=== PATIENT | male | born 1940 | race Caucasian/White ===

== ENCOUNTER → 2020-07-26 12:46 | Outpatient (CLI) | payer MEDICARE, SELFPAY ==
--- NOTE | 2020-07-26 12:51 | RAD_ITS ---
STUDY: X-RAY - ABDOMEN/PELVIS REASON FOR EXAM: Male, 80 years old. CALCULUS OF URETER TECHNIQUE: Single AP view of the abdomen / pelvis. COMPARISON: None. FINDINGS: Normal visualized lung bases. There is a moderate amount of colonic fecal material. A left-sided double-J stent catheter is seen with the proximal tip in the upper pole calyx of the left kidney and distal tip in the left side of the bladder. Multiple small calculi are seen within the left kidney. A tiny calculus is also seen in the upper pole of the right kidney. Normal soft tissue structures. There are diffuse degenerative changes of the visualized lumbar spine. RAD/Abdomen Single View IMPRESSION: Left-sided double-J stent catheter. Bilateral intrarenal calculi, prominent on the left side. Electronically Signed: Seth Horne MD at 14:38 EDT , Service support ,
== END ==
PROVIDERS: Referring Provider Urology; Visit Provider Urology
DX: N20.1 Calculus of ureter (principal)
CPT/HCPCS: 74018

== ENCOUNTER 2024-09-17 08:22 | Observation (INO) | payer MEDICARE, SELFPAY ==
[2024-09-17] VITALS (12 sets, daily range): BP systolic 125–156; BP diastolic 61–75; PULSE 62–85; RESP 16–20; TEMP 36.2–36.9; O2SAT 96–100; BMI 26.2
--- NOTE | 2024-09-17 10:25 | PCM.HP.STD ---
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 Patient is agreeable with the plan because of the ongoing bleeding which then not been able to stop with the catheter. He is n.p.o. and plan for surgery today [facility] Medical History Blood disorder Renal disease Hiatal hernia History of stress test HTN (hypertension) Heart attack Home Medications ?Medication ?Instructions ?Recorded ?Last Taken ?Type amlodipine 2.5 mg tablet 2.5 mg PO DAILY 09/17/24 09/15/24 18:00 History aspirin 81 mg capsule 81 mg PO DAILY 09/17/24 09/15/24 08:00 History carvedilol 6.25 mg tablet 6.25 mg PO BID 09/17/24 09/16/24 08:00 History coQ10 (ubiquinol) 200 mg capsule 200 mg PO QHS prostate 09/17/24 09/15/24 22:00 History (Active Q) cyanocobalamin (vitamin B-12) 500 500 mcg PO DAILY 09/17/24 09/16/24 History mcg tablet (Vitamin B-12) finasteride 5 mg tablet 5 mg PO DAILY 09/17/24 09/15/24 18:00 History folic acid 1 mg tablet 1 mg PO DAILY 09/17/24 09/16/24 12:00 History hydrochlorothiazide 12.5 mg tablet 12.5 mg PO DAILY 09/17/24 09/16/24 12:00 History loratadine 10 mg tablet 10 mg PO PRN Allergis 09/17/24 Unknown History losartan 100 mg tablet 100 mg PO DAILY 09/17/24 09/16/24 08:00 History magnesium oxide 400 mg (241.3 mg 400 mg PO DAILY 09/17/24 09/16/24 12:00 History magnesium) tablet pravastatin 40 mg tablet 40 mg PO DAILY 09/17/24 09/15/24 22:00 History tamsulosin 0.4 mg capsule 0.4 mg PO DAILY 09/17/24 09/15/24 22:00 History terazosin 5 mg capsule 5 mg PO QHS 09/17/24 09/15/24 History turmeric 400 mg capsule mg PO DAILY Prostrate 09/17/24 09/15/24 18:00 History Surgical History H/O cardiac catheterization Social History Smoking Status: Never smoker ROS Constitutional Constitutional: Denies chills, fever(s) or malaise Eyes Eyes: Denies blurry vision or change in vision ENT HEENT: Reports none Cardiovascular Cardiovascular: Denies chest pain or palpitations Respiratory/Chest Respiratory/Chest: Denies cough or shortness of breath with exertion Gastrointestinal Gastrointestinal: Denies abdominal pain, constipation or diarrhea Musculoskeletal Musculoskeletal: Denies back pain, joint stiffness or joint swelling Integumentary Integumentary: Denies dry skin, jaundice, lesions or rash Neurologic Neurologic: Denies confusion, syncope or weakness Psychiatric Psychiatric: Reports none; Denies anxiety or depression Endocrine Endocrinology: Denies excessive sweating, fatigue or flushing Hematologic/Lymphatic Hematologic/Lymphatic: Denies anemia, easy bleeding or easy bruising Vital Signs Vital Signs Vital Signs: 09/17/24 08:47 Temperature 97.7 F L Temperature Source Oral Pulse Rate 78 Respiratory Rate 18 Blood Pressure 137/69 H Blood Pressure Mean 91 Blood Pressure Source Monitor Blood Pressure Position Supine Blood Pressure Location Right Arm Pulse Ox 97 Oxygen Delivery Method Room Air Weight Weight: 78.4 kg Body Mass Index (BMI) 26.2 Assessment & Plan Assessment/Plan (1) Gross hematuria: (2) Bladder mass: PLAN: Plan to proceed to surgery today for evacuation of blood clots and resection of what probably is a bladder tumor or bladder mass bladder cancer.
--- NOTE | 2024-09-17 10:30 | BLA_PTH ---
PATIENT: FREDDIE MONREAL Jr. LOC: MS3 U#:[id number] AGE/SX: 84/M ROOM: [facility] RE09/17/[address]: Dr. Chandrakant Velez MD : 1940 BED: 1 DIS: 09/18/2024 SPEC #: [id number] RECD: 09/17/24 13:44 STATUS: RONNELL LOZANOAlena #: [id number] PAYTON: 09/17/24 10:[address]: Chandrakant Velez DEPT: SURGICAL PATHOLOGY RECD BY: Maury Fitch ENTERED: 09/17/24 14:32 SP TYPE: BLADDER BX OTHR DR: No Primary Care Phys Tissues: A - Urinary bladder, NOS Procedures: Surgery Specimen Level IV HEADER OPERATION: Cystoscopy, evacuation clots PRE-OP DIAGNOSIS: Gross hematuria, bladder mass TISSUE SUBMITTED: A- Bladder stones MICROSCOPIC DIAGNOSIS A. Urinary bladder, cystoscopy and evacuation: * Clotted blood and urinary calculi remnants; no tissue is identified MICROSCOPIC DESCRIPTION Slides are reviewed. GROSS DESCRIPTION A. Received in formalin labeled with the patient's name and date of . Designated as bladder stones is a 6.0 x 4.7 x 1.1 cm aggregate of dark red clotted blood and numerous, smooth, yellow calculi, 0.1 cm to 0.2 cm. No definitive tissue fragments are identified. Director Outcomes sections of the clotted blood are submitted in 2 cassettes. [place] 09/17/2024 CPT:75271
[2024-09-17 10:59] LABS: Hematocrit 37.7 % (40-54); Hemoglobin 12.6 g/dL (13.0-16.5); Mean Corp Hgb Conc 33.4 g/dL (32-36); Mean Corpuscular Volume 93.5 fL (80-94); Mean Platelet Vol. 11.3 fl (6.2-12.0); Platelet Count 112 K/mm3 (150-450); RBC Distribution Width CV 14.6 % (11.6-14.6); RBC Distribution Width SD 50.1 fl (35.1-43.9); Red Blood Count 4.03 M/mm3 (4.6-6.2); White Blood Count 14.0 K/mm3 (4.4-11.0)
[2024-09-17] MEDS: Lactated Ringers 1,000 ML 15 ML IV (11:06)
--- NOTE | 2024-09-17 11:09 | PCM.PRE.AN2 ---
ASA Classification* ASA Classification ASA Classification: 3 and E Assessment & Plan Anesthesia* Anesthesia Assessment Anesthesia Assessment: Discussed sedation and/or anesthesia options, risks, benefits, and alternatives with patient/parents/legal guardian/POA. Questions invited. The patient/parents/legal guardian/POA seems to understand and agrees to proceed with anesthesia plan. Reviewed the physical assessment, medical history, allergy history and patient home medications list prior to surgery/procedure/anesthetic and documented any changes. Performed airway and anesthesia risk assessments. Procedural Plan Add'l anesthesia plan details: I reviewed the patients paper chart from [facility]. Hbg >11 today, will obtain repeat CBC and T&S now. 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 Anesthesia Type Anesthesia Type: General (discussed GA with ETT. Patient consents to blood products. Discussed risks of NE, CVA, seizure, post-op ventilation, sore throat.) History Source History Obtained from:: Patient and Chart Anesthesia Focused Assessment* Temperature: 97.7 F Pulse Rate: 78 Blood Pressure: 137/69 Respiratory Rate: 18 Pulse Ox: 97 Oxygen Delivery Method: Room Air Airway Assessment Mouth opens: >3 cm Mallampati Score: I Teeth Condition: Intact Labs Anesthesia Preop lab: CBC WBC 14.0 K/mm3 (4.4-11.0) H 09/17/24 10:47 09/17/24 RBC 4.03 M/mm3 (4.6-6.2) L 09/17/24 10:47 09/17/24 Hgb 12.6 g/dL (13.0-16.5) L 09/17/24 10:47 09/17/24 Hct 37.7 % (40-54) L 09/17/24 10:47 09/17/24 Plt Count 112 K/mm3 (150-450) L 09/17/24 10:47 09/17/24 CHEMISTRY COAG Pre-Assessment Diagnosis/Proposed Procedure Planned Operative Procedure(s): cystoscopy, clot evacuation Anesthesia History 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 When Was Last Pacemaker Check QUESTION #4 FULL TEXT: You/Your Family Experience fever (hyperthermia) with Anesthesia Last Oral Intake Last Oral intake: Last Oral Intake NPO since 17:00 09/17/24 11:00 Meds taken in AM with sips of No 09/17/24 11:00 water? Meds patient instructed to take am of surgery PONV PONV - coyote hunter: PONV - coyote hunter Female HX of Motion Sickness HX of N/V After Surgery Non-Smoker Duration of Surgery greater than 60 minutes Number of Risk Factors PONV Score Any additional information?: Yes Female: No HX of Motion Sickness: No HX of N/V After Surgery: No Non-Smoker: Yes Duration of Surgery greater than 60 minutes: Yes Number of Risk Factors: 2 PONV Score: Moderate Risk Height & Weight Height & Weight: Anesthesia: Height & Weight Height 5 ft 8 in 09/17/24 11:00 Weight: 78.4 kg 09/17/24 11:00 Body Mass Index (BMI) 26.2 09/17/24 11:00 Respiratory Assessment Respiratory Assessment - coyote hunter: Respiratory Tract Infection Hx - coyote hunter Hx Respiratory Tract Infection No 09/17/24 09:53 STOP Sleep Apnea STOP Sleep Apnea - coyote hunter: STOP Sleep Apnea - coyote hunter Hx Hypertension Yes 09/17/24 08:29 Hx Sleep Apnea No 09/17/24 08:29 CPAP BIPAP Do you snore loudly (louder No 09/17/24 08:29 than talking or can be heard Do you often feel tired/ No 09/17/24 08:29 fatigued/ sleepy during daytime? Has anyone observed you stop No 09/17/24 08:29 breathing during sleep? STOP Results Negative 09/17/24 08:29 QUESTION #5 FULL TEXT : Do you snore loudly (louder than talking or can be heard through closed doors)? 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 Specify any problems Hx of Preganancy in last 3 N/A 09/17/24 08:29 Months Nurse Filling Out Transfusion PAOLA 09/17/24 08:29 & Questions: Date: 09/17/24 09/17/24 08:29 Time: 09:40 09/17/24 08:29 Patient unable to answer at this time (ie. confused, unrespo /Reproduction History /Reproductive History - coyote hunter: /Reproductive Hx- coyote hunter Hx Now No 09/17/24 09:53 Gestational Age (in weeks): EDC: Hx Hx Para Hx Section SAB No 09/17/24 09:53 Active Medications Active Medications: Current Medications Generic Name Dose Route Start Last Admin Trade Name Freq PRN Reason Stop Dose Admin Sodium Chloride 250 mls @ 15 mls/hr 09/17/24 08:31 IV .[id number] PRN Saline Flush Cefazolin Sodium 2 gm/ Sodium 110 mls @ 200 mls/hr 09/17/24 10:19 Chloride IV 09/17/24 10:51 X1 ONE Lactated Ringer's 1,000 mls @ 15 mls/hr 09/17/24 11:15 09/17/24 11:06 IV 15 mls/hr .Q48H RENU Administration Sodium Chloride 10 - 40 ml 09/17/24 08:31 0.9% Saline Lock 10 Ml Syringe IV UD PRN SALINE FLUSH PFSH Medical History Blood disorder Renal disease Hiatal hernia History of stress test HTN (hypertension) Heart attack Home Medications ?Medication ?Instructions ?Recorded ?Last Taken ?Type amlodipine 2.5 mg tablet 2.5 mg PO DAILY 09/17/24 09/15/24 18:00 History aspirin 81 mg capsule 81 mg PO DAILY 09/17/24 09/15/24 08:00 History carvedilol 6.25 mg tablet 6.25 mg PO BID 09/17/24 09/16/24 08:00 History coQ10 (ubiquinol) 200 mg capsule 200 mg PO QHS prostate 09/17/24 09/15/24 22:00 History (Active Q) cyanocobalamin (vitamin B-12) 500 500 mcg PO DAILY 09/17/24 09/16/24 History mcg tablet (Vitamin B-12) finasteride 5 mg tablet 5 mg PO DAILY 09/17/24 09/15/24 18:00 History folic acid 1 mg tablet 1 mg PO DAILY 09/17/24 09/16/24 12:00 History hydrochlorothiazide 12.5 mg tablet 12.5 mg PO DAILY 09/17/24 09/16/24 12:00 History loratadine 10 mg tablet 10 mg PO PRN Allergis 09/17/24 Unknown History losartan 100 mg tablet 100 mg PO DAILY 09/17/24 09/16/24 08:00 History magnesium oxide 400 mg (241.3 mg 400 mg PO DAILY 09/17/24 09/16/24 12:00 History magnesium) tablet pravastatin 40 mg tablet 40 mg PO DAILY 09/17/24 09/15/24 22:00 History tamsulosin 0.4 mg capsule 0.4 mg PO DAILY 09/17/24 09/15/24 22:00 History terazosin 5 mg capsule 5 mg PO QHS 09/17/24 09/15/24 History turmeric 400 mg capsule mg PO DAILY Prostrate 09/17/24 09/15/24 18:00 History Allergy/AdvReac Type Severity Reaction Status Date / Time Iodinated Contrast Media Allergy Severe swelling Verified 09/17/24 10:53 (IVP dye) lips simvastatin Allergy Mild muscle Verified 09/17/24 10:53 aches Surgical History H/O cardiac catheterization Social History Smoking Status: Never smoker Review of Systems (Anesthesia) ROS Narrative System reviewed and no additional complaints, except as documented. Physical Exam Const alert and oriented x3 HEENT dentition normal Resp normal respiratory effort Cardio regular rate Neuro oriented x3 and moves all extremities
--- NOTE | 2024-09-17 12:53 | OP.PCM_ITS ---
Operative Report (Standard) Operative Information Date of Procedure: 09/17/24 Pre-Operative Diagnosis: Gross hematuria bleeding from the bladder Post-Operative Diagnosis: The same, bleeding from large prostate and large bladder stones Surgery/Procedure Performed: Cystoscopy evacuation of blood clots and cauterization of prostatic bleeding and cystolitholapaxy and laser and removal of large bladder stones greater than 3 cm residential child care counselor: No Type of Anesthesia: General RN Documented Start/Stop Times: Operation Date: 09/17/24 10:30 Case Time Into Pre-Op 09/17/24 10:31 Procedure Start Time: 12:29 Procedure Stop Time: 12:54 Select all DRAINS/GRAFTS/IMPLANTS that apply: Drains Drain details: 22 Japanese three-way catheter Estimated Blood Loss: Large Specimen collected: Yes Description of specimen(s) removed: Blood clots and bladder stones Description of surgery: This is a 84-year-old gentleman presented to the outside hospital with bleeding had a CAT scan done that reported a possible mass in the bladder and bleeding and hemorrhage he was transferred over for further care taken back down to the operating room he underwent general anesthesia. He was placed in dorsal lithotomy position. Billy catheter was removed was very bloody I then prepped and draped the patient usual sterile fashion placed in dorsolithotomy position went in the bladder with a 26 Japanese continuous-flow resectoscope once inside the bladder then I evacuated out all these clots from the bladder and then once again all the clots evaluated then I saw several large bladder stones and a whole bunch of small bladder stones in the base of the bladder evacuated all the little tiny stones but then used a 960 ?m laser fiber the laser of the large bladder stone and the stone was lasered completely into little pieces and evacuated out completely after successfully removing out the bladder stone that I noticed that he had extremely large prostate with extremely hypertrophy bilateral hypertrophy and obstruction and there was bleeding active bleeding coming from the prostate bladder neck area so this was cauterized until the bleeding stopped once I get the bleeding under control all the stones were then removed out to another he had extremely large prostate that appeared to be a bladder mass on CAT scan but just a large prostate so this was cauterized to stop the bleeding I did not do a resection of the prostate. Plan to be do medical therapy we will keep the catheter in for irrigation and take the catheter out for voiding trial tomorrow. Surgical Findings: Significantly enlarged very large prostate with bleeding from the bladder neck all the clot blood clots removed and cauterized large bladder stones lasered and removed Complications Complications: No Admit VTE Documentation VTE Present on Admission: No VTE Mechan Device Prophylaxis: SCD's VTE Pharm Prophylaxis ordered?: No
--- NOTE | 2024-09-17 12:53 | DCINST_ITS ---
Discharge Instructions DC O2, CPAP, BIPAP needs Home O2 Discharge instructions: No Dressing / Incision Discharge Activity: Return to Normal Activity Dressing / Incision Call your doctor if your incision/area has: Sudden Increased Bleeding Call your doctor if you observe: Fever of 101 or Higher Follow Up Care Please Follow Up With: Chandrakant Velez MD When: 2 weeks. Test Results: Test results from this visit will be discussed in further detail at your follow- up appointment, if applicable. Discharge Plan Admission Admit Date/Time: 09/17/24 08:22 Attending Provider: Chandrakant Velez Primary Care Provider: Care Physician,Jessy Primary Discharge Orders/Prescriptions Prescriptions: No Action terazosin 5 mg capsule 5 mg PO QHS carvedilol 6.25 mg tablet 6.25 mg PO BID pravastatin 40 mg tablet 40 mg PO DAILY amlodipine 2.5 mg tablet 2.5 mg PO DAILY tamsulosin 0.4 mg capsule 0.4 mg PO DAILY folic acid 1 mg tablet 1 mg PO DAILY losartan 100 mg tablet 100 mg PO DAILY finasteride 5 mg tablet 5 mg PO DAILY hydrochlorothiazide 12.5 mg tablet 12.5 mg PO DAILY aspirin 81 mg capsule 81 mg PO DAILY loratadine 10 mg tablet 10 mg PO PRN magnesium oxide 400 mg (241.3 mg magnesium) tablet 400 mg PO DAILY turmeric 400 mg capsule 400 mg PO DAILY cyanocobalamin (vitamin B-12) [Vitamin B-12] 500 mcg tablet 500 mcg PO DAILY Active Q 200 mg capsule 200 mg PO QHS Referrals / Follow Up: Care Physician,No Primary [Primary Care Provider] -
--- NOTE | 2024-09-17 13:02 | PCM.POST.ANE ---
Anesthesia: Postop Eval I Current Vital Signs Temperature: 97.1 F Pulse Rate: 76 Blood Pressure: 154/70 Respiratory Rate: 20 Pulse Ox: 100 Oxygen Delivery Method: Room Air Assessment Airway patent: Yes Spontaneous unlabored respirations: Yes Mental status: Awake and Calm nausea: No Vomiting: No Anesthesia Complication: No Fluid Hydration Crystalloid volume administer (ml): 800 Total IV fluid infused: 800 Progress Note Anesthesia document: Postop Eval 1 completed: Yes
[2024-09-17] MEDS: 0.9% Normal Saline (1000mL) 1,000 ML 125 ML IV ×2 (14:18→21:35)
--- NOTE | 2024-09-17 16:03 | POSTOPAN2_ITS ---
Anesthesia Postop Eval I Sum Postop Eval Completion status Anesthesia document: Postop Eval 1 completed: Yes Anesthesia Postop Eval I Summary Anesthesia Postop Eval I Summary: Anesthesia Postop Eval I: Assessment Summary Airway patent Yes 09/17/24 13:03 [email or web address] Spontaneous unlabored Yes 09/17/24 13:03 [email or web address] respirations Mental status Awake,Calm 09/17/24 13:03 [email or web address] nausea No 09/17/24 13:03 [email or web address] Vomiting No 09/17/24 13:03 [email or web address] Anesthesia Postop Eval I: Fluid Summary Crystalloid volume administer 800 09/17/24 13:03 [email or web address] (ml) Colloids volume administered ( ml) Blood Product volume administered (ml) Total IV fluid infused 800 09/17/24 13:03 [email or web address] Anesthesia Postop Eval I: Summary Notes Anesthesia Complication No 09/17/24 13:03 [email or web address] Anesthesia Complication Comment: Post-operative progress note Anesthesia: Postop Eval II Evaluation Mental status: Awake and Calm Pain Level: 1 nausea: No Vomiting: No Complications Anesthesia Complication: No
--- NOTE | 2024-09-17 16:03 | PCM.POSTANE2 ---
Anesthesia Postop Eval I Sum Postop Eval Completion status Anesthesia document: Postop Eval 1 completed: Yes Anesthesia Postop Eval I Summary Anesthesia Postop Eval I Summary: Anesthesia Postop Eval I: Assessment Summary Airway patent Yes 09/17/24 13:03 [email or web address] Spontaneous unlabored Yes 09/17/24 13:03 [email or web address] respirations Mental status Awake,Calm 09/17/24 13:03 [email or web address] nausea No 09/17/24 13:03 [email or web address] Vomiting No 09/17/24 13:03 [email or web address] Anesthesia Postop Eval I: Fluid Summary Crystalloid volume administer 800 09/17/24 13:03 [email or web address] (ml) Colloids volume administered ( ml) Blood Product volume administered (ml) Total IV fluid infused 800 09/17/24 13:03 [email or web address] Anesthesia Postop Eval I: Summary Notes Anesthesia Complication No 09/17/24 13:03 [email or web address] Anesthesia Complication Comment: Post-operative progress note Anesthesia: Postop Eval II Evaluation Mental status: Awake and Calm Pain Level: 1 nausea: No Vomiting: No Complications Anesthesia Complication: No
[2024-09-18 01:54] VITALS: BP 147/69; PULSE 75; RESP 16; TEMP 36.6; O2SAT 98
[2024-09-18 05:54] VITALS: BP 118/78; PULSE 70; RESP 16; TEMP 36.6; O2SAT 96
[2024-09-18 06:02] LABS: Hematocrit 31.1 % (40-54); Hemoglobin 10.5 g/dL (13.0-16.5); Immature Granulocytes Count 0.170 X10^3/uL (0.0-0.0); Mean Corp Hgb Conc 33.8 g/dL (32-36); Mean Corpuscular Volume 93.4 fL (80-94); Mean Platelet Vol. 11.9 fl (6.2-12.0); NRBC Flagged by Analyzer 0 % (0-5); Platelet Count 114 K/mm3 (150-450); RBC Distribution Width CV 14.7 % (11.6-14.6); RBC Distribution Width SD 50.4 fl (35.1-43.9); Red Blood Count 3.33 M/mm3 (4.6-6.2); White Blood Count 18.4 K/mm3 (4.4-11.0)
[2024-09-18] MEDS: 0.9% Normal Saline (1000mL) 1,000 ML 125 ML IV (06:19)
[2024-09-18 06:31] LABS: Anion Gap 9 (5-15); BUN 32 mg/dL (4-19); BUN/Creat Ratio 26.6 RATIO (10-20); Calcium,Total 8.0 mg/dL (7.6-11.0); Carbon Dioxide 23.3 mmol/L (21.0-32.0); Chloride 108 mmol/L (98-108); Estimated Creatinine Clearance 45.50 ml/min (50-250); Glucose 130 mg/dL (70-99); Potassium 4.5 mmol/L (3.3-5.1)
--- NOTE | 2024-09-18 07:29 | DS.PCM_ITS ---
Providers Date of Admission: 09/17/24 Date of Discharge: 09/18/24 Primary Care Physician: Jesys Primary Care Phys Reason For Visit: HEMORRHAGING BLADDER MASS Diagnosis Discharge Diagnosis (1) Gross hematuria: Status: Acute Code(s): R31.0 - Gross hematuria (2) Bladder mass: Status: Acute Code(s): N32.89 - Other specified disorders of bladder Plan: Plan to proceed to surgery today for evacuation of blood clots and resection of what probably is a bladder tumor or bladder mass bladder cancer. Medications at Discharge Home Medications amlodipine 2.5 mg tablet 2.5 mg PO DAILY 09/17/24 aspirin 81 mg capsule 81 mg PO DAILY 09/17/24 carvedilol 6.25 mg tablet 6.25 mg PO BID 09/17/24 coQ10 (ubiquinol) 200 mg capsule (Active Q) 200 mg PO QHS prostate 09/17/24 cyanocobalamin (vitamin B-12) 500 mcg tablet (Vitamin B-12) 500 mcg PO DAILY 09/17/24 finasteride 5 mg tablet 5 mg PO DAILY 09/17/24 folic acid 1 mg tablet 1 mg PO DAILY 09/17/24 hydrochlorothiazide 12.5 mg tablet 12.5 mg PO DAILY 09/17/24 loratadine 10 mg tablet 10 mg PO PRN Allergis 09/17/24 losartan 100 mg tablet 100 mg PO DAILY 09/17/24 magnesium oxide 400 mg (241.3 mg magnesium) tablet 400 mg PO DAILY 09/17/24 pravastatin 40 mg tablet 40 mg PO DAILY 09/17/24 tamsulosin 0.4 mg capsule 0.4 mg PO DAILY 09/17/24 terazosin 5 mg capsule 5 mg PO QHS 09/17/24 turmeric 400 mg capsule 400 mg PO DAILY Prostrate 09/17/24 Hospital Course Operations - (Taken to surgery for evacuation of blood clots and removal of bladder stones) Summary of Care Provided Minutes Spent on Discharge: 20 Hospital Course: Patient went to surgery to evacuate blood clots and remove bladder stones will DC Billy today and home after he urinates he would probably benefit from having a simple robotic prostatectomy for a very large prostate Physical Exam Const alert and oriented x3 General Appearance: cooperative HEENT normocephalic and head/scalp atraumatic Eyes PERRL and EOMs intact bilaterally Neck supple, no JVD and no carotid bruits Resp normal respiratory effort, normal air movement and clear to auscultation bilaterally Cardio regular rate and no murmurs GI normal to inspection, nondistended, normoactive bowel sounds and soft to palpation Extremity normal capillary refill General Extremity: no tenderness to palpation of joints or extremities; Negative for edema Skin no rashes or lesions noted and no wounds General Skin Exam: no breakdown Neuro CN's II-XII intact bilaterally Psych affect normal Appearance: appropriate Weight / BMI Weight Weight: 78.4 kg Body Mass Index (BMI) 26.2 ABG / Lab / Microbiology Data 09/18/24 04:50 09/18/24 04:50 Laboratory: Laboratory Results - last 24 hr 09/17/24 10:47: WBC 14.0 H, RBC 4.03 L, Hgb 12.6 L, Hct 37.7 L, MCV 93.5, MCH 31.3, MCHC 33.4, RDW Std Deviation 50.1 H, RDW Coeff of Og 14.6, Plt Count 112 L, MPV 11.3, Blood Type B POSITIVE, Antibody Screen NEGATIVE 09/18/24 04:50: WBC 18.4 H, RBC 3.33 L, Hgb 10.5 L, Hct 31.1 L, MCV 93.4, MCH 31.5, MCHC 33.8, RDW Std Deviation 50.4 H, RDW Coeff of Og 14.7 H, Plt Count 114 L, MPV 11.9, Immature Gran % (Auto) 0.900, Neut % (Auto) 87.8 H, Lymph % (Auto) 5.1 L, [place] % (Auto) 6.0, Eos % (Auto) 0.0, Baso % (Auto) 0.2, Absolute Neuts (auto) 16.2 H, Absolute Lymphs (auto) 0.94, Nucleated RBC % 0, Sodium 141, Potassium 4.5, Chloride 108, Carbon Dioxide 23.3, Anion Gap 9, BUN 32 H, Creatinine 1.19, Estim Creat Clear Calc 45.50 L, Est GFR (MDRD) Non-Af 61, B UN/Creatinine Ratio 26.6 H, Glucose 130 H, Calcium 8.0 D/C Instructions Call your doctor if your incision/area has: Sudden Increased Bleeding Call your doctor if you observe: Fever of 101 or Higher DC O2, CPAP, BIPAP Needs Home O2 Discharge instructions: No Please Follow Up With: Chandrakant Velez MD When: 2 weeks. Meaningful Use Info Meaningful Use Meaningful Use Diagnoses (Choose all that apply): None applicable Discharge Plan Admission Admit Date/Time: 09/17/24 12:58 Attending Provider: Chandrakant Velez Primary Care Provider: Care Physician,No Primary Discharge Orders/Prescriptions Prescriptions: No Action terazosin 5 mg capsule 5 mg PO QHS carvedilol 6.25 mg tablet 6.25 mg PO BID pravastatin 40 mg tablet 40 mg PO DAILY amlodipine 2.5 mg tablet 2.5 mg PO DAILY tamsulosin 0.4 mg capsule 0.4 mg PO DAILY folic acid 1 mg tablet 1 mg PO DAILY losartan 100 mg tablet 100 mg PO DAILY finasteride 5 mg tablet 5 mg PO DAILY hydrochlorothiazide 12.5 mg tablet 12.5 mg PO DAILY aspirin 81 mg capsule 81 mg PO DAILY loratadine 10 mg tablet 10 mg PO PRN magnesium oxide 400 mg (241.3 mg magnesium) tablet 400 mg PO DAILY turmeric 400 mg capsule 400 mg PO DAILY cyanocobalamin (vitamin B-12) [Vitamin B-12] 500 mcg tablet 500 mcg PO DAILY Active Q 200 mg capsule 200 mg PO QHS Referrals / Follow Up: Care Physician,No Primary [Primary Care Provider] -
[2024-09-18 07:55] VITALS: BP 152/82; PULSE 71; RESP 16; TEMP 36.6; O2SAT 96
--- NOTE | 2024-09-18 09:20 | CASEMGMT ---
EROS PASTRANA NOTE:? Strata:?1 6 click:?24 No therapy ordered.? No CM consult ordered.? Medical record reviewed and patient evaluated for identification of discharge planning needs. Patient does not currently demonstrate a need for discharge planning by EROS PASTRANA. Pt did not have PCP listed in [facility]. EROS CM to room. Pt states he sees DIANE Croft @[facility] in [place]. Call placed to registration to have PA entered. Pt states he is very independent and denies having any discharge needs or concerns. Luis LAWSON RN CM
[2024-09-18 11:21] VITALS: BP 145/92; PULSE 70; RESP 18; TEMP 36.9; O2SAT 96
--- NOTE | 2024-09-18 11:51 | CHAPLAIN ---
Type of Pastoral Visit _x__ Initial Visit ___ Follow-up Visit ___ On-call Visit ___ General Patient Visit ___ Spiritual Assessment ___ Family Conference ___ Bereavement ___ Rapid Response ___ Code Blue ___ Other (describe below) Pastoral Care Referral From _x__ Patient ___ Family ___ Nurse ___ Physician ___ Obstetrics Nurse Practitioner ___ Security System Technician ___ Other (describe below) Sacrament/Intervention _x__ Active listening ___ Anointing ___ Islam ___ Bereavement ___ Communion _x__ [place] exploration ___ _x__ Life review _x__ Prayer ___ Reconciliation ___ Sacrament of Sick ___ Supportive presence ___ Wedding ___ Other (describe below) Pastoral Comments patient and spouse give details on how health issue was resolved and their experience with ED and surgery; pt is man of [place] and explains his background with spiritual encounters and how this gets him through life; pt has had communion and anointing by the Anabaptist Roman [employer]; pt expresses thanks for spiritual care and presence; prayer given
[2024-09-18 13:44] VITALS: BP 150/80; PULSE 72; RESP 16; TEMP 37.1; O2SAT 98
== END 2024-09-18 14:28 | disposition home or self-care (01) ==
PROVIDERS: Anesthesiology; Admitting Provider Urology; Referring Provider Urology; Visit Provider Urology
PROC: (CPT 52214; principal; 2024-09-17 11:50)
DX: N40.1 Benign prostatic hyperplasia with lower urinary tract symptoms (principal); N13.8 Other obstructive and reflux uropathy; I10 Essential (primary) hypertension; I25.2 Old myocardial infarction; R31.0 Gross hematuria; N21.0 Calculus in bladder; Z79.82 Long term (current) use of aspirin; Z79.899 Other long term (current) drug therapy
CPT/HCPCS: 52318; 00910; 36415; 80048; 85025; 85027; 86850; 86900; 86901; 88305; 96361; 96365; 96376; 99221; G0378; J0744; J2405

== ENCOUNTER 2024-09-18 20:01 | Observation (INO) | payer MEDICARE, SELFPAY ==
[2024-09-18 20:04] VITALS: BP 188/92; PULSE 73; RESP 16; TEMP 37; O2SAT 99; BMI 28.7
--- OUTSIDE RECORDS SUMMARY | 2024-09-18 21:00 | XMS RPT_ITS | CCD ---
Author Organization [facility] Care Team Providers Care 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 Name Role Phone ENRIQUE GIVENS Primary Care Physician Ruiz Miller MD Primary Care Provider ENRIQUE GIVENS Primary Care Physician Ruiz Miller MD Primary Care Provider Ruiz Miller MD Primary Care Provider Martha Martell MD Unavailable [phone] ENRIQUE GIVENS Primary Care Physician [phone] UNKNOWN, PCP Primary Care Unavailable Alexsander Wooten Attending Unavailable Alexsander Wooten Admitting Unavailable UNKNOWN, PCP Primary Care Unavailable Alexsander Wooten Attending Unavailable Trevor Wootensan Admitting Unavailable UNKNOWN, PCP Primary Care Unavailable Dr. Alexsander Wooten Attending Unavailable ENRIQUE GIVENS Attending Unavailable ENRIQUE GIVENS Primary Care Unavailable ENRIQUE GIVENS Attending Unavailable ENRIQUE GIVENS Primary Care Unavailable ENRIQUE GIVENS Attending Unavailable ENRIQUE GIVENS Primary Care Unavailable ENRIQUE GIVENS Attending Unavailable ENRIQUE GIVENS Primary Care Unavailable ENRIQUE GIVENS Attending Unavailable ENRIQUE GIVENS Primary Care Unavailable Martha Martell MD Unavailable [phone] Enrique Croft PA-C Primary Care Provider [phone] Unavailable Primary Care Provider UnavailENRIQUE Andrade Attending Unavailable ENRIQUE GIVENS Primary Care Unavailable MARTHA MARTELL Referring UnavailENRIQUE Pan Primary Care Unavailable Agustin HURTADO, Dr. Chandrakant Nichole Admit Provider [phone] Agustin HURTADO, Dr. Chandrakant Nichole Attending Provider Agustin HRUTADO, Dr. Chandrakant Nichole Referring Provider ENRIQUE CROFT Primary Care Provider Allergies Allergy Classification Reported Allergen(s) Allergy Type Date of Onset Reaction(s) Facility (20 sources) Contrast media; Translations: [iodinated radiocontrast agents] Drug allergy lips swelling [facility] Work Phone: (20 sources) Simvastatin; Translations: [simvastatin] Drug Allergy 1 Unknown, Other: See Comments [facility] Work Phone: (5 sources) Iodine; Translations: [IODINE] Drug Allergy 1 Unknown [facility] (5 sources) Gadolinium-Contain ing Contrast Media; Translations: [GADOLINIUM-CONTAI NICOLE CONTRAST MEDIA] Drug Allergy 1 Swelling [facility] (1 source) Triiodobenzoic Acids Allergy to substance 5 swelling [facility] Medications Current Medications Medication Drug Class(es) Dates Sig (Normalized) Sig (Original) acyclovir 400 mg oral tablet (3 sources) Herpesvirus Nucleoside Analog DNA Polymerase Inhibitor, Herpes Simplex Virus Nucleoside Analog DNA Polymerase Inhibitor, Herpes Zoster Virus Nucleoside Analog DNA Polymerase Inhibitor Start: 10-06-2022 acyclovir 400 mg oral tablet Dose : 400 mg = 1 tab(s), Oral, BID, 0 Refill(s) Start Date: 10/06/22 Status: Ordered Repeat number: 1 albuterol MDI (90 mcg/inh) CFC free inhalation aerosol (20 sources) Start: 02-05-2021 albuterol MDI (90 mcg/inh) CFC free inhalation aerosol 0 Refill(s) Start Date: 02/05/21 Status: Ordered Repeat number: 1 Start: 02-05-2021 albuterol MDI (90 mcg/inh) CFC free inhalation aerosol 0 Refill(s) Start Date: 02/05/21 Status: Ordered amiodarone hydrochloride 200 mg oral tablet (1 source) Antiarrhythmic Start: 02-23-2021 amiodarone 200 mg oral tablet Dose : 200 mg = 1 tab(s), Oral, qDayM, # 30 tab(s), 0 Refill(s), other reason (Rx) Start Date: 02/23/21 Status: Ordered amLODIPine 2.5 mg oral tablet (20 sources) Dihydropyridine Calcium Channel Emily Start: 08-14-2024 take 1 tablet by mouth once daily Amlodipine 2.5 mg tablet Active 2.5 mg PO DAILY September 17, 2024 12:00am Start: 05-07-2020 take 1 tablet by raheem th once daily amLODIPine (NORVASC) 2.5 mg tablet Take 2.5 mg by mouth once daily. 0 05/07/2020 Active Comment on above: Take 2.5 mg by mouth once daily. aspirin 81 mg oral tablet (20 sources) Platelet Aggregation Inhibitor, Nonsteroidal Anti-inflammatory Drug Start: 09-17-2024 take 1 capsule by mouth once daily Aspirin 81 mg capsule Active 81 mg PO DAILY September 17, 2024 12:00am Start: 06-13-2020 aspirin 81 mg oral delayed release tablet Dose : 81 mg = 1 tab(s), Oral, qHS, 0 Refill(s) Start Date: 06/13/20 Status: Ordered Repeat number: 1 Start: 06-13-2020 aspirin 81 mg oral delayed release tablet Dose : 81 mg = 1 tab(s), Oral, qHS, 0 Refill(s) Start Date: 06/13/20 Status: Ordered Start: 06-13-2020 aspirin 81 mg oral delayed release tablet Dose : 81 mg = 1 tab(s), Oral, Daily, 0 Refill(s) Start Date: 06/13/20 Status: Ordered Comment on above: Take 81 mg by mouth once daily. Take 81 mg by mouth once daily. Last dose per patient will be day before OR 10/18/21 carvedilol 6.25 mg oral tablet (19 sources) alpha-Adrenergic Emily, beta-Adrenergic Emily Start: 09-17-2024 take 1 tablet by mouth twice daily Carvedilol 6.25 mg tablet Active 6.25 mg PO TWICE A DAY September 17, 2024 12:00am Start: 08-14-2024 take 1 tablet by raheem th once daily in the evening carvedilol 6.25 mg oral tablet 1 tab(s), Oral, qPM, # 180 tab(s), 3 Refill(s), Pharmacy: [facility], 172.7, cm, 08/14/24 9:43:00 EDT, Height, kg, 08/14/24 9:43:00 EDT, Dosing Weight Start Date: 08/14/24 Status: Ordered Quantity: 180.0 Unit: tab(s) Repeat number: 4 Start: 04-03-2022 take 1 tablet by raheem th once daily in the evening carvedilol 6.25 mg oral tablet 1 tab(s), Oral, qPM, # 180 tab(s), 0 Refill(s), Pharmacy: [facility], 175.3, cm, 09/21/21 10:24:00 EDT, Height, kg, 09/21/21 10:24:00 EDT, Dosing Weight Start Date: 04/03/22 Status: Ordered Quantity: 180.0 Unit: tab(s) Repeat number: 1 Start: 06-14-2021 carvedilol 6.2 5 mg oral tablet Dose : 6.25 mg = 1 tab(s), Oral, BID, # 180 tab(s), 3 Refill(s), Pharmacy: [facility], 175.3, cm, 04/25/21 14:20:00 EST, Height, kg, 04/25/21 14:20:00 EST, Dosing Weight Start Date: 06/14/21 Status: Ordered Comment on above: Take 6.25 mg by mout h twice daily with meals. Co Q-10 100 mg oral capsule (15 sources) Start: 03-30-2021 Co Q-10 100 mg oral capsule Dose : 200 mg = 2 cap(s), Oral, Daily, 0 Refill(s) Start Date: 03/30/21 Status: Ordered Repeat number: 1 Start: 03-30-2021 Co Q-10 100 mg oral capsule Dose : 200 mg = 2 cap(s), Oral, Daily, 0 Refill(s) Start Date: 03/30/21 Status: Ordered Start: 03-30-2021 Co Q-10 100 mg oral capsule Dose : 100 mg = 1 cap(s), Oral, Daily, 0 Refill(s) Start Date: 03/30/21 Status: Ordered Elderberry preparation (1 source) Start: 02-06-2021 elderberry Ora l, Daily, 0 Refill(s) Start Date: 02/06/21 Status: Ordered ferrous sulfate 325 mg oral tablet (8 sources) Start: 04-25-2021 IRON (ferrous sulfate 325 mg) 65 mg oral tablet Dose : 325 mg = 1 tab(s), Oral, Every other day, Take with food., # 60 tab(s), 3 Refill(s) Start Date: 04/25/21 Status: Ordered finasteride 5 mg oral tablet (20 sources) 5-alpha Reductase Inhibitor Start: 05-07-2020 take 1 tablet by mouth once daily Finasteride 5 mg tablet Active 5 mg PO DAILY September 17, 2024 12:00am Comment on above: Take 5 mg by mouth o nce daily. Take 5 mg by mouth e very afternoon. folic acid 1 mg oral tablet (20 sources) Start: 06-13-2020 take 1 tablet by mouth once daily Folic Acid 1 mg tablet Active 1 mg PO DAILY September 17, 2024 12:00am Comment on above: Take 1 mg by mouth o nce daily. Take 1 mg by mouth e very afternoon. furosemide 20 mg oral tablet (7 sources) Loop Diuretic Start: 03-30-2021 Lasix 20 mg or al tablet Dose : 20 mg = 1 tab(s), Oral, qDay, # 30 tab(s), 1 Refill(s), Pharmacy: [id number], 175.3, cm, 03/30/21 9:05:00 EST, Height, kg, 03/30/21 9:05:00 EST, Dosing Weight Start Date: 03/30/21 Status: Ordered Start: 03-16-2021 Lasix 40 mg or al tablet Dose : 40 mg = 1 tab(s), Oral, qDay, # 30 tab(s), 0 Refill(s), Pharmacy: [id number], 175.3, cm, 03/16/21 8:38:00 EST, Height, kg, 03/16/21 8:38:00 EST, Dosing Weight Start Date: 03/16/21 Status: Ordered Start: 02-23-2021 End: 03-25-2021 Lasix 20 mg oral tablet Dose : 20 mg = 1 tab(s), Oral, Daily, # 30 tab(s), 0 Refill(s), Pharmacy: [id number], 175.3, cm, 02/10/21 18:38:00 EST, Height, kg, 02/23/21 10:21:00 EST, Dosing Weight Start Date: 02/23/21 Stop Date: 03/25/21 Status: Ordered hydroCHLOROthiazide 12.5 mg oral tablet (2 sources) Thiazide Diuretic Start: 08-14-2024 take 1 tablet by mouth once daily Hydrochlorothiazide 12.5 mg tablet Active 12.5 mg PO DAILY September 17, 2024 12:00am loratadine 10 mg oral tablet (5 sources) Start: 09-17-2024 Loratadine 10 mg tablet Active 10 mg PO NEEDED September 17, 2024 12:00am Allergis Start: 08-10-2020 take 1 tablet by raheem th once daily in the morning loratadine (CLARITIN) 10 mg tablet Take 10 mg by mouth every morning. 08/10/2020 Active Comment on above: Take 10 mg by mouth once daily. Take 10 mg by mouth every morning. losartan potassium 100 mg oral tablet (20 sources) Angiotensin 2 Receptor Emily Start: 08-14-2024 take 1 tablet by mouth once daily Losartan 100 mg tablet Active 100 mg PO DAILY September 17, 2024 12:00am Start: 06-07-2021 take 1 tablet by raheem th once daily losartan 50 mg oral tablet 1 tab(s), Oral, qDay, # 90 tab(s), 3 Refill(s), Pharmacy: [facility], 175.3, cm, 10/06/22 11:21:00 EDT, Height, kg, 10/06/22 11:21:00 EDT, Dosing Weight Start Date: 10/16/22 Status: Ordered Quantity: 90.0 Unit: tab(s) Repeat number: 4 Start: 03-09-2021 losartan 50 mg oral tablet Dose : 50 mg = 1 tab(s), Oral, qDay, # 30 tab(s), 11 Refill(s), Pharmacy: [id number], 175.3, cm, 03/09/21 14:49:00 EST, Height, kg, 03/09/21 14:49:00 EST, Dosing Weight Start Date: 03/09/21 Status: Ordered Magnesium (4 sources) Magnesium 250 mg tab Take 400 mg by mouth every afternoon. Active Magnesium 250 mg tab Take 400 mg by mouth every afternoon. 0 Active Magnesium 250 mg tab Take 250 mg by mouth. 0 Active Comment on above: Take 250 mg by mouth . Take 400 mg by mouth every afternoon. magnesium oxide 400 mg oral tablet (20 sources) Start: 09-17-2024 take 1 tablet by mouth once daily Magnesium Oxide 400 mg (241.3 mg magnesium) tablet Active 400 mg PO DAILY September 17, 2024 12:00am Start: 10-06-2022 magnesium oxid e 400 mg oral capsule Dose : 400 mg = 1 cap(s), Oral, qDay, # 75 cap(s), 0 Refill(s) Start Date: 10/06/22 Status: Ordered Quantity: 75.0 Unit: cap(s) Repeat number: 1 Start: 09-13-2020 magnesium oxid e 250 mg oral tablet Dose : 250 mg = 1 tab(s), Oral, qDay, 0 Refill(s) Start Date: 09/13/20 Status: Ordered metoprolol tartrate 25 mg oral tablet (11 sources) beta-Adrenergic Eimly Start: 03-16-2021 metopr olol tartrate 25 mg oral tablet Dose : 25 mg = 1 tab(s), Oral, BID, # 60 tab(s), 1 Refill(s), Pharmacy: [id number], 175.3, cm, 03/16/21 8:38:00 EST, Height, kg, 03/16/21 8:38:00 EST, Dosing Weight Start Date: 03/16/21 Status: Ordered Start: 02-16-2021 metoprolol tar trate 50 mg oral tablet Dose : 50 mg = 1 tab(s), Oral, BIDM, # 60 tab(s), 2 Refill(s), Pharmacy: [id number], 175.3, cm, 02/10/21 18:38:00 EST, Height, kg, 02/10/21 18:38:00 EST, Dosing Weight Start Date: 02/16/21 Status: Ordered Start: 06-13-2020 metoprolol suc cinate 25 mg oral TABLET extended release Dose : 25 mg = 1 tab(s), Oral, qDay, Do not crush or chew (controlled release), # 30 tab(s), 0 Refill(s) Start Date: 06/13/20 Status: Ordered Start: 05-07-2020 take 1 tablet by raheem once daily metoprolol succinate ER (TOPROL XL) 25 mg 24 hr tablet Take 25 mg by mouth once daily. 0 05/07/2020 Active Comment on above: Take 25 mg by mouth once daily. potassium chloride 20 meq oral tablet (7 sources) Start: 03-30-2021 Potassium Chloride (Eqv-K-Tab) 20 mEq oral tablet, extended release Dose : 20 mEq = 1 tab(s), Oral, qDay, # 30 tab(s), 1 Refill(s), Pharmacy: [id number], 175.3, cm, 03/30/21 9:05:00 EST, Height, kg, 03/30/21 9:05:00 EST, Dosing Weight Start Date: 03/30/21 Status: Ordered Start: 03-16-2021 Potassium Chlo ride (Eqv-K-Tab) 20 mEq oral tablet, extended release Dose : 20 mEq = 1 tab(s), Oral, BID, # 60 tab(s), 0 Refill(s), Pharmacy: [id number], 175.3, cm, 03/16/21 8:38:00 EST, Height, kg, 03/16/21 8:38:00 EST, Dosing Weight Start Date: 03/16/21 Status: Ordered Start: 02-23-2021 End: 02-23-2021 K-Tab 20 mEq oral tablet, ex tended release Dose : 20 mEq = 1 tab(s), Oral, qDay, Take with food, # 1 tab(s), 0 Refill(s), Pharmacy: [id number], 175.3, cm, 02/10/21 18:38:00 EST, Height, kg, 02/23/21 10:21:00 EST, Dosing Weight Start Date: 02/23/21 Stop Date: 02/23/21 Status: Ordered pravastatin sodium 40 mg oral tablet (20 sources) HMG-CoA Reductase Inhibitor Start: 08-14-2024 take 1 tablet by mouth once daily Pravastatin 40 mg tablet Active 40 mg PO DAILY September 17, 2024 12:00am Start: 06-13-2020 pravastatin 40 mg oral tablet Dose : 40 mg = 1 tab(s), Oral, Daily, # 90 tab(s), 3 Refill(s), Pharmacy: [facility], 175.3, cm, 10/06/22 11:21:00 EDT, Height, kg, 10/06/22 11:21:00 EDT, Dosing Weight Start Date: 10/16/22 Status: Ordered Quantity: 90.0 Unit: tab(s) Repeat number: 4 Comment on above: Take 40 mg by mouth once daily. Take 40 mg by mouth daily at bedtime. tamsulosin hydrochloride 0.4 mg oral capsule (20 sources) alpha-Adrenergic Emily Start: 07-27-2020 take 1 capsule by mouth once daily Tamsulosin 0.4 mg capsule Active 0.4 mg PO DAILY September 17, 2024 12:00am Comment on above: Take 0.4 mg by mouth once daily. Take 0.4 mg by mouth every afternoon. terazosin 5 mg oral capsule (20 sources) alpha-Adrenergic Emily Start: 09-17-2024 take 1 capsule by mouth at bedtime Terazosin 5 mg capsule Active 5 mg PO AT BEDTIME September 17, 2024 12:00am Start: 05-07-2020 terazosin 5 mg oral capsule Dose : 5 mg = 1 cap(s), Oral, qHS, 0 Refill(s) Start Date: 03/09/21 Status: Ordered Repeat number: 1 Comment on above: Take 5 mg by mouth o nce daily. Take 5 mg by mouth d aily at bedtime. Turmeric extract (1 source) Start: 09-17-2024 take 1 capsule by mouth once daily Turmeric 400 mg capsule Active 400 mg PO DAILY September 17, 2024 12:00am Prostrate ubidecarenone 100 mg oral capsule (10 sources) Start: 03-30-2021 Co Q-10 100 mg oral capsule Dose : 100 mg = 1 cap(s), Oral, Daily, 0 Refill(s) Start Date: 03/30/21 Status: Ordered Start: 06-13-2020 Co Q-10 100 mg oral capsule Dose : 100 mg = 1 cap(s), Oral, Daily, 0 Refill(s) Start Date: 06/13/20 Status: Ordered ubidecarenone Q- 10 (COENZYME Q-10) 10 mg cap Take by mouth twice daily. Active Comment on above: Take by mouth twice daily. ubiquinol 200 mg oral capsule (1 source) Start: 09-17-2024 take 1 capsule by mouth once at bedtime Coq10 (Ubiquinol) (Active Q) 200 mg capsule Active 200 mg PO AT BEDTIME September 17, 2024 12:00am prostate vitamin B12 (12 sources) Vitamin B12 Start: 09-17-2024 take 1 tablet by mouth once daily Cyanocobalamin (Vitamin B-12) (Vitamin B-12) 500 mcg tablet Active 500 ug PO DAILY September 17, 2024 12:00am Start: 06-13-2020 Vitamin B12 10 00 mcg oral tablet Dose : 1,000 mcg = 1 tab(s), Oral, qDay, # 30 tab(s), 0 Refill(s) Start Date: 06/13/20 Status: Ordered Comment on above: Take 1,000 mcg by mo uth once daily. Vitamin B12 1000 mcg oral tablet (15 sources) Start: 06-13-2020 take 0.5 tablet by mouth once daily Vitamin B12 1000 mcg oral tablet 0.5, Oral, qDay, # 30 tab(s), 0 Refill(s) Start Date: 06/13/20 Status: Ordered Quantity: 30.0 Unit: tab(s) Repeat number: 1 Start: 06-13-2020 take 0.5 tablet by m outh every other day Vitamin B12 1000 mcg oral tablet 0.5, Oral, Every other day, # 30 tab(s), 0 Refill(s) Start Date: 06/13/20 Status: Ordered Quantity: 30.0 Unit: tab(s) Repeat number: 1 Start: 06-13-2020 take 0.5 tablet by m outh every other day Vitamin B12 1000 mcg oral tablet 0.5, Oral, Every other day, # 30 tab(s), 0 Refill(s) Start Date: 06/13/20 Status: Ordered Start: 06-13-2020 Vitamin B12 10 00 mcg oral tablet Dose : 1,000 mcg = 1 tab(s), Oral, qDay, # 30 tab(s), 0 Refill(s) Start Date: 06/13/20 Status: Ordered Completed/Discontinued Medications Medication Drug Class(es) Dates Sig (Normalized) Sig (Original) acetaminophen 650 mg oral tablet (20 sources) Start: 02-16-2021 End: 02-23-2021 acetaminophen Dose : 650 mg =, Oral, q4h, PRN Pain, scale 1-6, 0 Refill(s) Start Date: 02/16/21 Stop Date: 02/23/21 Status: Ordered Repeat number: 1 apixaban 2.5 mg oral tablet (9 sources) Factor Xa Inhibitor Start: 04-06-2021 Eliquis 2.5 mg oral tablet Dose : 2.5 mg = 1 tab(s), Oral, BID, 0 Refill(s), 79.9 Start Date: 04/06/21 Status: Ordered ascorbic acid 250 mg oral tablet (2 sources) Vitamin C take 1 tablet by mouth once daily in the morning ascorbic acid, vitamin C, (VITAMIN C) 250 mg tablet Take 250 mg by mouth every morning. 0 Active Comment on above: Take 250 mg by mouth every morning. ELDERBERRY FRUIT (1 source) elderberry fruit (ELDERBERRY ORAL) Take by mouth. 0 Active Comment on above: Take by mouth. fish oil/borage/flax/om3, 6,9 1 (OMEGA 3-6-9 COMPLEX ORAL) (3 sources) take 1 tablet by mouth once, then take 5 tablets by mouth once fish oil/borage/flax/om3 ,6,9 1 (OMEGA 3-6-9 COMPLEX ORAL) Take 1 tablet by mouth every afternoon. Stopped on 12/[address] shannon Active fish oil/borage/ flax/om3,6,9 1 (OMEGA 3-6-9 COMPLEX ORAL) Take 1 tablet by mouth every afternoon. 0 Active Comment on above: Take 1 tablet by raheem th every afternoon. mecobalamin (2 sources) take 1 tablet by mouth once daily in the morning mecobalamin (B12 ACTIVE ORAL) Take 1 tablet by mouth every morning. 0 Active Comment on above: Take 1 tablet by raheem th every morning. mometasone furoate 1 mg/ml topical cream (3 sources) Corticosteroid Start: 10-01-19 mometasone (ELOCON) 0.1 % cream Apply 1 application to affected area as needed. 0 09/30/2020 Active Comment on above: Apply 1 application to affected area as needed. 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] Onset: 12-08-2021 09-13-2020 Chronic Diabetes mellitus without complication (20 sources) Prediabetes 02-14-2021 Episodic Essential hypertension (20 sources) Hypertensive disorder; Translations: [Essential (primary) hypertension] Onset: 12-08-2021 02-23-2021 Chronic Fluid and electrolyte disorders (20 sources) Hyperkalemia 02-14-2021 Episodic Genitourinary symptoms and ill-defined conditions (2 sources) Brianna hematuria; Translations: [Gross hematuria] 09-17-2024 Episodic Heart valve disorders (1 source) Rheumatic disorders of both mitral and tricuspid valves; Translations: [Rheumatic disorders of both mitral and tricuspid valves] Onset: 12-20-2021 Chronic Hyperplasia of prostate (20 sources) Benign prostatic hyperplasia; Translations: [Benign prostatic hyperplasia without lower urinary tract symptoms] Onset: 12-08-2021 02-14-2021 Chronic Hypertension with complications and secondary hypertension (1 source) Hypertensive emergency; Translations: [Hypertensive emergency] Onset: 02-06-2021 Chronic Multiple myeloma (5 sources) Multiple myeloma not having achieved remission; Translations: [Multiple myeloma] Onset: 12-20-2021 10-06-2022 Chronic Nonspecific chest pain (2 sources) Chest pain; Translations: [Chest pain, unspecified] Onset: 02-06-2021 Episodic Nutritional deficiencies (2 sources) Iron deficiency; Translations: [Iron deficiency] Onset: 07-16-2023 Episodic Osteoarthritis (1 source) Unilateral primary osteoarthritis, right hip; Translations: [Unilateral primary osteoarthritis, right hip] Onset: 07-09-2024 Chronic Osteoporosis (1 source) Age-related osteoporosis without current pathological fracture; Translations: [Age-related osteoporosis without current pathological fracture] Onset: 11-29-2023 Chronic Other and ill-defined heart disease (2 sources) Coronary artery dissection; Translations: [Coronary artery dissection] Onset: 07-16-2023 Chronic Other diseases of bladder and urethra (2 sources) Mass of urinary bladder; Translations: [Other specified disorders of bladder] 09-17-2024 Chronic Other non-traumatic joint disorders (1 source) Pain in right hip; Translations: [Pain in right hip] Onset: 07-09-2024 Episodic Other non-traumatic joint disorders (1 source) Pain in unspecified hip; Translations: [Pain in unspecified hip] Onset: 07-09-2024 Episodic Other non-traumatic joint disorders (1 source) Other specified joint disorders, right hip; Translations: [Other specified joint disorders, right hip] Onset: 07-09-2024 Episodic Other nutritional; endocrine; and metabolic disorders (3 sources) Light chain (AL) amyloidosis; 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] Onset: 12-20-2021 Chronic Other screening for suspected conditions (not mental disorders or infectious disease) (20 sources) Platelet count below reference range 09-13-2020 Episodic Phlebitis; thrombophlebitis and thromboembolism (20 sources) H/O: Deep vein thrombosis; Translations: [Deep venous thrombosis] Onset: 12-08-2021 02-14-2021 Episodic Unclassified (20 sources) History of SARS-CoV-2 02-14-2021 Results Test Name Value Interpretation Reference Range Facility Absolute lymphocyte countOrd ered By: Chandrakant Velez on 09-18-2024 Lymphocytes Auto (Unsp spec) [#/Vol] 0.94 10*3/uL 0.83-4.51 [facility] Absolute neutrophil countOrd ered By: Chandrakant Velez on 09-18-2024 Neutrophils (Bld) [#/Vol] 16.2 10*3/uL High 2.0-7.7 [facility] Anion gap in Serum or Plasma Ordered By: Chandrakant Velez on 09-18-2024 Anion gap [Moles/Vol] 9 mmol/L 5-15 [facility] Automated lymphocyte count a s percentage of total leukocytesOrdered By: Chandrakant Velez on 09-18-2024 Lymphocytes/100 WBC Auto (Unsp spec) 5.1 % Low 19-41 [facility] BUN/creatinine ratioOrdered By: Chandrakant Velez on 09-18-2024 Urea nitrogen/Creatinine [Mass ratio] 26.6 mg/mg High 10-20 [facility] Basophil percentageOrdered B y: Chandrakant Velez on 09-18-2024 Basophils/100 WBC (Bld) 0.2 % 0-1 [facility] Carbon dioxide, total [Moles /volume] in Central venous bloodOrdered By: Chandrakant Velez on 09-18-2024 CO2 [Moles/Vol] 23.3 mmol/L 21.0-32.0 [facility] Chloride assayOrdered By: Aleksandra Velez on 09-18-2024 Chloride [Moles/Vol] 108 mmol/L 98-108 [facility] Eosinophil percentageOrdered By: Chandrakant Velez on 09-18-2024 Eosinophils/100 WBC (Bld) 0.0 % 0-5 [facility] Erythrocyte distribution wid th ratioOrdered By: Chandrakant Velez on 09-18-2024 Erythrocyte distribution width (RBC) [Ratio] 14.7 % High 11.6-14.6 [facility] Erythrocyte distribution wid th standard deviationOrdered By: Chandrakant Velez on 09-18-2024 Erythrocyte distribution width (RBC) [Ratio] 50.4 fl High 35.1-43.9 [facility] Glomerular filtration rate ( GFR) estimation/1.73 sq m using serum, plasma, or whole bOrdered By: Chandrakant Velez on 09-18-2024 GFR/1.73 sq M.predicted among non-blacks MDRD (S/P/Bld) [Vol rate/Area] 61 mL/min/{1.73_m2} >60 [facility] Comment on above: mL/min/1.73m2 CKD-EP I Creatinine Equation (2020) Hematocrit Auto (Bld) [Volum e fraction]Ordered By: Chandraknat Velez on 09-18-2024 Hematocrit (Bld) [Volume fraction] 31.1 % Low 40-54 [facility] Hemoglobin measurementOrdere d By: Chandrakant Velez on 09-18-2024 Hemoglobin (Bld) [Mass/Vol] 10.5 g/dL Low 13.0-16.5 [facility] Immature granulocytes/100 WB C Auto (Bld)Ordered By: Chandrakant Velez on 09-18-2024 Immature granulocytes/100 WBC (Bld) 0.900 % 0.0-0.9 [facility] Comment on above: IG% - Immature Granu locytes (promyelocytes, myelocytes and metamyelocytes) > 1% indicates that a LEFT SHIFT is Present. MCV (mean corpuscular volume ) determinationOrdered By: Chandrakant Velez on 09-18-2024 MCV (RBC) [Entitic vol] 93.4 fL 80-94 [facility] Mean corpuscular hemoglobin (MCH) determinationOrdered By: Chandrakant Velez on 09-18-2024 MCH (RBC) [Entitic mass] 31.5 pg 27.0-32.0 [facility] Mean corpuscular hemoglobin concentration (MCHC) determinationOrdered By: Chandrakant Velez on 09-18-2024 MCHC (RBC) [Mass/Vol] 33.8 g/dL 32-36 [facility] Mean platelet volume determi nationOrdered By: Chandrakant Velez on 09-18-2024 Platelet mean volume (Bld) [Entitic vol] 11.9 fL 6.2-12.0 [facility] Monocyte percentageOrdered B y: Chandrakant Velez on 09-18-2024 Monocytes/100 WBC (Bld) 6.0 % 0-10 [facility] Neutrophil percentageOrdered By: Chandrakant Velez on 09-18-2024 Neutrophils/100 WBC (Bld) 87.8 % High 47-70 [facility] Nucleated red blood cell per centageOrdered By: Chandrakant Velez on 09-18-2024 Nucleated RBC/100 WBC (Bld) [Ratio] 0 % 0-5 [facility] Platelet countOrdered By: Aleksandra Velez on 09-18-2024 Platelets (Bld) [#/Vol] 114 10*3/uL Low 150-450 [facility] Potassium measurement (mass/ volume)Ordered By: Chandrakant Velez on 09-18-2024 Potassium (Unsp spec) [Mass/Vol] 4.5 mmol/L 3.3-5.1 [facility] Comment on above: Hemolysis present, R esults could be affected. RBC Auto (Bld) [#/Vol]Ordere d By: Chandrakant Velez on 09-18-2024 RBC (Bld) [#/Vol] 3.33 10*6/uL Low 4.6-6.2 [facility] Serum creatinine measurement (mass/volume)Ordered By: Chandrakant Velez on 09-18-2024 Creatinine [Mass/Vol] 1.19 mg/dL 0.70-1.20 [facility] Serum glucose measurement (m ass/volume)Ordered By: Chandrakant Velez on 09-18-2024 Glucose [Mass/Vol] 130 mg/dL High 70-99 [facility] Serum or plasma calcium roque urement (mass/volume)Ordered By: Chandrakant Velez on 09-18-2024 Calcium [Mass/Vol] 8.0 mg/dL 7.6-11.0 [facility] Serum or plasma urea nitroge n measurement (mass/volume)Ordered By: Chandrakant Velez on 09-18-2024 Urea nitrogen [Mass/Vol] 32 mg/dL High 4-19 [facility] Sodium levelOrdered By: Chandrakant Velez on 09-18-2024 Sodium [Moles/Vol] 141 mmol/L 133-145 [facility] White blood cell (WBC) count Ordered By: Chandrakant Velez on 09-18-2024 WBC (Bld) [#/Vol] 18.4 10*3/uL High 4.4-11.0 [facility] LABORATORYOrdered By: Malou Castaneda on 09-17-2024 ABO and Rh group Nom (Bld) Blood group B Rh(D) positive Invalid Interpretation Code AO BB Auto SS Blood group antibody screen Ql Negative ABSC (09/17/24 4:55 AM) Normal AO BB Auto SS LABORATORYOrdered By: SYSTEM SYSTEM on 09-17-2024 Basophils (Bld) [#/Vol] 0.0 103/mcL Normal 0.0 - 0.3 10^3/mcL AO Workflow SS Basophils/100 WBC (Bld) 0.1 % Normal 0.0 - 2.5 % AO Workflow SS Eosinophil, Absolute 0.0 103/mcL Normal 0.0 - 0 .7 10^3/mcL AO Workflow SS Eosinophils/100 WBC (Bld) 0.1 % Normal 0.0 - 6.0 % AO Workflow SS Erythrocyte distribution width (RBC) [Ratio] 14.9 % Normal 11.5 - 15.5 % AO Workflow SS Hematocrit (Bld) [Volume fraction] 41.4 % Normal 40.0 - 52.0 % AO Workflow SS Hemoglobin (Bld) [Mass/Vol] 13.8 G/dL Normal 13.0 - 17.5 G/dL AO Workflow SS Lymphocytes (Bld) [#/Vol] 0.4 103/mcL Low 0.9 - 4.3 10^3/mcL AO Workflow SS Lymphocytes/100 WBC (Bld) 5.8 % Low 20.0 - 40.0 % AO Workflow SS MCH (RBC) [Entitic mass] 31.2 pg Normal 27.0 - 33.0 pg AO Workflow SS MCHC 33.4 G/dL Normal 32.0 - 36.0 G/dL AO Workflow SS MCV (RBC) [Entitic vol] 93.3 fL Normal 81.0 - 100.0 fL AO Workflow SS Monocyte distribution width Auto (Bld) [Entitic vol] See Comment Invalid Interpretation Code 0.00 - 20.00 AO Hematology S Comment on above: Result Comment: The MDW result could not be reported due to a sample abnormality that prevents the MDW from being calculated. Monocytes (Bld) [#/Vol] 0.1 103/mcL Normal 0.1 - 1.4 10^3/mcL AO Workflow SS Monocytes/100 WBC (Bld) 0.7 % Low 2.0 - 13.0 % AO Workflow SS Neutrophils (Bld) [#/Vol] 6.7 103/mcL Normal 2.3 - 8.1 10^3/mcL AO Workflow SS Neutrophils/100 WBC (Bld) 93.3 % High 50.0 - 75.0 % AO Workflow SS Platelet mean volume (Bld) [Entitic vol] 8.8 fL Normal 6.4 - 10.5 fL AO Workflow SS Platelets (Bld) [#/Vol] 107 103/mcL Low 150 - 450 10^3/mcL AO Workflow SS RBC (Bld) [#/Vol] 4.44 106/mcL Low 4.50 - 6.0 0 10^6/mcL AO Workflow SS WBC (Bld) [#/Vol] 7.2 103/mcL Normal 4.5 - 10.8 10^3/mcL AO Workflow SS LABORATORYOrdered By: SYSTEM SYSTEM on 09-16-2024 Basophils (Bld) [#/Vol] 0.1 103/mcL Normal 0.0 - 0.3 10^3/mcL AO Workflow SS Basophils/100 WBC (Bld) 0.9 % Normal 0.0 - 2.5 % AO Workflow SS Calcium [Mass/Vol] 9.0 mg/dL Normal 8.4 - 10. 2 mg/dL AO ADM SS Chloride [Moles/Vol] 104 mmol/L Normal 98 - 10 7 mmol/L AO ADM SS CO2 [Moles/Vol] 31 mmol/L Normal 23 - 31 mmol/L AO ADM SS Creatinine [Mass/Vol] 1.44 mg/dL High 0.67 - 1.17 mg/dL AO ADM SS Electrolyte Balance 5.0 mEq/L Normal 4.0 - 15 .0 mEq/L AO ADM SS Eosinophil, Absolute 0.1 103/mcL Normal 0.0 - 0 .7 10^3/mcL AO Workflow SS Eosinophils/100 WBC (Bld) 2.1 % Normal 0.0 - 6.0 % AO Workflow SS Erythrocyte distribution width (RBC) [Ratio] 15.1 % Normal 11.5 - 15.5 % AO Workflow SS Estimated Glomerular Filtration Rate 48 ml/min/1.73sqm Invalid Interpretation Code AO Chemistry S Comment on above: Interpretive Data: Stages of Chronic Kidney Disease (CKD) Stage Description eGFR(ml/min/1.73 sq.m.) CKD 1 Normal kidney function or >=90 normal kindney function with possible kidney damage (ex. Proteinuria) CKD 2 Kidney damage with mild loss 60-89 of kidney function CKD 3a Mild to moderate loss of kidney 45-59 function CKD 3b Moderate to severe loss of 30-44 of kindey function CKD 4 Severe loss of kidney function 15-29 CKD 5 Kidney failure <15 Note: (go live 2024) the eGFR calculation was updated to the 2020 CKD-EPI creatinine equation without a race factor to calculate the eGFR results. Glucose [Mass/Vol] 104 mg/dL Normal 83 - 110 mg/dL AO ADM SS Hematocrit (Bld) [Volume fraction] 42.3 % Normal 40.0 - 52.0 % AO Workflow SS Hemoglobin (Bld) [Mass/Vol] 14.2 G/dL Normal 13.0 - 17.5 G/dL AO Workflow SS Lymphocytes (Bld) [#/Vol] 1.3 103/mcL Normal 0.9 - 4.3 10^3/mcL AO Workflow SS Lymphocytes/100 WBC (Bld) 19.2 % Low 20.0 - 40.0 % AO Workflow SS MCH (RBC) [Entitic mass] 31.4 pg Normal 27.0 - 33.0 pg AO Workflow SS MCHC 33.5 G/dL Normal 32.0 - 36.0 G/dL AO Workflow SS MCV (RBC) [Entitic vol] 93.6 fL Normal 81.0 - 100.0 fL AO Workflow SS Monocyte distribution width Auto (Bld) [Entitic vol] 18.54 1 Normal 0.00 - 20.00 AO Workflow SS Comment on above: Result Comment: For ED adult patients suspected of sepsis, MDW<=20.0 does not rule out sepsis or risk of sepsis Monocytes (Bld) [#/Vol] 0.7 103/mcL Normal 0.1 - 1.4 10^3/mcL AO Workflow SS Monocytes/100 WBC (Bld) 10.0 % Normal 2.0 - 13.0 % AO Workflow SS Neutrophils (Bld) [#/Vol] 4.4 103/mcL Normal 2.3 - 8.1 10^3/mcL AO Workflow SS Neutrophils/100 WBC (Bld) 67.8 % Normal 50.0 - 75.0 % AO Workflow SS Platelet mean volume (Bld) [Entitic vol] 8.9 fL Normal 6.4 - 10.5 fL AO Workflow SS Platelets (Bld) [#/Vol] 114 103/mcL Low 150 - 450 10^3/mcL AO Workflow SS Potassium [Moles/Vol] 3.8 mmol/L Normal 3.5 - 5.1 mmol/L AO ADM SS RBC (Bld) [#/Vol] 4.52 106/mcL Normal 4.50 - 6.0 0 10^6/mcL AO Workflow SS Sodium [Moles/Vol] 140 mmol/L Normal 136 - 145 mmol/L AO ADM SS Urea nitrogen [Mass/Vol] 33 mg/dL High 7 - 18 mg/dL AO ADM SS Urea nitrogen/Creatinine [Mass ratio] 23 ratio Normal 7 - 27 ratio AO ADM SS WBC (Bld) [#/Vol] 6.5 103/mcL Normal 4.5 - 10.8 10^3/mcL AO Workflow SS LABORATORYOrdered By: Malou Castaneda on 09-16-2024 Appearance (U) Cloudy *ABN* (09/16/24 9:49 PM) Invalid Interpretation Code Clear AO Auto Urine SS Bilirubin Ql (U) Negative (09/16/24 9:49 PM) Normal Negative AO Auto Urine SS Color (U) Red 3 *ABN* (09/16/24 9:49 PM) Invalid Interpretation Code AO Auto Urine SS Comment on above: Result Comment: The specimen was grossly bloody. The chemical analysis was performed on a centrifuged specimen containing little or no grossly identifiable blood. Glucose Test strip (U) [Mass/Vol] Negative Normal Negative AO Auto Urine SS Hemoglobin Auto test strip (U) [Mass/Vol] Large *ABN* (09/16/24 9:49 PM) Invalid Interpretation Code Negative AO Auto Urine SS Ketones Ql (U) 15 mg/dL Invalid Interpretation Code Negative AO Auto Urine SS UA Leuk Est Moderate *ABN* (09/16/24 9:49 PM) Invalid Interpretation Code Negative AO Auto Urine SS UA Nitrite Positive *ABN* (09/16/24 9:49 PM) Invalid Interpretation Code Negative AO Auto Urine SS UA pH 6.5 (09/16/24 9:49 PM) Normal 5.0 - 8.0 AO Auto Urine SS UA Protein >=300 mg/dL Invalid Interpretation Code Negative AO Auto Urine SS UA RBC LOADED /HPF Invalid Interpretation Code 0-2 AO Auto Urine SS UA Spec Grav 1.020 (09/16/24 9:49 PM) Normal 1.015-1.025 AO Auto Urine SS UA Specimen Type Clean Catch (09/16/24 9:49 PM) Normal AO Auto Urine SS UA Squam Epithelial Negative Normal 0-20 AO Au to Urine SS UA Urobilinogen 4.0 E.U./dL Invalid Interpretation Code 0.2-1.0 AO Auto Urine SS WBC LM.HPF (Urine sed) [#/Area] 5-10 /HPF Invalid Interpretation Code 0-5 AO Auto Urine SS 25(OH)D3 [facility] 2024 25-hydroxyvitamin D3 [Mass/Vol] 56.0 ng/mL Normal 30.0-100.0 [facility] Comment on above: Order Comment: Speci men Type: BLOOD SPECIMEN Ordering Facility: [facility]) Address: [address] [place], [place] [id number] Result Comment: Defi ciency\X09\Less than 20 ng/mL Insufficiency\X09\20 - Less than 30 ng/mL Sufficiency\X09\30 - 100 ng/mL Performed By: #### K LFRS #### [facility] CLIA [id number] [address] [id number] [place] Comprehensive metabolic 2000 panelon 09-02-2024 Albumin [Mass/Vol] 3.4 g/dL Normal 3.2-5.0 [facility] Comment on above: Order Comment: Speci men Type: BLOOD SPECIMEN Ordering Facility: [facility]) Address: [address] [place] [address] Performed By: #### K LFRS #### [facility] CLIA [id number] [address] [place] [address] [place] ALP [Catalytic activity/Vol] 77 U/L Normal 45-117 [facility] Comment on above: Order Comment: Speci men Type: BLOOD SPECIMEN Ordering Facility: [facility] Address: [address] [place] [address] Performed By: #### K LFRS #### [facility] CLIA [id number] [address] [place] [address] [place] ALT [Catalytic activity/Vol] 18 U/L Normal 13-61 [facility] Comment on above: Order Comment: Speci men Type: BLOOD SPECIMEN Ordering Facility: [facility]) Address: [address] [place], [place] [id number] Result Comment: Resu lts may be falsely depressed after the administration of Sulfasalazine and/or Sulfapyridine. Performed By: #### K LFRS #### [facility] CLIA [id number] [address] [place], [place] [id number] [place] Anion gap [Moles/Vol] 6 mmol/L Normal 5-[address] [facility] Comment on above: Order Comment: Speci men Type: BLOOD SPECIMEN Ordering Facility: [facility] Address: [address] [place] [address] Performed By: #### K LFRS #### [facility] CLIA [id number] [address] [place] [address] [place] AST [Catalytic activity/Vol] 21 U/L Normal 8-34 [facility] Comment on above: Order Comment: Speci men Type: BLOOD SPECIMEN Ordering Facility: [facility] Address: [address] [place] [address] Result Comment: Resu lts may be falsely depressed after the administration of Sulfasalazine and/or Sulfapyridine. Performed By: #### K LFRS #### [facility] CLIA [id number] [address] [place] [address] [place] Bilirubin [Mass/Vol] 0.7 mg/dL Normal 0.2-1.0 [facility] Comment on above: Order Comment: Speci men Type: BLOOD SPECIMEN Ordering Facility: [facility] Address: [address] [place] [address] Performed By: #### K LFRS #### [facility] CLIA [id number] [address] [place] [address] [place] Calcium [Mass/Vol] 9.1 mg/dL Normal 8.5-10.5 [facility] Comment on above: Order Comment: Speci men Type: BLOOD SPECIMEN Ordering Facility: [facility] Address: [address] [place] [address] Performed By: #### K LFRS #### [facility] CLIA [id number] [address] [id number] [place] Chloride [Moles/Vol] 105 mmol/L Normal 98-107 [facility] Comment on above: Order Comment: Speci men Type: BLOOD SPECIMEN Ordering Facility: [facility]) Address: [address] [place] [address] Performed By: #### K LFRS #### [facility] CLIA [id number] [address] [place], [place] [id number] [place] CO2 [Moles/Vol] 33 mmol/L High 21-32 [facility] Comment on above: Order Comment: Speci men Type: BLOOD SPECIMEN Ordering Facility: [facility]) Address: [address] [place] [address] Performed By: #### K LFRS #### [facility] CLIA [id number] [address] [place] [address] [place] Creatinine [Mass/Vol] 1.23 mg/dL Normal 0.50-1.[address] [facility] Comment on above: Order Comment: Speci men Type: BLOOD SPECIMEN Ordering Facility: [facility]) Address: [address] [place] [address] Result Comment: Darlene ents receiving either N-Acetylcysteine (NAC) or Metamizole prior to venipuncture, may have falsely depressed results. Performed By: #### K LFRS #### [facility] CLIA [id number] [address] [place] [address] [place] Creatinine and Glomerular filtration rate.predicted panel (S/P/Bld) 58 mL/min/1.73m??? Low >=60 [facility] Comment on above: Order Comment: Speci dimitris Type: BLOOD SPECIMEN Ordering Facility: [facility]) Address: [address] [place] [address] Result Comment: Azeb mated Glomerular Filtration Rate (eGFR) is calculated using the 2020 CKD-EPI creatinine equation. This equation utilizes serum creatinine, sex, and age as parameters. The creatinine assay has traceable calibration to isotope dilution-mass spectrometry. Refer to KDIGO guidelines for clinical interpretation. In patients with unstable renal function, e.g. those with acute kidney injury, the eGFR may not accurately reflect actual GFR. Performed By: #### K LFRS #### [facility] CLIA [id number] [address] [id number] [place] Glucose [Mass/Vol] 90 mg/dL Normal 70-100 [facility] Comment on above: Order Comment: Elma shanks Type: BLOOD SPECIMEN Ordering Facility: [facility]) Address: [address] [place] [address] Result Comment: The [place] Diabetes Association (ADA) provides guidance for cutoff values for fasting glucose and random glucose. The ADA defines fasting as no caloric intake for at least 8 hours. Fasting plasma glucose results between 100 to 125 mg/dL indicate increased risk for diabetes (prediabetes). Fasting plasma glucose results greater than or equal to 126 mg/dL meet the criteria for diagnosis of diabetes. In the absence of unequivocal hyperglycemia, results should be confirmed by repeat testing. In a patient with classic symptoms of hyperglycemia or hyperglycemic crisis, random plasma glucose results greater than or equal to 200 mg/dL meet the criteria for diagnosis of diabetes. Reference: Standards of Medical Care in Diabetes 2016, [place] Diabetes Association. Diabetes Care. 2016.39(Suppl 1). Results may be falsely elevated after the administration of Sulfapyridine. Results may be falsely depressed after the administration of Sulfasalazine. Performed By: #### K LFRS #### [facility] CLIA [id number] [facility] [address] [address] [place] Potassium [Moles/Vol] 3.6 mmol/L Normal 3.5-5.[address] [facility] Comment on above: Order Comment: Elma shanks Type: BLOOD SPECIMEN Ordering Facility: [facility]) Address: [address] [place] [address] Performed By: #### K LFRS #### [facility] CLIA [id number] [facility] [address] [address] [place] Protein [Mass/Vol] 5.8 g/dL Low 6.0-8.5 [facility] Comment on above: Order Comment: Speci men Type: BLOOD SPECIMEN Ordering Facility: [facility] Address: [address] [place] [address] Performed By: #### K LFRS #### [facility] CLIA [id number] [address] [place] [address] [place] Sodium [Moles/Vol] 144 mmol/L Normal 136-145 [facility] Comment on above: Order Comment: Speci men Type: BLOOD SPECIMEN Ordering Facility: [facility] Address: [address] [place] [address] Performed By: #### K LFRS #### [facility] CLIA [id number] [address] [place] [address] [place] Urea nitrogen [Mass/Vol] 17 mg/dL Normal 7-26 [facility] Comment on above: Order Comment: Speci men Type: BLOOD SPECIMEN Ordering Facility: [facility] Address: [address] [place] [address] Performed By: #### K LFRS #### [facility] CLIA [id number] [address] [place] [address] [place] Ferritin SerPl-mCncon 2024 Ferritin [Mass/Vol] 142.0 ng/mL Normal 24.0-388.0 [facility] Comment on above: Order Comment: Speci men Type: BLOOD SPECIMEN Ordering Facility: [facility] Address: [address] [place] [address] Performed By: #### K LFRS #### [facility] CLIA [id number] [address] [place] [address] [place] IMMUNOGLOBULINS,IGG,IGA,IGMo n 09-02-2024 IgA [Mass/Vol] 60 mg/dL Low 70-400 [facility] Comment on above: Order Comment: Speci men Type: BLOOD SPECIMEN [facility]ing Facility: [facility] Address: [address] [place], [place] [phone] Performed By: #### K LFRS #### [facility] CLIA [id number] [address] [place] [address] [place] IgG [Mass/Vol] 646 mg/dL Low 700-1600 [facility] Comment on above: Order Comment: Speci men Type: BLOOD SPECIMEN Ordering Facility: [facility] Address: [address] [place] [address] Performed By: #### K LFRS #### [facility] CLIA [id number] [address] [place] [address] [place] IgM [Mass/Vol] 94 mg/dL Normal 40-230 [facility] Comment on above: Order Comment: Speci men Type: BLOOD SPECIMEN Ordering Facility: [facility] Address: [address] [place] [address] Performed By: #### K LFRS #### [facility] CLIA [id number] [address] [place] [address] [place] Iron and Iron binding capaci ty panelon 09-02-2024 Iron [Mass/Vol] 62 ug/dL Low 65-175 [facility] Comment on above: Order Comment: Speci men Type: BLOOD SPECIMEN Ordering Facility: [facility] Address: [address] [place] [address] Result Comment: Darlene ents treated with metal-binding drugs (e.g.deferoxamine) may have depressed iron values, as chelated iron may not properly react in the Siemens iron assay. Performed By: #### K LFRS #### [facility] CLIA [id number] [address] [place] [address] [place] Iron binding capacity [Mass/Vol] 262 ug/dL Normal 221-481 [facility] Comment on above: Order Comment: Speci men Type: BLOOD SPECIMEN Ordering Facility: [facility] Address: [address] [place] [address] Performed By: #### K LFRS #### [facility] CLIA [id number] [address] [place] [address] [place] Iron/TIBC [Molar ratio] 23.7 % Normal 22.0-44.0 [facility] Comment on above: Order Comment: Speci men Type: BLOOD SPECIMEN Ordering Facility: [facility]) Address: [address] [place], [place] [phone] Performed By: #### K LFRS #### [facility] CLIA [id number] [address] [place] [address] [place] KAPPA/BARAJAS,FREE,SERon 2024 Immunoglobulin light chains.kappa.free (S) [Mass/Vol] 10.4 mg/L Normal 3.3-19.4 [facility] Comment on above: Order Comment: Speci [facility] Type: BLOOD SPECIMEN Ordering Facility: [facility] Address: [address] [place], [place] [id number] Result Comment: Rare ly, increased serum free light chains levels may not be detected or accurately quantified due to prozone phenomenon or in high viscosity samples using this immunoturbidimetric assay. Correlation with other laboratory results and clinical findings is recommended. The [place] Free Light Chain was performed using the Binding Site Optilite immunoturbidimetric method. Result obtained with different assay methods or kits cannot be used interchangeably. Performed By: #### K LFRS #### [facility] CLIA [id number] [address] [place] [address] [place] Immunoglobulin light chains.kappa/Immunoglo bulin light chains.lambda (S) [Mass ratio] 1.27 Normal 0.26-1.65 [facility] Comment on above: Order Comment: [facility]: BLOOD SPECIMEN Ordering Facility: [facility]) Address: [address] [place] [address] Performed By: #### K LFRS #### [facility] CLIA [id number] [address] [place] [address] [place] Immunoglobulin light chains.lambda.free [Mass/Vol] 8.2 mg/L Normal 5.7-26.3 [facility] Comment on above: Order Comment: Speci men Type: BLOOD SPECIMEN Ordering Facility: [facility] Address: [address] [place] [address] Result Comment: Rare ly, increased serum free light chains levels may not be detected or accurately quantified due to prozone phenomenon or in high viscosity samples using this immunoturbidimetric assay. Correlation with other laboratory results and clinical findings is recommended. The [place] Free Light Chain was performed using the Binding Site Optilite immunoturbidimetric method. Result obtained with different assay methods or kits cannot be used interchangeably. Performed By: #### K LFRS #### [facility] CLIA [id number] [address] [place] [address] [place] PROTEIN ELECTROPHORESIS SERU M WITH HUNTER (P)on 09-02-2024 Albumin [Mass/Vol] 3.75 g/dL Normal 3.43-5.41 [facility] Comment on above: Order Comment: Speci men Type: BLOOD SPECIMEN Ordering Facility: [facility] Address: [address] [place] [address] Performed By: #### K LFRS #### [facility] CLIA [id number] [address] [place] [address] [place] Alpha 1 globulin Elph [Mass/Vol] 0.24 g/dL Normal 0.18-0.43 [facility] Comment on above: Order Comment: Speci men Type: BLOOD SPECIMEN Ordering Facility: [facility] Address: [address] [place] [address] Performed By: #### K LFRS #### [facility] CLIA [id number] [address] [place], [place] [address] [place] Alpha 2 globulin Elph [Mass/Vol] 0.64 g/dL Normal 0.42-0.98 [facility] Comment on above: Order Comment: Speci men Type: BLOOD SPECIMEN Ordering Facility: [facility] Address: [address] [place] [address] Performed By: #### K LFRS #### [facility] CLIA [id number] [address] [place] [address] [place] Beta globulin Elph [Mass/Vol] 0.52 g/dL Low 0.61-1.17 [facility] Comment on above: Order Comment: Speci men Type: BLOOD SPECIMEN Ordering Facility: [facility] Address: [address] [place], [place] [address] Performed By: #### K LFRS #### [facility] CLIA [id number] [address] [place] [address] [place] COMMENT (SERUM PROT ELECTRO) Monoclonal Protein analysis (immunofixation) is not indicated. Normal [facility] Comment on above: Order Comment: Speci men Type: BLOOD SPECIMEN Ordering Facility: [facility] Address: [address] [place] [address] Performed By: #### K LFRS #### [facility] CLIA [id number] [address] [place], [place] [address] [place] Gamma globulin Elph [Mass/Vol] 0.55 g/dL Normal 0.53-1.51 [facility] Comment on above: Order Comment: Speci men Type: BLOOD SPECIMEN Ordering Facility: [facility] Address: [address] [place] [address] Performed By: #### K LFRS #### [facility] CLIA [id number] [address] [place] M-PROTEIN LOCATION Normal [facility] Comment on above: Order Comment: Speci men Type: BLOOD SPECIMEN Ordering Facility: [facility] Address: [address] [place] [address] Result Comment: Not Applicable. Performed By: #### K LFRS #### [facility] CLIA [id number] [address] [place] [address] OF [facility] Protein Fractions [Interp] No definitive M protein is identified on protein electrophoresis. Normal No definitive M protein is identified on protein electrophor esis. [facility] Comment on above: Order Comment: Speci men Type: BLOOD SPECIMEN Ordering Facility: [facility] Address: [address] [place] [address] Performed By: #### K LFRS #### [facility] CLIA [id number] [address] [place] [address] [place] Protein.monoclonal Elph [Mass/Vol] 0.00 g/dL Normal <=0.00 [facility] Comment on above: Order Comment: Speci men Type: BLOOD SPECIMEN Ordering Facility: [facility] Address: [address] [place] [address] Performed By: #### K LFRS #### [facility] CLIA [id number] [address] [place] [address] [place] SPE STAFF REVIEW Reviewed by Steff Avila MD [facility] Comment on above: Order Comment: Speci men Type: BLOOD SPECIMEN Ordering Facility: [facility] Address: [address] [place] [address] Performed By: #### K LFRS #### [facility] CLIA [id number] [address] [place], [place] [address] [place] Prot SerPl-mCncon 09-02-2024 Protein [Mass/Vol] 5.7 g/dL Low 6.3-8.0 [facility] Comment on above: Order Comment: Speci men Type: BLOOD SPECIMEN Ordering Facility: [facility] Address: [address] [place] [address] Performed By: #### K LFRS #### [facility] CLIA [id number] [facility] [place] [address] [place] Prot Ur-mCncon 09-02-2024 Protein (U) [Mass/Vol] 8 mg/dL Normal 0-20 [facility] Comment on above: Order Comment: Speci men Type: BLOOD SPECIMEN Ordering Facility: [facility] Address: [address] [place] [address] Performed By: #### K LFRS #### [facility] CLIA [id number] [address] [place] [address] [place] URINE PROTEIN ELECTROPHORESI S WITH HUNTER (P)on 09-02-2024 Albumin Elph (U) [Mass fraction] 36.70 % Normal [facility] Comment on above: Order Comment: Speci men Type: BLOOD SPECIMEN Ordering Facility: [facility] Address: [address] [place] [address] Performed By: #### K LFRS #### [facility] CLIA [id number] [address] [place] [address] [place] Alpha 1 globulin Elph (U) [Mass fraction] 3.57 % Normal [facility] Comment on above: Order Comment: Speci men Type: BLOOD SPECIMEN Ordering Facility: [facility] Address: [address] [place] [address] Performed By: #### K LFRS #### [facility] CLIA [id number] [facility] [place] [address] [place] Alpha 2 globulin Elph (U) [Mass fraction] 15.39 % Normal [facility] Comment on above: Order Comment: Speci men Type: BLOOD SPECIMEN Ordering Facility: [facility] Address: [address] [place] [address] Performed By: #### K LFRS #### [facility] CLIA [id number] [address] [place] [address] [place] Beta globulin Elph (U) [Mass fraction] 29.61 % Normal [facility] Comment on above: Order Comment: Speci men Type: BLOOD SPECIMEN Ordering Facility: [facility]) Address: [address] [place] [address] Performed By: #### K LFRS #### [facility] CLIA [id number] [address] [place] [address] [place] COMMENT (URINE PROT ELECTRO) Monoclonal Protein analysis (immunofixation) is not indicated. Normal [facility] Comment on above: Order Comment: Speci men Type: BLOOD SPECIMEN Ordering Facility: [facility] Address: [address] [place] [address] Performed By: #### K LFRS #### [facility] CLIA [id number] [address] [place] [address] [place] Gamma globulin Elph (U) [Mass fraction] 14.73 % Normal [facility] Comment on above: Order Comment: Speci men Type: BLOOD SPECIMEN Ordering Facility: [facility]) Address: [address] [place] [address] Performed By: #### K LFRS #### [facility] CLIA [id number] [address] [place] [address] [place] Protein Fractions Elph Nick (U) [Interp] No definitive M protein is identified on protein electrophoresis. Normal No definitive M protein is identified on protein electrophor esis. [facility] Comment on above: Order Comment: Speci men Type: BLOOD SPECIMEN Ordering Facility: [facility]) Address: [address] [place] [address] Performed By: #### K LFRS #### [facility] CLIA [id number] [address] [place], [place] [address] [facility] [place] STAFF REVIEW (URINE ELECTRO) Reviewed by Steff Avila MD [facility] Comment on above: Order Comment: Speci men Type: BLOOD SPECIMEN Ordering Facility: [facility]) Address: [address] [place] [address] Performed By: #### K LFRS #### [facility] CLIA [id number] [address] [place] [address] OF [place] XR HIP 2-3 VIEWS RIGHTon XR HIP 2-3 VIEWS RIGHT ORIGINAL EXAMINATION: 2 XRAY VIEWS OF THE RIGHT HIP 07/09/2024 9:43 am COMPARISON: None. HISTORY: ORDERING SYSTEM PROVIDED HISTORY: Reason for Exam: hip pain FINDINGS: Mild joint space narrowing affects the inferior right hip joint. There is no acute fracture or subluxation. No destructive bone lesion is seen. IMPRESSION: 1. Mild osteoarthritis right hip. 2. No acute fracture. Interpreted by: Deangelo Pink DO Preliminary Report By: Deangelo Pink DO Electronically signed By Deangelo Pink DO Dictated Date: 07/09/2024 4:06:48 PM Prelim Date: 07/09/2024 4:07:29 PM Sign Date: 07/09/2024 4:07:29 PM Ordering Provider: ENRIQUE Ma [facility] Comprehensive metabolic 2000 panelon 12-04-2023 Albumin [Mass/Vol] 3.5 g/dL Normal 3.2-5.0 [facility] Comment on above: Order Comment: Speci men Type: BLOOD SPECIMEN Ordering Facility: [facility]) Address: [address] [place] [address] Performed By: #### 2 4323-8, 2276-4, 83642-7 #### [facility] CLIA [id number] [address] [place] [address] [place] ALP [Catalytic activity/Vol] 97 U/L Normal 45-117 [facility] Comment on above: Order Comment: Speci men Type: BLOOD SPECIMEN Ordering Facility: [facility] Address: [address] [place] [address] Performed By: #### 2 4323-8, 2276-4, 77869-1 #### [facility] CLIA [id number] [address] [place] [address] [place] ALT [Catalytic activity/Vol] 20 U/L Normal 13-61 [facility] Comment on above: Order Comment: Speci men Type: BLOOD SPECIMEN Ordering Facility: [facility] Address: [address] [place] [address] Result Comment: Resu lts may be falsely depressed after the administration of Sulfasalazine and/or Sulfapyridine. Performed By: #### 2 4323-8, 6-4, 47221-6 #### [facility] CLIA [id number] [address] [place] [address] [place] [facility] Anion gap [Moles/Vol] 6 mmol/L Normal 5-[address] [facility] Comment on above: Order Comment: Speci dimitris Type: BLOOD SPECIMEN Ordering Facility: [facility] Address: [address] [place] [address] Performed By: #### 2 4323-8, 2276-4, 74773-9 #### [facility] CLIA [id number] [address] [place] [address] [place] AST [Catalytic activity/Vol] 21 U/L Normal 8-34 [facility] Comment on above: Order Comment: Elma shanks Type: BLOOD SPECIMEN Ordering Facility: [facility] Address: [address] [place] [address] Result Comment: Resu lts may be falsely depressed after the administration of Sulfasalazine and/or Sulfapyridine. Performed By: #### 2 4323-8, 6-4, 17259-8 #### [facility] CLIA [id number] [address] [place], [place] [address] [place] Bilirubin [Mass/Vol] 0.6 mg/dL Normal 0.2-1.0 [facility] Comment on above: Order Comment: Speci men Type: BLOOD SPECIMEN Ordering Facility: [facility] Address: [address] [place] [address] Performed By: #### 2 4323-8, 6-4, 86541-2 #### [facility] CLIA [id number] [address] [place], [place] [address] [place] Calcium [Mass/Vol] 9.2 mg/dL Normal 8.5-10.5 [facility] Comment on above: Order Comment: Speci men Type: BLOOD SPECIMEN Ordering Facility: [facility] Address: [address] [place] [address] Performed By: #### 2 4323-8, 6-4, 80093-3 #### [facility] CLIA [id number] [address] [place], [place] [address] [place] Chloride [Moles/Vol] 107 mmol/L Normal 98-107 [facility] Comment on above: Order Comment: Speci men Type: BLOOD SPECIMEN Ordering Facility: [facility] Address: [facility] [place] [address] Performed By: #### 2 4323-8, 6-4, 25504-3 #### [facility] CLIA [id number] [address] [place] [address] [place] CO2 [Moles/Vol] 30 mmol/L Normal 21-32 [facility] Comment on above: Order Comment: Speci men Type: BLOOD SPECIMEN Ordering Facility: [facility] Address: [address] [place] [address] Performed By: #### 2 4323-8, 2275-4, 88458-8 #### [facility] CLIA [id number] [address] [place] [address] [place] Creatinine [Mass/Vol] 1.14 mg/dL Normal 0.50-1.[address] [facility] Comment on above: Order Comment: Speci men Type: BLOOD SPECIMEN Ordering Facility: [facility]) Address: [address] [place] [address] Result Comment: Darlene ents receiving either N-Acetylcysteine (NAC) or Metamizole prior to venipuncture, may have falsely depressed results. Performed By: #### 2 4323-8, 2275-4, 47366-1 #### [facility] CLIA [id number] [address] [place] [address] [place] [facility] Creatinine and Glomerular filtration rate.predicted panel (S/P/Bld) 64 mL/min/1.73m??? Normal >=60 [facility] Comment on above: Order Comment: Speci men Type: BLOOD SPECIMEN Ordering Facility: [facility]) Address: [address] [place] [address] Result Comment: Azeb mated Glomerular Filtration Rate (eGFR) is calculated using the 2020 CKD-EPI creatinine equation. This equation utilizes serum creatinine, sex, and age as parameters. The creatinine assay has traceable calibration to isotope dilution-mass spectrometry. Refer to KDIGO guidelines for clinical interpretation. In patients with unstable renal function, e.g. those with acute kidney injury, the eGFR may not accurately reflect actual GFR. Performed By: #### 2 4323-8, 2275-4, 44396-7 #### [facility] CLIA [id number] [address] [place], [place] [address] [place] Glucose [Mass/Vol] 95 mg/dL Normal 70-100 [facility] Comment on above: Order Comment: Speci men Type: BLOOD SPECIMEN Ordering Facility: [facility]) Address: [address] [place] [address]66 Result Comment: The [place] Diabetes Association (ADA) provides guidance for cutoff values for fasting glucose and random glucose. The ADA defines fasting as no caloric intake for at least 8 hours. Fasting plasma glucose results between 100 to 125 mg/dL indicate increased risk for diabetes (prediabetes). Fasting plasma glucose results greater than or equal to 126 mg/dL meet the criteria for diagnosis of diabetes. In the absence of unequivocal hyperglycemia, results should be confirmed by repeat testing. In a patient with classic symptoms of hyperglycemia or hyperglycemic crisis, random plasma glucose results greater than or equal to 200 mg/dL meet the criteria for diagnosis of diabetes. Reference: Standards of Medical Care in Diabetes 2016, [place] Diabetes Association. Diabetes Care. 2016.39(Suppl 1). Results may be falsely elevated after the administration of Sulfapyridine. Results may be falsely depressed after the administration of Sulfasalazine. Performed By: #### 2 4323-8, 6-4, 25092-7 #### [facility] CLIA [id number] [address] [place] [address] [place] Potassium [Moles/Vol] 3.8 mmol/L Normal 3.5-5.[address] [facility] Comment on above: Order Comment: Speci men Type: BLOOD SPECIMEN Ordering Facility: [facility] Address: [address] [place] [address] Performed By: #### 2 4323-8, 2275-, 11230-4 #### [facility] CLIA [id number] [address] [place] [address] [place] Protein [Mass/Vol] 5.4 g/dL Low 6.0-8.5 [facility] Comment on above: Order Comment: Speci men Type: BLOOD SPECIMEN Ordering Facility: [facility] Address: [address] [place] [address] Performed By: #### 2 4323-8, 2275-06, 84799-0 #### [facility] CLIA [id number] [address] [place], [place] [address] [place] Sodium [Moles/Vol] 143 mmol/L Normal 136-145 [facility] Comment on above: Order Comment: Speci men Type: BLOOD SPECIMEN Ordering Facility: [facility] Address: [address] [place] [address] Performed By: #### 2 4323-8, 2276-4, 24833-3 #### [facility] CLIA [id number] [address] [place] [address] [place] Urea nitrogen [Mass/Vol] 22 mg/dL Normal 7-26 [facility] Comment on above: Order Comment: Speci men Type: BLOOD SPECIMEN Ordering Facility: [facility]) Address: [address] [place] [address] Performed By: #### 2 4323-8, 2276-4, 61270-3 #### [facility] CLIA [id number] [address] [place] [address] [place] Ferritin SerPl-ncon 2023 Ferritin [Mass/Vol] 141.3 ng/mL Normal 24.0-388.0 [facility] Comment on above: Order Comment: Speci men Type: BLOOD SPECIMEN Ordering Facility: [facility] Address: [address] [place] [address] Performed By: #### S ERIMM #### [facility] CLIA [id number] [address] [place] [address] [place] IMMUNOFIXATION SCREEN, SERUM on 12-04-2023 MPA RESULT No M protein is identified. Normal No M protein is identified. [facility] Comment on above: Order Comment: Speci men Type: BLOOD SPECIMEN Ordering Facility: [facility] Address: [address] [place] [address] Performed By: #### S ERIMM #### [facility] CLIA [id number] [address] [place] [address] [place] STAFF REVIEW (MPA) Reviewed by Twyla Dior M.D., Ph.D [facility] Comment on above: Order Comment: Speci men Type: BLOOD SPECIMEN Ordering Facility: [facility] Address: [address] [place] [address] Performed By: #### S ERIMM #### [facility] CLIA [id number] [address] [place] [id number] [place] IMMUNOGLOBULINS,IGG,IGA,IGMo n 12-04-2023 IgA [Mass/Vol] 31 mg/dL Low 70-400 [facility] Comment on above: Order Comment: Speci men Type: BLOOD SPECIMEN Ordering Facility: [facility] Address: [address] [place] [address] Performed By: #### S ERIMM #### [facility] CLIA [id number] [address] [place] [address] [place] IgG [Mass/Vol] 513 mg/dL Low 700-1600 [facility] Comment on above: Order Comment: Speci men Type: BLOOD SPECIMEN Ordering Facility: [facility] Address: [address] [place] [address] Performed By: #### S ERIMM #### [facility] CLIA [id number] [address] [place], [place] [address] [place] IgM [Mass/Vol] 30 mg/dL Low 40-230 [facility] Comment on above: Order Comment: Speci men Type: BLOOD SPECIMEN Ordering Facility: [facility] Address: [address] [place] [address] Performed By: #### S ERIMM #### [facility] CLIA [id number] [address] [place], [place] [address] [place] Iron and Iron binding capaci ty panelon 12-04-2023 Iron [Mass/Vol] 56 ug/dL Low 65-175 [facility] Comment on above: Order Comment: Speci men Type: BLOOD SPECIMEN Ordering Facility: [facility]) Address: [address] [place] [address] Result Comment: Darlene ents treated with metal-binding drugs (e.g.deferoxamine) may have depressed iron values, as chelated iron may not properly react in the Siemens iron assay. Performed By: #### S ERIMM #### [facility] CLIA [id number] [address] [place] [address] [place] Iron binding capacity [Mass/Vol] 263 ug/dL Normal 221-481 [facility] Comment on above: Order Comment: Elma shanks Type: BLOOD SPECIMEN Ordering Facility: [facility] Address: [address] [place] [address] Performed By: #### S ERIMM #### [facility] CLIA [id number] [address] [place] [address] [place] Iron/TIBC [Molar ratio] 21.3 % Low 22.0-44.0 [facility] Comment on above: Order Comment: Elma shanks Type: BLOOD SPECIMEN Ordering Facility: [facility] Address: [address] [place] [address] Performed By: #### S ERIMM #### [facility] CLIA [id number] [address] [place] [address] [place] KAPPA/BARAJAS,FREE,SERon 2023 Immunoglobulin light chains.kappa.free (S) [Mass/Vol] 7.6 mg/L Normal 3.3-19.4 [facility] Comment on above: Order Comment: Elma shanks Type: BLOOD SPECIMEN Ordering Facility: [facility]) Address: [address] [place] [address] Result Comment: Rare ly, increased serum free light chains levels may not be detected or accurately quantified due to prozone phenomenon or in high viscosity samples using this immunoturbidimetric assay. Correlation with other laboratory results and clinical findings is recommended. The [place] Free Light Chain was performed using the Binding Site Optilite immunoturbidimetric method. Result obtained with different assay methods or kits cannot be used interchangeably. Performed By: #### S ERIMM #### [facility] CLIA [id number] [address] [place] [address] [place] Immunoglobulin light chains.kappa/Immunoglo bulin light chains.lambda (S) [Mass ratio] 1.23 Normal 0.26-1.65 [facility] Comment on above: Order Comment: Speci men Type: BLOOD SPECIMEN Ordering Facility: [facility] Address: [address] [place] [address] Performed By: #### S ERIMM #### [facility] CLIA [id number] [address] [place] [address] [place] Immunoglobulin light chains.lambda.free [Mass/Vol] 6.2 mg/L Normal 5.7-26.3 [facility] Comment on above: Order Comment: Speci men Type: BLOOD SPECIMEN Ordering Facility: [facility] Address: [address] [place] [address] Result Comment: Rare ly, increased serum free light chains levels may not be detected or accurately quantified due to prozone phenomenon or in high viscosity samples using this immunoturbidimetric assay. Correlation with other laboratory results and clinical findings is recommended. The [place] Free Light Chain was performed using the Binding Site Optilite immunoturbidimetric method. Result obtained with different assay methods or kits cannot be used interchangeably. Performed By: #### S ERIMM #### [facility] CLIA [id number] [address] [place] [address] [place] MONOCLONAL PROT UR W/INTERPo n 12-04-2023 INTERPRETATION ([facility]) An atypical restri cted band is present in the lambda region. 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 Normal [facility] Comment on above: Order Comment: Speci men Type: BLOOD SPECIMEN Ordering Facility: [facility] Address: [address] [place] [address] Performed By: #### S ERIMM #### [facility] CLIA [id number] [address] [place] [address] OF [place] STAFF REVIEW (UMPA) Reviewed by Twyla Dior M.D., Ph.D Normal [facility] Comment on above: Order Comment: Speci men Type: BLOOD SPECIMEN Ordering Facility: [facility] ([facility] Address: [address] [place] [address] Performed By: #### S ERIMM #### [facility] CLIA [id number] [address] [place] [address] [place] UMPA RESULT M protein is present. Abnormal No M protein is identified. [facility] Comment on above: Order Comment: Speci men Type: BLOOD SPECIMEN Ordering Facility: [facility] ([facility] Address: [address] [place] [address] Performed By: #### S ERIMM #### [facility] CLIA [id number] [address] [place] [address] OF [place] PROTEIN ELECTROPHORESIS SERU M WITH HUNTER (P)on 12-04-2023 Albumin [Mass/Vol] 3.64 g/dL Normal 3.43-5.41 [facility] Comment on above: Order Comment: Speci men Type: BLOOD SPECIMEN Ordering Facility: [facility] Address: [address] [place], [place] [address] Performed By: #### S ERIMM #### [facility] CLIA [id number] [address] [place] [address] [place] Alpha 1 globulin Elph [Mass/Vol] 0.22 g/dL Normal 0.18-0.43 [facility] Comment on above: Order Comment: Speci men Type: BLOOD SPECIMEN Ordering Facility: [facility] Address: [address] [place] [address] Performed By: #### S ERIMM #### [facility] CLIA [id number] [address] [place] [address] [place] Alpha 2 globulin Elph [Mass/Vol] 0.59 g/dL Normal 0.42-0.98 [facility] Comment on above: Order Comment: Speci men Type: BLOOD SPECIMEN Ordering Facility: [facility] Address: [address] [place] [address] Performed By: #### S ERIMM #### [facility] CLIA [id number] [address] [place] [address] [place] Beta globulin Elph [Mass/Vol] 0.49 g/dL Low 0.61-1.17 [facility] Comment on above: Order Comment: Speci men Type: BLOOD SPECIMEN Ordering Facility: [facility] Address: [address] [place] [address] Performed By: #### S ERIMM #### [facility] CLIA [id number] [address] [place] [address] [place] COMMENT (SERUM PROT ELECTRO) A reflex test for Monoclonal Protein analysis (immunofixation) has been ordered. Normal [facility] Comment on above: Order Comment: Speci men Type: BLOOD SPECIMEN Ordering Facility: [facility] Address: [address] [place] [address] Performed By: #### S ERIMM #### [facility] CLIA [id number] [address] [place] [address] [place] Gamma globulin Elph [Mass/Vol] 0.36 g/dL Low 0.53-1.51 [facility] Comment on above: Order Comment: Speci men Type: BLOOD SPECIMEN Ordering Facility: [facility] Address: [address] [place] [address] Performed By: #### S ERIMM #### [facility] [place] [id number] [address] [place] [address] OF [place] M-PROTEIN LOCATION Normal [facility] Comment on above: Order Comment: Speci men Type: BLOOD SPECIMEN Ordering Facility: [facility]) Address: [address] [place] [address] Result Comment: Not Applicable. Performed By: #### S ERIMM #### [facility] CLIA [id number] [address] [place] [address] OF [place] Protein Fractions [Interp] No definitive M protein is identified on protein electrophoresis. Normal No definitive M protein is identified on protein electrophor esis. [facility] Comment on above: Order Comment: Speci men Type: BLOOD SPECIMEN Ordering Facility: [facility] Address: [address] [place], [place] [id number] Performed By: #### S ERIMM #### [facility] IA [id number] [address] [place] [address] Protein.monoclonal Elph [Mass/Vol] 0.00 g/dL Normal <=0.00 [facility] Comment on above: Order Comment: Speci men Type: BLOOD SPECIMEN Ordering Facility: [facility] Address: [address] [place], [place] [id number] Performed By: #### S ERIMM #### [facility] CLIA [id number] [address] [place] [address] OF [place] SPE STAFF REVIEW Reviewed by Twyla Dior M.D., Ph.D Normal [facility] Comment on above: Order Comment: Speci men Type: BLOOD SPECIMEN Ordering Facility: [facility]) Address: [address] [place], [place] [address] Performed By: #### S ERIMM #### [facility] IA [id number] [address] [place] [address] [place] Prot SerPl-mCncon 12-04-2023 Protein [Mass/Vol] 5.3 g/dL Low 6.3-8.0 [facility] Comment on above: Order Comment: Speci men Type: BLOOD SPECIMEN Ordering Facility: [facility] Address: [address] [place] [address] Performed By: #### S ERIMM #### [facility] IA [id number] [address] [place] [address] [place] Prot Ur-mCncon 12-04-2023 Protein (U) [Mass/Vol] 7 mg/dL Normal 0-20 [facility] Comment on above: Order Comment: Speci men Type: BLOOD SPECIMEN Ordering Facility: [facility] Address: [address] [place] [address] Performed By: #### S ERIMM #### [facility] IA [id number] [address] [place] [address] [place] URINE PROTEIN ELECTROPHORESI S WITH HUNTER (P)on 12-04-2023 Albumin Elph (U) [Mass fraction] 35.36 % Normal [facility] Comment on above: Order Comment: Speci men Type: BLOOD SPECIMEN Ordering Facility: [facility] Address: [address] [place] [address] Performed By: #### S ERIMM #### [facility] [id number] [address] [place] [address] [place] Alpha 1 globulin Elph (U) [Mass fraction] 5.10 % Normal [facility] Comment on above: Order Comment: Speci men Type: BLOOD SPECIMEN Ordering Facility: [facility]) Address: [address] [place] [address] Performed By: #### S ERIMM #### [facility] IA [id number] [address] [place] [address] [place] Alpha 2 globulin Elph (U) [Mass fraction] 24.91 % [facility] Comment on above: Order Comment: Speci men Type: BLOOD SPECIMEN Ordering Facility: [facility] Address: [address] [place] [address] Performed By: #### S ERIMM #### [facility] CLIA [id number] [address] [place] [address] [place] Beta globulin Elph (U) [Mass fraction] 22.12 % [facility] Comment on above: Order Comment: Speci men Type: BLOOD SPECIMEN Ordering Facility: [facility] Address: [address] [place] [address] Performed By: #### S ERIMM #### [facility] IA [id number] [address] [place] [address] [place] COMMENT (URINE PROT ELECTRO) A reflex test for Monoclonal Protein analysis (immunofixation) has been ordered. [facility] Comment on above: Order Comment: Speci men Type: BLOOD SPECIMEN Ordering Facility: [facility] Address: [address] [place] [address] Performed By: #### S ERIMM #### [facility] IA [id number] [address] [place] [address] [place] Gamma globulin Elph (U) [Mass fraction] 12.52 % [facility] Comment on above: Order Comment: Speci men Type: BLOOD SPECIMEN Ordering Facility: [facility] Address: [address] [place] [address] Performed By: #### S ERIMM #### [facility] IA [id number] [address] [place] [address] [place] INTERPRETATION COMMENT FOR PROTEIN ELECTROPHORESIS See separate immunofixation report for characterization of monoclonal gammopathy. [facility] Comment on above: Order Comment: Speci men Type: BLOOD SPECIMEN Ordering Facility: [facility] Address: [address] [place], [place] [address] Performed By: #### S ERIMM #### [facility] IA [id number] [address] [place] [address] [place] Protein Fractions Elph Nick (U) [Interp] An M protein is identified on protein electrophoresis. Abnormal No definitive M protein is identified on protein electrophor esis. [facility] Comment on above: Order Comment: Speci men Type: BLOOD SPECIMEN Ordering Facility: [facility] Address: [address] [place], [place] [phone] Performed By: #### S ERIMM #### [facility] IA [id number] [address] [place], [place] [address] [facility] OF [place] STAFF REVIEW (URINE ELECTRO) Reviewed by Twyla Dior M.D., Ph.D [facility] Comment on above: Order Comment: Speci men Type: BLOOD SPECIMEN Ordering Facility: [facility] [place] [facility] Address: [address] [place], [place] [phone] Performed By: #### S ERIMM #### [facility] IA [id number] [address] [place], [place] [address] [place] BD DXA - AXIAL SKELETONon BD DXA - AXIAL SKELETON * * *Final Report* * * DATE OF EXAM: Nov 29 2023 8:15AM [facility] 0804 - BD DXA - AXIAL SKELETON B / PROCEDURE REASON: M81.0,D80.1,D47.2,D68.69, C90.00,E85.9 * * * * Physician Interpretation * * * * EXAMINATION: DXA BONE DENSITOMETRY BD DXA - AXIAL SKELETON PATIENT DEMOGRAPHICS: Age: 83 years, Gender: Male SCANNER INFORMATION: DXA Model: Last Guide - [employer] C [id number] Date Scanned: 11/29/2023 8:15 AM CLINICAL HISTORY: DIAGNOSTIC M81.0,D80.1,D47.2,D68.69, C90.00,E85.9. RISK FACTORS FOR OSTEOPOROSIS AND ASSOCIATED FRACTURES REPORTED BY THIS PATIENT: Please refer to Bone Health Questionnaire in the EMR CURRENT THERAPY: Please refer to Bone Health Questionnaire in the EMR TECHNICAL LIMITATIONS: Degenerative disease of the spine RESULTS: Lumbar Spine (L1, L2, L3, L4): Total BMD: 1.271 g/cm2, T-score: 1.6 , Z-score: 2.9 Left Femoral Neck: 0.677 g/cm2 , T-score -1.9, Z-score -0.2 Left Total Hip: 0.884 g/cm2 , T-score -1.0 , Z-score 0.2 Left Forearm, Distal 1/3 of Radius: 0.867 g/cm2 , T-score 0.9 , Z-score 3.2 No comparison data - the patient has not had a previous bone density in the [facility] or the previous bone density was performed on a different DXA machine (new, updated model or different location) within the [facility]. VERTEBRAL FRACTURE ASSESSMENT Not performed. TRABECULAR BONE ASSESSMENT TBS not performed: not ordered IMPRESSION: THE LOWEST T-SCORE IS -1.9 IN THE LEFT HIP 1) DIAGNOSIS (based on BMD alone): OSTEOPENIA Caution: Medical conditions other than osteoporosis may cause low bone density, such as osteomalacia or renal osteodystrophy. Clinical correlation is necessary. 2) FRACTURE RISK (based on FRAX): 10-year absolute fracture risk: - major osteoporotic fracture = 19 % - hip fracture = 14 % - A diagnosis of Osteoporosis, a 10 year probability of hip fracture greater than or equal to 3% or a 10 year probability of any major osteoporosis-related fracture greater than or equal to 20% should be considered for treatment. - DXA scanner generated FRAX calculations may slightly differ from online FRAX calculations due to differences in software versions. - All recommendations and calculations are to be considered as guidelines and should not replace sound clinical judgement - Caution: Fracture risk may be increased independent of BMD in patients with corticosteroid use, age greater than 65 years, or a history of prior fragility fracture. RECOMMENDATIONS: Follow-up in 2 years or as clinically indicated. Patients that are taking corticosteroids, are transplant recipients or have hyperparathyroidism should have annual follow-up. Follow-up scans should always be done on the same machine for accurate comparison. FOR MORE INFORMATION ABOUT DIAGNOSIS AND TREATMENT: [facility] Center for Osteoporosis and Metabolic Bone Disease:? [email or web address]/arthritis/ost eo National Osteoporosis Foundation:? www.nof.org International Society of Clinical Densitometry www.iscd.org Acid Bleacher: DANIELITO Transcribe Date/Time: Nov 29 2023 9:40A Dictated by : SOURAV NORTON MD This examination was interpreted and the report reviewed and electronically signed by: SOURAV NORTON MD on Nov 29 2023 9:41AM EST [id number] -1.9 Normal [facility] DXA Skeletal system.axial Vi ews for bone densityOrdered By: Cc Provider on 11-29-2023 LOWEST T-SCORE -1.9 [facility] DXA Skeletal system.axial Vi ews for bone densityon 11-29-2023 IMPRESSION: THE LOWEST T-SCORE IS -1.9 IN THE LEFT HIP 1) DIAGNOSIS (based on BMD alone): OSTEOPENIA Caution: Medical conditions other than osteoporosis may cause low bone density, such as osteomalacia or renal osteodystrophy. Clinical correlation is necessary. 2) FRACTURE RISK (based on FRAX): 10-year absolute fracture risk: - major osteoporotic fracture = 19 % - hip fracture = 14 % - A diagnosis of Osteoporosis, a 10 year probability of hip fracture greater than or equal to 3% or a 10 year probability of any major osteoporosis-related fracture greater than or equal to 20% should be considered for treatment. - DXA scanner generated FRAX calculations may slightly differ from online FRAX calculations due to differences in software versions. - All recommendations and calculations are to be considered as guidelines and should not replace sound clinical judgement - Caution: Fracture risk may be increased independent of BMD in patients with corticosteroid use, age greater than 65 years, or a history of prior fragility fracture. RECOMMENDATIONS: Follow-up in 2 years or as clinically indicated. Patients that are taking corticosteroids, are transplant recipients or have hyperparathyroidism should have annual follow-up. Follow-up scans should always be done on the same machine for accurate comparison. FOR MORE INFORMATION ABOUT DIAGNOSIS AND TREATMENT: [facility] Center for Osteoporosis and Metabolic Bone Disease:? www.ccf.org/arthritis/ost eo National Osteoporosis Foundation:? www.nof.org International Society of Clinical Densitometry www.iscd.org Acid Bleacher: DANIELITO Transcribe Date/Time: Nov 29 2023 9:40A Dictated by : SOURAV NORTON MD This examination was interpreted and the report reviewed and electronically signed by: SOURAV NORTON MD on Nov 29 2023 9:41AM [facility] * * *Final Report* * * DATE OF EXAM: Nov 29 2023 8:15AM [facility] 0804 - BD DXA - AXIAL SKELETON B / PROCEDURE REASON: M81.0,D80.1,D47.2,D68.69, C90.00,E85.9 * * * * Physician Interpretation * * * * EXAMINATION: DXA BONE DENSITOMETRY BD DXA - AXIAL SKELETON PATIENT DEMOGRAPHICS: Age: 83 years, Gender: Male SCANNER INFORMATION: DXA Model: [employer] C [id number] Date Scanned: 11/29/2023 8:15 AM CLINICAL HISTORY: DIAGNOSTIC M81.0,D80.1,D47.2,D68.69, C90.00,E85.9. RISK FACTORS FOR OSTEOPOROSIS AND ASSOCIATED FRACTURES REPORTED BY THIS PATIENT: Please refer to Bone Health Questionnaire in the EMR CURRENT THERAPY: Please refer to Bone Health Questionnaire in the EMR TECHNICAL LIMITATIONS: Degenerative disease of the spine RESULTS: Lumbar Spine (L1, L2, L3, L4): Total BMD: 1.271 g/cm2, T-score: 1.6 , Z-score: 2.9 Left Femoral Neck: 0.677 g/cm2 , T-score -1.9, Z-score -0.2 Left Total Hip: 0.884 g/cm2 , T-score -1.0 , Z-score 0.2 Left Forearm, Distal 1/3 of Radius: 0.867 g/cm2 , T-score 0.9 , Z-score 3.2 No comparison data - the patient has not had a previous bone density in the [facility] or the previous bone density was performed on a different DXA machine (new, updated model or different location) within the [facility]. VERTEBRAL FRACTURE ASSESSMENT Not performed. TRABECULAR BONE ASSESSMENT TBS not performed: not ordered [facility] RADIOLOG[facility] Provider, Nena Panda - 11/29/2023 * * *Final Report* * * DATE OF EXAM: Nov 29 2023 8:15AM [facility] 0804 - BD DXA - AXIAL SKELETON B / PROCEDURE REASON: M81.0,D80.1,D47.2,D68.69, C90.00,E85.9 * * * * Physician Interpretation * * * * EXAMINATION: DXA BONE DENSITOMETRY BD DXA - AXIAL SKELETON PATIENT DEMOGRAPHICS: Age: 83 years, Gender: Male SCANNER INFORMATION: DXA Model: [employer] C [id number] Date Scanned: 11/29/2023 8:15 AM CLINICAL HISTORY: DIAGNOSTIC M81.0,D80.1,D47.2,D68.69, C90.00,E85.9. RISK FACTORS FOR OSTEOPOROSIS AND ASSOCIATED FRACTURES REPORTED BY THIS PATIENT: Please refer to Bone Health Questionnaire in the EMR CURRENT THERAPY: Please refer to Bone Health Questionnaire in the EMR TECHNICAL LIMITATIONS: Degenerative disease of the spine RESULTS: Lumbar Spine (L1, L2, L3, L4): Total BMD: 1.271 g/cm2, T-score: 1.6 , Z-score: 2.9 Left Femoral Neck: 0.677 g/cm2 , T-score -1.9, Z-score -0.2 Left Total Hip: 0.884 g/cm2 , T-score -1.0 , Z-score 0.2 Left Forearm, Distal 1/3 of Radius: 0.867 g/cm2 , T-score 0.9 , Z-score 3.2 No comparison data - the patient has not had a previous bone density in the [facility] or the previous bone density was performed on a different DXA machine (new, updated model or different location) within the [facility]. VERTEBRAL FRACTURE ASSESSMENT Not performed. TRABECULAR BONE ASSESSMENT TBS not performed: not ordered IMPRESSION IMPRESSION: THE LOWEST T-SCORE IS -1.9 IN THE LEFT HIP 1) DIAGNOSIS (based on BMD alone): OSTEOPENIA Caution: Medical conditions other than osteoporosis may cause low bone density, such as osteomalacia or renal osteodystrophy. Clinical correlation is necessary. 2) FRACTURE RISK (based on FRAX): 10-year absolute fracture risk: - major osteoporotic fracture = 19 % - hip fracture = 14 % - A diagnosis of Osteoporosis, a 10 year probability of hip fracture greater than or equal to 3% or a 10 year probability of any major osteoporosis-related fracture greater than or equal to 20% should be considered for treatment. - DXA scanner generated FRAX calculations may slightly differ from online FRAX calculations due to differences in software versions. - All recommendations and calculations are to be considered as guidelines and should not replace sound clinical judgement - Caution: Fracture risk may be increased independent of BMD in patients with corticosteroid use, age greater than 65 years, or a history of prior fragility fracture. RECOMMENDATIONS: Follow-up in 2 years or as clinically indicated. Patients that are taking corticosteroids, are transplant recipients or have hyperparathyroidism should have annual follow-up. Follow-up scans should always be done on the same machine for accurate comparison. FOR MORE INFORMATION ABOUT DIAGNOSIS AND TREATMENT: [facility] Center for Osteoporosis and Metabolic Bone Disease:? www.ccf.org/arthritis/ost eo National Osteoporosis Foundation:? www.nof.org International Society of Clinical Densitometry www.iscd.org Acid Bleacher: DANIELITO Transcribe Date/Time: Nov 29 2023 9:40A Dictated by : SOURAV NORTON MD This examination was interpreted and the report reviewed and electronically signed by: SOURAV NORTON MD on Nov 29 2023 9:41AM EST [facility] Radiology Study observation (narrative) [facility] PROT ELEC UR 24HR W/M SPIKE (P)on 09-26-2023 Albumin/Globulin Elph (24H U) [Mass ratio] 46.18 % Normal [facility] Comment on above: Order Comment: Elma shanks Type: URINE SPECIMEN Ordering Facility: [facility] ([place]) Address: [address] [place] [address] Performed By: #### L [id number] #### [facility] CLIA [id number] [address] [place] [address] [place] Alpha 1 globulin Elph (24H U) [Mass fraction] 3.67 % Normal [facility] Comment on above: Order Comment: Elma shanks Type: URINE SPECIMEN Ordering Facility: [facility] Oncology [facility] Address: [address] [place] [address] Performed By: #### L [id number] #### [facility] CLIA [id number] [address] [place] [address] [place] Alpha 2 globulin Elph (24H U) [Mass fraction] 17.09 % [facility] Comment on above: Order Comment: Speci men Type: URINE SPECIMEN Ordering Facility: [facility] & On[facility] Address: [address] [place] [address] Performed By: #### L [id number] #### [facility] CLIA [id number] [address] [place] [address] [place] Beta globulin Elph (24H U) [Mass fraction] 24.49 % [facility] Comment on above: Order Comment: Speci men Type: URINE SPECIMEN Ordering Facility: [facility]ology & Oncology [facility] Address: [address] [place] [address] Performed By: #### L [id number] #### [facility] CLIA [id number] [address] [place] [address] [place] Gamma globulin Elph (24H U) [Mass fraction] 8.57 % [facility] Comment on above: Order Comment: Speci men Type: URINE SPECIMEN Ordering Facility: [facility] Address: [address] [place] [address] Performed By: #### L [id number] #### [facility] CLIA [id number] [address] [place] [address] [place] INTERPRETATION COMMENT FOR PROTEIN ELECTROPHORESIS The atypical region is relatively poorly defined and may represent an unusual presentation of polyclonal immunoglobulins, but cannot rule out the presence of a low level M protein. If clinically indicated, monoclonal protein analysis and serum free light chain analysis are suggested to evaluate further for monoclonal gammopathy. [facility] Comment on above: Order Comment: Speci men Type: URINE SPECIMEN Ordering Facility: [facility]ology & Oncology [facility] Address: [address] [place] [address] Performed By: #### L [id number] #### [facility] CLIA [id number] [address] [place] [address] [place] Protein Fractions Elph Nick (24H U) [Interp] An atypical region of restricted mobility is identified on protein electrophoresis. Abnormal No definitive M protein is identified on protein electrophor esis. [facility] Comment on above: Order Comment: Speci men Type: URINE SPECIMEN Ordering Facility: [facility] On[facility] Address: [address] [place], [place] [address] Performed By: #### L [id number] #### [facility] CLIA [id number] [address] [place] [address] [place] Protein.monoclonal Elph (24H U) [Mass/Time] 0.00 g/24hr Normal [facility] Comment on above: Order Comment: Speci men Type: URINE SPECIMEN Ordering Facility: [facility] On[facility] Address: [address] [place] [address] Performed By: #### L [id number] #### [facility] CLIA [id number] [address] [place] [address] [place] STAFF REVIEW ([id number]) Reviewed by Steff Avila MD [facility] Comment on above: Order Comment: Speci men Type: URINE SPECIMEN Ordering Facility: [facility] H[facility]ology & On[facility]) Address: [address] [place] [address] Performed By: #### L [id number] #### [facility] CLIA [id number] [address] [place] [address] [place] Prot 24h Ur-mRateon 20 24 Protein (24H U) [Mass/Time] 0.11 g/24 Hr High 0.05-0.10 [facility] Comment on above: Order Comment: Speci men Type: URINE SPECIMEN Ordering Facility: [facility]) Address: [address] [place] [address] Result Comment: Adul t Proteinuria Categories: <0.15 g/24 hours is considered normal to mildly increased 0.15 - 0.50 g/24 hours is considered moderately increased >0.50 g/24 hours is considered severely increased KDIGO. (2013). KDIGO 2012 Clinical Practice Guideline for the Evaluation and Management of Chronic Kidney Disease. Official Journal of the International Society of Nephrology, 3(1), 1-150. Performed By: #### 2 889-4 #### [facility] CLIA [id number] [address] [place] [address] [place] Protein (24H U) [Mass/Time]o n 09-26-2023 PERIOD (HRS) 24 hr Normal [facility] Comment on above: Order Comment: Speci men Type: URINE SPECIMEN [facility] Address: [address] [place] [address] Performed By: #### 2 889-4 #### [facility] CLIA [id number] [address] [place] [address] [place] Specimen volume (24H U) 0.9 L Normal [facility] Comment on above: Order Comment: Speci men Type: URINE SPECIMEN Ordering Facility: [facility] Address: [address] [place] [address] Performed By: #### 2 889-4 #### [facility] CLIA [id number] [address] [place] [address] [place] IMMUNOFIXATION SCREEN, SERUM on 09-25-2023 MPA RESULT No M protein is identified. Normal No M protein is identified. [facility] Comment on above: Order Comment: Speci men Type: BLOOD SPECIMEN Ordering Facility: [facility]) Address: [address] [place] [address] 270[address] Performed By: #### I [facility], [id number] #### [facility] CLIA [id number] [address] [place] [address] [place] STAFF REVIEW (MPA) Reviewed by Raman Haque MD, Ph.D ([id number]) [facility] Comment on above: Order Comment: Speci men Type: BLOOD SPECIMEN Ordering Facility: [facility]ology & On[facility] Address: [address] [place] [address] Performed By: #### I WESLEY, [id number] #### [facility] CLIA [id number] [address] [place] [address] [place] IMMUNOGLOBULINS,IGG,IGA,IGMo n 09-25-2023 IgA [Mass/Vol] 28 mg/dL Low 70-400 [facility] Comment on above: Order Comment: Speci men Type: BLOOD SPECIMEN Ordering Facility: [facility] Address: [address] [place] [address]843 Performed By: #### S ERIMM #### [facility] CLIA [id number] [address] [place] [address] [place] IgG [Mass/Vol] 556 mg/dL Low 700-1600 [facility] Comment on above: Order Comment: Speci men Type: BLOOD SPECIMEN Ordering Facility: [facility]ology [facility] On[facility] Address: [address] [place] [address]13 Performed By: #### S ERIMM #### [facility] CLIA [id number] [address] [place] [id number] [place] IgM [Mass/Vol] 21 mg/dL Low 40-230 [facility] Comment on above: Order Comment: Speci men Type: BLOOD SPECIMEN Ordering Facility: [facility]ology & On[facility]) Address: [address] [place] [address]606 Performed By: #### S ERIMM #### [facility] CLIA [id number] [address] [place] [address] [place] KAPPA/BARAJAS,FREE,SERon 2023 Immunoglobulin light chains.kappa.free (S) [Mass/Vol] 8.5 mg/L Normal 3.3-19.4 [facility] Comment on above: Order Comment: Speci dimitris Type: BLOOD SPECIMEN Ordering Facility: [facility] & On[facility] Address: [address] [place] [address] Result Comment: Rare ly, increased serum free light chains levels may not be detected or accurately quantified due to prozone phenomenon or in high viscosity samples using this immunoturbidimetric assay. Correlation with other laboratory results and clinical findings is recommended. The [place] Free Light Chain was performed using the Binding Site Optilite immunoturbidimetric method. Result obtained with different assay methods or kits cannot be used interchangeably. Performed By: #### K LFRS #### [facility] CLIA [id number] [address] [place] [address] [place] Immunoglobulin light chains.kappa/Immunoglo bulin light chains.lambda (S) [Mass ratio] 1.39 Normal 0.26-1.65 [facility] Comment on above: Order Comment: Elma shanks Type: BLOOD SPECIMEN Ordering Facility: [facility] Address: [address] [place] [address] Performed By: #### K LFRS #### [facility] CLIA [id number] [address] [place] [address] [place] Immunoglobulin light chains.lambda.free [Mass/Vol] 6.1 mg/L Normal 5.7-26.3 [facility] Comment on above: Order Comment: Elma shanks Type: BLOOD SPECIMEN Ordering Facility: [facility]ology & On[facility]) Address: [address] [place] [address] Result Comment: Rare ly, increased serum free light chains levels may not be detected or accurately quantified due to prozone phenomenon or in high viscosity samples using this immunoturbidimetric assay. Correlation with other laboratory results and clinical findings is recommended. The [place] Free Light Chain was performed using the Binding Site Optilite immunoturbidimetric method. Result obtained with different assay methods or kits cannot be used interchangeably. Performed By: #### K LFRS #### [facility] CLIA [id number] [address] [place] [address] [place] PROTEIN ELECTROPHORESIS SERU M WITH HUNTER (P)on 09-25-2023 Albumin [Mass/Vol] 3.85 g/dL Normal 3.43-5.41 [facility] Comment on above: Order Comment: Specchacorta shanks Type: BLOOD SPECIMEN Ordering Facility: [facility]ology & Oncology [facility] Address: [address] [place] [address] Performed By: #### I SHANNA, [id number] #### [facility] CLIA [id number] [address] [place] [address] [place] Alpha 1 globulin Elph [Mass/Vol] 0.24 g/dL Normal 0.18-0.43 [facility] Comment on above: Order Comment: Elma shanks Type: BLOOD SPECIMEN Ordering Facility: [facility] Address: [address] [place] [address] Performed By: #### I FESC, [id number] #### [facility] CLIA [id number] [address] [place] [address] [place] Alpha 2 globulin Elph [Mass/Vol] 0.67 g/dL Normal 0.42-0.98 [facility] Comment on above: Order Comment: Specchacorta shanks Type: BLOOD SPECIMEN Ordering Facility: [facility] On[facility] Address: [address] [place] [address] Performed By: #### I FESC, [id number] #### [facility] CLIA [id number] [facility] [place] [id number] [place] Beta globulin Elph [Mass/Vol] 0.53 g/dL Low 0.61-1.17 [facility] Comment on above: Order Comment: Specchacorta shanks Type: BLOOD SPECIMEN Ordering Facility: [facility] On[facility] Address: [address] [place] [address]74 Performed By: #### I FESC, [id number] #### [facility] CLIA [id number] [address] [place] [address] [place] COMMENT (SERUM PROT ELECTRO) A reflex test for Monoclonal Protein analysis (immunofixation) has been ordered. [facility] Comment on above: Order Comment: Speci dimitris Type: BLOOD SPECIMEN Ordering Facility: [facility]ology [facility] On[facility] Address: [address] [place], [place] [address] Performed By: #### I FESC, [id number] #### [facility] CLIA [id number] [address] [place] [address] [place] Gamma globulin Elph [Mass/Vol] 0.41 g/dL Low 0.53-1.51 [facility] Comment on above: Order Comment: Elma shanks Type: BLOOD SPECIMEN Ordering Facility: [facility] Address: [address] [place] [address]10 Performed By: #### I FESC, [id number] #### [facility] CLIA [id number] [address] [place] [address] [place] INTERPRETATION COMMENT FOR PROTEIN ELECTROPHORESIS Hypogammaglobulinemia is present, which can be seen in the setting of monoclonal gammopathy. If clinically indicated, monoclonal protein analysis and serum free light chain analysis are suggested to evaluate further for monoclonal gammopathy. [facility] Comment on above: Order Comment: Elma shanks Type: BLOOD SPECIMEN Ordering Facility: [facility] On[facility]) Address: [address] [place] [address]14 Performed By: #### I FESC, [id number] #### [facility] CLIA [id number] [address] [place] M-PROTEIN LOCATION Normal [facility] Comment on above: Order Comment: Speci men Type: BLOOD SPECIMEN Ordering Facility: [facility] On[facility] Address: [address] [place] [address] Result Comment: Not Applicable. Performed By: #### I SHANNA, [id number] #### [facility] CLIA [id number] [address] [place] [address] [place] Protein Fractions [Interp] No definitive M protein is identified on protein electrophoresis. Normal No definitive M protein is identified on protein electrophor esis. [facility] Comment on above: Order Comment: Speci men Type: BLOOD SPECIMEN Ordering Facility: [facility] On[facility] Address: [address] [place] [address] Performed By: #### I FESC, [id number] #### [facility] CLIA [id number] [address] [place] [address] [place] Protein.monoclonal Elph [Mass/Vol] 0.00 g/dL Normal <=0.00 [facility] Comment on above: Order Comment: Speci men Type: BLOOD SPECIMEN Ordering Facility: [facility] On[facility] Address: [address] [place], [place] [address] Performed By: #### I FESC, [id number] #### [facility] CLIA [id number] [address] [place] [address] [place] SPE STAFF REVIEW Reviewed by Raman Haque MD, Ph.D ([id number]) [facility] Comment on above: Order Comment: Speci men Type: BLOOD SPECIMEN Ordering Facility: [facility] On[facility] Address: [address] [place], [place] [address] Performed By: #### I FESC, [id number] #### [facility] CLIA [id number] [address] [place], [place] [address] [place] Prot SerPl-mCncon 09-25-2023 Protein [Mass/Vol] 5.7 g/dL Low 6.3-8.0 [facility] Comment on above: Order Comment: Speci men Type: BLOOD SPECIMEN Ordering Facility: [facility] Address: [address] [place] [address] Performed By: #### 2 885-2 #### [facility] CLIA [id number] [address] [place], [place] [address] [place] XR CHEST 2 VIEWSon 4 XR CHEST 2 VIEWS ORIGINAL EXAMINATION: TWO XRAY VIEWS OF THE CHEST08/16/2023 12:58 pm CHEST AP/PA and LATERAL COMPARISON: 01/09/2023 HISTORY: ORDERING SYSTEM PROVIDED HISTORY: Reason for Exam: Bronchitis FINDINGS: Prior CABG is present. Heart size and vascularity are within normal limits. The lungs are clear of focal consolidation. No effusion, pneumothorax, or acute osseous abnormality. IMPRESSION: No radiographic evidence of acute cardiopulmonary process. Interpreted by: Sourav Charles MD Preliminary Report By: Sourav Charles MD Electronically signed By Sourav Charles MD Dictated Date: 08/16/2023 1:27:56 PM Prelim Date: 08/16/2023 1:28:25 PM Sign Date: 08/16/2023 1:28:25 PM Ordering Provider: ENRIQUE Ma [facility] ([place]) APTTon 07-31-2023 aPTT Coag (Bld) [Time] 32.0 s Normal 25.0-35.0 [facility] ([place]) Comment on above: Result Comment: For Heparin anticoagulation therapy, the recommended therapeutic range is: 45.4-75.9 seconds. Patients on heparin therapy may have an extreme result. Performed By: #### P LT, PRO #### [address] [address] Heparin dose (APTT) None Normal [facility] ([place]) Comment on above: Performed By: #### P LT, PRO #### [address] [address] LABORATORYOrdered By: Brien zapata on 07-31-2023 aPTT Coag (PPP) [Time] 32.0 s Normal 25.0 - 35.0 seconds AO [facility] Comment on above: Interpretive Data: F or Heparin anticoagulation therapy, the recommended therapeutic range is: 45.4-75.9 seconds. Patients on heparin therapy may have an extreme result. Heparin dose (APTT) None Normal AO Coagulation S INR Coag (PPP) [Relative time] 1.0 {INR} Invalid Interpretation Code AO [facility] Comment on above: Interpretive Data: Froy godfrey [employer] (CHEST, 1991, 102:312S-25S) recommended therapeutic range for oral anticoagulant therapy is: LOW RISK: Prophylaxis of venous thrombosis INR: 2.0-3.0 Treatment of pulmonary embolism 2.0-3.0 Prevention of systemic embolism 2.0-3.0 HIGH RISK: Mechanical prosthetic valves 2.5-3.5 PT Coag (PPP) [Time] 11.3 s Normal 9.0 - 1 4.4 seconds AO [facility] LABORATORYOrdered By: SYSTEM SYSTEM on 07-31-2023 Platelets (Bld) [#/Vol] 95 103/mcL Low 130 - 400 10^3/mcL AO Workflow SS PLTon 07-31-2023 Platelet 95 10 3/mcL Low 130-400 [facility]) Comment on above: Performed By: #### P LT, PRO #### [address] [address] PROon 07-31-2023 PT Coag (PPP) [Time] 11.3 s Normal 9.0-14.4 [facility]) Comment on above: Performed By: #### P LT, PRO #### [address] [address] PT International Ratio 1.0 Normal [facility]) Comment on above: Result Comment: [employer] (CHEST, 1991, 102:312S-25S) recommended therapeutic range for oral anticoagulant therapy is: LOW RISK: Prophylaxis of venous thrombosis INR: 2.0-3.0 Treatment of pulmonary embolism 2.0-3.0 Prevention of systemic embolism 2.0-3.0 HIGH RISK: Mechanical prosthetic valves 2.5-3.5 Performed By: #### P LT, PRO #### [place] [address] [place], [place] [address] .GFRon 07-16-2023 GFR >60 Normal [facility] ([place]) Comment on above: Result Comment: GFR Population mean for , Non- Americans Ages 20-29 = 116 mL/min/1.73 sq.m. Ages 30-39 = 107 mL/min/1.73 sq.m. Ages 40-49 = 99 mL/min/1.73 sq.m. Ages 50-59 = 93 mL/min/1.73 sq.m. Ages 60-69 = 85 mL/min/1.73 sq.m. Ages 70+ = 75 mL/min/1.73 sq.m. Chronic Kidney Disease: Less than 60 mL/min/1.73 square meters End Stage Renal Disease: Less than 15 mL/min/1.73 square meters Performed By: #### L IPID, FES, TSH, PSA, GFR, HGMP, CMP, FERR #### [address] [address] GFR Non- 55 ml/min/1.73sqm Normal [facility] ([place]) Comment on above: Result Comment: GFR Population mean for , Non- Americans Ages 20-29 = 116 mL/min/1.73 sq.m. Ages 30-39 = 107 mL/min/1.73 sq.m. Ages 40-49 = 99 mL/min/1.73 sq.m. Ages 50-59 = 93 mL/min/1.73 sq.m. Ages 60-69 = 85 mL/min/1.73 sq.m. Ages 70+ = 75 mL/min/1.73 sq.m. Chronic Kidney Disease: Less than 60 mL/min/1.73 square meters End Stage Renal Disease: Less than 15 mL/min/1.73 square meters Performed By: #### L IPID, FES, TSH, PSA, GFR, HGMP, CMP, FERR #### [address] [address] CMPon 07-16-2023 Albumin Level 3.6 G/dL Normal 3.2-4.8 [facility] ([place]) Comment on above: Performed By: #### L IPID, FES, TSH, PSA, GFR, HGMP, CMP, FERR #### [address] [address] Albumin/Globulin [Mass ratio] 1.7 {ratio} High 0.9-1.6 [facility] ([place]) Comment on above: Performed By: #### L IPID, FES, TSH, PSA, GFR, HGMP, CMP, FERR #### [place] [id number] ALP [Catalytic activity/Vol] 85 U/L Normal 38-126 [facility] ([place]) Comment on above: Performed By: #### L IPID, FES, TSH, PSA, GFR, HGMP, CMP, FERR #### [address] [address] ALT [Catalytic activity/Vol] 18 U/L Normal 12-55 [facility] ([place]) Comment on above: Performed By: #### L IPID, FES, TSH, PSA, GFR, HGMP, CMP, FERR #### [place] [id number] AST [Catalytic activity/Vol] 20 U/L Normal 8-34 [facility] ([place]) Comment on above: Performed By: #### L IPID, FES, TSH, PSA, GFR, HGMP, CMP, FERR #### [place] [id number] Bili Total 0.70 mg/dL Normal 0.20-1.20 [facility] ([place]) Comment on above: Result Comment: Use of this assay is not recommended for patients undergoing treatment with eltrombopag due to the potential for falsely elevated results. Performed By: #### L IPID, FES, TSH, PSA, GFR, HGMP, CMP, FERR #### [place] [id number] BUN/Creatinine Ratio 16.8 ratio Normal 10.0-22.0 [facility] ([place]) Comment on above: Performed By: #### L IPID, FES, TSH, PSA, GFR, HGMP, CMP, FERR #### [address] [address] Calcium [Mass/Vol] 9.1 mg/dL Normal 8.7-10.4 [facility] ([place]) Comment on above: Performed By: #### L IPID, FES, TSH, PSA, GFR, HGMP, CMP, FERR #### [address] [address] Chloride [Moles/Vol] 106 mmol/L Normal 98-110 [facility] ([place]) Comment on above: Performed By: #### L IPID, FES, TSH, PSA, GFR, HGMP, CMP, FERR #### [address] [address] CO2 [Moles/Vol] 32 mmol/L Normal 22-32 [facility] ([place]) Comment on above: Performed By: #### L IPID, FES, TSH, PSA, GFR, HGMP, CMP, FERR #### [place] [address] Creatinine [Mass/Vol] 1.25 mg/dL Normal 0.60-1.40 [facility] ([place]) Comment on above: Performed By: #### L IPID, FES, TSH, PSA, GFR, HGMP, CMP, FERR #### [place] [address] Electrolyte Balance 5.0 mEq/L Normal 4.0-15.0 [facility] ([place]) Comment on above: Performed By: #### L IPID, FES, TSH, PSA, GFR, HGMP, CMP, FERR #### [place] [id number] Globulin 2.1 G/dL Normal 1.5-3.8 [facility] ([place]) Comment on above: Performed By: #### L IPID, FES, TSH, PSA, GFR, HGMP, CMP, FERR #### [place] [id number] Glucose [Mass/Vol] 82 mg/dL Normal 82-115 [facility] ([place]) Comment on above: Performed By: #### L IPID, FES, TSH, PSA, GFR, HGMP, CMP, FERR #### [address] [address] Potassium [Moles/Vol] 3.7 mmol/L Normal 3.5-5.0 [facility] ([place]) Comment on above: Performed By: #### L IPID, FES, TSH, PSA, GFR, HGMP, CMP, FERR #### [address] [address] Sodium [Moles/Vol] 143 mmol/L Normal 136-145 [facility] ([place]) Comment on above: Performed By: #### L IPID, FES, TSH, PSA, GFR, HGMP, CMP, FERR #### [address] [address] Total Protein 5.7 G/dL Normal 5.7-8.2 [facility] ([place]) Comment on above: Result Comment: No te - New Reference Range in effect 19 Performed By: #### L IPID, FES, TSH, PSA, GFR, HGMP, CMP, FERR #### [address] [address] Urea nitrogen [Mass/Vol] 21.0 mg/dL Normal 8.0-22.0 [facility] ([place]) Comment on above: Performed By: #### L IPID, FES, TSH, PSA, GFR, HGMP, CMP, FERR #### [address] [address] [place] 07-16-2023 Ferritin [Mass/Vol] 161.9 ng/mL Normal 26.0-388.0 [facility] ([place] Comment on above: Performed By: #### L IPID, FES, TSH, PSA, GFR, HGMP, CMP, FERR #### [address] [address] FES 07-16-2023 Iron [Mass/Vol] 66 ug/dL Normal 65-175 [facility] ([place]) Comment on above: Performed By: #### L IPID, FES, TSH, PSA, GFR, HGMP, CMP, FERR #### [place] [id number] Iron Sat 25 % Normal [facility] ([place]) Comment on above: Performed By: #### L IPID, FES, TSH, PSA, GFR, HGMP, CMP, FERR #### [place] [id number] TIBC 269 mcg/dL Normal 250-500 [facility] ([place]) Comment on above: Performed By: #### L IPID, FES, TSH, PSA, GFR, HGMP, CMP, FERR #### [place] [address] HGMPon 07-16-2023 Erythrocyte distribution width (RBC) [Ratio] 15.1 % Normal 11.5-15.5 [facility] ([place]) Comment on above: Performed By: #### L IPID, FES, TSH, PSA, GFR, HGMP, CMP, FERR #### [place] [address] Hematocrit (Bld) [Volume fraction] 41.9 % Normal 40.0-52.0 [facility] ([place]) Comment on above: Performed By: #### L IPID, FES, TSH, PSA, GFR, HGMP, CMP, FERR #### [place] [address] Hgb 14.0 G/dL Normal 13.0-17.5 [facility] ([place] Comment on above: Performed By: #### L IPID, FES, TSH, PSA, GFR, HGMP, CMP, FERR #### [place] [address] MCH (RBC) [Entitic mass] 32.4 pg Normal 27.0-33.0 [facility] ([place]) Comment on above: Performed By: #### L IPID, FES, TSH, PSA, GFR, HGMP, CMP, FERR #### [place] [address] MCHC 33.3 G/dL Normal 32.0-36.0 [facility] ([place] Comment on above: Performed By: #### L IPID, FES, TSH, PSA, GFR, HGMP, CMP, FERR #### [place] [address] MCV (RBC) [Entitic vol] 97.3 fL Normal 81.0-100.0 [facility] ([place]) Comment on above: Performed By: #### L IPID, FES, TSH, PSA, GFR, HGMP, CMP, FERR #### [place] [address] Platelet 106 10 3/mcL Low 150-450 [facility] ([place]) Comment on above: Performed By: #### L IPID, FES, TSH, PSA, GFR, HGMP, CMP, FERR #### [place] [address] Platelet mean volume (Bld) [Entitic vol] 10.3 fL Normal 6.4-10.5 [facility] ([place]) Comment on above: Performed By: #### L IPID, FES, TSH, PSA, GFR, HGMP, CMP, FERR #### [place] [address] RBC 4.31 10 6/mcL Low 4.50-6.00 [facility] ([place]) Comment on above: Performed By: #### L IPID, FES, TSH, PSA, GFR, HGMP, CMP, FERR #### [place] [address] WBC 5.3 10 3/mcL Normal 4.5-10.8 [facility] ([place] Comment on above: Performed By: #### L IPID, FES, TSH, PSA, GFR, HGMP, CMP, FERR #### [place] [address] LIPIDon 07-16-2023 Cholesterol [Mass/Vol] 140 mg/dL Normal 50-199 [facility] ([place]) Comment on above: Result Comment: Chol esterol Reference Interval: Less than 200 Desirable 200-239 Borderline high risk 240 and above High risk Performed By: #### L IPID, FES, TSH, PSA, GFR, HGMP, CMP, FERR ####[place] [address] Cholesterol in HDL [Mass/Vol] 59 mg/dL Normal 40-59 [facility] ([place] Comment on above: Performed By: #### L IPID, FES, TSH, PSA, GFR, HGMP, CMP, FERR ####[address] [address] Cholesterol in LDL [Mass/Vol] 64 mg/dL Normal 0-129 [facility] ([place]) Comment on above: Performed By: #### L IPID, FES, TSH, PSA, GFR, HGMP, CMP, FERR ####[address] [address] Triglyceride [Mass/Vol] 86 mg/dL Normal 3-149 [facility] ([place]) Comment on above: Performed By: #### L IPID, FES, TSH, PSA, GFR, HGMP, CMP, FERR ####[place] [address] PSAon 07-16-2023 Prostate Specific Antigen 2.43 ng/mL Normal 0.02-4.00 [facility] ([place]) Comment on above: Result Comment: Darlene ent results determined by assays using different manufacturers for methods may not be comparable. Performed By: #### L IPID, FES, TSH, PSA, GFR, HGMP, CMP, FERR ####[place] [address] TSHon 07-16-2023 TSH 2.326 mIU/mL Normal 0.550-4.780 [facility] ([place]) Comment on above: Result Comment: No te - New Reference Range in effect 19 Performed By: #### L IPID, FES, TSH, PSA, GFR, HGMP, CMP, FERR ####[address] [address] XR RIBS 2 VIEWS RIGHTon 01-03 XR RIBS 2 VIEWS RIGHT ORIGINAL EXAMINATION: 2 XRAY VIEWS OF THE RIGHT RIBS103/11/2022 9:42 am RIBS RIGHT COMPARISON: Chest radiograph, 01/09/2023 HISTORY: ORDERING SYSTEM PROVIDED HISTORY: Reason for Exam: PAIN FINDINGS: No displaced rib fractures. No aggressive bony lesions. Sternotomy wires appear intact. Visualized right lung is clear. No pneumothorax. Prominent costochondral calcifications seen. IMPRESSION: No displaced fractures Interpreted by: Deangelo Crawford MD Preliminary Report By: Deangelo Crawford MD Electronically signed By eDangelo Crawford MD Dictated Date: 01/14/2023 8:54:39 AM Prelim Date: 01/14/2023 8:56:13 AM Sign Date: 01/14/2023 8:56:13 AM Ordering Provider: ENRIQUE CROFT [facility]) XR CHEST 2 VIEWSon 3 XR CHEST 2 VIEWS ORIGINAL HISTORY: Cough, history of COVID COMPARISON: 28 June 2021 FINDINGS: Sternotomy wires are unchanged. The lungs are clear. The pulmonary vasculature is unremarkable in appearance. Cardiac silhouette is mildly enlarged. IMPRESSION: Clear lungs. Interpreted by: Rush Fowler MD Preliminary Report By: Rush Fowler MD Electronically signed By Rush Fowler MD Dictated Date: 01/12/2023 1:57:44 PM Prelim Date: 01/12/2023 1:58:18 PM Sign Date: 01/12/2023 1:58:18 PM Ordering Provider: ENRIQUE CROFT [facility] ([place]) AMB - Narrative Note-Social Workon 02-14-2022 AMB - Narrative Note-Social Work Discipline and Description: Discipline: Social Work Topic: Travel Reimbursement Insurance Benefit Investigation Description: EVI was consulted by [employer], Ivelisse Reece, to assist patient in determining if they have a travel benefit associated with their insurance policy. EVI was provided with [facility] BMT department contact: Aleta (p): [phone] to inquire. EVI attempted call to Aleta, without answer. EVI left voicemail requesting callback to discuss. Awaiting callback. 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 On 06/30/2021, labs were taken which showed decreased immunoglobulin levels of IgA (33 mg/dL), IgG (369 mg/dL), IgM (21 mg/dL). UPEP with immunofixation at that time showed the presence of 2 monoclonal IgG kappa immunoglobulin. He was then referred to an oncologist. He saw an oncologist on 08/04/2021 which confirmed low immunoglobulin levels. SPEP showed decreased total protein, while serum free light chain level showed a kappa free light chain level of 1562 mg/L with a kappa lambda ratio of 433. Bone marrow biopsy on 10/15/2021 showed 50 to 60% kappa monotypic plasma cell neoplasm and Congo red stain was positive for periosteal amyloid deposits. FISH panel was positive for standard variant t (11; 14), was negative for p53 deletion and negative for t (4; 14) and t (14; 16). Cytogenetics were normal. Skeletal survey was negative for lytic bone disease. Beta-2 microglobulin 2.6 mg/L. Treatment was started with Velcade, Cytoxan, Darzalex, and Decadron. Due to his age, his regimen consisted of Velcade and Cytoxan on a 3-week on/1 week off. Weekly shot of Darzalex as well as weekly Decadron. Zometa was also given for his myeloma. PET/CT scan was ordered to screen for skeletal involvement, results are still pending Patient presents today for possibility of stem cell transplant History of Present Illness: ID Statement: JEANETTE MONREAL is a 81 year old Male Chief Complaint: Multiple Myeloma Interval History: Mr. Monreal presents to the clinic with both his and his daughter (daughter is a registered physical therapist) with referral from his oncologist, Dr. Croft, for second opinion and the possibility for stem cell transplant. Today, the patient presented in good spirits. He is positive that he will overcome his diagnosis. He voices complaints of left leg numbness as well as chest numbness the chest numbness has been present ever since surgery in February 2021. He mentions he has difficulty ambulating[place] about 300 [address] [place], and is not difficult for him to walk the distance of the yard. Before his hospital admission in 2020, he was in perfect health and was noted to be installing floors in his daughter's house at the age of [age] years old. Denies fever, chills, night sweats, headaches, visual disturbances, hearing changes, chest pain, dyspnea, cough, sputum production, hemoptysis, palpitations, syncope/near-syncope, peripheral edema, nausea/vomiting/diarrhea, constipation, abdominal pain, melena, hematochezia, hematuria, noticeable lymphadenopathy, rash, dizziness Review of Systems: Review of Systems: Pertinent positives and negatives as per history of present illness. Remainder of 10 point review of systems is negative. Allergies and Intolerances: Allergies: Allergy Status Unknown: Active Outpatient Medication Profile: * Patient Currently Takes Medications as of 10-Jan-2022 16:35 documented in Structured Notes carvedilol 6.25 mg oral tablet: Last Dose Taken: , 1 tab(s) orally 2 times a day acyclovir 400 mg oral tablet: Last Dose Taken: , 1 tab(s) orally 2 times a day loratadine 10 mg oral tablet: Last Dose Taken: , 1 tab(s) orally once a day Vitamin B-12 500 mcg oral tablet: Last Dose Taken: , 1 tab(s) orally every other day omega xl: Last Dose Taken: , 600 milligram(s) 1 tab 2 times a day Lasix 20 mg oral tablet: Last Dose Taken: , 1 tab(s) orally once a day potassium bicarbonate 10 mEq oral tablet, effervescent: Last Dose Taken: , 1 tab(s) orally once a day folic acid 1 mg oral tablet: Last Dose Taken: , 1 tab(s) orally once a day aspirin 81 mg oral tablet: Last Dose Taken: , 1 tab(s) orally , As Needed finasteride 5 mg oral tablet: Last Dose Taken: , 1 tab(s) orally once a day tamsulosin 0.4 mg oral capsule: Last Dose Taken: , 1 cap(s) orally once a day losartan 50 mg oral tablet: Last Dose Taken: , 1 tab(s) orally once a day CoQmax Ubiquinol 200 mg oral capsule: Last Dose Taken: , 1 cap(s) orally once a day terazosin 5 mg oral capsule: Last Dose Taken: , 1 cap(s) orally once a day (at bedtime) pravastatin 40 mg oral tablet: Last Dose Taken: , 1 tab(s) orally once a day magnesium oxide 400 mg oral tablet: Last Dose Taken: , 1 tab(s) orally once a day Velcade: cyclophosphamide: Last Dose Taken: Darzalex: Last Dose Taken: dexamethasone: Last Dose Taken: Zometa: Med (more content not included)... Normal [facility] Clinic Note - Intakeon 01-10 Clinic Note - Intake Patient Visit Information: Visit TypeFollow Up Visit Source of Informationpatient Accompanied byfamily Vital Signs: Temp (degrees C)36.4 degrees C Temperaturecore Heart Rate (beats/min)62 beats per minute Respiration (breaths/min)16 breath per minute BP Systolic (mm Hg)Image has been removed. 188 mmHg BP Diastolic (mm Hg)85 mmHg BP Mean (mm Hg)Image has been removed. 119 mmHg Height in cm169.5 centimeter(s) Heightstanding Weight in kg78.2 kilogram(s) Weightstanding BMI (kg/m2)27.2 kg/M2 BSA (m2)1.91 M2 SpO2 (%)98 % SpO2 Patient Onroom air Pain Screening: Patient States Painno (0) Allergies: Allergy Status Unknown: Active Outpatient Medication Profile: * Patient Currently Takes Medications as of 10-Jan-2022 16:35 documented in Structured Notes carvedilol 6.25 mg oral tablet: Last Dose Taken: , 1 tab(s) orally 2 times a day acyclovir 400 mg oral tablet: Last Dose Taken: , 1 tab(s) orally 2 times a day loratadine 10 mg oral tablet: Last Dose Taken: , 1 tab(s) orally once a day Vitamin B-12 500 mcg oral tablet: Last Dose Taken: , 1 tab(s) orally every other day omega xl: Last Dose Taken: , 600 milligram(s) 1 tab 2 times a day Lasix 20 mg oral tablet: Last Dose Taken: , 1 tab(s) orally once a day potassium bicarbonate 10 mEq oral tablet, effervescent: Last Dose Taken: , 1 tab(s) orally once a day folic acid 1 mg oral tablet: Last Dose Taken: , 1 tab(s) orally once a day aspirin 81 mg oral tablet: Last Dose Taken: , 1 tab(s) orally , As Needed finasteride 5 mg oral tablet: Last Dose Taken: , 1 tab(s) orally once a day tamsulosin 0.4 mg oral capsule: Last Dose Taken: , 1 cap(s) orally once a day losartan 50 mg oral tablet: Last Dose Taken: , 1 tab(s) orally once a day CoQmax Ubiquinol 200 mg oral capsule: Last Dose Taken: , 1 cap(s) orally once a day terazosin 5 mg oral capsule: Last Dose Taken: , 1 cap(s) orally once a day (at bedtime) pravastatin 40 mg oral tablet: Last Dose Taken: , 1 tab(s) orally once a day magnesium oxide 400 mg oral tablet: Last Dose Taken: , 1 tab(s) orally once a day Velcade: cyclophosphamide: Last Dose Taken: Darzalex: Last Dose Taken: dexamethasone: Last Dose Taken: Zometa: Notification: NotificationsAnnual Screens Due Dates Advanced Directives: Nov 29, 2022 Family Violence: Nov 29, 2022 Depression (Due every 6 months for ONC only; all others use Annual date): May 28, 2022 Substance Use - Alcohol: Nov 29, 2022 Substance Use - Drugs: Nov 29, 2022 Nutrition: Nov 29, 2022 Learning: Nov 29, 2022 Travel History: COVID-19 Screening Completedno exposure or symptoms Travel or ExposureNO travel to International locations in the past 30 days Falls: Have you fallen in the last 6 monthsno Do you have a fear of fallingno Do you feel you need assistanceno Is the patient using an assistive deviceno Not a falls riskimplement environmental risk factors interventions Electronic Signatures: Lisa Noyola (PCNA) (Signed 10-Jan-2022 16:35) Authored: Patient Visit Information, Vital Signs, Allergies, Outpatient Medication Profile, Notification, Travel History, Falls Last Updated: 10-Jan-2022 16:35 by Lisa Noyola (PCNA) Normal [facility] TH MRI CARDIAC W WO CONTRAST FOR MORPH FUNCT AND VALVE DZon 12-20-2021 TH MRI CARDIAC W WO CONTRAST FOR MORPH FUNCT AND VALVE [facility] CMR Report Name: JEANETTE MONREAL : 1940 Scan Date: 2021-12-20 10:07:46 Electronically signed by KenaeboniCristofer 08:20:12 GENERAL INFORMATION HEIGHT: 66.54 in (169.00 cm) WEIGHT: 169.76 lbs (77.00 kgs) BSA: 1.88 m^2 BASELINE HR: 61 BPM SCAN LOCATION: [facility] REFERRING PHYSICIAN: ALEXSANDER WOOTEN ATTENDING PHYSICIAN: ALEXSANDER WOOTEN TECHNOLOGIST: Casey Nunez FELLOWS: Robb Martinez ACCESSION NUMBER: [id number] ICD10 CODES: E85.81 PATIENT HISTORY: HT: 169.5 CM, WT: 77.5 [id number] male with PMHx of CABG in February 2021 (complicated by postopnbleeding requiring thoracotomy and requiring 23 units PRBC), DVT x3, HTN with high risk kappa 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 SUMMARY No evidence of myocardial amyloidosis. LEFT VENTRICLE: 1. Normal LV size (EDVi 86ml/m2) and systolic function (LVEF 54%). 2. Mild basal septal hypokinesis. 3. Normal LV wall thickness and indexed LV mass. 4. Normal ECV 26%. 6. Following administration of gadolinium, in the early phase, there is no evidence of LV thrombus or MVO. 7. In the late phase, there is no significant myocardial enhancement. Quantitative LVEF 57 %. VIABILITY: Hyperenhancement is normal. RIGHT VENTRICLE: Normal RV size (EDVi 88ml/m2) with preserved systolic function (RVEF 56%). LV/RV SEPTUM: The LV/RV septum is normal. LA/RA SEPTUM: The LA/RA septum is normal. LEFT ATRIUM: LA is mildly enlarged. RIGHT ATRIUM: RA is mildly enlarged. PERICARDIUM: The pericardium is normal. PLEURAL EFFUSION: There is no pleural effusion. AORTIC VALVE: Peak aortic valve velocity 183 cm/sec. Aortic regurgitant volume 3 ml. Aortic regurgitant fraction 2.17%. MITRAL VALVE: There is mild mitral regurgitation. Mitral regurgitant volume 9 ml. Mitral regurgitant fraction 10 %. TRICUSPID VALVE: There is mild-moderate tricuspid regurgitation. CORE EXAM MEASUREMENTS VOLUMETRIC ANALYSIS . ------. . . . LV . Reference . RV . Reference . +------+ +------ + +------+----- ------+ . EDV . ml . 170 . . 165 . . . . ml/m^2 . 91 . . 88 . . . ESV . ml . 72.5 . . 72 . . . . ml/m^2 . 39 . . 38 . . . CO . L/min . 5.75 . . 5.49 . . . . L/min/m^2 . 3.07 . . 2.92 . . . MASS . g . 95 . . . . . . g/m^2 . 51 . . . . . SV . ml . 98 . . 93 . . . . ml/m^2 . 52 . . 50 . . . EF . % . 57 . . 56 . . '------+ +------ + +------+----- ------' CARDIAC OUTPUT HR: 59 BPM LV DIMENSIONS WALL THICKNESS - ANTEROSEPTAL: 0.88 cm WALL THICKNESS - INFEROLATERAL: 0.73 cm LV MAG: 5.2 cm LV ESD: 4.1 cm LA DIMENSIONS (LV SYSTOLE) DIAMETER: 5.1 cm AREA - 2 CHAMBER: 27.77 cm^2 LENGTH - 2 CHAMBER: 6.3 cm AREA - 4 CHAMBER: 30.68 cm^2 LENGTH - 4 CHAMBER: 7.5 cm VOLUME: 115 ml VOLUME NORMALIZED: 61.3 ml/m^2 RA DIMENSIONS (RV SYSTOLE) DIAMETER: 4.2 cm AREA - 4 CHAMBER: 24.58 cm^2 LENGTH - 4 CHAMBER: 6.4 cm AORTIC ROOT DIMENSIONS ANNULUS: 2.3 cm SINUS OF VALSALVA: 2.9 cm SINOTUBULAR JUNCTION: 2.6 cm EXTRACELLULAR VOLUME MEASUREMENT PRE-CONTRAST T1 MYOCARDIUM: 1045 msec PRE-CONTRAST T1 LV CAVITY: 1720 msec POST-CONTRAST T1 MYOCARDIUM: 500 msec POST-CONTRAST T1 LV CAVITY: 340 msec HEMATOCRIT: 40.9 % HEMATOCRIT DATE: 2021-11-29 00:00:00 ECV: 26 % 17 SEGMENT . . . Segments . Wall Motion . Hyperenhancement . Stress Perfusion . Interpretation . + +--- + ------+ -----+ + . Base Ante (more content not included)... Normal [facility] HUNTER PATH REVIEWon 12-01-2021 PATH REVIEW-HUNTER HUANG Normal [facility] Comment on above: Result Comment: By h er/his signature above, the Pathologist listed as making the final interpretation certifies that she/he has personally reviewed this case. Performed By: #### B 2MIC #### [facility] [id number] [place] [address] PROTEIN ELECTROPHORESIS + IM MUNOFIXATION, SERUMon 12-01-2021 IMMUNOFIXATION INTERP ABNORMAL Normal [facility] Comment on above: Result Comment: Surry clonal IgG kappa in the gamma region at 0.1 g/dL consistent with daratumumab therapy. Performed By: #### B 2MIC #### [facility] [id number] [place] [address] INTERPRETATION ABNORMAL Normal [facility] Comment on above: Result Comment: Aber rant band detected. See immunofixation. Decrease in polyclonal gamma globulins. Performed By: #### B 2MIC #### [facility] [address] [place] [address] SPE PATH REVIEWon 12-01-2021 PATH REVIEW-COLE ENCINAS Normal [facility] Comment on above: Result Comment: By h er/his signature above, the Pathologist listed as making the final interpretation certifies that she/he has personally reviewed this case. Performed By: #### B 2MIC #### [facility] [address] [place] [address] Clinic Note - Heme Onc Kriss [email or web address] 11-30-2021 Clinic Note - Heme Onc Scheduling Follow Up Testing Appointment: Test Name(s)MRI Cardiac w/wo contrast Appointment Date & [id number] 10:15 [facility] CommentsNothing to eat or drink 3 hours prior. Please remove all jewelry, metals, piercings and hair clips prior to exam. Arrive at 9:15 am for check-in and registration, with ID, insurance card and face mask. End of Visit Documentation: Clinic Location/Phone Number: Clinic Location/Phone Number: [facility] 1st Floor End Of Visit MU Report Item: Visit Summary given or mailed to patientyes Electronic Signatures: Mari Naik (Rev Cycl Spec) (Signed 30-Nov-2021 09:45) Authored: TESTING (Lab, Radiology, Other) APPOINTMENTS, End of Visit Documentation Last Updated: 30-Nov-2021 09:45 by Mari Naik (Rev Cycl Spec) Normal [facility] Clinic Note - Heme Onc-New Jocelin robles 11-30-2021 Clinic Note - Heme Onc-New Visit Patient Visit Information: Visit Type: New Visit Cancer History: Treatment Synopsis: Diagnosis: 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 On 06/30/2021, labs were taken which showed decreased immunoglobulin levels of IgA (33 mg/dL), IgG (369 mg/dL), IgM (21 mg/dL). UPEP with immunofixation at that time showed the presence of 2 monoclonal IgG kappa immunoglobulin. He was then referred to an oncologist. He saw an oncologist on 08/04/2021 which confirmed low immunoglobulin levels. SPEP showed decreased total protein, while serum free light chain level showed a kappa free light chain level of 1562 mg/L with a kappa lambda ratio of 433. Bone marrow biopsy on 10/15/2021 showed 50 to 60% kappa monotypic plasma cell neoplasm and Congo red stain was positive for periosteal amyloid deposits. FISH panel was positive for standard variant t (11; 14), was negative for p53 deletion and negative for t (4; 14) and t (14; 16). Cytogenetics were normal. Skeletal survey was negative for lytic bone disease. Beta-2 microglobulin 2.6 mg/L. Treatment was started with Velcade, Cytoxan, Darzalex, and Decadron. Due to his age, his regimen consisted of Velcade and Cytoxan on a 3-week on/1 week off. Weekly shot of Darzalex as well as weekly Decadron. Zometa was also given for his myeloma. PET/CT scan was ordered to screen for skeletal involvement, results are still pending Patient presents today for possibility of stem cell transplant History of Present Illness: ID Statement: JEANETTE MONREAL is a 81 year old Male Chief Complaint: Multiple Myeloma Interval History: Mr. Monreal presents to the clinic with both his and his daughter (daughter is a registered physical therapist) with referral from his oncologist, Dr. Croft, for second opinion and the possibility for stem cell transplant. Today, the patient presented in good spirits. He is positive that he will overcome his diagnosis. He voices complaints of left leg numbness as well as chest numbness the chest numbness has been present ever since surgery in February 2021. He mentions he has difficulty ambulating. [place] about 300 [address] [place], and is not difficult for him to walk the distance of the yard. Before his hospital admission in 2020, he was in perfect health and was noted to be installing floors in his daughter's house at the age of [age] years old. Denies fever, chills, night sweats, headaches, visual disturbances, hearing changes, chest pain, dyspnea, cough, sputum production, hemoptysis, palpitations, syncope/near-syncope, peripheral edema, nausea/vomiting/diarrhea, constipation, abdominal pain, melena, hematochezia, hematuria, noticeable lymphadenopathy, rash, dizziness Review of Systems: Review of Systems: Pertinent positives and negatives as per history of present illness. Remainder of 10 point review of systems is negative. Outpatient Medication Profile: * Patient Currently Takes Medications as of 29-Nov-2021 15:06 documented in Structured Notes carvedilol 6.25 mg oral tablet: Last Dose Taken: , 1 tab(s) orally 2 times a day acyclovir 400 mg oral tablet: Last Dose Taken: , 1 tab(s) orally 2 times a day loratadine 10 mg oral tablet: Last Dose Taken: , 1 tab(s) orally once a day Vitamin B-12 500 mcg oral tablet: Last Dose Taken: , 1 tab(s) orally every other day omega xl: Last Dose Taken: , 600 milligram(s) 1 tab 2 times a day Lasix 20 mg oral tablet: Last Dose Taken: , 1 tab(s) orally once a day potassium bicarbonate 10 mEq oral tablet, effervescent: Last Dose Taken: , 1 tab(s) orally once a day folic acid 1 mg oral tablet: Last Dose Taken: , 1 tab(s) orally once a day aspirin 81 mg oral tablet: Last Dose Taken: , 1 tab(s) orally , As Needed finasteride 5 mg oral tablet: Last Dose Taken: , 1 tab(s) orally once a day tamsulosin 0.4 mg oral capsule: 1 cap(s) orally once a day losartan 50 mg oral tablet: 1 tab(s) orally once a day CoQmax Ubiquinol 200 mg oral capsule: Last Dose Taken: , 1 cap(s) orally once a day terazosin 5 mg oral capsule: 1 cap(s) orally once a day (at bedtime) pravastatin 40 mg oral tablet: 1 tab(s) orally once a day magnesium oxide 400 mg oral tablet: 1 tab(s) orally once a day 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 Social History: Social Substance History: Smoking Statusnever smoker Additional History . Lives with his . Has 3 kids, a (more content not included)... Normal [facility] KAPPA/LAMBDA FREE LIGHT Kahlil RAVI 11-30-2021 FREE KAPPA/LAMBDA RATIO,S 14.51 High 0.26 - 1.65 [facility] Comment on above: Result Comment: Unde tected antigen excess is a rare event but cannot be excluded. If these free light chain results do not agree with other clinical or laboratory findings, or if the sample is from a patient that has previously demonstrated antigen excess, the result must be checked by retesting at a higher sample dilution. Results should always be interpreted in conjunction with other laboratory tests and clinical evidence; any anomalies should be discussed with the testing laboratory. Performed By: #### K BENJAMIN #### [facility] [address] [place] [address] FREE LAMBDA LIGHT CHAIN,S 0.37 mg/dL Low 0.57 - 2.63 [facility] Comment on above: Performed By: #### Claudette BENJAMIN #### [facility] [address] [place] [address] FREE KAPPA LIGHT CHAINS,S 5.37 mg/dL High 0.33 - 1.94 [facility] Comment on above: Performed By: #### Claudette BENJAMIN #### [facility] [address] [place] [address] PROTEIN ELECTROPHORESIS + IM MUNOFIXATION, SERUMon 11-30-2021 Albumin [Mass/Vol] 4.3 g/dL Normal 3.4 - 5.0 [facility] Comment on above: Performed By: #### B 2MIC #### [facility] [address] [place] [address] ALPHA 1 GLOBULIN 0.3 g/dL Normal 0.2 - 0.6 [facility] Comment on above: Performed By: #### B 2MIC #### [facility] [address] [place] [address] ALPHA 2 GLOBULIN 0.7 g/dL Normal 0.4 - 1.1 [facility] Comment on above: Performed By: #### B 2MIC #### [facility] [address] [place] [address] BETA GLOBULIN 0.6 g/dL Normal 0.5 - 1.2 [facility] Comment on above: Performed By: #### B 2MIC #### [facility] [address] [place] [address] GAMMA GLOBULIN 0.4 g/dL Low 0.5 - 1.4 [facility] Comment on above: Performed By: #### B 2MIC #### [facility] [address] [place] [address] Protein [Mass/Vol] 0.1 g/dL Abnormal Not Detected [facility] Comment on above: Performed By: #### B 2MIC #### [facility] [address] [place] [address] BETA 2 MICROGLOBULINon 11-29 BETA 2 MICROGLOBULIN 2.6 mg/L High 0.7 - 2.2 [facility] Comment on above: Performed By: #### B 2MIC #### [facility] [address] [place] [address] BNPon 11-29-2021 Natriuretic peptide B (Bld) [Mass/Vol] 188 pg/mL High 0 - 99 [facility] Comment on above: Result Comment: . <1 00 pg/mL - Heart failure unlikely 100-299 pg/mL - Intermediate probability of acute heart . failure exacerbation. Correlate with clinical . context and patient history. >=300 pg/mL - Heart Failure likely. Correlate with clinical . context and patient history. Biotin interference may cause falsely decreased results. Patients taking a Biotin dose of up to 5 mg/day should refrain from taking Biotin for 24 hours before sample collection. Providers may contact their local laboratory for further information. Performed By: #### B 2MIC #### [facility] [address] [place] [address] CBC AND DIFFERENTIALon 11-29 % AUTOMATED IMMATURE GRAN 0.6 % Normal 0.0 - 0.9 [facility] Comment on above: Result Comment: Ciarra ture Granulocyte Count (IG) includes promyelocytes, myelocytes and metamyelocytes but does not include bands. Percent differential counts (%) should be interpreted in the context of the absolute cell counts (cells/L). Performed By: #### C BCDF #### [facility] [address] [place] [address] Basophils (Bld) [#/Vol] 0.01 10*3/uL Normal 0.00 - 0.10 [facility] Comment on above: Performed By: #### C BCDF #### [facility] [address] [place] [address] Basophils/100 WBC (Bld) 0.3 % Normal 0.0 - 2.0 [facility] Comment on above: Performed By: #### C BCDF #### [facility] [address] [place] [address] Eosinophils (Bld) [#/Vol] 0.00 10*3/uL Normal 0.00 - 0.40 [facility] Comment on above: Performed By: #### C BCDF #### [facility] [address] [place] [address] Eosinophils/100 WBC (Bld) 0.0 % Normal 0.0 - 6.0 [facility] Comment on above: Performed By: #### C BCDF #### [facility] [address] [place] [address] Erythrocyte distribution width (RBC) [Ratio] 13.8 % Normal 11.5 - 14.5 [facility] Comment on above: Performed By: #### C BCDF #### [facility] [address] [place] [address] Hematocrit (Bld) [Volume fraction] 40.9 % Low 41.0 - 52.0 [facility] Comment on above: Performed By: #### C BCDF #### [facility] [address] [place] [address] Hemoglobin (Bld) [Mass/Vol] 13.3 g/dL Low 13.5 - 17.5 [facility] Comment on above: Performed By: #### C BCDF #### [facility] [address] [place] [address] Lymphocytes (Bld) [#/Vol] 0.20 10*3/uL Low 0.80 - 3.00 [facility] Comment on above: Performed By: #### C BCDF #### [facility] [address] [place] [address] Lymphocytes/100 WBC (Bld) 5.6 % Normal 13.0 - 44.0 [facility] Comment on above: Performed By: #### C BCDF #### [facility] [address] [place] [address] MCHC (RBC) [Mass/Vol] 32.5 g/dL Normal 32.0 - 36.0 [facility] Comment on above: Performed By: #### C BCDF #### [facility] [address] [place] [address] MCV (RBC) [Entitic vol] 99 fL Normal 80 - 100 [facility] Comment on above: Performed By: #### C BCDF #### [facility] [address] [place] [address] Monocytes (Bld) [#/Vol] 0.04 10*3/uL Low 0.05 - 0.80 [facility] Comment on above: Performed By: #### C BCDF #### [facility] [address] [place] [address] Monocytes/100 WBC (Bld) 1.1 % Normal 2.0 - 10.0 [facility] Comment on above: Performed By: #### C BCDF #### [facility] [address] [place] [address] Neutrophils (Bld) [#/Vol] 3.30 10*3/uL Normal 1.60 - 5.50 [facility] Comment on above: Performed By: #### C BCDF #### [facility] [address] [place] [address] Neutrophils/100 WBC (Bld) 92.4 % Normal 40.0 - 80.0 [facility] Comment on above: Performed By: #### C BCDF #### [facility] [address] [place] [address] NUCLEATED RBC 0.0 /100 WBC Normal 0.0-0.0 [facility] Comment on above: Performed By: #### C BCDF #### [facility] [address] [place] [address] Platelets (Bld) [#/Vol] 184 10*3/uL Normal 150 - 450 [facility] Comment on above: Performed By: #### C BCDF #### [facility] [address] [place] [address] RBC 4.13 x10E12/L Low 4.50 - 5.90 [facility] Comment on above: Performed By: #### C BCDF #### [facility] [address] [place] [address] WBC (Bld) [#/Vol] 3.6 10*3/uL Low 4.4 - 11.3 [facility] Comment on above: Performed By: #### C BCDF #### [facility] [address] [place] [address] COMPREHENSIVE PANELon 2021 Albumin [Mass/Vol] 4.7 g/dL Normal 3.4 - 5.0 [facility] Comment on above: Performed By: #### C MP #### [facility] [address] [place] [address] ALP [Catalytic activity/Vol] 80 U/L Normal 33 - 136 [facility] Comment on above: Performed By: #### C MP #### [facility] [address] [place] [address] ALT [Catalytic activity/Vol] 30 U/L Normal 10 - 52 [facility] Comment on above: Result Comment: Darlene ents treated with Sulfasalazine may generate falsely decreased results for ALT. Performed By: #### C MP #### [facility] [address] [place] [address] Anion gap [Moles/Vol] 10 mmol/L Normal 10 - 20 [facility] Comment on above: Performed By: #### C MP #### [facility] [address] [place] [address] AST [Catalytic activity/Vol] 15 U/L Normal 9 - 39 [facility] Comment on above: Performed By: #### C MP #### [facility] [address] [place] [address] Bilirubin [Mass/Vol] 0.6 mg/dL Normal 0.0 - 1.2 [facility] Comment on above: Performed By: #### C MP #### [facility] [address] [place] [address] Calcium [Mass/Vol] 9.5 mg/dL Normal 8.6 - 10.6 [facility] Comment on above: Performed By: #### C MP #### [facility] [address] [place] [address] Chloride [Moles/Vol] 103 mmol/L Normal 98 - 107 [facility] Comment on above: Performed By: #### C MP #### [facility] [address] [place] [address] Creatinine [Mass/Vol] 1.00 mg/dL Normal 0.50 - 1.30 [facility] Comment on above: Performed By: #### C MP #### [facility] [address] [place] [address] GFR/1.73 sq M.predicted among non-blacks MDRD (S/P/Bld) [Vol rate/Area] 76 mL/min/{1.73_m2} Normal >90 [facility] Comment on above: Result Comment: CALC ULATIONS OF ESTIMATED GFR ARE PERFORMED USING THE 2020 CKD-EPI STUDY REFIT EQUATION WITHOUT THE RACE VARIABLE FOR THE IDMS-TRACEABLE CREATININE METHODS. https://jasn.asnjournals.org/content//ASN.92231 88332 Performed By: #### C MP #### [place] [address] [place] [address] Glucose [Mass/Vol] 159 mg/dL High 74 - 99 [facility] Comment on above: Performed By: #### C MP #### [facility] [address] [place] [address] HCO3 (Bld) [Moles/Vol] 31 mmol/L Normal 21 - 32 [facility] Comment on above: Performed By: #### C MP #### [facility] [address] [place] [address] Potassium [Moles/Vol] 4.7 mmol/L Normal 3.5 - 5.3 [facility] Comment on above: Performed By: #### C MP #### [facility] [address] [place] [address] Protein [Mass/Vol] 6.3 g/dL Low 6.4 - 8.2 [facility] Comment on above: Performed By: #### C MP #### [facility] [address] [place] [address] Performed By: #### B 2MIC #### [facility] [address] [place] [address] Sodium [Moles/Vol] 139 mmol/L Normal 136 - 145 [facility] Comment on above: Performed By: #### C MP #### [facility] [address] [place] [address] Urea nitrogen [Mass/Vol] 21 mg/dL Normal 6 - 23 [facility] Comment on above: Performed By: #### C MP #### [facility] [address] [place] [address] Clinic Note - Intakeon 11-29 Clinic Note - Intake Patient Visit Information: Visit TypeNew Visit Source of Informationpatient Vital Signs: Temp (degrees C)36.3 degrees C Temperatureskin Heart Rate (beats/min)70 beats per minute Respiration (breaths/min)16 breath per minute BP Systolic (mm Hg)Image has been removed. 173 mmHg BP Diastolic (mm Hg)75 mmHg BP Mean (mm Hg)Image has been removed. 107 mmHg Height in cm169.5 centimeter(s) Height Methodmeasured Heightstanding Weight in kg77.5 kilogram(s) Weightstanding BMI (kg/m2)26.9 kg/M2 BSA (m2)1.91 M2 Nursing Verification [id number] Nursing Verification Height in cm169.5 centimeter(s) Nursing Verification CommentHeight verification SpO2 (%)99 % SpO2 Patient Onroom air Pain Screening: Patient States Painno (0) Outpatient Medication Profile: * Patient Currently Takes Medications as of 29-Nov-2021 15:06 documented in Structured Notes carvedilol 6.25 mg oral tablet: Last Dose Taken: , 1 tab(s) orally 2 times a day acyclovir 400 mg oral tablet: Last Dose Taken: , 1 tab(s) orally 2 times a day loratadine 10 mg oral tablet: Last Dose Taken: , 1 tab(s) orally once a day Vitamin B-12 500 mcg oral tablet: Last Dose Taken: , 1 tab(s) orally every other day omega xl: Last Dose Taken: , 600 milligram(s) 1 tab 2 times a day Lasix 20 mg oral tablet: Last Dose Taken: , 1 tab(s) orally once a day potassium bicarbonate 10 mEq oral tablet, effervescent: Last Dose Taken: , 1 tab(s) orally once a day folic acid 1 mg oral tablet: Last Dose Taken: , 1 tab(s) orally once a day aspirin 81 mg oral tablet: Last Dose Taken: , 1 tab(s) orally , As Needed finasteride 5 mg oral tablet: Last Dose Taken: , 1 tab(s) orally once a day tamsulosin 0.4 mg oral capsule: 1 cap(s) orally once a day losartan 50 mg oral tablet: 1 tab(s) orally once a day CoQmax Ubiquinol 200 mg oral capsule: Last Dose Taken: , 1 cap(s) orally once a day terazosin 5 mg oral capsule: 1 cap(s) orally once a day (at bedtime) pravastatin 40 mg oral tablet: 1 tab(s) orally once a day magnesium oxide 400 mg oral tablet: 1 tab(s) orally once a day Notification: NotificationsAnnual Screens Due Dates Advanced Directives: Nov 29, 2022 Family Violence: Nov 29, 2022 Depression (Due every 6 months for ONC only; all others use Annual date): May 28, 2022 Substance Use - Alcohol: Nov 29, 2022 Substance Use - Drugs: Nov 29, 2022 Nutrition: Nov 29, 2022 Learning: Nov 29, 2022 Travel History: COVID-19 Screening Completedno exposure or symptoms Travel or ExposureNO travel to International locations in the past 30 days Falls: Have you fallen in the last 6 monthsno Do you have a fear of fallingno Do you feel you need assistanceno Is the patient using an assistive deviceno Adv Dir: [facility] Violence: Are you or have you been threatened or abused physically,emotionally or sexually abused by anyoneno Do you feel UNSAFE going back to the place you are livingno Depression: Past 2 wks: [place] down, depressed or hopelessno Past 2 wks: [place] little interest/pleasure doing thingsno Any Thoughts of Harming Othersno Substance: How many times in the past year have you hd 5 or more drinks within 24 hours0 How many times in past year have you used recreational or prescription drugs for non-medical reasons0 Nutrition/Learning: In the past month, was there any day when you or anyone in your family went hungry because you didn't have enough foodno Primary LanguageEnglish Do you, or others today, need extra help due to problems with hearing,speaking, seeing, moving around or learningno Electronic Signatures: Simba Sharma (RN) (Signed 01-Dec-2021 08:31) Authored: Vital Signs, Notification Co-Signer: Patient Visit Information, Vital Signs, Outpatient Medication Profile, Notification, Travel History, Falls, Adv Dir, Violence, Depression, Substance, Nutrition/Learning Syeda Alvarez (PCNA) (Signed 29-Nov-2021 15:06) Authored: Patient Visit Information, Vital Signs, Outpatient Medication Profile, Notification, Travel History, Falls, Adv Dir, Violence, Depression, Substance, Nutrition/Learning Last Updated: 01-Dec-2021 08:31 by Simba Sharma (RN) Normal [facility] FERRITINon 11-29-2021 FERRITIN 449 ug/L High 20 - 300 [facility] Comment on above: Performed By: #### F ERRI #### [facility] [address] [place] [address] FOLATE, SERUMon 11-29-2021 Folate [Mass/Vol] ng/mL Normal >5.0 [facility] Comment on above: Result Comment: Low <3.4 Borderline 3.4-5.0 Normal >5.0 . Biotin interference may cause falsely elevated results. Patients taking a Biotin dose of up to 5 mg/day should refrain from taking Biotin for 24 hours before sample collection. Providers may contact their local laboratory for further information. Performed By: #### F ERRI #### [facility] [address] [place] [address] HEMOGLOBIN A1Con 11-29-2021 Glucose [Mass/Vol] 126 mg/dL Normal [facility] Comment on above: Performed By: #### B 2MIC #### [facility] [address] [place] [address] HbA1c (Bld) [Mass fraction] 6.0 % Abnormal [facility] Comment on above: Result Comment: Diag nosis of Diabetes-Adults Non-Diabetic: < or = 5.6% Increased risk for developing diabetes: 5.7-6.4% Diagnostic of diabetes: > or = 6.5% . Monitoring of Diabetes Age (y) Therapeutic Goal (%) Adults: >18 <7.0 Pediatrics: 13-18 <7.5 7-12 <8.0 0- 6 7.5-8.5 [employer]. Diabetes Care 33(S1), Mar 2009. Performed By: #### B 2MIC #### [facility] [address] [place] [address] IMMUNOGLOBULINS (G,A,M)on IgA [Mass/Vol] 26 mg/dL Low 70 - 400 [facility] Comment on above: Result Comment: MONO CLONAL PROTEINS MAY CAUSE FALSELY LOW RESULTS IN THIS ASSAY. SERUM PROTEIN ELECTROPHORESIS SHOULD BE DONE THE FIRST TEST TO EVALUATE MONOCLONAL GAMMOPATHY. Performed By: #### F ERRI #### [facility] [address] [place] [address] IgM [Mass/Vol] 21 mg/dL Low 40 - 230 [facility] Comment on above: Result Comment: MONO CLONAL PROTEINS MAY CAUSE FALSELY LOW RESULTS IN THIS ASSAY. SERUM PROTEIN ELECTROPHORESIS SHOULD BE DONE THE FIRST TEST TO EVALUATE MONOCLONAL GAMMOPATHY. Performed By: #### F ERRI #### [facility] [address] [place] [address] IgG [Mass/Vol] 437 mg/dL Low 700 - 1600 [facility] Comment on above: Result Comment: MONO CLONAL PROTEINS MAY CAUSE FALSELY LOW RESULTS IN THIS ASSAY. SERUM PROTEIN ELECTROPHORESIS SHOULD BE DONE THE FIRST TEST TO EVALUATE MONOCLONAL GAMMOPATHY. Performed By: #### F ERRI #### [facility] [address] [place] [address] LDHon 11-29-2021 LDH 155 U/L Normal 84 - 246 [facility] Comment on above: Performed By: #### L DH #### [facility] [address] [place] [address] THYROXINE,FREEon 11-29-2021 THYROXINE,FREE 1.13 ng/dL Normal 0.78 - 1.48 [facility] Comment on above: Result Comment: Thyr oxine Free testing is performed using different testing methodology at [facility] than at [facility]. Direct result comparisons should only be made within the same method. Performed By: #### T 4FRE #### [facility] [address] [place] TSHon 11-29-2021 TSH Qn 0.74 m[IU]/L Normal 0.44 - 3.98 [facility] Comment on above: Result Comment: TSH testing is performed using different testing methodology at [facility] than at [facility]. Direct result comparisons should only be made within the same method. Performed By: #### T SH2 #### [facility] [address] [place], [place] URIC ACIDon 11-29-2021 Urate [Mass/Vol] 4.4 mg/dL Normal 4.0 - 7.5 [facility] Comment on above: Result Comment: Birgit puncture immediately after or during the administration of Metamizole may lead to falsely low results. Testing should be performed immediately prior to Metamizole dosing. Performed By: #### U ARI #### [facility] [address] [place] [address] VITAMIN D, 25-HYDROXYon 11-04 VITAMIN D, 25-HYDROXY 53 ng/mL Normal [facility] Comment on above: Result Comment: . DEFICIENCY: < 20 NG/ML INSUFFICIENCY: 20-29 NG/ML SUFFICIENCY: 30-100 NG/ML THIS ASSAY ACCURATELY QUANTIFIES THE SUM OF VITAMIN D3, 25-HYDROXY AND VIT D2,25-HYDROXY. Performed By: #### V TDOH #### [facility] [address] [place] [id number] CT FLANK WO IVCONon 11-26-19 [facility] Oncology Nurse Navigator-eric strong diagnosison 11-16-2021 Oncology Nurse Navigator-initial diagnosis Summary/Preview: Nurse Navigator Note Care Navigation Interaction with patient Visit Type: initial evaluation Location of Visit: telephone Is this your first navigation interaction with this patient yes Continuum of Care: initial diagnosis Diagnosis: malignant heme Malignant/non-malignant: malignant Records: patient/portal Assessment Patient Needs and Barriers: cancer history Interventions Education: additional resources, appointment information, disease process and orientation and expectations Counseling: active listening, education, therapeutic communication and triage Acuity: 2 Team Communications 11/16/21 1300 Received referral for this patient from Dr. Martell. Patient was found on routine lab work to have abnormal SPEP and referred to med onc. He had a bone marrow biopsy and was found to have multiple myeloma. Patient is referred for transplant. He is 81 years old , but he is fairly healthy and active, only recently having had a heart bypass in February. He said other than that, he does not feel ill at all. His daughter and will accompany him to appointment. We discussed transplant, timing, chemo, hospital stay, and follow up. Lucho tis scheduled for 11/29/[address] Wooten and has my contact information. EROS Finch Electronic Signatures: Jaylyn Metzger) (Signed 16-Nov-2021 13:08) Authored: Care Navigation, Assessment, Interventions, Acuity/Communication, Summary/Preview Last Updated: 16-Nov-2021 13:08 by Jaylyn Metzger) Normal [facility] IMMUNOGLOBULINS GAMon 2021 IgA [Mass/Vol] 15 mg/dL Low 70-400 [facility] Comment on above: Order Comment: Elma shanks Type: BLOOD SPECIMEN Ordering Facility: [facility] Address: [address] [place], [place] [id number] Performed By: #### S ROBERT #### [facility] CLIA [id number] [address] [facility] [address] [address] [place] IgG [Mass/Vol] 377 mg/dL Low 700-1600 [facility] Comment on above: Order Comment: Speci men Type: BLOOD SPECIMEN [facility]ing [facility] [facility] Address: [address] [place] [address] Performed By: #### S ERIMM #### [facility] CLIA [id number] [address] [place] [address] [place] IgM [Mass/Vol] 10 mg/dL Low 40-230 [facility] Comment on above: Order Comment: Elma shanks Type: BLOOD SPECIMEN Ordering Facility: [facility] Address: [address] [place] [address] Performed By: #### S ERIMM #### [facility] CLIA [id number] [address] [place] [address] [place] KAPPA/BARAJAS,FREE,SERon 2021 Immunoglobulin light chains.kappa.free (S) [Mass/Vol] 1620.7 mg/L High 3.3-19.4 [facility] Comment on above: Order Comment: Elma shanks Type: BLOOD SPECIMEN Ordering Facility: [facility] Address: [address] [place] [address] Performed By: #### K LFRS #### [facility] CLIA [id number] [address] [place] [address] [place] Immunoglobulin light chains.kappa/Immunoglo bulin light chains.lambda (S) [Mass ratio] 279.43 High 0.26-1.65 [facility] Comment on above: Order Comment: Elma shanks Type: BLOOD SPECIMEN Ordering Facility: [facility] Address: [address] [place] [address] Performed By: #### K LFRS #### [facility] CLIA [id number] [address] [place] [address] [place] Immunoglobulin light chains.lambda.free [Mass/Vol] 5.8 mg/L Normal 5.7-26.3 [facility] Comment on above: Order Comment: Elma shanks Type: BLOOD SPECIMEN Ordering Facility: [facility] Address: [address] [place] [address] Performed By: #### K LFRS #### [facility] CLIA [id number] [address] [place] [address] [place] PROTEIN ELECTROPHORESIS SERU M (P)on 11-08-2021 Albumin [Mass/Vol] 3.60 g/dL Normal 3.37-4.23 [facility] Comment on above: Order Comment: Speci men Type: BLOOD SPECIMEN Ordering Facility: [facility] Hematology counts include [facility] beds at [facility] Address: [address] [place] [address] Performed By: #### L [id number] #### [facility] CLIA [id number] [address] [place] [address] [place] Alpha 1 globulin Elph [Mass/Vol] 0.18 g/dL Normal 0.18-0.31 [facility] Comment on above: Order Comment: Speci men Type: BLOOD SPECIMEN Ordering Facility: [facility] Address: [address] [place] [address] Performed By: #### L [id number] #### [facility] CLIA [id number] [address] [place] [address] [place] Alpha 2 globulin Elph [Mass/Vol] 0.54 g/dL Normal 0.52-0.97 [facility] Comment on above: Order Comment: Speci men Type: BLOOD SPECIMEN Ordering Facility: [facility] Address: [address] [place] [address] Performed By: #### L [id number] #### [facility] CLIA [id number] [address] [place] [address] [place] Beta globulin Elph [Mass/Vol] 0.63 g/dL Low 0.84-1.36 [facility] Comment on above: Order Comment: Speci men Type: BLOOD SPECIMEN Ordering Facility: [facility] Hematology counts include 234 beds at the [facility] Address: [address] [place] [address] Performed By: #### L [id number] #### [facility] CLIA [id number] [address] [place] [address] [place] Gamma globulin Elph (Body fld) [Mass fraction] 0.35 g/dL Low 0.70-1.44 [facility] Comment on above: Order Comment: Elma shanks Type: BLOOD SPECIMEN Ordering Facility: [facility] Address: [address] [place] [address] Performed By: #### L [id number] #### [facility] CLIA [id number] [address] [place] [address] OF [place] INTERPRETATION COMMENT FOR PROTEIN ELECTROPHORESIS Hypogammaglobulinemia is present, which can be seen in the setting of monoclonal gammopathy. If clinically indicated, monoclonal protein analysis and serum free light chain analysis are suggested to evaluate further for monoclonal gammopathy. Normal [facility] Comment on above: Order Comment: Elma shanks Type: BLOOD SPECIMEN Ordering Facility: [facility] Address: [address] [place] [address] Performed By: #### L [id number] #### [facility] CLIA [id number] [address] [place] [address] OF [place] M-PROTEIN LOCATION Normal [facility] Comment on above: Order Comment: Elma shanks Type: BLOOD SPECIMEN Ordering Facility: [facility] Address: [facility] [place] [address] Result Comment: Not Applicable. Performed By: #### L [id number] #### [facility] CLIA [id number] [address] [place] [address] [place] Protein Fractions [Interp] No definitive M protein is identified on protein electrophoresis. Normal No definitive M protein is identified on protein electrophor esis. [facility] Comment on above: Order Comment: Elma shanks Type: BLOOD SPECIMEN Ordering Facility: [facility] Address: [facility] [place] [address] Performed By: #### L [id number] #### [facility] CLIA [id number] [address] [place] [address] [place] Protein.monoclonal Elph [Mass/Vol] 0.00 g/dL Normal <=0.00 [facility] Comment on above: Order Comment: Speci men Type: BLOOD SPECIMEN Ordering Facility: [facility] Address: [address] [place] [address] Performed By: #### L [id number] #### [facility] CLIA [id number] [address] [place] [address] [place] SPE STAFF REVIEW Reviewed by Leon Jett M.D. [facility] Comment on above: Order Comment: Speci men Type: BLOOD SPECIMEN Ordering Facility: [facility] Hematology counts include 234 beds at the [facility] Address: [address] [place] [address] Performed By: #### L [id number] #### [facility] CLIA [id number] [address] [place] [address] [place] Prot SerPl-mCncon 11-08-2021 Protein [Mass/Vol] 5.3 g/dL Low 6.0-8.5 [facility] Comment on above: Order Comment: Speci men Type: BLOOD SPECIMEN Ordering Facility: [facility] Hematology counts include [facility] beds at [facility] Address: [facility] [place] [address] Performed By: #### 2 885-2, 3084-1 #### [facility] CLIA [id number] [address] [place] [address] [place] TYPE + SCREENon 11-08-2021 ABO B [facility] Comment on above: Order Comment: Speci men Type: BLOOD SPECIMEN Ordering Facility: [facility] Address: [address] [place] [address] Performed By: #### T SCR, PRDARA #### [facility] CLIA [id number] [address] [place] [address] [place] HISTORICAL AB SCR STATUS Negative Normal [facility] Comment on above: Order Comment: Speci men Type: BLOOD SPECIMEN Ordering Facility: [facility] Address: [address] [place] [address] Performed By: #### T SCR, PRDARA #### [facility] CLIA [id number] [address] [place] [address] Rh Nom (Bld) Positive Normal [facility] Comment on above: Order Comment: Speci men Type: BLOOD SPECIMEN Ordering Facility: [facility] Address: [address] [place] [address] Performed By: #### T SCR, PRDARA #### [facility] CLIA [id number] [address] [place] [address] TYPE AND SCREEN EXPIRATION 11/11/2021 23:59 Normal [facility] Comment on above: Order Comment: Speci men Type: BLOOD SPECIMEN Ordering Facility: [facility] Address: [address] [place] [address] Performed By: #### T SCR, PRDARA #### [facility] CLIA [id number] [address] [place] [address] Urate SerPl-mCncon 2 Urate [Mass/Vol] 3.7 mg/dL Normal 2.6-6.0 [facility] Comment on above: Order Comment: Speci men Type: BLOOD SPECIMEN Ordering Facility: [facility] Address: [address] [place] [address] Result Comment: Darlene ents receiving Metamizole prior to venipuncture, may have falsely depressed results. Slight Hemolysis, Result may be affected. Performed By: #### 2 885-2, 3084-1 #### [facility] CLIA [id number] [address] [place] [address] Urate SerPl-mCncon 2 Urate [Mass/Vol] 5.6 mg/dL Normal 2.6-6.0 [facility] Comment on above: Order Comment: Speci men Type: BLOOD SPECIMEN Ordering Facility: [facility] Address: [address] [place] [address] Result Comment: Darlene ents receiving Metamizole prior to venipuncture, may have falsely depressed results. Performed By: #### 3 084-1 #### [facility] CLIA [id number] [address] [place] [address] [place] Prot Ur-mCncon 10-18-2021 Protein (U) [Mass/Vol] 91 mg/dL High 1-14 [facility] Comment on above: Order Comment: Speci men Type: URINE SPECIMEN Ordering Facility: [facility] Address: [address] [place] [address] Result Comment: Samp les containing Amikacin, Gentamicin, Kanamycin, Tobramycin, and Neomycin Sulfate may cause falsely increased [employer] UCFP assay results. Performed By: #### 2 888-6 #### [facility] CLIA [id number] [address] [place] [address] [place] URINE PROTEIN ELECTROPHORESI S RANDOM (P)on 10-18-2021 Albumin Elph (U) [Mass fraction] 2.98 % Normal [facility] Comment on above: Order Comment: Speci men Type: URINE SPECIMEN Ordering Facility: [facility] Address: [address] [place] [address] Performed By: #### L [id number] #### [facility] CLIA [id number] [address] [place] [address] [place] Alpha 1 globulin Elph (U) [Mass fraction] 0.51 % Normal [facility] Comment on above: Order Comment: Speci men Type: URINE SPECIMEN Ordering Facility: [facility] Address: [address] [place] [address] Performed By: #### L [id number] #### [facility] CLIA [id number] [address] [place] [address] [place] Alpha 2 globulin Elph (U) [Mass fraction] 3.65 % Normal [facility] Comment on above: Order Comment: Speci men Type: URINE SPECIMEN Ordering Facility: [facility] Address: [address] [place], [place] [address] [address] Performed By: #### L [id number] #### [facility] CLIA [id number] [address] [place] [address] [place] Beta globulin Elph (U) [Mass fraction] 44.10 % Normal [facility] Comment on above: Order Comment: Speci men Type: URINE SPECIMEN Ordering Facility: [facility] Address: [address] [place] [address] Performed By: #### L [id number] #### [facility] CLIA [id number] [facility] [place] [address] [place] Gamma globulin Elph (U) [Mass fraction] 48.76 % Normal [facility] Comment on above: Order Comment: Speci men Type: URINE SPECIMEN Ordering Facility: [facility] Address: [address] [place] [address] Performed By: #### L [id number] #### [facility] CLIA [id number] [facility] [place] [address] [place] INTERPRETATION COMMENT FOR PROTEIN ELECTROPHORESIS Recommend monoclonal protein analysis to further characterize the M protein. Normal [facility] Comment on above: Order Comment: Speci men Type: URINE SPECIMEN Ordering Facility: [facility] Address: [address] [place] [address] Performed By: #### L [id number] #### [facility] CLIA [id number] [address] [place] [id number] [place] Protein Fractions Elph Nick (U) [Interp] An M protein is identified on protein electrophoresis. Abnormal No definitive M protein is identified on protein electrophor esis. [facility] Comment on above: Order Comment: Speci men Type: URINE SPECIMEN Ordering Facility: [facility] Address: [address] [place] [address] Performed By: #### L [id number] #### [facility] CLIA [id number] [address] [place], [place] [address] [place] STAFF REVIEW (URINE ELECTRO) Reviewed by Raman Haque MD, Ph.D ([id number]) [facility] Comment on above: Order Comment: Speci men Type: URINE SPECIMEN Ordering Facility: [facility] Address: [address] [place] [address] Performed By: #### L [id number] #### [facility] CLIA [id number] [address] [place] [address] [place] FREE KAPANDLAM, Son 08-11-19 22 FREE KIA/VELÁZQUEZ, S 433.92 High 0.26-1.65 [facility] Comment on above: Performed By: #### L 500.52753, L500.47381, L500.43005, L500.19874 #### [facility] [address] [place] [address] FREE KAPANDLAM, Son 08-10-19 22 FREE KAPPA 1562.10 mg/L High 3.3-19.4 [facility] Comment on above: Performed By: #### L 500.40545, L500.73964, L500.69270, L500.66246 #### [facility] [address] [place] [address] FREE LAMBDA 3.60 mg/L Low 5.7-26.3 [facility] Comment on above: Performed By: #### L 500.94219, L500.16751, L500.87857, L500.16461 #### [facility] [address] [place] [address] IFEon 08-09-2021 IGA QUANT 21 mg/dL Low 61-437 [facility] Comment on above: Result Comment: Resu lt confirmed on concentration. Performed By: #### L 500.52546, L500.52061, L500.86431, L500.08952 #### [facility] [place] [address] IGG QUANT 442 mg/dL Low 603-1613 [facility] Comment on above: Performed By: #### L 500.21344, L500.08552, L500.79623, L500.40364 #### [facility] [address] [place] [address] IGM QUANT 12 mg/dL Low 15-143 [facility] Comment on above: Result Comment: Resu lt confirmed on concentration. Performed By: #### L 500.72924, L500.81200, L500.83095, L500.80911 #### [facility] [address] [place] [address] SIFE INTERP High () [facility] Comment on above: Result Comment: Immu nofixation reveals the presence of monoclonal free [place] light chain. Suggest serum FLC quantitation and/or urine Immunofixation. Performed By: #### L 500.44286, L500.77515, L500.09026, L500.65495 #### [facility] [address] [place] [address] PROT ELECTROon 08-09-2021 Albumin [Mass/Vol] 3.5 g/dL Normal 2.9-4.4 [facility] Comment on above: Performed By: #### L 500.44621, L500.97603, L500.53445, L500.44820 #### [facility] [address] [place], [place] [address] Albumin/Globulin [Mass ratio] 1.8 {ratio} High 0.7-1.7 [facility] Comment on above: Performed By: #### L 500.52602, L500.93885, L500.99404, L500.84639 #### [facility] [place] [address] BETA GLOBULIN 0.7 g/dL Normal 0.7-1.3 [facility] Comment on above: Performed By: #### L 500.23940, L500.00257, L500.92938, L500.74457 #### [facility] [address] [place] [address] GAMMA GLOBULIN 0.4 g/dL Normal 0.4-1.8 [facility] Comment on above: Performed By: #### L 500.42373, L500.80787, L500.91748, L500.87745 #### [facility] [address] [place] [address] Globulin (S) [Mass/Vol] 2.0 g/dL Low 2.2-3.9 [facility] Comment on above: Performed By: #### L 500.44006, L500.76850, L500.18841, L500.22851 #### [facility] [address] [place] [address] Globulin (S) [Mass/Vol] 0.2 g/dL Normal 0.0-0.4 [facility] Comment on above: Performed By: #### L 500.12648, L500.82122, L500.11644, L500.52211 #### [facility] [address] [place] [address] Globulin (S) [Mass/Vol] 0.7 g/dL Normal 0.4-1.0 [facility] Comment on above: Performed By: #### L 500.51236, L500.38289, L500.14866, L500.77389 #### [facility] [address] [place] [address] INTERPRETATION Comment: Normal () [facility] Comment on above: Result Comment: SPE shows decreased total protein Performed By: #### L 500.85141, L500.45113, L500.51886, L500.37400 #### [facility] [address] [place] [address] M-SPIKE Not Observed Normal Not Observed [facility] Comment on above: Performed By: #### L 500.99627, L500.03598, L500.41823, L500.08338 #### [facility] [address] [place] [address] NOTE: Normal () [facility] Comment on above: Result Comment: Prot ein electrophoresis scan will follow via computer, mail, or sprinkling system installer delivery. Performed By: #### L 500.68542, L500.64728, L500.91022, L500.66870 #### [facility] [place] [address] Protein [Mass/Vol] 5.5 g/dL Low 6.0-8.5 [facility] Comment on above: Performed By: #### L 500.51966, L500.34547, L500.59661, L500.16160 #### [facility] [place] [address] B-2 MICROGLOBon 08-06-2021 B-2 MICROGLOB 2.4 mg/L Normal 0.6-2.4 [facility] Comment on above: Result Comment: Siem [facility] Immulite 2000 Immunochemiluminometric assay (ICMA) Values obtained with different assay methods or kits cannot be used interchangeably. Results cannot be interpreted as absolute evidence of the presence or absence of malignant disease. Performed At: [facility] [id number] [place] [id number] Performed By: #### L 550.73095 #### [facility] [id number] [place] [address] LABORATORYOrdered By: Danny Hamilton on 07-12-2021 Calcium [Mass/Vol] 8.7 mg/dL Invalid Interpretation Code 8.4 - 10.2 mg/dL AO ADM SS Chloride [Moles/Vol] 106 mmol/L Invalid Interpretation Code 98 - 107 mmol/L AO ADM SS CO2 [Moles/Vol] 30 mmol/L Invalid Interpretation Code 23 - 31 mmol/L AO ADM SS Creatinine [Mass/Vol] 1.21 mg/dL Invalid Interpretation Code 0.70 - 1.30 mg/dL AO ADM SS Electrolyte Balance 6.0 mEq/L Invalid Interpretation Code 4.0 - 15.0 mEq/L AO ADM SS Glucose [Mass/Vol] 112 mg/dL Invalid Interpretation Code 83 - 110 mg/dL AO ADM SS Potassium [Moles/Vol] 3.8 mmol/L Invalid Interpretation Code 3.5 - 5.1 mmol/L AO ADM SS Sodium [Moles/Vol] 142 mmol/L Invalid Interpretation Code 136 - 145 mmol/L AO ADM SS Urea nitrogen [Mass/Vol] 22 mg/dL Invalid Interpretation Code 7 - 18 mg/dL AO ADM SS Urea nitrogen/Creatinine [Mass ratio] 18 ratio Invalid Interpretation Code 7 - 27 ratio AO ADM SS LABORATORYOrdered By: SYSTEM SYSTEM on 07-12-2021 GFR 70 ml/min/1.73sqm Invalid Interpretation Code AO Chemistry S GFR Non- 58 ml/min/1.73sqm Invalid Interpretation Code AO Chemistry S LABORATORYOrdered By: Danny Hamilton on 06-28-2021 Albumin BCP dye [Mass/Vol] 3.3 G/dL Invalid Interpretation Code 3.4 - 4.8 G/dL AO ADM SS Albumin/Globulin [Mass ratio] 1.6 {ratio} Invalid Interpretation Code 1.1 - 2.5 ratio AO ADM SS ALP [Catalytic activity/Vol] 75 U/L Invalid Interpretation Code 40 - 135 U/L AO ADM SS ALT With P-5'-P [Catalytic activity/Vol] 23 U/L Invalid Interpretation Code 16 - 63 U/L AO ADM SS AST With P-5'-P [Catalytic activity/Vol] 10 U/L Invalid Interpretation Code 10 - 40 U/L AO ADM SS Bilirubin [Mass/Vol] 0.6 mg/dL Invalid Interpretation Code 0.2 - 1.0 mg/dL AO ADM SS Calcium [Mass/Vol] 8.7 mg/dL Invalid Interpretation Code 8.4 - 10.2 mg/dL AO ADM SS Chloride [Moles/Vol] 106 mmol/L Invalid Interpretation Code 98 - 107 mmol/L AO ADM SS CO2 [Moles/Vol] 31 mmol/L Invalid Interpretation Code 23 - 31 mmol/L AO ADM SS Creatinine [Mass/Vol] 1.16 mg/dL Invalid Interpretation Code 0.70 - 1.30 mg/dL AO ADM SS Electrolyte Balance 7.0 mEq/L Invalid Interpretation Code 4.0 - 15.0 mEq/L AO ADM SS Globulin 2.1 G/dL Invalid Interpretation Code AO ADM SS Glucose [Mass/Vol] 137 mg/dL Invalid Interpretation Code 83 - 110 mg/dL AO ADM SS Potassium [Moles/Vol] 3.9 mmol/L Invalid Interpretation Code 3.5 - 5.1 mmol/L AO ADM SS Protein [Mass/Vol] 5.4 G/dL Invalid Interpretation Code 6.4 - 8.2 G/dL AO ADM SS Sodium [Moles/Vol] 144 mmol/L Invalid Interpretation Code 136 - 145 mmol/L AO ADM SS Urea nitrogen [Mass/Vol] 16 mg/dL Invalid Interpretation Code 7 - 18 mg/dL AO ADM SS Urea nitrogen/Creatinine [Mass ratio] 14 ratio Invalid Interpretation Code 7 - 27 ratio AO ADM SS LABORATORYOrdered By: Maisha Oreilly on 06-28-2021 ESR 15 minute reading (Bld) [Velocity] 9 mm/hr Invalid Interpretation Code 0 - 20 mm/hr AO Man Heme SS LABORATORYOrdered By: SYSTEM SYSTEM on 06-28-2021 GFR 73 ml/min/1.73sqm Invalid Interpretation Code AO Chemistry S GFR Non- 61 ml/min/1.73sqm Invalid Interpretation Code AO Chemistry S BMPon 04-18-2021 Anion gap [Moles/Vol] 4 mmol/L Low 5-16 [facility] Comment on above: Performed By: #### L 500.25628, L500.18137, L500.60330, L500.95491 #### [facility] [address] [place] [address] Calcium [Mass/Vol] 10.1 mg/dL Normal 8.5-10.5 [facility] Comment on above: Result Comment: NOTE NEW NORMAL RANGE DUE TO REAGENT CHANGE Performed By: #### L 500.78299, L500.27994, L500.97859, L500.08557 #### [facility] [place] [address] Chloride [Moles/Vol] 104 mmol/L Normal 98-107 [facility] Comment on above: Performed By: #### L 500.87910, L500.28722, L500.24087, L500.57275 #### [facility] [address] [place] [address] CO2 [Moles/Vol] 32.0 mmol/L Normal 21-32 [facility] Comment on above: Performed By: #### L 500.10698, L500.20578, L500.91724, L500.92109 #### [facility] [address] [place] [address] Creatinine [Mass/Vol] 1.39 mg/dL Normal 0.5-1.4 [facility] Comment on above: Result Comment: NOTE NEW NORMAL RANGE DUE TO REAGENT CHANGE Patients receiving either N-Acetylcysteine (NAC) or Metamizole prior to venipuncture, may have falsely depressed results. Performed By: #### L 500.74056, L500.07664, L500.85421, L500.85054 #### [facility] [address] [place] [address] Glucose [Mass/Vol] 86 mg/dL Normal 70-100 [facility] Comment on above: Result Comment: 70-1 00- Normal Fasting; 100-125 Impaired Fasting; greater than 126 on more than one result- Diabetes. ADA guidelines. Results may be falsely elevated after the administration of Sulfapyridine. Results may be falsely depressed after the administration of Sulfasalazine. Performed By: #### L 500.55505, L500.59476, L500.51369, L500.75704 #### [facility] [place] [id number] Potassium [Moles/Vol] 4.8 mmol/L Normal 3.5-5.1 [facility] Comment on above: Performed By: #### L 500.70520, L500.81909, L500.09732, L500.01669 #### [facility] [address] [place] [address] Sodium [Moles/Vol] 140 mmol/L Normal 136-145 [facility] Comment on above: Performed By: #### L 500.86734, L500.54053, L500.59287, L500.32962 #### [facility] [address] [place] [address] Urea nitrogen [Mass/Vol] 21 mg/dL Normal 7-26 [facility] Comment on above: Performed By: #### L 500.05087, L500.84944, L500.09684, L500.61870 #### [facility] [address] [place] [address] Urea nitrogen/Creatinine [Mass ratio] 15 mg/mg Normal 15-24 [facility] Comment on above: Performed By: #### L 500.97637, L500.77459, L500.74083, L500.91854 #### [facility] [address] [place] [address] GFR ESTon 04-18-2021 IF AMER 60 Normal [facility] Comment on above: Performed By: #### L 500.96960, L500.30356, L500.29867, L500.53192 #### [facility] [address] [place] [address] IF non-AFR AMER 49 Normal [facility] Comment on above: Performed By: #### L 500.41188, L500.50412, L500.26549, L500.32957 #### [facility] [address] [phone] LABORATORYOrdered By: Jessica Vang on 04-04-2021 Troponin I.cardiac DL <= 0.01 ng/mL [Mass/Vol] 17.1 ng/L Invalid Interpretation Code 0.0 - 76.2 ng/L AO ADM SS Basophil, Absolute 0.00 103/mcL Invalid Interpretation Code 0.00 - 0.19 10^3/mcL AO Auto Heme SS Basophils/100 WBC (Bld) 1.0 % Invalid Interpretation Code 0.0 - 2.5 % AO Auto Heme SS Calcium [Mass/Vol] 9.3 mg/dL Invalid Interpretation Code 8.4 - 10.2 mg/dL AO ADM SS Chloride [Moles/Vol] 102 mmol/L Invalid Interpretation Code 98 - 107 mmol/L AO ADM SS CO2 [Moles/Vol] 29 mmol/L Invalid Interpretation Code 23 - 31 mmol/L AO ADM SS Creatinine [Mass/Vol] 1.57 mg/dL Invalid Interpretation Code 0.70 - 1.30 mg/dL AO ADM SS Electrolyte Balance 8.0 mEq/L Invalid Interpretation Code 4.0 - 15.0 mEq/L AO ADM SS Eosinophil, Absolute 0.10 103/mcL Invalid Interpretation Code 0.00 - 0.40 10^3/mcL AO Auto Heme SS Eosinophils/100 WBC (Bld) 2.1 % Invalid Interpretation Code 0.0 - 7.0 % AO Auto Heme SS Erythrocyte distribution width (RBC) [Ratio] 16.3 % Invalid Interpretation Code 11.5 - 14.5 % AO Auto Heme SS Glucose [Mass/Vol] 110 mg/dL Invalid Interpretation Code 83 - 110 mg/dL AO ADM SS Hematocrit (Bld) [Volume fraction] 37.4 % Invalid Interpretation Code 42.0 - 52.0 % AO Auto Heme SS Hemoglobin (Bld) [Mass/Vol] 12.1 G/dL Invalid Interpretation Code 14.0 - 18.0 G/dL AO Auto Heme SS Lymphocyte, Absolute 1.40 103/mcL Invalid Interpretation Code 0.77 - 3.85 10^3/mcL AO Auto Heme SS Lymphocytes/100 WBC (Bld) 28.6 % Invalid Interpretation Code 10.0 - 50.0 % AO Auto Heme SS MCH (RBC) [Entitic mass] 29.1 pg Invalid Interpretation Code 27.0 - 31.2 pg AO Auto Heme SS MCHC (RBC) [Mass/Vol] 32.4 G/dL Invalid Interpretation Code 31.8 - 35.4 G/dL AO Auto Heme SS MCV (RBC) [Entitic vol] 89.6 fL Invalid Interpretation Code 80.0 - 94.0 fL AO Auto Heme SS Monocyte, Absolute 0.50 103/mcL Invalid Interpretation Code 0.15 - 1.00 10^3/mcL AO Auto Heme SS Monocytes/100 WBC (Bld) 9.7 % Invalid Interpretation Code 1.7 - 13.0 % AO Auto Heme SS Neutrophil, Absolute 2.80 103/mcL Invalid Interpretation Code 2.85 - 6.16 10^3/mcL AO Auto Heme SS Neutrophils/100 WBC (Bld) 58.6 % Invalid Interpretation Code 37.0 - 80.0 % AO Auto Heme SS Platelet mean volume (Bld) [Entitic vol] 10.5 fL Invalid Interpretation Code 7.4 - 10.4 fL AO Auto Heme SS Platelets (Bld) [#/Vol] 153 103/mcL Invalid Interpretation Code 130 - 400 10^3/mcL AO Auto Heme SS Potassium [Moles/Vol] 4.0 mmol/L Invalid Interpretation Code 3.5 - 5.1 mmol/L AO ADM SS RBC (Bld) [#/Vol] 4.17 106/mcL Invalid Interpretation Code 4.04 - 6.13 10^6/mcL AO Auto Heme SS Sodium [Moles/Vol] 139 mmol/L Invalid Interpretation Code 136 - 145 mmol/L AO ADM SS Troponin I.cardiac DL <= 0.01 ng/mL [Mass/Vol] 16.3 ng/L Invalid Interpretation Code 0.0 - 76.2 ng/L AO ADM SS Urea nitrogen [Mass/Vol] 27 mg/dL Invalid Interpretation Code 7 - 18 mg/dL AO ADM SS Urea nitrogen/Creatinine [Mass ratio] 17 ratio Invalid Interpretation Code 7 - 27 ratio AO ADM SS WBC (Bld) [#/Vol] 4.80 103/mcL Invalid Interpretation Code 4.60 - 10.80 10^3/mcL AO Auto Heme SS LABORATORYOrdered By: Danny Hamilton on 04-04-2021 Amylase [Catalytic activity/Vol] 65 U/L Invalid Interpretation Code 25 - 115 U/L AO ADM SS Lipase [Catalytic activity/Vol] 135 U/L Invalid Interpretation Code 73 - 393 U/L AO ADM SS LABORATORYOrdered By: SYSTEM SYSTEM on 04-04-2021 GFR 52 ml/min/1.73sqm Invalid Interpretation Code AO Chemistry S GFR Non- 43 ml/min/1.73sqm Invalid Interpretation Code AO Chemistry S LABORATORYOrdered By: SYSTEM SYSTEM on 03-30-2021 Calcium [Mass/Vol] 10.2 mg/dL Invalid Interpretation Code 8.7 - 10.4 mg/dL AH ADM SS Chloride [Moles/Vol] 107 mmol/L Invalid Interpretation Code 98 - 110 mEq/L AH ADM SS CO2 [Moles/Vol] 33 mmol/L Invalid Interpretation Code 22 - 32 mEq/L AH ADM SS Creatinine [Mass/Vol] 1.50 mg/dL Invalid Interpretation Code 0.60 - 1.40 mg/dL AH ADM SS Electrolyte Balance 3.0 mEq/L Invalid Interpretation Code 4.0 - 15.0 mEq/L AH ADM SS GFR/1.73 sq M.predicted among blacks MDRD (S/P/Bld) [Vol rate/Area] 55 ml/min/1.73sqm Invalid Interpretation Code AH Chemistry S GFR/1.73 sq M.predicted among non-blacks MDRD (S/P/Bld) [Vol rate/Area] 45 ml/min/1.73sqm Invalid Interpretation Code AH Chemistry S Glucose [Mass/Vol] 90 mg/dL Invalid Interpretation Code 82 - 115 mg/dL AH ADM SS Potassium [Moles/Vol] 4.1 mmol/L Invalid Interpretation Code 3.5 - 5.0 mEq/L AH ADM SS Sodium [Moles/Vol] 143 mmol/L Invalid Interpretation Code 136 - 145 mEq/L AH ADM SS Urea nitrogen [Mass/Vol] 19.0 mg/dL Invalid Interpretation Code 8.0 - 22.0 mg/dL AH ADM SS Urea nitrogen/Creatinine [Mass ratio] 12.7 ratio Invalid Interpretation Code 10.0 - 22.0 ratio AH ADM SS BMPon 03-24-2021 Anion gap [Moles/Vol] 4 mmol/L Low 5-16 [facility] Comment on above: Performed By: #### L 500.39093, L500.35697, L500.75267, L500.28389 #### [facility] [address] [place] [address] Calcium [Mass/Vol] 9.8 mg/dL Normal 8.5-10.5 [facility] Comment on above: Result Comment: NOTE NEW NORMAL RANGE DUE TO REAGENT CHANGE Performed By: #### L 500.98134, L500.19537, L500.81875, L500.56810 #### [facility] [address] [place] [address] Chloride [Moles/Vol] 105 mmol/L Normal 98-107 [facility] Comment on above: Performed By: #### L 500.64150, L500.27714, L500.85491, L500.00436 #### [facility] [place] [address] CO2 [Moles/Vol] 32.0 mmol/L Normal 21-32 [facility] Comment on above: Performed By: #### L 500.55141, L500.00444, L500.24194, L500.56170 #### [facility] [place] [address] Creatinine [Mass/Vol] 1.57 mg/dL High 0.5-1.4 [facility] Comment on above: Result Comment: NOTE NEW NORMAL RANGE DUE TO REAGENT CHANGE Patients receiving either N-Acetylcysteine (NAC) or Metamizole prior to venipuncture, may have falsely depressed results. Performed By: #### L 500.52497, L500.96509, L500.83340, L500.08226 #### [facility] [place] [address] Glucose [Mass/Vol] 86 mg/dL Normal 70-100 [facility] Comment on above: Result Comment: 70-1 00- Normal Fasting; 100-125 Impaired Fasting; greater than 126 on more than one result- Diabetes. ADA guidelines. Results may be falsely elevated after the administration of Sulfapyridine. Results may be falsely depressed after the administration of Sulfasalazine. Performed By: #### L 500.87002, L500.17747, L500.86419, L500.35324 #### [facility] [place] [address] Potassium [Moles/Vol] 4.5 mmol/L Normal 3.5-5.1 [facility] Comment on above: Result Comment: Slig ht Hemolysis, Result may be affected. Performed By: #### L 500.79164, L500.74778, L500.84847, L500.68649 #### [facility] [address] [place] [address] Sodium [Moles/Vol] 141 mmol/L Normal 136-145 [facility] Comment on above: Performed By: #### L 500.66632, L500.46116, L500.50397, L500.45495 #### [facility] [address] [place] [address] Urea nitrogen [Mass/Vol] 23 mg/dL Normal 7-26 [facility] Comment on above: Performed By: #### L 500.43169, L500.60963, L500.56017, L500.70909 #### [facility] [address] [place] [address] Urea nitrogen/Creatinine [Mass ratio] 15 mg/mg Normal 15-24 [facility] Comment on above: Performed By: #### L 500.38187, L500.06283, L500.00624, L500.31245 #### [facility] [address] [place] [address] CBC W/DIFFon 03-24-2021 BASO ABS 0.00 K/CU MM Normal 0-0.2 [facility] Comment on above: Performed By: #### L 200.24381 #### [facility] [address] [place] [address] Basophils/100 WBC (Bld) 0.7 % Normal 0-2 [facility] Comment on above: Performed By: #### L 200.20902 #### [facility] [address] [place] [address] EOS ABS 0.10 K/CU MM Normal 0-0.5 [facility] Comment on above: Performed By: #### L 200.22483 #### [facility] [address] [place] [address] Eosinophils/100 WBC (Bld) 1.7 % Normal 0-5 [facility] Comment on above: Performed By: #### L 200.14898 #### [facility] [address] [place] [address] Erythrocyte distribution width (RBC) [Ratio] 15.4 % High 11-14.5 [facility] Comment on above: Performed By: #### L 200.59100 #### [facility] [address] [place] [address] Hematocrit (Bld) [Volume fraction] 39.8 % Low 41.0-53.0 [facility] Comment on above: Performed By: #### L 200.12142 #### [facility] [address] [place] [address] Hemoglobin (Bld) [Mass/Vol] 12.3 g/dL Low 13.5-17.5 [facility] Comment on above: Performed By: #### L 200.87131 #### [facility] [address] [place] [address] IMMATR GRAN ABS 0.00 K/CU MM Normal Less than 2 [facility] Comment on above: Performed By: #### L 200.89703 #### [facility] [address] [place] [address] IMMATURE GRAN % 0.2 % Normal Less than 2 [facility] Comment on above: Performed By: #### L 200.79841 #### [facility] [address] [place] [address] LYMPH ABS 0.90 K/CU MM Normal 0.9-4.4 [facility] Comment on above: Performed By: #### L 200.44836 #### [facility] [address] [place] [address] Lymphocytes/100 WBC (Bld) 23.3 % Normal 20-40 [facility] Comment on above: Performed By: #### L 200.10671 #### [facility] [address] [place] [address] MCHC (RBC) [Mass/Vol] 30.9 g/dL Low 32.0-36.0 [facility] Comment on above: Performed By: #### L 200.90275 #### [facility] [address] [place] [address] MCV (RBC) [Entitic vol] 95.0 fL Normal 80.0-99.0 [facility] Comment on above: Performed By: #### L 200.24450 #### [facility] [address] [place] [address] MONO ABS 0.40 K/CU MM Normal 0.1-1.1 [facility] Comment on above: Performed By: #### L 200.08614 #### [facility] [address] [place] [address] Monocytes/100 WBC (Bld) 10.4 % High 2-10 [facility] Comment on above: Performed By: #### L 200.09206 #### [facility] [address] [place] [address] NEUTROPHIL ABS 2.60 K/CU MM Normal 2.0-8.3 [facility] Comment on above: Performed By: #### L 200.47916 #### [facility] [address] [place] [address] Neutrophils/100 WBC (Bld) 63.7 % Normal 45-75 [facility] Comment on above: Performed By: #### L 200.41943 #### [facility] [address] [place] [address] Nucleated RBC/100 WBC (Bld) [Ratio] 0.0 % Normal Less than 1 [facility] Comment on above: Performed By: #### L 200.79847 #### [facility] [address] [place] [address] Platelet mean volume (Bld) [Entitic vol] 12.5 fL High 9.4-12.4 [facility] Comment on above: Performed By: #### L 200.50698 #### [facility] [address] [place] [address] PLT 176 K/CU MM Normal 150-450 [facility] Comment on above: Performed By: #### L 200.58246 #### [facility] [address] [place], [place] [id number] RBC 4.19 M/CU MM Low 4.50-6.00 [facility] Comment on above: Performed By: #### L 200.21771 #### [facility] [address] [place] [address] WBC 4.0 K/CUMM Low 4.5-11.0 [facility] Comment on above: Performed By: #### L 200.84564 #### [facility] [address] [place] [address] Silvia 03-24-2021 FERR 87.6 NG/ML Normal 24.0-388.0 [facility] Comment on above: Performed By: #### L 500.14670, L500.92567, L500.30436, L500.74397 #### [facility] [address] [place] [address] GFR ESTon 03-24-2021 IF AMER 52 Normal [facility] Comment on above: Performed By: #### L 500.97340, L500.40333, L500.58783, L500.67364 #### [facility] [address] [place] [address] IF non-AFR AMER 43 Normal [facility] Comment on above: Performed By: #### L 500.43574, L500.56853, L500.66503, L500.09472 #### [facility] [address] [place] [address] IRON PANELon 03-24-2021 Iron [Mass/Vol] 37 ug/dL Low 65-175 [facility] Comment on above: Result Comment: Darlene ents treated with metal-binding drugs (e.g.deferoxamine) may have depressed iron values, as chelated iron may not properly react in the Siemens iron assay. Performed By: #### L 500.22776, L500.60499, L500.19307, L500.94634 #### [facility] [address] [place] [address] IRON SAT 12 % Low 30-44 [facility] Comment on above: Performed By: #### L 500.81901, L500.48589, L500.94377, L500.14145 #### [facility] [address] [place], [place] [id number] TIBC 318 UG/DL Normal 221-481 [facility] Comment on above: Performed By: #### L 500.32253, L500.76267, L500.96423, L500.30006 #### [facility] [address] [place], [place] [id number] CNPNon 02-21-2021 CNPN Telephone (UROLAV) ----- JOCELINJEANETTE GLASS ([id number]) 1940 M Date Time Provider Department 02/21/21 TESFAYE TESFAYE During your visit today, we recorded the following information about you: Tesfaye Tesfaye MD 02/21/2021 3:52 PM Signed Called to discuss patient's questions about medications. He has been taking Tamsulosin, Terazosin and finasteride but recently stopped taking the terazosin due to low BP in the morning. He feels that he is urinating fine and has not noticed a difference. He does have a swollen scrotum after heart surgery. I recommended that if he does not notice a deficit without terazosin to continue to discontinue. Alternatively, it could be taken at night while monitoring signs of side effects in combination with tamsulosin. The scrotal swelling is typical after heart surgery and can take several weeks to resolve. He expressed understanding. Allergies As of Date: 02/21/2021 Noted Allergy Reaction Contrast Dye (GADOLINIUM-CONTAINI*12/04 7 - Swelling IVP DYE (IODINE) 08/26/2020 16 - Unknown SIMVASTATIN 08/26/2020 16 - Unknown 14 - Other: See Comments Date Reviewed: 10/05/2020 Reviewed by: Bailee Black Ma - Fully Assessed Reason for Visit: Returning Patient's Call [[id number]] Prescriptions as of 02/21/2021 - mometasone (ELOCON) 0.1 % cream Apply 1 application to affected area as needed. - tamsulosin (FLOMAX) 0.4 mg Take 0.4 mg by mouth once daily. - terazosin (HYTRIN) 5 mg capsule Take 5 mg by mouth once daily. - finasteride (PROSCAR) 5 mg tablet Take 5 mg by mouth once daily. - metoprolol succinate ER (TOPROL XL) 25 mg 24 hr tablet Take 25 mg by mouth once daily. - loratadine (CLARITIN) 10 mg tablet Take 10 mg by mouth once daily. - amLODIPine (NORVASC) 2.5 mg tablet Take 2.5 mg by mouth once daily. - folic acid 1 mg tablet Take 1 mg by mouth once daily. - aspirin, enteric coated (ASPIRIN, ENTERIC COATED) 81 mg EC tablet Take 81 mg by mouth once daily. - cyanocobalamin (VITAMIN B-12) 1,000 mcg tab Take 1,000 mcg by mouth once daily. - Magnesium 250 mg tab Take 250 mg by mouth. - elderberry fruit (ELDERBERRY ORAL) Take by mouth. - ubidecarenone Q-10 (CO Q-10) 10 mg cap Take by mouth twice daily. - pravastatin (PRAVACHOL) 40 mg tablet Take 40 mg by mouth once daily. Problem List As Of Date: 02/21/2021 (None) Encounter Status:Closed by TESFAYE TESFAYE on 02/21/21 [facility] Rae 02-09-2021 CNPN Telephone (AKURFL) ----- JEANETTE MONREAL ([id number]) 1940 M Date Time Provider Department 02/09/21 TESFAYE TESFAYE During your visit today, we recorded the following information about you: Aurora Yvonne Boyle 02/09/2021 2:41 PM Signed FYI: Pt having open heart surgery tomorrow. He will schedule his Urology appointment after he recovers. Thanks, Eun Allergies As of Date: 02/09/2021 Noted Allergy Reaction Contrast Dye (GADOLINIUM-CONTAINI*12/04 7 - Swelling IVP DYE (IODINE) 08/26/2020 16 - Unknown SIMVASTATIN 08/26/2020 16 - Unknown 14 - Other: See Comments Date Reviewed: 10/05/2020 Reviewed by: Bailee Black Ma - Fully Assessed Reason for Visit: Patient Update [[id number]] Prescriptions as of 02/09/2021 - mometasone (ELOCON) 0.1 % cream Apply 1 application to affected area as needed. - tamsulosin (FLOMAX) 0.4 mg Take 0.4 mg by mouth once daily. - terazosin (HYTRIN) 5 mg capsule Take 5 mg by mouth once daily. - finasteride (PROSCAR) 5 mg tablet Take 5 mg by mouth once daily. - metoprolol succinate ER (TOPROL XL) 25 mg 24 hr tablet Take 25 mg by mouth once daily. - loratadine (CLARITIN) 10 mg tablet Take 10 mg by mouth once daily. - amLODIPine (NORVASC) 2.5 mg tablet Take 2.5 mg by mouth once daily. - folic acid 1 mg tablet Take 1 mg by mouth once daily. - aspirin, enteric coated (ASPIRIN, ENTERIC COATED) 81 mg EC tablet Take 81 mg by mouth once daily. - cyanocobalamin (VITAMIN B-12) 1,000 mcg tab Take 1,000 mcg by mouth once daily. - Magnesium 250 mg tab Take 250 mg by mouth. - elderberry fruit (ELDERBERRY ORAL) Take by mouth. - ubidecarenone Q-10 (CO Q-10) 10 mg cap Take by mouth twice daily. - pravastatin (PRAVACHOL) 40 mg tablet Take 40 mg by mouth once daily. Problem List As Of Date: 02/09/2021 (None) Encounter Status:Closed by AURORA VERA on 02/09/21 [facility] LABORATORYOrdered By: Malou Castaneda on 02-05-2021 Basophil, Absolute 0.10 103/mcL Invalid Interpretation Code 0.00 - 0.19 10^3/mcL AO Auto Heme SS Basophils/100 WBC (Bld) 0.8 % Invalid Interpretation Code 0.0 - 2.5 % AO Auto Heme SS Calcium [Mass/Vol] 8.7 mg/dL Invalid Interpretation Code 8.4 - 10.2 mg/dL AO Chemistry S Chloride [Moles/Vol] 105 mmol/L Invalid Interpretation Code 98 - 107 mmol/L AO ADM SS CO2 [Moles/Vol] 31 mmol/L Invalid Interpretation Code 23 - 31 mmol/L AO ADM SS Creatinine [Mass/Vol] 1.19 mg/dL Invalid Interpretation Code 0.70 - 1.30 mg/dL AO ADM SS Electrolyte Balance 7.0 mEq/L Invalid Interpretation Code AO ADM SS Eosinophil, Absolute 0.10 103/mcL Invalid Interpretation Code 0.00 - 0.40 10^3/mcL AO Auto Heme SS Eosinophils/100 WBC (Bld) 1.6 % Invalid Interpretation Code 0.0 - 7.0 % AO Auto Heme SS Erythrocyte distribution width (RBC) [Ratio] 14.7 % Invalid Interpretation Code 11.5 - 14.5 % AO Auto Heme SS Glucose [Mass/Vol] 145 mg/dL Invalid Interpretation Code 83 - 110 mg/dL AO ADM SS Hematocrit (Bld) [Volume fraction] 41.0 % Invalid Interpretation Code 42.0 - 52.0 % AO Auto Heme SS Hemoglobin (Bld) [Mass/Vol] 13.6 G/dL Invalid Interpretation Code 14.0 - 18.0 G/dL AO Auto Heme SS Lymphocyte, Absolute 1.40 103/mcL Invalid Interpretation Code 0.77 - 3.85 10^3/mcL AO Auto Heme SS Lymphocytes/100 WBC (Bld) 20.5 % Invalid Interpretation Code 10.0 - 50.0 % AO Auto Heme SS MCH (RBC) [Entitic mass] 30.9 pg Invalid Interpretation Code 27.0 - 31.2 pg AO Auto Heme SS MCHC (RBC) [Mass/Vol] 33.2 G/dL Invalid Interpretation Code 31.8 - 35.4 G/dL AO Auto Heme SS MCV (RBC) [Entitic vol] 93.1 fL Invalid Interpretation Code 80.0 - 94.0 fL AO Auto Heme SS Monocyte, Absolute 0.50 103/mcL Invalid Interpretation Code 0.15 - 1.00 10^3/mcL AO Auto Heme SS Monocytes/100 WBC (Bld) 7.4 % Invalid Interpretation Code 1.7 - 13.0 % AO Auto Heme SS Natriuretic peptide.B prohormone N-Terminal [Mass/Vol] 254 pg/mL Invalid Interpretation Code 0 - 450 pg/mL AO ADM SS Neutrophil, Absolute 4.80 103/mcL Invalid Interpretation Code 2.85 - 6.16 10^3/mcL AO Auto Heme SS Neutrophils/100 WBC (Bld) 69.7 % Invalid Interpretation Code 37.0 - 80.0 % AO Auto Heme SS Platelet mean volume (Bld) [Entitic vol] 9.9 fL Invalid Interpretation Code 7.4 - 10.4 fL AO Auto Heme SS Platelets (Bld) [#/Vol] 143 103/mcL Invalid Interpretation Code 130 - 400 10^3/mcL AO Auto Heme SS Potassium [Moles/Vol] 3.9 mmol/L Invalid Interpretation Code 3.5 - 5.1 mmol/L AO ADM SS RBC (Bld) [#/Vol] 4.40 106/mcL Invalid Interpretation Code 4.04 - 6.13 10^6/mcL AO Auto Heme SS Sodium [Moles/Vol] 143 mmol/L Invalid Interpretation Code 136 - 145 mmol/L AO ADM SS Troponin I.cardiac DL <= 0.01 ng/mL [Mass/Vol] 20.2 ng/L Invalid Interpretation Code 0.0 - 76.2 ng/L AO Chemistry S Urea nitrogen [Mass/Vol] 23 mg/dL Invalid Interpretation Code 7 - 18 mg/dL AO ADM SS Urea nitrogen/Creatinine [Mass ratio] 19 ratio Invalid Interpretation Code 7 - 27 ratio AO ADM SS WBC (Bld) [#/Vol] 6.90 103/mcL Invalid Interpretation Code 4.60 - 10.80 10^3/mcL AO Auto Heme SS LABORATORYOrdered By: SYSTEM SYSTEM on 02-05-2021 GFR 71 ml/min/1.73sqm Invalid Interpretation Code AO Chemistry S GFR Non- 59 ml/min/1.73sqm Invalid Interpretation Code AO Chemistry S BILI DIRECTon 01-20-2021 BILI DIRECT 0.2 MG/DL Normal 0.00-0.36 [facility] Comment on above: Result Comment: NOTE NEW NORMAL RANGE DUE TO REAGENT CHANGE Performed By: #### L 500.57681, L500.44661, L500.06965, L500.44513 #### [facility] [address] [place] [address] CMPon 01-20-2021 Albumin [Mass/Vol] 3.7 g/dL Normal 3.2-5.0 [facility] Comment on above: Performed By: #### L 500.05751, L500.72546, L500.85194, L500.16190 #### [facility] [place] [address] Albumin/Globulin [Mass ratio] 1.8 {ratio} Normal 0.8-2.0 [facility] Comment on above: Performed By: #### L 500.29057, L500.67731, L500.90872, L500.44483 #### [facility] [place] [address] ALK PHOS 87 U/L Normal 45-117 [facility] Comment on above: Performed By: #### L 500.62437, L500.93083, L500.78459, L500.32653 #### [facility] [address] [place] [address] ALT [Catalytic activity/Vol] 15 U/L Normal 13-61 [facility] Comment on above: Result Comment: RESU LTS MAY BE FALSELY DEPRESSED AFTER THE ADMINISTRATION OF SULFASALAZINE AND/OR SULFAPYRIDINE. Performed By: #### L 500.20676, L500.71485, L500.25866, L500.41730 #### [facility] [address] [place] [address] Anion gap [Moles/Vol] 3 mmol/L Low 5-16 [facility] Comment on above: Performed By: #### L 500.68243, L500.20514, L500.36487, L500.09567 #### [facility] [address] [place] [address] AST [Catalytic activity/Vol] 18 U/L Normal 8-34 [facility] Comment on above: Result Comment: RESU LTS MAY BE FALSELY DEPRESSED AFTER THE ADMINISTRATION OF SULFASALAZINE AND/OR SULFAPYRIDINE. Performed By: #### L 500.70683, L500.58134, L500.62864, L500.89395 #### [facility] [address] [place], [place] [id number] BILI TOTAL 0.60 MG/DL Normal 0.2-1.0 [facility] Comment on above: Performed By: #### L 500.22542, L500.36915, L500.97204, L500.72714 #### [facility] [place] [address] Calcium [Mass/Vol] 9.4 mg/dL Normal 8.5-10.5 [facility] Comment on above: Result Comment: NOTE NEW NORMAL RANGE DUE TO REAGENT CHANGE Performed By: #### L 500.79080, L500.51151, L500.51495, L500.30844 #### [facility] [address] [place] [address] Chloride [Moles/Vol] 107 mmol/L Normal 98-107 [facility] Comment on above: Performed By: #### L 500.15732, L500.73736, L500.14310, L500.62911 #### [facility] [address] [place] [address] CO2 [Moles/Vol] 32.0 mmol/L Normal 21-32 [facility] Comment on above: Performed By: #### L 500.31199, L500.42648, L500.61903, L500.97270 #### [facility] [address] [place] [address] Creatinine [Mass/Vol] 1.17 mg/dL Normal 0.5-1.4 [facility] Comment on above: Result Comment: NOTE NEW NORMAL RANGE DUE TO REAGENT CHANGE Patients receiving either N-Acetylcysteine (NAC) or Metamizole prior to venipuncture, may have falsely depressed results. Performed By: #### L 500.12199, L500.00769, L500.86544, L500.69002 #### [facility] [address] [place] [address] Globulin (S) [Mass/Vol] 2.0 g/dL Low 2.2-4.2 [facility] Comment on above: Performed By: #### L 500.98079, L500.06401, L500.57072, L500.34503 #### [facility] [address] [place] [address] Glucose [Mass/Vol] 69 mg/dL Low 70-100 [facility] Comment on above: Result Comment: 70-1 00- Normal Fasting; 100-125 Impaired Fasting; greater than 126 on more than one result- Diabetes. ADA guidelines. Results may be falsely elevated after the administration of Sulfapyridine. Results may be falsely depressed after the administration of Sulfasalazine. Performed By: #### L 500.00538, L500.13245, L500.05332, L500.71790 #### [facility] [address] [place] [address] Potassium [Moles/Vol] 4.5 mmol/L Normal 3.5-5.1 [facility] Comment on above: Performed By: #### L 500.82615, L500.42298, L500.25680, L500.65123 #### [facility] [address] [place] [address] Protein [Mass/Vol] 5.7 g/dL Low 6.0-8.5 [facility] Comment on above: Performed By: #### L 500.30273, L500.86807, L500.13793, L500.40202 #### [facility] [address] [place] [address] Sodium [Moles/Vol] 142 mmol/L Normal 136-145 [facility] Comment on above: Performed By: #### L 500.49015, L500.93866, L500.84479, L500.38368 #### [facility] [address] [place] [address] Urea nitrogen [Mass/Vol] 21 mg/dL Normal 7-26 [facility] Comment on above: Performed By: #### L 500.27014, L500.78869, L500.67129, L500.25828 #### [facility] [address] [place] [address] Urea nitrogen/Creatinine [Mass ratio] 18 mg/mg Normal 15-24 [facility] Comment on above: Performed By: #### L 500.47377, L500.43504, L500.17957, L500.04161 #### [facility] [address] [place] [address] GFR ESTon 01-20-2021 IF AMER Greater than 60 Normal [facility] Comment on above: Performed By: #### L 500.22520, L500.87846, L500.96590, L500.32945 #### [facility] [address] [place] [address] IF non-AFR AMER 60 Normal [facility] Comment on above: Performed By: #### L 500.70256, L500.76362, L500.22543, L500.88338 #### [facility] [address] [place] [address] US KIDNEY/BLADDERon 01-05-20 21 US KIDNEY/BLADDER * * *Final Report* * * DATE OF EXAM: Jan 04 2021 11:44AM WRU [id number] - US KIDNEY/BLADDER / PROCEDURE REASON: multiple diagnoses * * * * Physician Interpretation * * * * EXAMINATION: RENAL ULTRASOUND CLINICAL 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 TECHNIQUE: Sonography of the kidneys and urinary bladder was performed. Images were obtained and stored in a permanent archive. MQ: UR_1 COMPARISON: Comparison is made to prior CT dated 15 September 2020 RESULT: Right Kidney: -Renal length: 10.2 cm -Parenchyma: Increased parenchymal echogenicity. Mild diffuse parenchymal thinning. -Collecting system: No hydronephrosis. -Calculus: Multiple linear nonshadowing echogenic foci most likely ringdown artifact. Discrete shadowing stones not identified sonographically. This is likely technical. -Lesion: None. Left Kidney: -Renal length: 10.1 cm -Parenchyma: Normal parenchymal echogenicity. Normal parenchymal thickness. -Collecting system: No hydronephrosis. -Calculus: Multiple linear nonshadowing echogenic foci most likely ringdown artifact. Discrete shadowing stones not identified sonographically. This is likely technical. -Lesion: None. Bladder: Bladder is incompletely distended and demonstrates multiple punctate dependent bladder stones. Prostate gland is nodular and enlarged and impresses on the base of the bladder. Free fluid: None IMPRESSION: Right kidney demonstrates increased echogenicity and diffuse cortical thinning. Both kidneys demonstrate multiple linear echogenic foci without acoustic shadowing most likely ringdown artifact. Discrete shadowing stones not identified sonographically. This is likely technical. Enlarged nodular prostate gland which impresses on the base of the bladder. Multiple tiny shadowing bladder stones are seen layering dependently. Negative hydronephrosis or solid mass. Acid Bleacher: DANIELITO Transcribe Date/Time: Jan 04 2021 12:12P Dictated by : BALJINDER PHILLIPS MD This examination was interpreted and the report reviewed and electronically signed by: BALJINDER PHILLIPS MD on Jan 04 2021 12:18PM EST [id number] Normal [facility] XR ABDOMEN 1V SUPINEon 01-04 XR ABDOMEN 1V SUPINE * * *Final Report* * * DATE OF EXAM: Jan 04 2021 11:54AM [id number] [id number] - XR ABDOMEN 1V SUPINE / PROCEDURE REASON: Bilateral nephrolithiasis * * * * Physician Interpretation * * * * EXAMINATION: XR ABDOMEN 1V SUPINE HISTORY: hx of kidney stones since age 25. Follow up for stones. Bilateral nephrolithiasis. TECHNIQUE: XR ABDOMEN 1V SUPINE Laterality: NOT APPLICABLE Number of different views (projections): 1 M: XB_1 COMPARISON: Comparison is made to prior CT flank study dated and September 2020 RESULT: Supine views of the abdomen demonstrate a nonobstructive bowel gas pattern with fecal retention. Gas and fecal residue obscure the renal shadows severely limit evaluation for nephrolithiasis. 2 small 5 mm less stones are seen grouped at the left upper pole and there may be a similar collection measuring less than 5 mm at the mid to inferior left renal pole. The soft tissues and bony structures are unremarkable. IMPRESSION: Nonobstructive bowel gas pattern with fecal retention which limits evaluation. Bilateral nephrolithiasis as detailed.. Acid Bleacher: DANIELITO Transcribe Date/Time: Nov 2 2021 12:10P Dictated by : BALJINDER PHILLIPS MD This examination was interpreted and the report reviewed and electronically signed by: BALJINDER PHILLIPS MD on Jan 04 2021 12:12PM EST [id number] Normal [facility] CNOVon 12-28-2020 CNOV Office Visit (URFMOB ) ----- JEANETTE MONREAL JR ([id number]) 1940 M Date Time Provider Department 12/28/20 11:45 AM TESFAYE TESFAYE During your visit today, we recorded the following information about you: Pulse Blood pressure 63/minute 161/74 Tesfaye Tesfaye MD 12/28/2020 11:54 AM Signed [facility] ESTABLISHED PATIENT REASON FOR VISIT: Follow up for Nephrolithiasis HPI: This is a 80 year old male with PMH of BPH (on flomax and finasteride), HTN who is being seen for followup of kidney stones. CT Flank on 09/15/20: R 0.5cm upper pole calculus L 0.6 and 0.3cm calculi in upper pole and 0.5 and 0.2cm stones in the midpole At last followup visit, patient deferred definitive stone management, general stone prevention measures were discussed Today feels well. No significant complaints. 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 Ruma Reyes in [place], [place] - Lithotripsy 06/24/20: [facility] 07/23/20: [facility] - lithotripsy DOES NOT KNOW IF ESWL OR URS. But did have stone analysis and has had ureteroscopy for stent removal. Has poorly tolerated stents in the past Both procedures required billy catheters for hematuria and required manual irrigation for clot obstruction. Stone composition: calcium oxalate. Recent left ESWL without current flank pain Tamsulosin daily and terazosin daily. Told he has a huge prostate - does not wish for a TURP. Concerned about stricture as his father had a TURP with multiple procedures and strictures. 1-Duration: 2020 2-Location: kidney on both sides 3-Severity: N/A 4-Quality: Not applicable 5-Context: N/A 6-Timing: intermittently 7-Modifying factors: see HPI 8-Associated signs AND symptoms: no additional symptoms LUTS: Yes Dysuria:No Gross Hematuria: intermittent Frequency:Yes Diurnal frequency 3-4 x per day. Nocturnal Frequency 2-5 x/ night Urgency:Yes Finds it is easier to void at night if he is sleeping on his back than on his sides Consumes 64 ounces of fluid per day. Has not been told he has urinary retention. Personal or family hx of malignancy no Personal hx of stones: ues, since his 20's Family Hx of stones: no LABS: No results found for: CREAT No results found for: PSA 24 hour urine test URINALYSIS: Specific Logan, Ur Date Value Ref Range Status 08/26/2020 1.023 1.005 - 1.030 Final Glucose, Urine Date Value Ref Range Status 08/26/2020 Negative Negative mg/dL Final Bilirubin, Urine Date Value Ref Range Status 08/26/2020 Negative Negative Final Ketones, Urine Date Value Ref Range Status 08/26/2020 Negative Negative Final Hemoglobin/Blood,Ur Date Value Ref Range Status 08/26/2020 Negative Negative Final Protein, Urine Date Value Ref Range Status 08/26/2020 1+ (A) Negative Final Nitrites Date Value Ref Range Status 08/26/2020 Negative Negative Final PATHOLOGY: Not available Urine Culture: none IMAGING: CT flank 09/15/20 IMPRESSION: MULTIPLE NONOBSTRUCTING RENAL CALCULI, LEFT GREATER THAN RIGHT. ?NO HYDRONEPHROSIS. BLADDER CALCULI VERSUS PROSTATIC CALCIFICATIONS DESCRIBED. ENLARGED PROSTATE. ?CORRELATE WITH PSA. MULTIPLE INDETERMINATE LIVER LESIONS, INCOMPLETELY EVALUATED IN THE ABSENCE OF IV CONTRAST MATERIAL. ?RECOMMEND MRI LIVER PROTOCOL FOR FURTHER EVALUATION ALLERGIES: ALLERGIES Allergen Reactions - Contrast Dye [Gadol* Swelling - Ivp Dye [Iodine] Unknown - Simvastatin Unknown, Other: See Comments MEDICATIONS: Current Outpatient Medications Medication Sig - mometasone (ELOCON) 0.1 % cream Apply 1 application to affected area as needed. - tamsulosin (FLOMAX) 0.4 mg Take 0.4 mg by mouth once daily. - terazosin (HYTRIN) 5 mg capsule Take 5 mg by mouth once daily. - finasteride (PROSCAR) 5 mg tablet Take 5 mg by mouth once daily. - metoprolol succinate ER (TOPROL XL) 25 mg 24 hr tablet Take 25 mg by mouth once daily. - loratadine (CLARITIN) 10 mg tablet Take 10 mg by mouth once daily. - amLODIPine (NORVASC) 2.5 mg tablet Take 2.5 mg by mouth once daily. - folic acid 1 mg tablet Take 1 mg by mouth once daily. - aspirin, enteric coated (ASPIRIN, ENTERIC COATED) 81 mg EC tablet Take 81 mg by mouth once daily. - cyanocobalamin (VITAMIN B-12) 1,000 mcg tab Take 1,000 mcg by mouth once daily. - Magnesium 250 mg tab Take 250 mg by mouth. - elderberry fruit (ELDERBERRY ORAL) Take by mouth. - ubidecarenone Q-10 (CO Q-10) 10 mg cap Take by mouth twice daily. - pravastatin (PRAVACHOL) 40 mg tablet Take 40 mg by mouth once daily. No current facility-administered medications for this visit. HISTORIES PAST MEDICAL HISTORY Diagnosis Date - BPH (benign prostatic hyperplasia) - Nephr (more content not included)... Normal [facility] SO VIT B12on 10-27-2020 Cobalamin (Vitamin B12) [Mass/Vol] 1693 pg/mL High 232-1245 [facility] Comment on above: Result Comment: Perf ormed At: CB [facility] [id number] [place], [place] [id number] Ezequiel Echeverria PhD [id number] Performed By: #### L 500.04555, L500.10102, L500.73331 #### [facility] [address] [place] [address] #### L500.25072 #### [facility] [address] [place] [address] CBCon 10-25-2020 Erythrocyte distribution width (RBC) [Ratio] 13.6 % Normal 11-14.5 [facility] Comment on above: Performed By: #### L 200.39075 #### [facility] [address] [place] [address] Hematocrit (Bld) [Volume fraction] 46.8 % Normal 41.0-53.0 [facility] Comment on above: Performed By: #### L 200.61564 #### [facility] [address] [place] [address] Hemoglobin (Bld) [Mass/Vol] 14.6 g/dL Normal 13.5-17.5 [facility] Comment on above: Performed By: #### L 200.46864 #### [facility] [address] [place] [address] MCHC (RBC) [Mass/Vol] 31.2 g/dL Low 32.0-36.0 [facility] Comment on above: Performed By: #### L 200.51409 #### [facility] [address] [place] [address] MCV (RBC) [Entitic vol] 98.9 fL Normal 80.0-99.0 [facility] Comment on above: Performed By: #### L 200.65751 #### [facility] [address] [place] [address] Nucleated RBC/100 WBC (Bld) [Ratio] 0.0 % Normal Less than 1 [facility] Comment on above: Performed By: #### L 200.60896 #### [facility] [address] [place], [place] [id number] Platelet mean volume (Bld) [Entitic vol] 13.0 fL High 9.4-12.4 [facility] Comment on above: Performed By: #### L 200.81999 #### [facility] [address] [place] [address] PLT 121 K/CU MM Low 150-450 [facility] Comment on above: Result Comment: Conf haritha by slide estimate. Performed By: #### L 200.30703 #### [facility] [address] [place] [address]370 RBC 4.73 M/CU MM Normal 4.50-6.00 [facility] Comment on above: Performed By: #### L 200.25019 #### [facility] [address] [place] [address] WBC 5.6 K/CUMM Normal 4.5-11.0 [facility] Comment on above: Performed By: #### L 200.03338 #### [facility] [address] [place] [address] Silvia 10-25-2020 FERR 51.8 NG/ML Normal 24.0-388.0 [facility] Comment on above: Performed By: #### L 500.29980, L500.17858, L500.50264 #### [facility] [address] [place] [address] #### L500.04719 #### [address] [address] FOLIC ACIDon 10-25-2020 FOLIC ACID 37.24 NG/ML Normal >3.0 [facility] Comment on above: Performed By: #### L 500.36205, L500.35630, L500.43827, L500.08698 #### [facility] [address] [place] [address] IRON PANELon 10-25-2020 Iron [Mass/Vol] 50 ug/dL Low 65-175 [facility] Comment on above: Result Comment: Darlene ents treated with metal-binding drugs (e.g.deferoxamine) may have depressed iron values, as chelated iron may not properly react in the Siemens iron assay. Performed By: #### L 500.45391, L500.75894, L500.08630 #### [facility] [address] [place] [address] #### L500.58972 #### [facility] [address] [address] IRON SAT 15 % Low 30-44 [facility] Comment on above: Performed By: #### L 500.12477, L500.94798, L500.25454 #### [facility] [address] [place] [address] #### L500.62526 #### [facility] [address] [address] TIBC 326 UG/DL Normal 221-481 [facility] Comment on above: Performed By: #### L 500.04756, L500.60349, L500.61061 #### [facility] [address] [place] [address] #### L500.18358 #### [facility] [address] [address] CNOVon 10-05-2020 CNOV Office Visit (URFMOB ) ----- JEANETTE MONREAL JR ([id number]) 1940 M Date Time Provider Department 10/05/20 11:45 AM TESFAYE TESFAYE During your visit today, we recorded the following information about you: Pulse Blood pressure 64/minute 162/80 Tesfaye Tesfaye MD 10/05/2020 12:20 PM Signed [facility] ESTABLISHED PATIENT REASON FOR VISIT: Follow up for Nephrolithiasis HPI: 80 year old male who is being seen for kidney stones and BPH 2016: Dr. Boston - Lithotripsy [facility] 02/10/16: Dr. Ruma Reyes in [place], [place] - Lithotripsy 06/24/20: [facility] 07/23/20: [facility] - lithotripsy DOES NOT KNOW IF ESWL OR URS. But did have stone analysis and has had ureteroscopy for stent removal. Has poorly tolerated stents in the past Both procedures required billy catheters for hematuria and required manual irrigation for clot obstruction. Stone composition: calcium oxalate. Recent left ESWL without current flank pain Tamsulosin daily and terazosin daily. Told he has a huge prostate - does not wish for a TURP. Concerned about stricture as his father had a TURP with multiple procedures and strictures. At last visit recommended CT Flank and 24 hour urine test. C/w pharmacotherapy for BPH and discussed referral to BPH specialist if surgical intervention of interest. 1-Duration: 2020 2-Location: kidney on both sides 3-Severity: N/A 4-Quality: Not applicable 5-Context: N/A 6-Timing: intermittently 7-Modifying factors: see HPI 8-Associated signs AND symptoms: no additional symptoms LUTS: Yes Dysuria:No Gross Hematuria: intermittent Frequency:Yes Diurnal frequency 3-4 x per day. Nocturnal Frequency 2-5 x/ night Urgency:Yes Finds it is easier to void at night if he is sleeping on his back than on his sides Consumes 64 ounces of fluid per day. Has not been told he has urinary retention. Personal or family hx of malignancy no Personal hx of stones: ues, since his Family Hx of stones: no LABS: 24 hour urine test URINALYSIS: Specific Logan, Ur Date Value Ref Range Status 08/26/2020 1.023 1.005 - 1.030 Final Glucose, Urine Date Value Ref Range Status 08/26/2020 Negative Negative mg/dL Final Bilirubin, Urine Date Value Ref Range Status 08/26/2020 Negative Negative Final Ketones, Urine Date Value Ref Range Status 08/26/2020 Negative Negative Final Hemoglobin/Blood,Ur Date Value Ref Range Status 08/26/2020 Negative Negative Final Protein, Urine Date Value Ref Range Status 08/26/2020 1+ (A) Negative Final Nitrites Date Value Ref Range Status 08/26/2020 Negative Negative Final PATHOLOGY: none Urine Culture: none IMAGING: CT flank 09/15/20 IMPRESSION: MULTIPLE NONOBSTRUCTING RENAL CALCULI, LEFT GREATER THAN RIGHT. ?NO HYDRONEPHROSIS. BLADDER CALCULI VERSUS PROSTATIC CALCIFICATIONS DESCRIBED. ENLARGED PROSTATE. ?CORRELATE WITH PSA. MULTIPLE INDETERMINATE LIVER LESIONS, INCOMPLETELY EVALUATED IN THE ABSENCE OF IV CONTRAST MATERIAL. ?RECOMMEND MRI LIVER PROTOCOL FOR FURTHER EVALUATION Urinary Tract: Right kidney and ureter: 0.5 cm RIGHT upper pole calculus. No hydronephrosis. No finding to suggest cyst or mass in the unenhanced kidney. Left kidney and ureter: No hydronephrosis. No finding to suggest cyst or mass in the unenhanced kidney. ? Multiple nonobstructing renal calculi which are described below: * ?0.6 and 0.3 cm calculi in the upper pole * ?0.5 x 0.2 cm calculi in the interpolar region. Bladder: Markedly enlarged prostate indenting the posterior aspect of bladder. ?Multiple small calcification along the posterior aspect of the bladder wall (3:116-119), which may be within the bladder or prostate gland. ALLERGIES: ALLERGIES Allergen Reactions - Ivp Dye [Iodine] Unknown - Simvastatin Unknown MEDICATIONS: Current Outpatient Medications Medication Sig - tamsulosin (FLOMAX) 0.4 mg - terazosin (HYTRIN) 5 mg capsule - finasteride (PROSCAR) 5 mg tablet - metoprolol succinate ER (TOPROL XL) 25 mg 24 hr tablet - loratadine (CLARITIN) 10 mg tablet Take 10 mg by mouth once daily. - amLODIPine (NORVASC) 2.5 mg tablet - folic acid 1 mg tablet Take 1 mg by mouth once daily. - aspirin, enteric coated (ASPIRIN, ENTERIC COATED) 81 mg EC tablet Take 81 mg by mouth once daily. - cyanocobalamin (VITAMIN B-12) 1,000 mcg tab Take 1,000 mcg by mouth once daily. - Magnesium 250 mg tab Take 250 mg by mouth. - elderberry fruit (ELDERBERRY ORAL) Take by mouth. - ubidecarenone Q-10 (CO Q-10) 10 mg cap Take by mouth twice daily. - pravastatin (PRAVACHOL) 40 mg tablet Take 40 mg by mouth once daily. No current facility-administered medications for this visit. HISTORIES PAST MEDICAL HISTORY Diagnosis Date - BPH (benign prostatic hyperplasia) - Nephrolithias (more content not included)... Normal [facility] CT FLANK WO IVCONon 09-16-19 CT FLANK WO IVCON * * *Final Report* * * DATE OF EXAM: Sep 15 2020 8:39AM [facility] 0529 - CT FLANK WO IVCON / PROCEDURE REASON: Nephrolithiasis * * * * Physician Interpretation * * * * EXAMINATION: CT ABDOMEN AND PELVIS WITHOUT IV CONTRAST (Renal stone protocol) CLINICAL HISTORY: Unspecified flank pain. Hematuria. TECHNIQUE: Non-contrast imaging of the abdomen and pelvis was performed through the urinary tract. Study performed without intravenous or oral contrast to evaluate for urinary tract calculus. MQ: [id number] Contrast: IV contrast: None Oral contrast: None CT Radiation dose: Integrated dose-length product (DLP) for this visit = 247 mGy*cm. CT Dose Reduction Employed: Automated exposure control(AEC) and iterative recon COMPARISON: None. RESULT: Limitations: Unenhanced imaging is limited for the evaluation of some renal and other intra-abdominal and pelvic pathology. Urinary Tract: Right kidney and ureter: 0.5 cm RIGHT upper pole calculus. No hydronephrosis. No finding to suggest cyst or mass in the unenhanced kidney. Left kidney and ureter: No hydronephrosis. No finding to suggest cyst or mass in the unenhanced kidney. Multiple nonobstructing renal calculi which are described below: * 0.6 and 0.3 cm calculi in the upper pole * 0.5 x 0.2 cm calculi in the interpolar region. Bladder: Markedly enlarged prostate indenting the posterior aspect of bladder. Multiple small calcification along the posterior aspect of the bladder wall (3:116-119), which may be within the bladder or prostate gland. Abdomen and Pelvis: Liver: Multiple low-attenuation liver lesions with index lesions as below: * 1.9 x 1.9 cm lesion in segment VII (3:18) * 1.6 x 1.4 similar lesion in segment III (3:23) * 1.0 x 1.0 cm lesion in segment VII/ (3:27) Biliary: No calcified gallstones. Spleen: No splenomegaly. Pancreas: Unremarkable. Adrenals: Normal. GI Tract: No bowel dilation. Normal appendix. There is diverticulosis. No changes of diverticulitis. Lymph Nodes: No lymphadenopathy. Mesentery/peritoneum: No ascites. Vasculature: Arterial atherosclerotic disease without aneurysm. Pelvis: No mass or ascites. Bones and Soft Tissues: No acute abnormality. Lower thorax: Unremarkable. Senior Data Mining Analyst (topogram) images: No additional findings. IMPRESSION: MULTIPLE NONOBSTRUCTING RENAL CALCULI, LEFT GREATER THAN RIGHT. NO HYDRONEPHROSIS. BLADDER CALCULI VERSUS PROSTATIC CALCIFICATIONS DESCRIBED. ENLARGED PROSTATE. CORRELATE WITH PSA. MULTIPLE INDETERMINATE LIVER LESIONS, INCOMPLETELY EVALUATED IN THE ABSENCE OF IV CONTRAST MATERIAL. RECOMMEND MRI LIVER PROTOCOL FOR FURTHER EVALUATION ACTIONABLE RESULT: FOLLOW-UP Acuity: Actionable Findings: Liver Routing Code: LV_1 Recommendation: MRI LIVER WO/W IVCON (add Dotarem in comments) Time Frame: non-urgent, but prompt follow-up. COMMUNICATION: Results will be communicated with the ordering provider via [employer] staff message or phone message by Imaging Support Services within 2 business days of report finalization. Algorithms for management of incidental imaging findings can be found on the [facility] Intranet Sharepoint site at: [email or web address] [email or web address]/Forms/ [email or web address].[email or web address] Acid Bleacher: DANIELITO Transcribe Date/Time: Sep 15 2020 8:53A Dictated by : MAGUE LANE MD This examination was interpreted and the report reviewed and electronically signed by: MAGUE LANE MD on Sep 15 2020 9:06AM EST [id number] ACTIONABLE Invalid Interpretation Code [facility] CNOVon 08-26-2020 CNOV Office Visit (UROLMN ) ----- JEANETTE MONREAL ([id number]) 1940 M Date Time Provider Department 08/26/20 10:15 AM TESFAYE TESFAYE During your visit today, we recorded the following information about you: Temperature Pulse Blood pressure Weight 98.2 degrees 69/minute 148/73 84.3 kg Tesfaye Tesfaye MD 08/26/2020 11:02 AM Signed [facility] NEW PATIENT HISTORY AND PHYSICAL EXAM PATIENT INFO: Jeanette Monreal JR 80 year old REFERRING M.D.: SELF PCP: Ruiz Miller MD Date of Service: August 25, 2020 Consultation requested by SELF or an opinion regarding kidney stones CHIEF COMPLAINT: Nephrolithiasis HPI: This is a 80 year old male who is being seen for consult of kidney stones. BPH 2016: Dr. [place] - Lithotripsy [facility] 02/10/16: Dr. Ruma Reyes in [place], [place] - Lithotripsy 06/24/20: [facility] DOES NOT KNOW IF ESWL OR URS. But did have stone analysis and has had ureteroscopy for stent removal. Has poorly tolerated stents in the past Both procedures required billy catheters for hematuria and required manual irrigation for clot obstruction. Stone composition: calcium oxalate. The patient denies flank pain, fever, shaking chills, gross hematuria, urgency, frequency, dysuria, incontinence, nausea, vomiting and pain at this time. + right back ache. Recent left ESWL without current flan pain Tamsulosin daily and terazosin daily. Told he has a huge prostate - does not wish for a TURP. Concerned about stricture as his father had a TURP with multiple procedures and strictures. 1-Duration: 2020 2-Location: kidney on both sides 3-Severity: N/A 4-Quality: Not applicable 5-Context: N/A 6-Timing: intermittently 7-Modifying factors: see HPI 8-Associated signs AND symptoms: no additional symptoms LUTS: Yes Dysuria:No Gross Hematuria: intermittent Frequency:Yes Diurnal frequency 3-4 x per day. Nocturnal Frequency 2-5 x/ night Urgency:Yes Finds it is easier to void at night if he is sleeping on his back than on his sides Consumes 64 ounces of fluid per day. Has not been told he has urinary retention. Personal or family hx of malignancy no Personal hx of stones: ugina, since his 20's Family Hx of stones: no PATHOLOGY: Not available Urine Culture Not available LABS: No results found for: CREAT No results found for: PSA URINALYSIS: Specific Logan, Ur Date Value Ref Range Status 08/26/2020 1.023 1.005 - 1.030 Final Glucose, Urine Date Value Ref Range Status 08/26/2020 Negative Negative mg/dL Final Bilirubin, Urine Date Value Ref Range Status 08/26/2020 Negative Negative Final Ketones, Urine Date Value Ref Range Status 08/26/2020 Negative Negative Final Hemoglobin/Blood,Ur Date Value Ref Range Status 08/26/2020 Negative Negative Final Protein, Urine Date Value Ref Range Status 08/26/2020 1+ (A) Negative Final Nitrites Date Value Ref Range Status 08/26/2020 Negative Negative Final IMAGING: Imaging Reviewed. Radiology report may be copied below for ease of reference. Non available HISTORIES No past medical history on file. No past surgical history on file. Social History Tobacco Use - Smoking status: Not on file Substance Use Topics - Alcohol use: Not on file - Drug use: Not on file ALLERGIES: ALLERGIES Allergen Reactions - Ivp Dye [Iodine] Unknown - Simvastatin Unknown MEDICATIONS: Current Outpatient Medications Medication Sig - tamsulosin (FLOMAX) 0.4 mg - terazosin (HYTRIN) 5 mg capsule - finasteride (PROSCAR) 5 mg tablet - metoprolol succinate ER (TOPROL XL) 25 mg 24 hr tablet - loratadine (CLARITIN) 10 mg tablet Take 10 mg by mouth once daily. - amLODIPine (NORVASC) 2.5 mg tablet - folic acid 1 mg tablet Take 1 mg by mouth once daily. - aspirin, enteric coated (ASPIRIN, ENTERIC COATED) 81 mg EC tablet Take 81 mg by mouth once daily. - cyanocobalamin (VITAMIN B-12) 1,000 mcg tab Take 1,000 mcg by mouth once daily. - Magnesium 250 mg tab Take 250 mg by mouth. - elderberry fruit (ELDERBERRY ORAL) Take by mouth. - ubidecarenone Q-10 (CO Q-10) 10 mg cap Take by mouth twice daily. - pravastatin (PRAVACHOL) 40 mg tablet Take 40 mg by mouth once daily. No current facility-administered medications for this visit. REVIEW OF SYSTEMS General: No weight loss, malaise or fevers., SEE HPI ENMT: No earaches, No hearing loss, No nose, sinus problems or snoring, No dry mouth, mouth ulcers or sore throat, No thrush Endocrine: (DM, thyroid) - no Eyes:Not Significant Respiratory: Negative for cough, wheezing or shortness of breath. Cardiovascular: Negative for chest pain, leg swelling or palpitations. Anticoagulation meds - ASA 81mg heart stent in 1998 Gastrointestinal: Negative for abdominal (more content not included)... Normal [facility] Urinalysison 08-26-2020 Bilirubin, Urine Negative Normal Negative [facility] Comment on above: Performed By: #### U A #### [place] [phone] Clarity (U) Clear Normal Clear [facility] Comment on above: Performed By: #### U A #### [place] [phone] Color (U) Light Yellow Critically abnormal Yellow [facility] Comment on above: Performed By: #### U A #### [place] [phone] Comments SEE COMMENT Normal [facility] Comment on above: Result Comment: Micr oscopic not warranted Performed By: #### U A #### [place] [phone] Glucose Ql (U) Negative Normal Negative [facility] Comment on above: Performed By: #### U A #### [place] [phone] Hemoglobin/Blood,Ur Negative Normal Negative [facility] Comment on above: Performed By: #### U A #### [place] [phone] Ketones Ql (U) Negative Normal Negative [facility] Comment on above: Performed By: #### U A #### [facility] [address] [place], [place] [id number] Leukest Negative Normal Negative [facility] Comment on above: Performed By: #### U A #### [facility] [address] [place], [place] [address] Nitrite Ql (U) Negative Normal Negative [facility] Comment on above: Performed By: #### U A #### [place] [address] [place], [place] [address] pH (U) 5.5 [pH] Normal 5.0-8.0 [facility] Comment on above: Performed By: #### U A #### [address] [address] Protein, Urine 1+ Critically abnormal Negative [facility] Comment on above: Performed By: #### U A #### [place] [address] [place], [place] [address] Specific Logan, Ur 1.023 Normal 1.005-1.030 [facility] Comment on above: Performed By: #### U A #### [place] [address] [place], [place] [address] Urine Abad Comment SEE COMMENT Normal [facility] Comment on above: Result Comment: N/A Performed By: #### U A #### [facility] [address] [place], [place] [address] Urobilinogen (U) [Mass/Vol] Negative Normal Negative [facility] Comment on above: Performed By: #### U A #### [facility] [address] [place], [place] [address] Abdomen Single Viewon 2020 Abdomen Single View [facility] [address] [place] [address] Abdomen Single View MR#: [id number] Acct: [id number] Name: JEANETTE MONREAL Jr. Rep #: [id number] : 1940 M 80 From: Seth rees MD PCP: Care Physician, No Primary Status: REG CLI Study: Abdomen Single View Date of Exam: 07/26/20 Exam# [id number] Ordering Dr: Chandrakant Velez MD STUDY: X-RAY - ABDOMEN/PELVIS REASON FOR EXAM: Male, 80 years old. CALCULUS OF URETER TECHNIQUE: Single AP view of the abdomen / pelvis. COMPARISON: None. FINDINGS: Normal visualized lung bases. There is a moderate amount of colonic fecal material. A left-sided double-J stent catheter is seen with the proximal tip in the upper pole calyx of the left kidney and distal tip in the left side of the bladder. Multiple small calculi are seen within the left kidney. A tiny calculus is also seen in the upper pole of the right kidney. Normal soft tissue structures. There are diffuse degenerative changes of the visualized lumbar spine. RAD/Abdomen Single View IMPRESSION: Left-sided double-J stent catheter. Bilateral intrarenal calculi, prominent on the left side. Electronically Signed: Seth Horne MD at 14:38 EDT , Service support , CC: No Primary Care Physician; Dr. Chandrakant Velez MD Acid Bleacher: Signed [facility] Vital Signs Date Time Vital Sign Value Performing Clinician Facility 09-18-2024 13:44-0400 Body temperature 98.7 [degF] Dr. Chanrdakant Velez MD Work Phone[facility] 09-18-2024 13:44-0400 Diastolic blood pressure 80 mm[Hg] Dr. Chandrakant Velez MD Work Phone: [facility] 09-18-2024 13:44-0400 Heart rate 72 /min Dr. Chandrakant Velez MD Work Phone: [facility] 09-18-2024 13:44-0400 Respiratory rate 16 /min Dr. Chandrakant Velez MD Work Phone: [facility] 09-18-2024 13:44-0400 SaO2% (BldA) [Mass fraction] 98 % Dr. Chandrakant Velez MD Work Phone: [facility] 09-18-2024 13:44-0400 Systolic blood pressure 150 mm[Hg] Dr. Chandrakant Velez MD Work Phone: [facility] 09-17-2024 11:00-0400 Body height 172.[address] Chandrakant Velez MD Work Phone: [facility] 09-17-2024 11:00-0400 Body mass index (BMI) [Ratio] 26.2 kg/m2 Dr. Chandrakant Velez MD Work Phone: [facility] 09-17-2024 11:00-0400 Body weight 78.[address] Chandrakant Velez MD Work Phone: [facility] 04-04-2021 23:02-0500 Diastolic blood pressure 75 mm[Hg] ERIN MELENDEZ MD [facility] 04-04-2021 23:02-0500 Heart rate 63 /min ERIN MELENDEZ MD [facility] 04-04-2021 23:02-0500 Respiratory rate 18 /min ERIN MELENDEZ MD [facility] 04-04-2021 23:02-0500 Systolic blood pressure 162 mm[Hg] ERIN MELENDEZ MD [facility] 04-04-2021 22:21-0500 Diastolic blood pressure 96 mm[Hg] ERIN MELENDEZ MD [facility] 04-04-2021 22:21-0500 Heart rate 74 /min ERIN MELENDEZ MD [facility] 04-04-2021 22:21-0500 Respiratory rate 18 /min ERIN MELENDEZ MD [facility] 04-04-2021 22:21-0500 Systolic blood pressure 181 mm[Hg] ERIN MELENDEZ MD [facility] 04-04-2021 21:30-0500 Diastolic blood pressure 68 mm[Hg] ERIN MELENDEZ MD [facility] 04-04-2021 21:30-0500 Heart rate 68 /min ERIN MELENDEZ MD [facility] 04-04-2021 21:30-0500 Respiratory rate 18 /min ERIN MELENDEZ MD [facility] 04-04-2021 21:30-0500 Systolic blood pressure 164 mm[Hg] ERIN MELENDEZ MD [facility] 04-04-2021 20:46-0500 Body temperature 98.6 [degF] ERIN MELENDEZ MD [facility] 04-04-2021 20:46-0500 Heart rate 67 /min ERIN MELENDEZ MD [facility] 02-06-2021 04:02-0500 Body height 175.[address] TORY MUSE MD [facility] 02-06-2021 04:02-0500 Body weight 84.[address] TORY MUSE MD [facility] 02-06-2021 04:02-0500 Body weight 27.37 kg/m2 DR TORY MUSE MD [facility] 02-06-2021 02:25-0500 Diastolic blood pressure 75 mm[Hg] DR TORY MUSE MD [facility] 02-06-2021 02:25-0500 Heart rate 73 /min DR TORY MUSE MD [facility] 02-06-2021 02:25-0500 Respiratory rate 18 /min DR TORY MUSE MD [facility] 02-06-2021 02:25-0500 Systolic blood pressure 141 mm[Hg] DR TORY MUSE MD [facility] 02-06-2021 01:51-0500 Diastolic blood pressure 77 mm[Hg] DR TORY MUSE MD [facility] 02-06-2021 01:51-0500 Systolic blood pressure 162 mm[Hg] DR TORY MUSE MD [facility] 02-06-2021 01:38-0500 Diastolic blood pressure 83 mm[Hg] DR TORY MUSE MD [facility] 02-06-2021 01:38-0500 Heart rate 66 /min DR TORY MUSE MD [facility] 02-06-2021 01:38-0500 Respiratory rate 18 /min DR TORY MUSE MD [facility] 02-06-2021 01:38-0500 Systolic blood pressure 187 mm[Hg] DR TORY MUSE MD [facility] 02-06-2021 01:20-0500 Heart rate 57 /min DR TORY MUSE MD [facility] 02-06-2021 01:20-0500 Respiratory rate 16 /min DR TORY MUSE MD [facility] 02-05-2021 22:52-0500 Body temperature 98.24 [degF] DR TORY MUSE MD [facility] Encounters Encounter Date Encounter Type Care Provider Facility Start: 09-17-2024 End: 09-18-2024 Evaluation and management of inpatient Dr. Chandrakant Velez MD -[facility] 3 Work Phone: Start: 09-16-2024 End: 09-17-2024 Emergency department patient visit CASEY ODEN DO [facility] Start: 07-09-2024 End: 07-09-2024 ambulatory ENRIQUE CONTRERAS Facility:[facility] Start: 07-09-2024 End: 07-09-2024 Patient encounter procedure ENRIQUE CONTRERAS [facility] Start: 11-29-2023 ambulatory MARTHA MARTELL Facility:[id number] Start: 11-29-2023 End: 11-29-2023 Subsequent hospital visit by physician Bone Density [facility] Work Phone: RADIO BONE D [facility] Comment on above: Age-related osteopor osis without current pathological fracture [M81.0] 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] Start: 08-16-2023 End: 08-16-2023 ambulatory ENRIQUE CONTRERAS Facility:B Start: 08-16-2023 End: 08-16-2023 Patient encounter procedure ENRIQUE CONTRERAS [facility] Start: 07-31-2023 ambulatory ENRIQUE CONTRERAS Facility: B Start: 07-31-2023 End: 07-31-2023 ambulatory ENRIQUE CONTRERAS Facility:B Start: 07-31-2023 End: 07-31-2023 Patient encounter procedure ENRIQUE CONTRERAS [facility] Start: 07-16-2023 End: 07-20-2023 ambulatory ENRIQUE CONTRERAS Facility:A Start: 07-16-2023 End: 07-20-2023 Encounter for general adult medical examination without abnormal findings ENRIQUE CONTRERAS Facility:A Start: 01-09-2023 End: 01-09-2023 ambulatory ENRIQUE CONTRERAS Facility:B Start: 01-10-2022 ambulatory PCP UNKNOWN Facility:[facility] Start: 12-20-2021 ambulatory PCP UNKNOWN Facility:U Start: 12-02-2021 End: 12-02-2021 Patient encounter procedure ALEXSANDER WOOTEN MD [facility] Start: 11-29-2021 ambulatory PCP UNKNOWN Facility:U Start: 11-25-2021 End: 11-25-2021 Subsequent hospital visit by physician [facility] Work Phone: RADIO CT SCAN [facility] Comment on above: Calculus of ureter [ N20.1] Start: 11-22-2021 End: 11-22-2021 Patient encounter procedure MARTHA MARTELL MD [facility] Start: 11-17-2021 End: 11-17-2021 Patient encounter procedure MARTHA MARTELL MD [facility] Start: 10-19-2021 End: 10-19-2021 Subsequent hospital visit by physician [facility] Comment on above: Calculus of kidney [ N20.0] Start: 09-14-2021 End: 09-14-2021 Patient encounter procedure BERKLEY SHANNON MD [facility] Start: 09-02-2021 End: 09-02-2021 Patient encounter procedure BERKLEY SHANNON MD [facility] Start: 08-11-2021 End: 08-15-2021 Outreach Lab MARTAH MARTELL MD [facility] Start: 08-04-2021 End: 08-04-2021 Subsequent hospital visit by physician Martha Martell MD Work Phone: [facility] Comment on above: D80.1 Start: 07-14-2021 End: 07-14-2021 Patient encounter procedure ENRIQUE CONTRERAS [facility] Start: 07-12-2021 End: 07-12-2021 Patient encounter procedure HENRY MUSE MD [facility] Start: 07-04-2021 End: 07-04-2021 Patient encounter procedure ENRIQUE CONTRERAS [facility] Start: 06-28-2021 End: 06-28-2021 Patient encounter procedure ENRIQUE CONTRERAS [facility] Start: 04-04-2021 End: 04-04-2021 Emergency department patient visit ERIN MELENDEZ MD [facility] Start: 04-04-2021 End: 04-08-2021 Outreach Lab CHANDA L MARY GRAPHIC ART TECHNICIAN-CNC LATHE PROGRAMMER [facility] Start: 04-01-2021 End: 04-01-2021 Patient encounter procedure CHANDA Myla HERNANDEZ GRAPHIC ART TECHNICIAN-CNC LATHE PROGRAMMER [facility] Start: 03-30-2021 End: 03-30-2021 Patient encounter procedure CHANDA Lanza MARY GRAPHIC ART TECHNICIAN-CNC LATHE PROGRAMMER [facility] Start: 03-16-2021 End: 03-16-2021 Patient encounter procedure CHANDA Lanza MARY GRAPHIC ART TECHNICIAN-CNC LATHE PROGRAMMER [facility] Start: 02-23-2021 End: 02-23-2021 Patient encounter procedure CHANDA HERNANDEZ GRAPHIC ART TECHNICIAN-CNC LATHE PROGRAMMER [facility] Start: 02-05-2021 End: 02-06-2021 Emergency department patient visit DR TORY MUSE MD [facility] Pat Procedures Date Procedure Procedure Detail Performing Clinician Start: 09-18-[address] Chandrakant Velez MD Work Phone: Start: 09-17-2024 Cystoscopy and destr uction of bladder lesion Dr. Chandrakant Velez MD Work Phone: Start: 11-29-2023 Dxa bone density ant dy 1/> sites axial jose Martell MD Work Phone: Start: 05-08-2022 Cardiovascular stres s testing ENRIQUE CONTRERAS Comment on above: unremarkable Start: 04-24-2022 Echocardiography ENRIQUE CONTRERAS Comment on above: EF 55- 60% Moderate to severe TR Start: 11-25-2021 Ct abdomen & pelvis w/o contrast material Berkley Shannon MD Work Phone: Start: 11-16-2021 Echocardiography ENRIQUE CONTRERAS Comment on above: 1. Left ventricle: T he cavity size is normal. Wall thickness is moderately increased. Concentric Left Ventricular Hypertrophy TomTec GLS is -16.3 % Strain Value is Borderline reduced The estimated ejection fraction is 60-65%. Wall motion is normal; there are no regional wall motion abnormalities. Grade II diastolic dysfunction. 2. Ventricular septum: Thickness is moderately increased. Septal motion is paradoxical. 3. Aortic valve: Thickening, consistent with sclerosis. 4. Right ventricle: The RV systolic pressure by Doppler is 26 mm Hg. 5. Tricuspid valve: There is mild-moderate regurgitation. 6. Right atrium: The atrium is mildly dilated. The estimated right atrial pressure is 8 mm Hg. Start: 11-08-2021 Antibody screen Comment on above: Order Comment: Speci men Type: BLOOD SPECIMEN Ordering Facility: [facility] Address: [address] [place] [address] Performed By: #### T KULDEEP BLUNT #### [facility] CLIA [id number] [place] [address] [place] Start: 02-10-2021 Coronary artery bypa ss graft CHANDA HERNANDEZ GRAPHIC [employer] TECHNIC[employer] Start: 02-10-2021 Transesophageal echocardiography CHANDA MARY [employer]APHIC [employer] Start: 02-07-2021 Cardiac catheterization CHANDA MARY [employer]APHIC [employer] Comment on above: Multivessel CAD Start: 02-06-2021 Echocardiography CHANDA CASTRO [employer]APHIC [employer] Comment on above: EF 55-60% Start: 04-29-[address] TORY MUSE MD Start: 04-03-[address] TORY MUSE MD Start: 03-20-[address] AND REW MICHA HURTADO Comment on above: EF 60% Start: 10-23-[address] TORY MUSE MD Start: 10-23-[address] s testing DR TORY MUSE MD Start: 03-05-[address] TORY MUSE MD Start: 03-05-[address] Clare MUSE MD 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 ) CHANDA HERNANDEZ GRAPHIC ART TECHNIC[employer] Lithotripsy DR TORY LYN MD Plan of Treatment Date Care Activity Detail Author Start: 12-09-2030 Urine microalbumin profile DTaP,Tdap,Td Vaccine (2 - Td or Tdap) [facility] Start: 11-29-2024 Diabetes Screening Diabetes Screening [facility] Start: 09-19-2024 DIABETES SCREEN DIABETES SCREEN [facility] Start: 09-18-2024 Measuring intake and output [facility] Start: 09-18-2024 Patient discharge [facility] Start: 09-18-2024 Removal of urinary catheter [facility] Start: 09-17-2024 Application of intermittent pneumatic compression device [facility] Start: 09-17-2024 Measuring intake and output [facility] Start: 09-17-2024 Irrigation of urinary bladder [facility] Start: 09-17-2024 Admission procedure [facility] Start: 09-17-2024 Assessment of risk of venous thromboembolism [facility] Start: 09-17-2024 Documentation procedure [facility] Start: 09-17-2024 Following clinical pathway protocol [facility] Start: 09-17-2024 Taking patient vital signs [facility] Start: 09-17-2024 Vital signs measurements [facility] Start: 09-17-2024 End: 09-17-2024 [facility] Start: 09-17-2024 Following clinical pathway protocol [facility] Start: 11-04-2023 Covid-19 Vaccine ( season) Covid-19 Vaccine ( season) [facility] Start: 11-04-2023 Influenza vaccination Influenza Vaccine (#1) [facility] Start: 03-05-2023 Advance Directive Discussion Advance Directive Discussion [facility] Start: 11-03-2021 Influenza vaccination [facility] Start: 03-05-2021 ADVANCE DIRECTIVE DISCUSSION ADVANCE DIRECTIVE DISCUSSION [facility] Start: 2016 RSV Vaccine (1 - 1-dose 75+ series) RSV Vaccine (1 - 1-dose 75+ series) [facility] Start: 2006 Pneumococcal Vaccine: 65+ (1 of 1 - PCV) Pneumococcal Vaccine: 65+ (1 of 1 - PCV) [facility] Start: 2006 PNEUMOCOCCAL: 65+ (1 - PCV) PNEUMOCOCCAL: 65+ (1 - PCV) [facility] Start: 2006 [id number] AGE 65 AND OVER WITH 5YR LOOKBACK (Retired) (#1) [id number] AGE 65 AND OVER WITH 5YR LOOKBACK (Retired) (#1) [facility] Start: 1991 SHINGRIX VACCINE (1 of 2) SHINGRIX VACCINE (1 of 2) [facility] Start: 1986 DIABETES SCREEN DIABETES SCREEN [facility] Start: 1986 Diabetes Screening Diabetes Screening [facility] Start: 1960 Urine microalbumin profile DTAP,TDAP,TD (1 - Tdap) [facility] Start: 1959 Anxiety Screening Anxiety Screening [facility] Start: 1959 Depression Screening Depression Screening [facility] Start: 1959 Hepatitis B surface antibody level LDL Cholesterol [facility] Start: 1953 Adult depression screening assessment DEPRESSION SCREENING [facility] Start: 1946 COVID-19 VACCINE (#1) COVID-19 VACCINE (#1) [facility] Start: 1941 COVID-19 VACCINE (#1) COVID-19 VACCINE (#1) [facility] Immunizations Immunization Date Immunization Notes Care Provider Fa natanael 11-29-2022 influenza virus vacc ine, unspecified formulation [facility] Work Phone: [facility] Payers Date Payer Category Payer Private Health Insurance [id number] 2021 Private Health Insurance [id number] 2020 Medicare HUMANA MEDICARE HUMANA MEDICARE PPO [id number] 2020-Present [id number] [place] [address] PPO [id number] 2020 Medicare [id number] 2020 Private Health Insurance [id number] 1941 Unknown [id number] 56 1941 Unknown [id number] 56 1941 Unknown [id number] 56 1941 Unknown [id number] 27 1941 Unknown [id number] 27 1941 Unknown [id number] [id number] 27 1941 Unknown [id number] [id number] 27 1941 Unknown [id number] [id number] 27 1941 Unknown [id number] 27 Social History Date Type Detail Facility Start: 07-26-2020 End: 09-17-2024 Never smoked tobacco (finding) [facility] Sex Assigned At [facility] Start: 10-05-2020 End: 12-07-2021 Tobacco use and exposure Smokeless tobacco non-user [facility] Start: 1940 Sex Assigned At Not on file C [facility] Start: 10-14-2021 End: 12-08-2021 Alcohol intake Ex-drinker (finding) [facility] Start: 10-14-2021 History SDOH Alcohol Comment no drinks in 40 years. [facility] Start: 10-09-2021 End: 11-09-2021 Exposure to SARS-CoV-2 (event) Not sure [facility] Start: 08-26-2020 End: 12-08-2021 History of Social function [facility] Start: 08-26-2020 End: 12-08-2021 Tobacco use panel [facility] National Score (1-100), lower number is lower risk Not on file [facility] Tobacco smoking status NHIS Tobacco smoking consumption unknown [facility] Start: 04-12-2005 Sex Male (finding) [facility] Start: 1940 Sex Assigned At Male [facility] Medical Equipment Procedure Code Equipment Code Equipment Origin al Text Equipment Identifier Dates [id number] Implant - [id number] Start: 12-08-2021 Goals Date Patient Goal Desired Activity /State Functional Status Date Assessment Result Facility 09-18-2024 Functional status Bedrest [facility] Work Phone: Mental Status Date Assessment Result Facility 09-18-2024 Cognitive function Level Of Cons ciousness Awake;Alert;Appropriate [facility] Work Phone: 09-18-2024 Cognitive function Voice/Name [facility] Work Phone: Clinical Notes 08-26-2020 to 09-18-2024 Note Date & Type Note Facility 09-18-2024 Discharge summary [facility] 09-18-2024 Hospital Discharg e instructions Additional Instructions Date of Discharge: 09/18/24 [facility] Work Phone: 09-18-2024 Discharge summary Note Date/Time September 18, 2024 7:30am [facility] Medical Records Department [address] [place] [address] Discharge Summary 09/18/24 0729 MR#: [id number] Acct: [id number] Name: JEANETTE MONREAL Jr. Rep #:[id number] : 1940 84 From: Chandrakant Velez MD PCP: Care Physician,No Primary Status :ADM IN [facility] Prov[facility] Date of Admission: 09/17/24 Date of Discharge: 09/18/24 Primary Care Physician: No Primary Care Phys Reason For Visit: HEMORRHAGING BLADDER MASS Diagnosis Discharge Diagnosis (1) Gross hematuria: Status: Acute Code(s): R31.0 - Gross hematuria (2) Bladder mass: Status: Acute Code(s): N32.89 - Other specified disorders of bladder Plan: Plan to proceed to surgery today for evacuation of blood clots and resection of what probably is a bladder tumor or bladder mass bladder cancer. Medications at Discharge Home Medications amlodipine 2.5 mg tablet 2.5 mg PO DAILY 09/17/24 aspirin 81 mg capsule 81 mg PO DAILY 09/17/24 carvedilol 6.25 mg tablet 6.25 mg PO BID 09/17/24 coQ10 (ubiquinol) 200 mg capsule (Active Q) 200 mg PO QHS prostate 09/17/24 cyanocobalamin (vitamin B-12) 500 mcg tablet (Vitamin B-12) 500 mcg PO DAILY 09/17/24 finasteride 5 mg tablet 5 mg PO DAILY 09/17/24 folic acid 1 mg tablet 1 mg PO DAILY 09/17/24 hydrochlorothiazide 12.5 mg tablet 12.5 mg PO DAILY 09/17/24 loratadine 10 mg tablet 10 mg PO PRN Allergis 09/17/24 losartan 100 mg tablet 100 mg PO DAILY 09/17/24 magnesium oxide 400 mg (241.3 mg magnesium) tablet 400 mg PO DAILY 09/17/24 pravastatin 40 mg tablet 40 mg PO DAILY 09/17/24 tamsulosin 0.4 mg capsule 0.4 mg PO DAILY 09/17/24 terazosin 5 mg capsule 5 mg PO QHS 09/17/24 turmeric 400 mg capsule 400 mg PO DAILY Prostrate 09/17/24 Hospital Course Operations - (Taken to surgery for evacuation of blood clots and removal of bladder stones) Summary of Care Provided Minutes Spent on Discharge: 20 Hospital Course: Patient went to surgery to evacuate blood clots and remove bladder stones will DC Billy today and home after he urinates he would probably benefit from having a simple robotic prostatectomy for a very large prostate Physical Exam Const alert and oriented x3 General Appearance: cooperative HEENT normocephalic and head/scalp atraumatic Eyes PERRL and EOMs intact bilaterally Neck supple, no JVD and no carotid bruits Resp normal respiratory effort, normal air movement and clear to auscultation bilaterally Cardio regular rate and no murmurs GI normal to inspection, nondistended, normoactive bowel sounds and soft to palpation Extremity normal capillary refill General Extremity: no tenderness to palpation of joints or extremities; Negativefor edema Skin no rashes or lesions noted and no wounds General Skin Exam: no breakdown Neuro CN's II-XII intact bilaterally Psych affect normal Appearance: appropriate Weight / BMI Weight Weight: 78.4 kg Body Mass Index (BMI) 26.2 ABG / Lab / Microbiology Data 09/18/24 04:50 09/18/24 04:50 Laboratory: Laboratory Results - last 24 hr 09/17/24 10:47: WBC 14.0 H, RBC 4.03 L, Hgb 12.6 L, Hct 37.7 L, MCV 93.5, MCH 31.3, MCHC 33.4, RDW Std Deviation 50.1 H, RDW Coeff of Og 14.6, Plt Count 112 L, MPV 11.3, Blood Type B POSITIVE, Antibody Screen NEGATIVE 09/18/24 04:50: WBC 18.4 H, RBC 3.33 L, Hgb 10.5 L, Hct 31.1 L, MCV 93.4, MCH 31.5, MCHC 33.8, RDW Std Deviation 50.4 H, RDW Coeff of Og 14.7 H, Plt Count 114 L, MPV 11.9, Immature Gran % (Auto) 0.900, Neut % (Auto) 87.8 H, Lymph % (Auto) 5.1 L, Surry % (Auto) 6.0, Eos % (Auto) 0.0, Baso % (Auto) 0.2, Absolute Neuts (auto) 16.2 H, Absolute Lymphs (auto) 0.94, Nucleated RBC % 0, Sodium 141,Potassium 4.5, Chloride 108, Carbon Dioxide 23.3, Anion Gap 9, BUN 32 H, Creatinine 1.19, Estim Creat Clear Calc 45.50 L, Est GFR (MDRD) Non-Af 61, BUN/Creatinine Ratio 26.6 H, Glucose 130 H, Calcium 8.0 D/C Instructions Call your doctor if your incision/area has: Sudden Increased Bleeding Call your doctor if you observe: Fever of 101 or Higher DC O2, CPAP, BIPAP Needs Home O2 Discharge instructions: No Please Follow Up With: Chandrakant Velez MD When: 2 weeks. Meaningful Use Info Meaningful Use Meaningful Use Diagnoses (Choose all that apply): None applicable Discharge Plan Admission Admit Date/Time: 09/17/24 12:58 Attending Provider: Chandrakant Velez Primary Care Provider: Care Physician,No Primary Discharge Orders/Prescriptions Prescriptions: No Action terazosin 5 mg capsule 5 mg PO QHS carvedilol 6.25 mg tablet 6.25 mg PO BID pravastatin 40 mg tablet 40 mg PO DAILY amlodipine 2.5 mg tablet 2.5 mg PO DAILY tamsulosin 0.4 mg capsule 0.4 mg PO DAILY folic acid 1 mg tablet 1 mg PO DAILY losartan 100 mg tablet 100 mg PO DAILY finasteride 5 mg tablet 5 mg PO DAILY hydrochlorothiazide 12.5 mg tablet 12.5 mg PO DAILY aspirin 81 mg capsule 81 mg PO DAILY loratadine 10 mg tablet 10 mg PO PRN magnesium oxide 400 mg (241.3 mg magnesium) tablet 400 mg PO DAILY turmeric 400 mg capsule 400 mg PO DAILY cyanocobalamin (vitamin B-12) [Vitamin B-12] 500 mcg tablet 500 mcg PO DAILY Active Q 200 mg capsule 200 mg PO QHS Referrals / Follow Up: Care Physician,No Primary [Primary Care Provider] - 09/18/24729 <Electronically signed by Chandrakant Velez MD> Cosigner Signature (if applicable): CC: Dr. Chandrakant Velez MD; No Primary Care Physician~ Signed [facility] Work Phone: 1(600) 905-847007-17-2025 Discharge summary [facility] Medical Records Department [address] [place] [address] Discharge Summary 09/18/24728 MR#: [id number] Acct: [id number] Name: JEANETTE MONREAL JrJesus Rep #:[id number] : 1940 84 From: Chandrakant Velez MD PCP: Care Physician,No Primary Status :ADM IN Location: [place] [address]-1 Providers Date of Admission: 09/17/24 Date of Discharge: 09/18/24 Primary Care Physician: No Primary Care Phys Reason For Visit: HEMORRHAGING BLADDER MASS Diagnosis Discharge Diagnosis (1) Gross hematuria: Status: Acute Code(s): R31.0 - Gross hematuria (2) Bladder mass: Status: Acute Code(s): N32.89 - Other specified disorders of bladder Plan: Plan to proceed to surgery today for evacuation of blood clots and resection of what probably is a bladder tumor or bladder mass bladder cancer. Medications at Discharge Home Medications amlodipine 2.5 mg tablet 2.5 mg PO DAILY 09/17/24 aspirin 81 mg capsule 81 mg PO DAILY 09/17/24 carvedilol 6.25 mg tablet 6.25 mg PO BID 09/17/24 coQ10 (ubiquinol) 200 mg capsule (Active Q) 200 mg PO QHS prostate 09/17/24 cyanocobalamin (vitamin B-12) 500 mcg tablet (Vitamin B-12) 500 mcg PO DAILY 09/17/24 finasteride 5 mg tablet 5 mg PO DAILY 09/17/24 folic acid 1 mg tablet 1 mg PO DAILY 09/17/24 hydrochlorothiazide 12.5 mg tablet 12.5 mg PO DAILY 09/17/24 loratadine 10 mg tablet 10 mg PO PRN Allergis 09/17/24 losartan 100 mg tablet 100 mg PO DAILY 09/17/24 magnesium oxide 400 mg (241.3 mg magnesium) tablet 400 mg PO DAILY 09/17/24 pravastatin 40 mg tablet 40 mg PO DAILY 09/17/24 tamsulosin 0.4 mg capsule 0.4 mg PO DAILY 09/17/24 terazosin 5 mg capsule 5 mg PO QHS 09/17/24 turmeric 400 mg capsule 400 mg PO DAILY Prostrate 09/17/24 Hospital Course Operations - (Taken to surgery for evacuation of blood clots and removal of bladder stones) Summary of Care Provided Minutes Spent on Discharge: 20 Hospital Course: Patient went to surgery to evacuate blood clots and remove bladder stones will DC Billy today and home after he urinates he would probably benefit from having a simple robotic prostatectomy for a very large prostate Physical Exam Const alert and oriented x3 General Appearance: cooperative HEENT normocephalic and head/scalp atraumatic Eyes PERRL and EOMs intact bilaterally Neck supple, no JVD and no carotid bruits Resp normal respiratory effort, normal air movement and clear to auscultation bilaterally Cardio regular rate and no murmurs GI normal to inspection, nondistended, normoactive bowel sounds and soft to palpation Extremity normal capillary refill General Extremity: no tenderness to palpation of joints or extremities; Negativefor edema Skin no rashes or lesions noted and no wounds General Skin Exam: no breakdown Neuro CN's II-XII intact bilaterally Psych affect normal Appearance: appropriate Weight / BMI Weight Weight: 78.4 kg Body Mass Index (BMI) 26.2 ABG / Lab / Microbiology Data 09/18/24 04:50 09/18/24 04:50 Laboratory: Laboratory Results - last 24 hr 09/17/24 10:47: WBC 14.0 H, RBC 4.03 L, Hgb 12.6 L, Hct 37.7 L, MCV 93.5, MCH 31.3, MCHC 33.4, RDW Std Deviation 50.1 H, RDW Coeff of Og 14.6, Plt Count 112 L, MPV 11.3, Blood Type B POSITIVE, Antibody Screen NEGATIVE 09/18/24 04:50: WBC 18.4 H, RBC 3.33 L, Hgb 10.5 L, Hct 31.1 L, MCV 93.4, MCH 31.5, MCHC 33.8, RDW Std Deviation 50.4 H, RDW Coeff of Og 14.7 H, Plt Count 114 L, MPV 11.9, Immature Gran % (Auto) 0.900, Neut % (Auto) 87.8 H, Lymph % (Auto) 5.1 L, Surry % (Auto) 6.0, Eos % (Auto) 0.0, Baso % (Auto) 0.2, Absolute Neuts (auto) 16.2 H, Absolute Lymphs (auto) 0.94, Nucleated RBC % 0, Sodium 141,Potassium 4.5, Chloride 108, Carbon Dioxide 23.3, Anion Gap 9, BUN 32 H, Creatinine 1.19, Estim Creat ClearCalc 45.50 L, Est GFR (MDRD) Non-Af 61, BUN/Creatinine Ratio 26.6 H, Glucose 130 H, Calcium 8.0 D/C Instructions Call your doctor if your incision/area has: Sudden Increased Bleeding Call your doctor if you observe: Fever of 101 or Higher DC O2, CPAP, BIPAP Needs Home O2 Discharge instructions: No Please Follow Up With: Chandrakant Velez MD When: 2 weeks. Meaningful Use Info Meaningful Use Meaningful Use Diagnoses (Choose all that apply): None applicable Discharge Plan Admission Admit Date/Time: 09/17/24 12:58 Attending Provider: Chandrakant Velez Primary Care Provider: Care Physician,No Primary Discharge Orders/Prescriptions Prescriptions: No Action terazosin 5 mg capsule 5 mg PO QHS carvedilol 6.25 mg tablet 6.25 mg PO BID pravastatin 40 mg tablet 40 mg PO DAILY amlodipine 2.5 mg tablet 2.5 mg PO DAILY tamsulosin 0.4 mg capsule 0.4 mg PO DAILY folic acid 1 mg tablet 1 mg PO DAILY losartan 100 mg tablet 100 mg PO DAILY finasteride 5 mg tablet 5 mg PO DAILY hydrochlorothiazide 12.5 mg tablet 12.5 mg PO DAILY aspirin 81 mg capsule 81 mg PO DAILY loratadine 10 mg tablet 10 mg PO PRN magnesium oxide 400 mg (241.3 mg magnesium) tablet 400 mg PO DAILY turmeric 400 mg capsule 400 mg PO DAILY cyanocobalamin (vitamin B-12) [Vitamin B-12] 500 mcg tablet 500 mcg PO DAILY Active Q 200 mg capsule 200 mg PO QHS Referrals / Follow Up: Care Physician,No Primary [Primary Care Provider] - 09/18/24 0730 Cosigner Signature (if applicable): CC: Dr. Chandrakant Velez MD; No Primary Care Physician~ Signed [facility]07-16-2025 Consult note Author Ethan Hurtado [facility] Note Date/Time September 17, 2024 4:04 pm [facility] Medical Records Department [address] [place] [address] Anesthesia Postop Eval II 09/17/24 1603 MR#: [id number] Acct: [id number] Name: JOCELINJEANETTE Jr. Rep #:[id number] : 1940 84 From: Ethan Hurtado MD PCP: Care Physician,No Primary Status :ADM IN Y Race: C Location: [place] [address] Anesthesia Postop Eval I Sum Postop Eval Completion status Anesthesia document: Postop Eval 1 completed: Yes Anesthesia Postop Eval I Summary Anesthesia Postop Eval I Summary: Anesthesia Postop Eval I: Assessment Summary Airway patent Yes 09/17/24 13:03 [employer]IMARY SPECIAL EDUCATION [email or web address] Spontaneous unlabored Yes 09/17/24 13:03 [employer]IMARY SPECIAL EDUCATION TEACHER.[email or web address] respirations Mental status Awake,Calm 09/17/24 13:03 PRIMARY SPECIAL EDUCATION TEACHER.[email or web address] nausea No 09/17/24 13:03 [employer]IMARY SPECIAL EDUCATION TEACHER.[email or web address] Vomiting No 09/17/24 13:03 PRIMARY SPECIAL EDUCATION TEACHER.[email or web address] Anesthesia Postop Eval I: Fluid Summary Crystalloid volume administer 800 09/17/24 13:03 PRIMARY SPECIAL EDUCATION TEACHER.[email or web address] (ml) Colloids volume administered ( ml) Blood Product volume administered (ml) Total IV fluid infused 800 09/17/24 13:03 PRIMARY SPECIAL EDUCATION TEACHER.[email or web address] Anesthesia Postop Eval I: Summary Notes Anesthesia Complication No 09/17/24 13:03 PRIMARY SPECIAL EDUCATION TEACHER.[email or web address] Anesthesia Complication Comment: Post-operative progress note Anesthesia: Postop Eval II Evaluation Mental status: Awake and Calm Pain Level: 1 nausea: No Vomiting: No Complications Anesthesia Complication: No 09/17/24 1604 <Electronically signed by Ethan Pappas D> Date _ Ethan Hurtado MD Cosigner Signature: Date CC: ~ Signed [facility] Work Phone: 1(429) 602-690407-16-2025 Consult note [facility] Medical Records Department [address] [place] [address] Anesthesia Postop Eval II 09/17/24 1603 MR#: [id number] Acct: [id number] Name: JOCELINJEANETTE Jr. Rep #:[id number] : 1940 84 From: Ethan Hurtado MD PCP: Care Physician,No Primary Status :ADM IN Y Race: C Location: [place] [address] Anesthesia Postop Eval I Sum Postop Eval Completion status Anesthesia document: Postop Eval 1 completed: Yes Anesthesia Postop Eval I Summary Anesthesia Postop Eval I Summary: Anesthesia Postop Eval I: Assessment Summary Airway patent Yes 09/17/24 13:03 PRIMARY SPECIAL EDUCATION TEACHER.[email or web address] Spontaneous unlabored Yes 09/17/24 13:03 PRIMARY SPECIAL EDUCATION TEACHER.PKEL respirations Mental status Awake,Calm 09/17/24 13:03 PRIMARY SPECIAL EDUCATION TEACHER.PKEL nausea No 09/17/24 13:03 PRIMARY SPECIAL EDUCATION TEACHER.[email or web address] Vomiting No 09/17/24 13:03 PRIMARY SPECIAL EDUCATION TEACHER.[email or web address] Anesthesia Postop Eval I: Fluid Summary Crystalloid volume administer 800 09/17/24 13:03 PRIMARY SPECIAL EDUCATION TEACHER.PKEL (ml) Colloids volume administered ( ml) Blood Product volume administered (ml) Total IV fluid infused 800 09/17/24 13:03 EVA Anesthesia Postop Eval I: Summary Notes Anesthesia Complication No 09/17/24 13:03 EVA Anesthesia Complication Comment: Post-operative progress note Anesthesia: Postop Eval II Evaluation Mental status: Awake and Calm Pain Level: 1 nausea: No Vomiting: No Complications Anesthesia Complication: No 09/17/24 1604 D> Date _ Ethan Ortega Signature: Date CC: ~ Signed [facility]07-16-2025 Consult note Author Enzo Miller [facility] Note Date/Time September 17, 2024 1:03 pm [facility] Medical Records Department [address] [place] [address] Anesthesia Postop Eval I 09/17/24 1302 MR#: [id number] Acct: [id number] Name: JEANETTE MONREAL Jr. Rep #:[id number] : 1940 84 From: Enzo Miller CRNA PCP: Care Physician,No Primary Status :ADM JEFRY Y Race: C Location: [place] [address] Anesthesia: Postop Eval I Current Vital Signs Temperature: 97.1 F Pulse Rate: 76 Blood Pressure: 154/70 Respiratory Rate: 20 Pulse Ox: 100 Oxygen Delivery Method: Room Air Assessment Airway patent: Yes Spontaneous unlabored respirations: Yes Mental status: Awake and Calm nausea: No Vomiting: No Anesthesia Complication: No Fluid Hydration Crystalloid volume administer (ml): 800 Total IV fluid infused: 800 Progress Note Anesthesia document: Postop Eval 1 completed: Yes 09/17/24 1303 <Electronically signed by Enzo maier PRIMARY SPECIAL EDUCATION TEACHER> Date _ Enzo Sotoigner Signature: Date CC: ~ Signed [facility] Work Phone: 1(706) 736-574507-16-2025 Evaluation note* Diagnosis Onset Date Resolution Status Admit Date Bladder mass acute September 17 025 12:58pm Gross hematuria acute September 12:58pm [facility] Work Phone: 1(574) 711-254407-16-2025 Discharge summary Author Chandrakant Velez [facility] Note Date/Time September 18, 2024 2:[address] [facility] Medical Records Department [address] [place] [address] Instructions for Home/Discharge Instructions 09/17/24 1253 MR#: [id number] Acct: [id number] Name: JEANETTE MONREAL Rep #:[id number] : 1940 84 From: Chandrakant Velez MD PCP: Medhat Physician,Jessy Primary Status :ADM JEFRY Discharge Instructions DC O2, CPAP, BIPAP needs Home O2 Discharge instructions: No Dressing / Incision Discharge Activity: Return to Normal Activity Dressing / Incision Call your doctor if your incision/area has: Sudden Increased Bleeding Call your doctor if you observe: Fever of 101 or Higher Follow Up Care Please Follow Up With: Chandrakant Velez MD When: 2 weeks. Test Results: Test results from this visit will be discussed in further detail at your follow- up appointment, if applicable. Discharge Plan Admission Admit Date/Time: 09/17/24 08:22 Attending Provider: Chandrakant Velez Primary Care Provider: Care Physician,No Primary Discharge Orders/Prescriptions Prescriptions: No Action terazosin 5 mg capsule 5 mg PO QHS carvedilol 6.25 mg tablet 6.25 mg PO BID pravastatin 40 mg tablet 40 mg PO DAILY amlodipine 2.5 mg tablet 2.5 mg PO DAILY tamsulosin 0.4 mg capsule 0.4 mg PO DAILY folic acid 1 mg tablet 1 mg PO DAILY losartan 100 mg tablet 100 mg PO DAILY finasteride 5 mg tablet 5 mg PO DAILY hydrochlorothiazide 12.5 mg tablet 12.5 mg PO DAILY aspirin 81 mg capsule 81 mg PO DAILY loratadine 10 mg tablet 10 mg PO PRN magnesium oxide 400 mg (241.3 mg magnesium) tablet 400 mg PO DAILY turmeric 400 mg capsule 400 mg PO DAILY cyanocobalamin (vitamin B-12) [Vitamin B-12] 500 mcg tablet 500 mcg PO DAILY Active Q 200 mg capsule 200 mg PO QHS Referrals / Follow Up: Care Physician,No Primary [Primary Care Provider] - 09/17/24 0323<Electronically signed by Chandrakant Velez MD>Chandrakant Velez MD CC: No Primary Care Physician ~ Signed [facility] Work Phone: [phone]) 232-494507-16-2025 Consult note Author Ethan Hurtado [facility] Note Date/Time September 17, 2024 11:1 1am [facility] Medical Records Department [address] [place] [address] Pre-Anesthesia Evaluation 09/17/24 1109 MR#: [id number] Acct: [id number] Name: JEANETTE MONREAL Jr. Rep #:[id number] : 1940 84 From: Ethan Hurtado MD PCP: Care Physician,No Primary Status :ADM JEFRY Y Race: C Location: [place] [address] ASA Classification* ASA Classification ASA Classification: 3 and E Assessment & Plan Anesthesia* Anesthesia Assessment Anesthesia Assessment: Discussed sedation and/or anesthesia options, risks, benefits, and alternatives with patient/parents/legal guardian/POA. Questions invited. The patient/parents/legal guardian/POA seems to understand and agrees to proceedwith anesthesia plan. Reviewed the physical assessment, medical history, allergy history and patient home medications list prior to surgery/procedure/anesthetic and documented any changes. Performed airway and anesthesia risk assessments. Procedural Plan Add'l anesthesia plan details: I reviewed the patients paper chart from [facility]. Hbg >11 today, will obtain repeat CBC and T&S now. 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 Anesthesia Type Anesthesia Type: General (discussed GA with ETT. Patient consents to blood products. Discussed risks of NE, CVA, seizure, post-op ventilation, sore throat.) History Source History Obtained from:: Patient and Chart Anesthesia Focused Assessment* Temperature: 97.7 F Pulse Rate: 78 Blood Pressure: 137/69 Respiratory Rate: 18 Pulse Ox: 97 Oxygen Delivery Method: Room Air Airway Assessment Mouth opens: >3 cm Mallampati Score: I Teeth Condition: Intact Labs Anesthesia Preop lab: CBC WBC 14.0 K/mm3 (4.4-11.0) H 09/17/24 10:47 5 RBC 4.03 M/mm3 (4.6-6.2) L 09/17/24 10:47 09/17/24 Hgb 12.6 g/dL (13.0-16.5) L 09/17/24 10:47 5 Hct 37.7 % (40-54) L 09/17/24 10:47 09/17/24 Plt Count 112 K/mm3 (150-450) L 09/17/24 10:47 09/17/24 CHEMISTRY COAG Pre-Assessment Diagnosis/Proposed Procedure Planned Operative Procedure(s): cystoscopy, clot evacuation Anesthesia History Anesthesia History - branch general manager: Anesthesia History - branch general manager Hx Hospitalization Any Problems With Anesthesia No 09/17/24 09:53 Cholinesterase deficiency No 09/17/24 09:53 You/Your Family Experience No 09/17/24 09:53 fever (hyperthermia) with Relationship Recent Exposure to Contagious No 09/17/24 09:53 Disease Does patient have nerve No 09/17/24 09:53 stimulator Patient instructed to have No 09/17/24 09:53 device shut off --Does patient have Pacemaker No 09/17/24 11:00 or ICD? When Was Last Pacemaker Check QUESTION #4 FULL TEXT: You/Your Family Experience fever (hyperthermia) with Anesthesia Last Oral Intake Last Oral intake: Last Oral Intake NPO since 17:00 09/17/24 11:00 Meds taken in AM with sips of No 09/17/24 11:00 water? Meds patient instructed to take am of surgery PONV PONV - branch general manager: PONV - branch general manager Female HX of Motion Sickness HX of N/V After Surgery Non-Smoker Duration of Surgery greater than 60 minutes Number of Risk Factors PONV Score Any additional information?: Yes Female: No HX of Motion Sickness: No HX of N/V After Surgery: No Non-Smoker: Yes Duration of Surgery greater than 60 minutes: Yes Number of Risk Factors: 2 PONV Score: Moderate Risk Height & Weight Height & Weight: Anesthesia: Height & Weight Height 5 ft 8 in 09/17/24 11:00 Weight: 78.4 kg 09/17/24 11:00 Body Mass Index (BMI) 26.2 09/17/24 11:00 Respiratory Assessment Respiratory Assessment - branch general manager: Respiratory Tract Infection Hx - branch general manager Hx Respiratory Tract Infection No 09/17/24 09:53 STOP Sleep Apnea STOP Sleep Apnea - branch general manager: STOP Sleep Apnea - branch general manager Hx Hypertension Yes 09/17/24 08:29 Hx Sleep Apnea No 09/17/24 08:29 CPAP BIPAP Do you snore loudly (louder No 09/17/24 08:29 than talking or can be heard Do you often feel tired/ No 09/17/24 08:29 fatigued/ sleepy during daytime? Has anyone observed you stop No 09/17/24 08:29 breathing during sleep? STOP Results Negative 09/17/24 08:29 QUESTION #5 FULL TEXT : Do you snore loudly (louder than talking or can be heard through closed doors)? Tobacco Use History Tobacco Use History - branch general manager: Tobacco Use History - branch general manager Tobacco Use Smoking Status Never smoker 09/17/24 08:29 Hx Tobacco Use No 09/17/24 08:29 Years Smoking Packs Smoked per Day Smoking Cessation Date was within the last 15 years Hx Smoking Cessation Date Hx Smoking Cessation Counseling Hematologic Medial History Hematologic Hx - branch general manager: Hematologic Medical Hx - access director Hx of Blood Transfusion Yes 09/17/24 08:29 Hx of Transfusion in last 3 No 09/17/24 08:29 Months Date of Last Transfusion (if within last 3 months) Ever experience any problems No 09/17/24 08:29 with transfusion(s)? Specify any problems Hx of Preganancy in last 3 N/A 09/17/24 08:29 Months Nurse Filling Out Transfusion JMEDNA 09/17/24 08:29 & Questions: Date: 09/17/24 09/17/24 08:29 Time: 09:40 09/17/24 08:29 Patient unable to answer at this time (ie. confused, unrespo /Reproduction History /Reproductive History - branch general manager: /Reproductive Hx- branch general manager Hx Now No 09/17/24 09:53 Gestational Age (in weeks): EDC: Hx Hx Para Hx Section SAB No 09/17/24 09:53 Active Medications Active Medications: Current Medications Generic Name Dose Route Start Last Admin Trade Name Freq PRN Reason Stop Dose Admin Sodium Chloride 250 mls @ 15 mls/hr 09/17/24 08:31 IV .[id number] PRN Saline Flush Cefazolin Sodium 2 gm/ Sodium 110 mls @ 200 mls/hr 09/17/24 10:19 Chloride IV 09/17/24 10:51 X1 ONE Lactated Ringer's 1,000 mls @ 15 mls/hr 09/17/24 11:15 09/17/24 11:06 IV 15 mls/hr .Q48H RENU Administration Sodium Chloride 10 - 40 ml 09/17/24 08:31 0.9% Saline Lock 10 Ml Syringe IV UD PRN SALINE FLUSH PFSH Medical History Blood disorder Renal disease Hiatal hernia History of stress test HTN (hypertension) Heart attack Home Medications ?Medication ?Instructions ?Recorded ?Last Taken ?Type amlodipine 2.5 mg tablet 2.5 mg PO DAILY 09/17/24 18:00 History aspirin 81 mg capsule 81 mg PO DAILY 09/17/2409/02 08:00 History carvedilol 6.25 mg tablet 6.25 mg PO BID 09/17/2409/02 08:00 History coQ10 (ubiquinol) 200 mg capsule 200 mg PO QHS prostat e 09/17/24 09/15/24 22:00 History (Active Q) cyanocobalamin (vitamin B-12) 500 500 mcg PO DAILY 09/16/24 History mcg tablet (Vitamin B-12) finasteride 5 mg tablet 5 mg PO DAILY 09/17/2409/15 18:00 History folic acid 1 mg tablet 1 mg PO DAILY 09/17/2409/16 12:00 History hydrochlorothiazide 12.5 mg tablet 12.5 mg PO DAILY 09/16/24 12:00 History loratadine 10 mg tablet 10 mg PO PRN Allergis Unknown History losartan 100 mg tablet 100 mg PO DAILY 09/17/24 08:00 History magnesium oxide 400 mg (241.3 mg 400 mg PO DAILY 09/1709/16/24 12:00 History magnesium) tablet pravastatin 40 mg tablet 40 mg PO DAILY 09/17/2409/02 22:00 History tamsulosin 0.4 mg capsule 0.4 mg PO DAILY 09/17/24 22:00 History terazosin 5 mg capsule 5 mg PO QHS 09/17/24 5 History turmeric 400 mg capsule mg PO DAILY Prostrate 09/15/24 18:00 History Allergy/AdvReac Type Severity Reaction Status Date / Time Iodinated Contrast Media Allergy Severe swelling Verified 09/17/24 10:53 (IVP dye) lips simvastatin Allergy Mild muscle Verified 09/17/24 10:53 aches Surgical History H/O cardiac catheterization Social History Smoking Status: Never smoker Review of Systems (Anesthesia) ROS Narrative System reviewed and no additional complaints, except as documented. Physical Exam Const alert and oriented x3 HEENT dentition normal Resp normal respiratory effort Cardio regular rate Neuro oriented x3 and moves all extremities 09/17/24 1111 <Electronically signed by Ethan Pappas D> Date _ Ethan Hurtado MD Cosigner Signature: Date CC: ~ [facility] Work Phone: 1(886) 871-930207-16-2025 Consult note [facility] Medical Records Department [address] [facility] [place] [place] [address] Anesthesia Postop Eval I 09/17/24 1302 MR#: [id number] Acct: [id number] Name: JEANETTE MONREAL Jr. Rep #:[id number] : 1940 84 From: Enzo Miller CRNA PCP: Care Physician,No Primary Status :ADM JEFRY Y Race: C Location: [place] [address] Anesthesia: Postop Eval I Current Vital Signs Temperature: 97.1 F Pulse Rate: 76 Blood Pressure: 154/70 Respiratory Rate: 20 Pulse Ox: 100 Oxygen Delivery Method: Room Air Assessment Airway patent: Yes Spontaneous unlabored respirations: Yes Mental status: Awake and Calm nausea: No Vomiting: No Anesthesia Complication: No Fluid Hydration Crystalloid volume administer (ml): 800 Total IV fluid infused: 800 Progress Note Anesthesia document: Postop Eval 1 completed: Yes 09/17/24 1303 y PRIMARY SPECIAL EDUCATION TEACHER> Date _ Enzo Miller CRNA Cosigner Signature: Date CC: ~ [facility]igned [facility] [facility] Medical Records Department [address] [place] [address] Operative Report 09/17/24 1253 MR#: [id number] Acct: [id number] Name: JEANETTE MONREAL Jr. Rep #:[id number] : 1940 84 From: Chandrakant Velez MD PCP: Care Physician,No Primary Status :ADM JEFRY Location: [place] [address] Operative Report (Standard) Operative Information Date of Procedure: 09/17/24 Pre-Operative Diagnosis: Gross hematuria bleeding from the bladder Post-Operative Diagnosis: The same, bleeding from large prostate and large bladder stones Surgery/Procedure Performed: Cystoscopy evacuation of blood clots and cauterization of prostatic bleeding and cystolitholapaxy and laser and removal of large bladder stones greater than 3 cm university manager: No Type of Anesthesia: General RN Documented Start/Stop Times: Operation Date: 09/17/24 10:30 Case Time Into Pre-Op 09/17/24 10:31 Procedure Start Time: 12:29 Procedure Stop Time: 12:54 Select all DRAINS/GRAFTS/IMPLANTS that apply: Drains Drain details: 22 Scottish three-way catheter Estimated Blood Loss: Large Specimen collected: Yes Description of specimen(s) removed: Blood clots and bladder stones Description of surgery: This is a 84-year-old gentleman presented to the outside hospital with bleeding had a CAT scan donethat reported a possible mass in the bladder and bleeding and hemorrhage he was transferred over for further care taken back down to the operating room he underwent general anesthesia. He was placed in dorsal lithotomy position. Billy catheter was removed was very bloody I then prepped and draped the patient usual sterile fashion placed in dorsolithotomy position went in the bladder with a 26 Scottish continuous-flow resectoscope once inside the bladder then I evacuated out all these clots from the bladder and then once again all the clots evaluated then I saw several large bladder stones and awhole bunch of small bladder stones in the base of the bladder evacuated all thelittle tiny stones but then used a 960 ?m laser fiber the laser of the large bladder stone and the stone was lasered completely into little pieces and evacuated out completely after successfully removing out the bladderstone that I noticed that he had extremely large prostate with extremely hypertrophy bilateral hypertrophy and obstruction and there was bleeding active bleeding coming from the prostate bladder neckarea so this was cauterized until the bleeding stopped once I get the bleeding under control all the stones were then removed out to another he had extremely large prostate that appeared to be a bladder mass on CAT scan but just a large prostate so this was cauterized to stop the bleeding I did notdo a resection of the prostate. Plan to be do medical therapy we will keep the catheter in for irrigation and take the catheter out for voiding trial tomorrow. Surgical Findings: Significantly enlarged very large prostate with bleeding from the bladder neck all the clot blood clots removed and cauterized large bladder stones lasered andremoved Complications Complications: No Admit VTE Documentation VTE Present on Admission: No VTE Mechan Device Prophylaxis: SCD's VTE Pharm Prophylaxis ordered?: No 09/17/24 1256 Cosigner Signature (if applicable): CC: Dr. Chandrakant Velez MD; No Primary Care Physician~ [facility]igned [facility] History and physical note Author Chandrakant Velez [facility] Note Date/Time September 17, 2024 10:[address] [facility] Medical Records Department [address] [place] [address] History & Physical Exam 09/17/24 1025 MR#: [id number] Acct: [id number] Name: JEANETTE MONREAL Jr. Rep #:[id number] : 1940 84 From: Chandraaknt Velez MD PCP: Care Physician,No Primary Status :ADM JEFRY Location: [place] [address] HPI - General General Date of Admission: 09/17/24 Date of Service: 09/17/24 Chief Complaint: Hemorrhaging bladder mass HPI Narrative JEANETTE MONREAL, is a 84 M who presents to [facility] as a transfer from an outside hospital he been having significant bleeding in the emergency room did not been able to contact the urologist I was called and accepted the patient as a transfer from [facility] going to take him to surgery today to evacuate all the blood clots and 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 Patient is agreeable with the plan because of the ongoing bleeding which then not been able to stop with the catheter. He is n.p.o. and plan for surgery today [facility] Medical History Blood disorder Renal disease Hiatal hernia History of stress test HTN (hypertension) Heart attack Home Medications ?Medication ?Instructions ?Recorded ?Last Taken ?Type amlodipine 2.5 mg tablet 2.5 mg PO DAILY 09/17/24 18:00 History aspirin 81 mg capsule 81 mg PO DAILY 09/17/2409/02 08:00 History carvedilol 6.25 mg tablet 6.25 mg PO BID 09/17/2409/02 08:00 History coQ10 (ubiquinol) 200 mg capsule 200 mg PO QHS prostat e 09/17/24 09/15/24 22:00 History (Active Q) cyanocobalamin (vitamin B-12) 500 500 mcg PO DAILY 09/16/24 History mcg tablet (Vitamin B-12) finasteride 5 mg tablet 5 mg PO DAILY 09/17/2409/15 18:00 History folic acid 1 mg tablet 1 mg PO DAILY 09/17/2409/16 12:00 History hydrochlorothiazide 12.5 mg tablet 12.5 mg PO DAILY 09/16/24 12:00 History loratadine 10 mg tablet 10 mg PO PRN Allergis Unknown History losartan 100 mg tablet 100 mg PO DAILY 09/17/24 08:00 History magnesium oxide 400 mg (241.3 mg 400 mg PO DAILY 09/1709/16/24 12:00 History magnesium) tablet pravastatin 40 mg tablet 40 mg PO DAILY 09/17/2409/02 22:00 History tamsulosin 0.4 mg capsule 0.4 mg PO DAILY 09/17/24 22:00 History terazosin 5 mg capsule 5 mg PO QHS 09/17/24 5 History turmeric 400 mg capsule mg PO DAILY Prostrate 09/15/24 18:00 History Surgical History H/O cardiac catheterization Social History Smoking Status: Never smoker ROS Constitutional Constitutional: Denies chills, fever(s) or malaise Eyes Eyes: Denies blurry vision or change in vision ENT HEENT: Reports none Cardiovascular Cardiovascular: Denies chest pain or palpitations Respiratory/Chest Respiratory/Chest: Denies cough or shortness of breath with exertion Gastrointestinal Gastrointestinal: Denies abdominal pain, constipation or diarrhea Musculoskeletal Musculoskeletal: Denies back pain, joint stiffness or joint swelling Integumentary Integumentary: Denies dry skin, jaundice, lesions or rash Neurologic Neurologic: Denies confusion, syncope or weakness Psychiatric Psychiatric: Reports none; Denies anxiety or depression Endocrine Endocrinology: Denies excessive sweating, fatigue or flushing Hematologic/Lymphatic Hematologic/Lymphatic: Denies anemia, easy bleeding or easy bruising Vital Signs Vital Signs Vital Signs: 09/17/24 08:47 Temperature 97.7 F L Temperature Source Oral Pulse Rate 78 Respiratory Rate 18 Blood Pressure 137/69 H Blood Pressure Mean 91 Blood Pressure Source Monitor Blood Pressure Position Supine Blood Pressure Location Right Arm Pulse Ox 97 Oxygen Delivery Method Room Air Weight Weight: 78.4 kg Body Mass Index (BMI) 26.2 Assessment & Plan Assessment/Plan (1) Gross hematuria: (2) Bladder mass: PLAN: Plan to proceed to surgery today for evacuation of blood clots and resection of what probably is a bladder tumor or bladder mass bladder cancer. 09/17/24 1026 <Electronically signed by Chandrakant Velez MD> Cosigner Signature (if applicable): CC: Dr. Chandrakant Velez MD; No Primary Care Physician~ [facility] Work Phone: [phone] Consult note [facility] Medical Records Department [address] [place] [address] Pre-Anesthesia Evaluation 09/17/24 1109 MR#: [id number] Acct: [id number] Name: JEANETTE MONREAL JrJesus Rep #:[id number] : 1940 84 From: Ethan Hurtado MD PCP: Care Physician,No Primary Status :ADM JEFRY Y Race: C Location: [place] [address] ASA Classification* ASA Classification ASA Classification: 3 and E Assessment & Plan Anesthesia* Anesthesia Assessment Anesthesia Assessment: Discussed sedation and/or anesthesia options, risks, benefits, and alternatives with patient/parents/legal guardian/POA. Questions invited. The patient/parents/legal guardian/POA seems to understand and agrees to proceedwith anesthesia plan. Reviewed the physical assessment, medical history, allergy history and patient home medications list prior to surgery/procedure/anesthetic and documented any changes. Performed airway and anesthesia risk assessments. Procedural Plan Add'l anesthesia plan details: I reviewed the patients paper chart from [facility]. Hbg >11 today, will obtain repeat CBC and T&S now. 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 Anesthesia Type Anesthesia Type: General (discussed GA with ETT. Patient consents to blood products. Discussed risks of NE, CVA, seizure, post-op ventilation, sore throat.) History Source History Obtained from:: Patient and Chart Anesthesia Focused Assessment* Temperature: 97.7 F Pulse Rate: 78 Blood Pressure: 137/69 Respiratory Rate: 18 Pulse Ox: 97 Oxygen Delivery Method: Room Air Airway Assessment Mouth opens: >3 cm Mallampati Score: I Teeth Condition: Intact Labs Anesthesia Preop lab: CBC WBC 14.0 K/mm3 (4.4-11.0) H 09/17/24 10:47 5 RBC 4.03 M/mm3 (4.6-6.2) L 09/17/24 10:47 09/17/24 Hgb 12.6 g/dL (13.0-16.5) L 09/17/24 10:47 5 Hct 37.7 % (40-54) L 09/17/24 10:47 09/17/24 Plt Count 112 K/mm3 (150-450) L 09/17/24 10:47 09/17/24 CHEMISTRY COAG Pre-Assessment Diagnosis/Proposed Procedure Planned Operative Procedure(s): cystoscopy, clot evacuation Anesthesia History Anesthesia History - branch general manager: Anesthesia History - branch general manager Hx Hospitalization Any Problems With Anesthesia No 09/17/24 09:53 Cholinesterase deficiency No 09/17/24 09:53 You/Your Family Experience No 09/17/24 09:53 fever (hyperthermia) with Relationship Recent Exposure to Contagious No 09/17/24 09:53 Disease Does patient have nerve No 09/17/24 09:53 stimulator Patient instructed to have No 09/17/24 09:53 device shut off --Does patient have Pacemaker No 09/17/24 11:00 or ICD? When Was Last Pacemaker Check QUESTION #4 FULL TEXT: You/Your Family Experience fever (hyperthermia) with Anesthesia Last Oral Intake Last Oral intake: Last Oral Intake NPO since 17:00 09/17/24 11:00 Meds taken in AM with sips of No 09/17/24 11:00 water? Meds patient instructed to take am of surgery PONV PONV - branch general manager: PONV - branch general manager Female HX of Motion Sickness HX of N/V After Surgery Non-Smoker Duration of Surgery greater than 60 minutes Number of Risk Factors PONV Score Any additional information?: Yes Female: No HX of Motion Sickness: No HX of N/V After Surgery: No Non-Smoker: Yes Duration of Surgery greater than 60 minutes: Yes Number of Risk Factors: 2 PONV Score: Moderate Risk Height & Weight Height & Weight: Anesthesia: Height & Weight Height 5 ft 8 in 09/17/24 11:00 Weight: 78.4 kg 09/17/24 11:00 Body Mass Index (BMI) 26.2 09/17/24 11:00 Respiratory Assessment Respiratory Assessment - branch general manager: Respiratory Tract Infection Hx - branch general manager Hx Respiratory Tract Infection No 09/17/24 09:53 STOP Sleep Apnea STOP Sleep Apnea - branch general manager: STOP Sleep Apnea - branch general manager Hx Hypertension Yes 09/17/24 08:29 Hx Sleep Apnea No 09/17/24 08:29 CPAP BIPAP Do you snore loudly (louder No 09/17/24 08:29 than talking or can be heard Do you often feel tired/ No 09/17/24 08:29 fatigued/ sleepy during daytime? Has anyone observed you stop No 09/17/24 08:29 breathing during sleep? STOP Results Negative 09/17/24 08:29 QUESTION #5 FULL TEXT : Do you snore loudly (louder than talking or can be heard through closeddoors)? Tobacco Use History Tobacco Use History - branch general manager: Tobacco Use History - branch general manager Tobacco Use Smoking Status Never smoker 09/17/24 08:29 Hx Tobacco Use No 09/17/24 08:29 Years Smoking Packs Smoked per Day Smoking Cessation Date was within the last 15 years Hx Smoking Cessation Date Hx Smoking Cessation Counseling Hematologic Medial History Hematologic Hx - branch general manager: Hematologic Medical Hx - access director Hx of Blood Transfusion Yes 09/17/24 08:29 Hx of Transfusion in last 3 No 09/17/24 08:29 Months Date of Last Transfusion (if within last 3 months) Ever experience any problems No 09/17/24 08:29 with transfusion(s)? Specify any problems Hx of Preganancy in last 3 N/A 09/17/24 08:29 Months Nurse Filling Out Transfusion PAOLA 09/17/24 08:29 & Questions: Date: 09/17/24 09/17/24 08:29 Time: 09:40 09/17/24 08:29 Patient unable to answer at this time (ie. confused, unrespo /Reproduction History /Reproductive History - branch general manager: /Reproductive Hx- branch general manager Hx Now No 09/17/24 09:53 Gestational Age (in weeks): EDC: Hx Hx Para Hx Section SAB No 09/17/24 09:53 Active Medications Active Medications: Current Medications Generic Name Dose Route Start Last Admin Trade Name Freq PRN Reason Stop Dose Admin Sodium Chloride 250 mls @ 15 mls/hr 09/17/24 08:31 IV .[id number] PRN Saline Flush Cefazolin Sodium 2 gm/ Sodium 110 mls @ 200 mls/hr 09/17/24 10:19 Chloride IV 09/17/24 10:51 X1 ONE Lactated Ringer's 1,000 mls @ 15 mls/hr 09/17/24 11:15 09/17/24 11:06 IV 15 mls/hr .Q48H RENU Administration Sodium Chloride 10 - 40 ml 09/17/24 08:31 0.9% Saline Lock 10 Ml Syringe IV UD PRN SALINE FLUSH PFSH Medical History Blood disorder Renal disease Hiatal hernia History of stress test HTN (hypertension) Heart attack Home Medications ?Medication ?Instructions ?Recorded ?Last Taken ?Type amlodipine 2.5 mg tablet 2.5 mg PO DAILY 09/17/24 18:00 History aspirin 81 mg capsule 81 mg PO DAILY 09/17/2409/02 08:00 History carvedilol 6.25 mg tablet 6.25 mg PO BID 09/17/2409/02 08:00 History coQ10 (ubiquinol) 200 mg capsule 200 mg PO QHS prostat e 09/17/24 09/15/24 22:00 History (Active Q) cyanocobalamin (vitamin B-12) 500 500 mcg PO DAILY 09/16/24 History mcg tablet (Vitamin B-12) finasteride 5 mg tablet 5 mg PO DAILY 09/17/2409/15 18:00 History folic acid 1 mg tablet 1 mg PO DAILY 09/17/2409/16 12:00 History hydrochlorothiazide 12.5 mg tablet 12.5 mg PO DAILY 09/16/24 12:00 History loratadine 10 mg tablet 10 mg PO PRN Allergis Unknown History losartan 100 mg tablet 100 mg PO DAILY 09/17/24 08:00 History magnesium oxide 400 mg (241.3 mg 400 mg PO DAILY 09/1709/16/24 12:00 History magnesium) tablet pravastatin 40 mg tablet 40 mg PO DAILY 09/17/2409/02 22:00 History tamsulosin 0.4 mg capsule 0.4 mg PO DAILY 09/17/24 22:00 History terazosin 5 mg capsule 5 mg PO QHS 09/17/24 5 History turmeric 400 mg capsule mg PO DAILY Prostrate 09/15/24 18:00 History Allergy/AdvReac Type Severity Reaction Status Date / Time Iodinated Contrast Media Allergy Severe swelling Verified 09/17/24 10:53 (IVP dye) lips simvastatin Allergy Mild muscle Verified 09/17/24 10:53 aches Surgical History H/O cardiac catheterization Social History Smoking Status: Never smoker Review of Systems (Anesthesia) ROS Narrative System reviewed and no additional complaints, except as documented. Physical Exam Const alert and oriented x3 HEENT dentition normal Resp normal respiratory effort Cardio regular rate Neuro oriented x3 and moves all extremities 09/17/24 1111 D> Date _ Ethan Hurtado MD Cosigner Signature: Date CC: ~ [facility]igned [facility] [facility] Medical Records Department [address] [place] [address] History & Physical Exam 09/17/24 1025 MR#: [id number] Acct: [id number] Name: JEANETTE MONREAL Jr. Rep #:[id number] : 1940 84 From: Chandrakant Velez MD PCP: Care Physician,No Primary Status :ADM JEFRY Location[place] [facility] [place] BM118-7 HPI - General General Date of Admission: 09/17/24 Date of Service: 09/17/24 Chief Complaint: Hemorrhaging bladder mass HPI Narrative JEANETTE MONREAL, is a 84 M who presents to [facility] as a transfer from an outside hospital he been having significant bleeding in the emergency room did not been able to contact the urologist I was called and accepted the patient as a transfer from [facility] going to take him to surgery today to evacuate all the blood clots and 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 Patient is agreeable with the plan because of the ongoing bleeding which then not been able to stop with the catheter. He is n.p.o. and plan for surgery today [facility] Medical History Blood disorder Renal disease Hiatal hernia History of stress test HTN (hypertension) Heart attack Home Medications ?Medication ?Instructions ?Recorded ?Last Taken ?Type amlodipine 2.5 mg tablet 2.5 mg PO DAILY 09/17/24 18:00 History aspirin 81 mg capsule 81 mg PO DAILY 09/17/2409/02 08:00 History carvedilol 6.25 mg tablet 6.25 mg PO BID 09/17/2409/02 08:00 History coQ10 (ubiquinol) 200 mg capsule 200 mg PO QHS prostat e 09/17/24 09/15/24 22:00 History (Active Q) cyanocobalamin (vitamin B-12) 500 500 mcg PO DAILY 09/16/24 History mcg tablet (Vitamin B-12) finasteride 5 mg tablet 5 mg PO DAILY 09/17/2409/15 18:00 History folic acid 1 mg tablet 1 mg PO DAILY 09/17/2409/16 12:00 History hydrochlorothiazide 12.5 mg tablet 12.5 mg PO DAILY 09/16/24 12:00 History loratadine 10 mg tablet 10 mg PO PRN Allergis Unknown History losartan 100 mg tablet 100 mg PO DAILY 09/17/24 08:00 History magnesium oxide 400 mg (241.3 mg 400 mg PO DAILY 09/1709/16/24 12:00 History magnesium) tablet pravastatin 40 mg tablet 40 mg PO DAILY 09/17/2409/02 22:00 History tamsulosin 0.4 mg capsule 0.4 mg PO DAILY 09/17/24 22:00 History terazosin 5 mg capsule 5 mg PO QHS 09/17/24 5 History turmeric 400 mg capsule mg PO DAILY Prostrate 09/15/24 18:00 History Surgical History H/O cardiac catheterization Social History Smoking Status: Never smoker ROS Constitutional Constitutional: Denies chills, fever(s) or malaise Eyes Eyes: Denies blurry vision or change in vision ENT HEENT: Reports none Cardiovascular Cardiovascular: Denies chest pain or palpitations Respiratory/Chest Respiratory/Chest: Denies cough or shortness of breath with exertion Gastrointestinal Gastrointestinal: Denies abdominal pain, constipation or diarrhea Musculoskeletal Musculoskeletal: Denies back pain, joint stiffness or joint swelling Integumentary Integumentary: Denies dry skin, jaundice, lesions or rash Neurologic Neurologic: Denies confusion, syncope or weakness Psychiatric Psychiatric: Reports none; Denies anxiety or depression Endocrine Endocrinology: Denies excessive sweating, fatigue or flushing Hematologic/Lymphatic Hematologic/Lymphatic: Denies anemia, easy bleeding or easy bruising Vital Signs Vital Signs Vital Signs: 09/17/24 08:47 Temperature 97.7 F L Temperature Source Oral Pulse Rate 78 Respiratory Rate 18 Blood Pressure 137/69 H Blood Pressure Mean 91 Blood Pressure Source Monitor Blood Pressure Position Supine Blood Pressure Location Right Arm Pulse Ox 97 Oxygen Delivery Method Room Air Weight Weight: 78.4 kg Body Mass Index (BMI) 26.2 Assessment & Plan Assessment/Plan (1) Gross hematuria: (2) Bladder mass: PLAN: Plan to proceed to surgery today for evacuation of blood clots and resection of what probablyis a bladder tumor or bladder mass bladder cancer. 09/17/24 1026 Cosigner Signature (if applicable): CC: Dr. Chandrakant Velez MD; No Primary Care Physician~ [facility]07-16-2025 Note* Exam Date Time Procedure Performing Provider Status 09/17/24 12:[address] Abd/Pelvis w/ IV Contrast Only KWADWO ELIZABETH MD; Auth (Verified) [id number] ORIGINAL EXAMINATION: CT OF THE ABDOMEN AND PELVIS WITH CONTRAST09/17/2024 12:18 am TECHNIQUE: CT of the abdomen and pelvis was performed with the administration of intravenous contrast. Multiplanar reformatted images are provided for review. Automated exposure control, iterative reconstruction, and/or weight based adjustment of the mA/kV was utilized to reduce the radiation dose to as low as reasonably achievable. COMPARISON: CT abdomen pelvis 09/14/2021 HISTORY: ORDERING SYSTEM PROVIDED HISTORY: Reason for Exam: Abdominal pain, acute, nonlocalized FINDINGS: The included lung bases are clear. Indeterminate hypodensity in left hepatic lobe measuring 1.3 cm and 0.5 cm in right hepatic lobe,, presumably cyst or hemangiomas. The spleen, adrenal glands are within normal limits. Cyst measuring 1.3 cm in pancreatic head (2:35). Gallbladder is unremarkable. Bilateral renal nonobstructing nephrolithiasis. No hydronephrosis bilaterally. Ill-defined soft tissue with calcification measuring 4 x 1.6 cm posteriorly within the urinary bladder. Prostatomegaly measuring 6.5 cm. The large and small bowel demonstrate no obstruction. Significant colonic diverticulosis without diverticulitis. The appendix is normal. No free intraperitoneal fluid or gas is identified. The aorta is normal in caliber. There is moderate atherosclerosis of the larger arteries. There is no retroperitoneal or mesenteric lymphadenopathy. Fat containing right femoral hernia. A subcentimeter prominent appearing lymph node in right superficial inguinal region.. There is no fracture or aggressive osseous lesion. Degenerative changes are present in the spine. IMPRESSION: 1. No acute abdominopelvic abnormality. 2. Posterior urinary bladder ill-defined soft tissue and calcification, recommend cystoscopy to exclude neoplasm. 3. Bilateral renal nonobstructing nephrolithiasis. 4. 1.3 cm cyst in pancreatic head, possible low-grade neoplasm, recommend MRI pancreas with and without contrast in 6-12 months. 5. Colonic diverticulosis without diverticulitis. Preliminary Report was Dictated by a Resident Interpreted by: Kwadwo Elizabeth MD Preliminary Report By: Pramod Marion Electronically signed By Kwadwo Elizabeth MD Dictated Date: 09/17/2024 12:24:11 AM Prelim Date: 09/17/2024 12:33:11 AM Sign Date: 09/17/2024 1:07:28 AM Ordering Provider: CASEY ODEN [facility]06-12-2025 Evaluation + Plan note Future Scheduled Tests Laboratory* Basic Metabolic Panel 08/14/24 * Lipid Profile 08/14/24 [facility] 05-07-2025 Note* Exam Date Time Procedure Performing Provider Status 07/09/24 9:25 AM XR Hip 2-3 Views Right DEANGELO PINK DO; Auth (Verified) [id number] ORIGINAL EXAMINATION: 2 XRAY VIEWS OF THE RIGHT HIP 07/09/2024 9:43 am COMPARISON: None. HISTORY: ORDERING SYSTEM PROVIDED HISTORY: Reason for Exam: hip pain FINDINGS: Mild joint space narrowing affects the inferior right hip joint. There is no acute fracture or subluxation. No destructive bone lesion is seen. IMPRESSION: 1. Mild osteoarthritis right hip. 2. No acute fracture. Interpreted by: Deangelo Pink DO Preliminary Report By: Deangelo Pink DO Electronically signed By Deangelo Pink DO Dictated Date: 07/09/2024 4:06:48 PM Prelim Date: 07/09/2024 4:07:29 PM Sign Date: 07/09/2024 4:07:29 PM Ordering Provider: ENRIQUE CROFT [facility]09-26-2024 History of Present illness Narrative * Yolanda Vera, RT(R) - 11/29/2023 8:00 AM EDT Radiology Service Progress Note PATIENT NAME: Jeanette Monreal Jr. DATE OF SERVICE: November 29, 2023 TIME: 8:15 AM PATIENT IDENTITY VERIFICATION COMPLETED USING TWO (2) IDENTIFIERS: Name and Date of confirmedby patient verbally. FALL SCREENING: Has the patient had 2 falls in the last year or 1 fall with injury or currently using an Ambulatory Assistive Device (Walker, Cane, Wheelchair, Crutches, etc.)? No PATIENT GENDER DATA: Male PATIENT RELEVANT IMPLANT DATA REVIEWED: Not Applicable PATIENT PRESENTS WITH AN IMPLANTABLE OR ATTACHED HOT PLATE PLYWOOD PRESS OPERATOR: No RADIOLOGY DEPARTMENT: Bone Density PERIPHERAL IV DATA: Not applicable SIGNED BY: RT Sonia(Albert) November 29, 2023 8:15 AM [facility] NoteHNO ID: [id number] Author: YOLANDA VERA RT (R) Service: Radiology Author Type: Technologist Type: Progress Notes Filed: 11/29/2023 08:15 Note Text: Radiology Service Progress Note PATIENT NAME: Jeanette Monreal Jr. DATE OF SERVICE: November 29, 2023 TIME: 8:15 AM PATIENT IDENTITY VERIFICATION COMPLETED USING TWO (2) IDENTIFIERS: Name and Date of confirmed by patient verbally. FALL SCREENING: Has the patient had 2 falls in the last year or 1 fall with injury or currently using an Ambulatory Assistive Device (Walker, Cane, Wheelchair, Crutches, etc.)? No PATIENT GENDER DATA: Male PATIENT RELEVANT IMPLANT DATA REVIEWED: Not Applicable PATIENT PRESENTS WITH AN IMPLANTABLE OR ATTACHED HOT PLATE PLYWOOD PRESS OPERATOR: No RADIOLOGY DEPARTMENT: Bone Density PERIPHERAL IV DATA: Not applicable SIGNED BY: RT Sonia(Albert) November 29, 2023 8:[facility] ORIGINAL EXAMINATION: TWO XRAY VIEWS OF THE CHEST08/16/2023 12:58 pm CHEST AP/PA and LATERAL COMPARISON: 01/09/2023 HISTORY: ORDERING SYSTEM PROVIDED HISTORY: Reason for Exam: Bronchitis FINDINGS: Prior CABG is present. Heart size and vascularity are within normal limits. The lungs are clear of focal consolidation. No effusion, pneumothorax, or acute osseous abnormality. IMPRESSION: No radiographic evidence of acute cardiopulmonary process. Interpreted by: Sourav Charles MD Preliminary Report By: Sourav Charles MD Electronically signed By Sourav Charles MD Dictated Date: 08/16/2023 1:27:56 PM Prelim Date: 08/16/2023 1:28:25 PM Sign Date: 08/16/2023 1:28:25 PM Ordering Provider: [facility]09-30-2022 Evaluation + Plan note Diagnostic Tests Pending * Protein 24 Hour Urine 12/02/21 * HUNTER (urine) 12/02/21 * .TV Creatinine 12/02/21 Future Scheduled Tests Laboratory* Lipid Profile 09/21/21 Radiology* CT Abdomen and Pelvis w/o contrast 08/25/21 [facility] 09-30-2022 YulianaJEANETTE MONREAL was presented at [facility] Tumor Board Conference Conference date: 01-Dec-2021 Presenting Provider(s): Dr. 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 Bone marrow at outside hospital reportedly showed 60% plasma cells, congo red positive. PET reportedly negative. Started daratumumab and CyBorD. Recommendations Other recommendations: Cardiac MRI, UPEP. May be a transplant candidate if amyloidosis is limited to bone marrow only. Amyloid typing. Disclaimer [facility] tumor board recommendations represent the consensus opinion of physicians present at a weekly patient care conference. The treating [facility] physician is not always present, and many of the physicians formulating the recommendation have not personally seen or examined the patient under discussion. It is understood that the treating [facility] physician considers the expertise of the Tumor Board Recommendation in formulating his/her plan for the patient. However, in many situations, based on individualized patient considerations, a different plan is determined by the treating physician to be the optimal medical management. Electronic Signatures: Mireya Elkins (PT REG) (Signed 13-Dec-2021 08:53) Authored: Impression, Recommendations, Note, Disclaimer Last Updated: 13-Dec-2021 08:53 by Mireya Elkins (PT REG)[facility]09-23-2022 History of Present illness Narrative* Daljit Garcia RT(R) - 11/25/2021 2:00 PM EDT Radiology Service Progress Note PATIENT NAME: Jeanette Monreal Jr. DATE OF SERVICE: November 25, 2021 TIME: 1:39 PM PATIENT IDENTITY VERIFICATION COMPLETED USING TWO (2) IDENTIFIERS: Name and Date of confirmedby patient verbally. FALL SCREENING: Has the patient had 2 falls in the last year or 1 fall with injury or currently using an Ambulatory Assistive Device (Walker, Cane, Wheelchair, Crutches, etc.)? No PATIENT GENDER DATA: Male PATIENT RELEVANT IMPLANT DATA REVIEWED: Not Applicable RADIOLOGY DEPARTMENT: CT; Exam(s) Completed: Abdomen/Pelvis PERIPHERAL IV DATA: Not applicable SIGNED BY: RT Saturnino(R) November 25, 2021 1:39 PM documented in this encounterHenry [facility]09-15-2022 Note ORIGINAL EXAMINATION: WHOLE BODY PET/CT11/17/2021 10:00 am TECHNIQUE: Intravenous injection of 15.4 mCi Fluorine-18 fluorodeoxyglucose (FDG) was administered, followed by acquisition of positron emission tomographic images from the skull vertex to the feet, with concurrent low-dose CT for attenuation correction and anatomic localization utilizing a combined PET/CT scanner. PET images were fused with low-dose CT at the workstation. Dose heicwuzqz-fk-itcg time:70 min Serum glucose level: 81 mg/dl COMPARISON: Bone survey radiographs on 10/13/2021, CT abdomen/pelvis on 09/14/2021, CT chest on 04/04/2021 HISTORY: ORDERING SYSTEM PROVIDED HISTORY: Reason for Exam: Initial staging for multiple myeloma FINDINGS: HEAD/NECK: No hypermetabolic soft tissue lesion within the neck. No hypermetabolic cervical lymph nodes. Diffuse paranasal sinus mucosal thickening. CHEST: No hypermetabolic parenchymal pulmonary nodule. No hypermetabolic mediastinal, hilar, or axillary lymphadenopathy. Mild bilateral gynecomastia. ABDOMEN/PELVIS: No hypermetabolic soft tissue lesion. No hypermetabolic abdominal or pelvic lymphadenopathy. Physiologic excretion of radiotracer is present within the kidneys, ureters, urinary bladder, as well as the bowel. Bilateral punctate nonobstructive nephrolithiasis. Two urinary bladder stones measuring up to 6 mm are similar to the 09/14/2021 CT abdomen/pelvis. Enlarged prostate at 6.1 cm. Descending and sigmoid colonic diverticulosis without diverticulitis. MUSCULOSKELETAL: No hypermetabolic or lytic osseous lesion. IMPRESSION: No hypermetabolic activity to suggest active myeloma. I have personally reviewed the images of this examination and agree with the resident's findings and interpretation. Interpreted by: Rudy Panda DO Preliminary Report By: Constantine Paez Electronically signed By Rudy Panda DO Dictated Date: 11/17/2021 10:15:11 AM Prelim Date: 11/17/2021 11:23:40 AM Sign Date: 11/17/2021 11:23:40 AM [facility]ing [facility]15-[facility] Note ORIGINAL EXAMINATION: WHOLE BODY PET/CT11/17/2021 10:00 am TECHNIQUE: Intravenous injection of 15.4 mCi Fluorine-18 fluorodeoxyglucose (FDG) was administered, followed by acquisition of positron emission tomographic images from the skull vertex to the feet, with concurrent low-dose CT for attenuation correction and anatomic localization utilizing a combined PET/CT scanner. PET images were fused with low-dose CT at the workstation. Dose mcbgsycfm-dq-polh time:70 min Serum glucose level: 81 mg/dl COMPARISON: Bone survey radiographs on 10/13/2021, CT abdomen/pelvis on 09/14/2021, CT chest on 04/04/2021 HISTORY: ORDERING SYSTEM PROVIDED HISTORY: Reason for Exam: Initial staging for multiple myeloma FINDINGS: HEAD/NECK: No hypermetabolic soft tissue lesion within the neck. No hypermetabolic cervical lymph nodes. Diffuse paranasal sinus mucosal thickening. CHEST: No hypermetabolic parenchymal pulmonary nodule. No hypermetabolic mediastinal, hilar, or axillary lymphadenopathy. Mild bilateral gynecomastia. ABDOMEN/PELVIS: No hypermetabolic soft tissue lesion. No hypermetabolic abdominal or pelvic lymphadenopathy. Physiologic excretion of radiotracer is present within the kidneys, ureters, urinary bladder, as well as the bowel. Bilateral punctate nonobstructive nephrolithiasis. Two urinary bladder stones measuring up to 6 mm are similar to the 09/14/2021 CT abdomen/pelvis. Enlarged prostate at 6.1 cm. Descending and sigmoid colonic diverticulosis without diverticulitis. MUSCULOSKELETAL: No hypermetabolic or lytic osseous lesion. IMPRESSION: No hypermetabolic activity to suggest active myeloma. I have personally reviewed the images of this examination and agree with the resident's findings and interpretation. Interpreted by: Rudy Panda DO Preliminary Report By: Constantine Paez Electronically signed By Rudy Panda DO Dictated Date: 11/17/2021 10:15:11 AM Prelim Date: 11/17/2021 11:23:40 AM Sign Date: 11/17/2021 11:23:40 AM Ordering Provider: [facility]08-17-2022 Miscellaneous Notes* [facility] - Ryan Muse - 10/19/2021 11:30 AM EDTSummary: KUB XRAY Radiology Service Progress Note PATIENT NAME: Jeanette Monreal DATE OF SERVICE: October 19, 2021 TIME: 12:26 PM PATIENT IDENTITY VERIFICATION COMPLETED USING TWO (2) IDENTIFIERS: Name and Date of confirmedby patient verbally. FALL SCREENING: Has the patient had 2 falls in the last year or 1 fall with injury or currently using an Ambulatory Assistive Device (Walker, Cane, Wheelchair, Crutches, etc.)? No PATIENT GENDER DATA: Male PATIENT RELEVANT IMPLANT DATA REVIEWED: Not Applicable RADIOLOGY DEPARTMENT: General X-ray: Exam(s) Completed: Abdomen X-Ray: Abdomen PERIPHERAL IV DATA: Not applicable SIGNED BY: Ryan Muse October 19, 2021 12:26 PM documented in this encounterHenry [facility]07-20-2022 Evaluation + Plan note Future Scheduled Tests Laboratory* Lipid Profile 09/21/21 Radiology* CT Abdomen and Pelvis w/o contrast 08/25/21 [facility] 07-13-2022 Note ORIGINAL EXAMINATION: CT OF THE ABDOMEN AND PELVIS WITHOUT CONTRAST 09/14/2021 8:09 am TECHNIQUE: CT of the abdomen and pelvis was performed without the administration of intravenous contrast. Multiplanar reformatted images are provided for review. Automated exposure control, iterative reconstruction, and/or weight based adjustment of the mA/kV was utilized to reduce the radiation dose to as low as reasonably achievable. COMPARISON: Ultrasound 09/02/2021, CT abdomen pelvis 06/25/2020, CTA chest 04/04/2021 HISTORY: ORDERING SYSTEM PROVIDED HISTORY: Reason for Exam: RIGHT URETERAL STONE FINDINGS: Mild left lower lobe atelectasis. The lungs are otherwise clear. Multiple hypodense lesions in the liver measuring up to 2 cm are stable since prior exam and are most compatible with hepatic cavernous hemangiomas. These are better visualized on the CTA chest from 04/04/2021. The gallbladder, spleen, adrenal glands and pancreas are within normal limits. There are bilateral renal stones, largest measuring 4 mm on the right. No hydronephrosis. There is a 6 mm stone in the right posterolateral bladder just distal to the right UVJ. A 2 mm bladder stone is also seen in the dependent portion of the bladder. No evidence of ureteral stone. Mild circumferential bladder wall thickening may be secondary to a component of chronic outlet obstruction or under distension. The prostate gland is moderately enlarged measuring 6.1 cm. No free fluid in the pelvis. The small and large bowel are normal in caliber. Colonic diverticulosis without evidence of diverticulitis. Unremarkable appendix. No lymphadenopathy. Mild bilateral inguinal canal hazy infiltration likely secondary to prior hernia repair. The aorta is atherosclerotic but nonaneurysmal. Diffuse degenerative changes of visualized spine. Mild ankylosis of the bilateral sacroiliac joints. IMPRESSION: Two bladder stones, largest measuring 6 mm just distal to the right UVJ. Nonobstructive bilateral nephrolithiasis. Colonic diverticulosis without diverticulitis. Moderate prostatomegaly. Other chronic incidental findings as above. I have personally reviewed the images of this examination and agree with the resident's findings and interpretation. Interpreted by: Sourav Price MD Preliminary Report By: Howard Carey Electronically signed By Sourav Price MD Dictated Date: 09/14/2021 11:41:21 AM Prelim Date: 09/14/2021 1:09:30 PM Sign Date: 09/14/2021 1:09:30 PM Ordering Provider: [facility]07-13-2022 Note ORIGINAL EXAMINATION: CT OF THE ABDOMEN AND PELVIS WITHOUT CONTRAST 09/14/2021 8:09 am TECHNIQUE: CT of the abdomen and pelvis was performed without the administration of intravenous contrast. Multiplanar reformatted images are provided for review. Automated exposure control, iterative reconstruction, and/or weight based adjustment of the mA/kV was utilized to reduce the radiation dose to as low as reasonably achievable. COMPARISON: Ultrasound 09/02/2021, CT abdomen pelvis 06/25/2020, CTA chest 04/04/2021 HISTORY: ORDERING SYSTEM PROVIDED HISTORY: Reason for Exam: RIGHT URETERAL STONE FINDINGS: Mild left lower lobe atelectasis. The lungs are otherwise clear. Multiple hypodense lesions in the liver measuring up to 2 cm are stable since prior exam and are most compatible with hepatic cavernous hemangiomas. These are better visualized on the CTA chest from 04/04/2021. The gallbladder, spleen, adrenal glands and pancreas are within normal limits. There are bilateral renal stones, largest measuring 4 mm on the right. No hydronephrosis. There is a 6 mm stone in the right posterolateral bladder just distal to the right UVJ. A 2 mm bladder stone is also seen in the dependent portion of the bladder. No evidence of ureteral stone. Mild circumferential bladder wall thickening may be secondary to a component of chronic outlet obstruction or under distension. The prostate gland is moderately enlarged measuring 6.1 cm. No free fluid in the pelvis. The small and large bowel are normal in caliber. Colonic diverticulosis without evidence of diverticulitis. Unremarkable appendix. No lymphadenopathy. Mild bilateral inguinal canal hazy infiltration likely secondary to prior hernia repair. The aorta is atherosclerotic but nonaneurysmal. Diffuse degenerative changes of visualized spine. Mild ankylosis of the bilateral sacroiliac joints. IMPRESSION: Two bladder stones, largest measuring 6 mm just distal to the right UVJ. Nonobstructive bilateral nephrolithiasis. Colonic diverticulosis without diverticulitis. Moderate prostatomegaly. Other chronic incidental findings as above. I have personally reviewed the images of this examination and agree with the resident's findings and interpretation. Interpreted by: Sourav Price MD Preliminary Report By: Howard Carey Electronically signed By Sourav Price MD Dictated Date: 09/14/2021 11:41:21 AM Prelim Date: 09/14/2021 1:09:30 PM Sign Date: 09/14/2021 1:09:30 PM Ordering Provider: [place] [id number] Evaluation + Plan note Diagnostic Tests Pending * Protein Electrophoresis Urine 07/14/21 * HUNTER (urine) 07/14/21 [facility] 05-10-2022 Evaluation + Plan note Diagnostic Tests Pending * HUNTER (serum) 07/12/21 [facility] 02-05-2022 Evaluation + Plan note Future Scheduled Tests Laboratory* Basic Metabolic Panel 04/09/21 [facility] 02-01-2022 Hospital Discharge instructions Patient Education 04/04/2021 23:02:00 Chest Pain, Uncertain Cause Uncertain Causes of Chest Pain Chest pain can happen for a number of reasons. Sometimes the cause can't be determined. If your condition does not seem serious, and your pain does not appear to be coming from your heart, your healthcare provider may recommend watching it closely. Sometimes the signs of a serious problem take moretime to appear. Many problems not related to your heart can cause chest pain. These include: Musculoskeletal. Costochondritis is an inflammation of the tissues around the ribs that can occur from trauma or overuse injuries, or a strain of the muscles of the chest wall Respiratory. Pneumonia, collapsed lung (pneumothorax), or inflammation of the lining of the chest and lungs (pleurisy) Gastrointestinal. Esophageal reflux, heartburn, ulcers, or gallbladder disease Anxiety and panic disorders Nerve compression and inflammation Rare miscellaneous problems such as aortic aneurysm (a swelling of the large artery coming out of the heart) or pulmonary embolism (a blood clot in the lungs) Home care After your visit, follow these recommendations: Rest today and avoid strenuous activity. Take any prescribed medicine as directed. Be aware of any recurrent chest pain and notice any changes Follow-up care Follow up with your healthcare provider if you do not start to feel better within 24 hours, or as advised. Call 911 Call 911 if any of these occur: A change in the type of pain: if it feels different, becomes more severe, lasts longer, or begins to spread into your shoulder, arm, neck, jaw or back Shortness of breath or increased pain with breathing Weakness, dizziness, or fainting Rapid heart beat Crushing sensation in your chest When to seek medical advice Call your healthcare provider right away if any of the following occur: Cough with dark colored sputum (phlegm) or blood Fever of 100.4 F (38 C) or higher, or as directed by your healthcare provider Swelling, pain or redness in one leg [id number] [employer]. [address] [place] [address]. All rights reserved. This information is not intended as a substitute for professional medical care. Always follow yourhealthcare professional's instructions. Follow Up Care 04/04/2021 20:34:58 With:BENNETT IL MD, Thoracic Service, Vascular Service Address: [phone] When:2-4 days With:ENRIQUE CROFT Address: [facility] DEANGELO SELF [facility] [address]- When:2-4 days [facility] 11-11-2021 NoteHNO ID: [id number] Author: Tesfaye Tesfaye MD Service: ? Author Type: Physician Type: Progress Notes Filed: 01/13/2021 9:45 AM Note Text: [facility] ESTABLISHED PATIENT NOTE: After obtaining patient's consent, this visit was conducted via a virtual Visit platform using EMR review and Video call with the patient. The patient's identity was confirmed. Total time of 10min spent on preparation, evaluation, diagnosis and decision making regarding management with > than 50% spent on counseling the patient or coordinating care. REASON FOR VISIT: Follow up for Nephrolithiasis HPI: This is a 80 year old male with PMH of BPH (on flomax and finasteride), HTN who is being seen for followup of kidney stones and review of imaging. Initially presented with 5mm right upper pole stone and 6mm and 3mm left upper pole stones with a 5mm and 2mm interpolar stone. 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 Ruma Reyes in [place], [place] - Lithotripsy 06/24/20: [facility] 07/23/20: [facility] - lithotripsy DOES NOT KNOW IF ESWL OR URS. But did have stone analysis and has had ureteroscopy for stent removal. Has poorly tolerated stents in the past Both procedures required billy catheters for hematuria and required manual irrigation for clot obstruction. Stone composition: calcium oxalate. Recent left ESWL without current flank pain Tamsulosin daily and terazosin daily. Told he has a huge prostate - does not wish for a TURP. Concerned about stricture as his father had a TURP with multiple procedures and strictures. 1-Duration: 2020 2-Location: kidney on both sides 3-Severity: N/A 4-Quality: Not applicable 5-Context: N/A 6-Timing: intermittently 7-Modifying factors: see HPI 8-Associated signs AND symptoms: no additional symptoms LUTS: Yes Dysuria:No Gross Hematuria: intermittent Frequency:Yes Diurnal frequency 3-4 x per day. Nocturnal Frequency 2-5 x/ night Urgency:Yes Finds it is easier to void at night if he is sleeping on his back than on his sides Consumes 64 ounces of fluid per day. Has not been told he has urinary retention. Personal or family hx of malignancy no Personal hx of stones: ues, since his 20's Family Hx of stones: no LABS: No results found for: CREAT No results found for: PSA URINALYSIS: Specific Logan, Ur Date Value Ref Range Status 08/26/2020 1.023 1.005 - 1.030 Final Glucose, Urine Date Value Ref Range Status 08/26/2020 Negative Negative mg/dL Final Bilirubin, Urine Date Value Ref Range Status 08/26/2020 Negative Negative Final Ketones, Urine Date Value Ref Range Status 08/26/2020 Negative Negative Final Hemoglobin/Blood,Ur Date Value Ref Range Status 08/26/2020 Negative Negative Final Protein, Urine Date Value Ref Range Status 08/26/2020 1+ (A) Negative Final Nitrites Date Value Ref Range Status 08/26/2020 Negative Negative Final PATHOLOGY: n/a Urine Culture: n/a IMAGING: KUB 01/04/21 Supine views of the abdomen demonstrate a nonobstructive bowel gas pattern with fecal retention. Gas and fecal residue obscure the renal shadows severely limit evaluation for nephrolithiasis. 2 small 5 mm less stones are seen grouped at the left upper pole and there may be a similar collection measuring less than 5 mm at the mid to inferior left renal pole The soft tissues and bony structures are unremarkable. IMPRESSION: Nonobstructive bowel gas pattern with fecal retention which limits evaluation. Bilateral nephrolithiasis as detailed.. DALIA 01/04/21 RESULT: Right Kidney: -Renal length: 10.2 cm -Parenchyma: Increased parenchymal echogenicity. Mild diffuse parenchymal thinning. -Collecting system: No hydronephrosis. -Calculus: Multiple linear nonshadowing echogenic foci most likely ringdown artifact. Discrete shadowing stones not identified sonographically. This is likely technical. -Lesion: None. Left Kidney: -Renal length: 10.1 cm -Parenchyma: Normal parenchymal echogenicity. Normal parenchymal thickness. -Collecting system: No hydronephrosis. -Calculus: Multiple linear nonshadowing echogenic foci most likely ringdown artifact. Discrete shadowing stones not identified sonographically. This is likely technical. -Lesion: None. ? Bladder: Bladder is incompletely distended and demonstrates multiple punctate dependent bladder stones. Prostate gland is nodular and enlarged and impresses on the base of the bladder. Free fluid: None IMPRESSION: Right kidney demonstrates increased echogenicity and diffuse cortical thinning. Both kidneys demonstrate multiple linear echogenic foci without acoustic shadowing most likely ringdown artifact. Discrete shadowing stones not identified sonographically. This is likely technic (more content not included)...[facility]11-02-2021 NoteHNO ID: [id number] Author: RT Alvaro(R) Service: Nuclear Medicine Author Type: Technologist Type: Progress Notes Filed: 01/04/2021 11:53 AM Note Text: Radiology Service Progress Note PATIENT NAME: Jeanette Monreal JR DATE OF SERVICE: January 04, 2021 TIME: 11:40 AM PATIENT IDENTITY VERIFICATION COMPLETED USING TWO (2) IDENTIFIERS: Name and Date of confirmed by patient verbally. FALL SCREENING: Has the patient had 2 falls in the last year or 1 fall with injury or currently using an Ambulatory Assistive Device (Walker, Cane, Wheelchair, Crutches, etc.)? No PATIENT GENDER DATA: Male PATIENT RELEVANT IMPLANT DATA REVIEWED: Not Applicable RADIOLOGY DEPARTMENT: General X-ray: Exam(s) Completed: Abdomen X-Ray: Abdomen PERIPHERAL IV DATA: Not applicable SIGNED BY: RT Alvaro(R) January 04, 2021 11:40 [facility]10-26-2021 NoteHNO ID: [id number] Author: Tesfaye Tesfaye MD Service: ? Author Type: Physician Type: Progress Notes Filed: 12/28/2020 11:54 AM Note Text: [facility] ESTABLISHED PATIENT REASON FOR VISIT: Follow up for Nephrolithiasis HPI: This is a 80 year old male with PMH of BPH (on flomax and finasteride), HTN who is being seen for followup of kidney stones. CT Flank on 09/15/20: R 0.5cm upper pole calculus L 0.6 and 0.3cm calculi in upper pole and 0.5 and 0.2cm stones in the midpole At last followup visit, patient deferred definitive stone management, general stone prevention measures were discussed Today feels well. No significant complaints. 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 Ruma Reyes in [place], [place] - Lithotripsy 06/24/20: [facility] DOES NOT KNOW IF ESWL OR URS. But did have stone analysis and has had ureteroscopy for stent removal. Has poorly tolerated stents in the past Both procedures required billy catheters for hematuria and required manual irrigation for clot obstruction. Stone composition: calcium oxalate. Recent left ESWL without current flank pain Tamsulosin daily and terazosin daily. Told he has a huge prostate - does not wish for a TURP. Concerned about stricture as his father had a TURP with multiple procedures and strictures. 1-Duration: 2020 2-Location: kidney on both sides 3-Severity: N/A 4-Quality: Not applicable 5-Context: N/A 6-Timing: intermittently 7-Modifying factors: see HPI 8-Associated signs AND symptoms: no additional symptoms LUTS: Yes Dysuria:No Gross Hematuria: intermittent Frequency:Yes Diurnal frequency 3-4 x per day. Nocturnal Frequency 2-5 x/ night Urgency:Yes Finds it is easier to void at night if he is sleeping on his back than on his sides Consumes 64 ounces of fluid per day. Has not been told he has urinary retention. Personal or family hx of malignancy no Personal hx of stones: ues, since his 20's Family Hx of stones: no LABS: No results found for: CREAT No results found for: PSA 24 hour urine test URINALYSIS: Specific Logan, Ur Date Value Ref Range Status 08/26/2020 1.023 1.005 - 1.030 Final Glucose, Urine Date Value Ref Range Status 08/26/2020 Negative Negative mg/dL Final Bilirubin, Urine Date Value Ref Range Status 08/26/2020 Negative Negative Final Ketones, Urine Date Value Ref Range Status 08/26/2020 Negative Negative Final Hemoglobin/Blood,Ur Date Value Ref Range Status 08/26/2020 Negative Negative Final Protein, Urine Date Value Ref Range Status 08/26/2020 1+ (A) Negative Final Nitrites Date Value Ref Range Status 08/26/2020 Negative Negative Final PATHOLOGY: Not available Urine Culture: none IMAGING: CT flank 09/15/20 IMPRESSION: MULTIPLE NONOBSTRUCTING RENAL CALCULI, LEFT GREATER THAN RIGHT. ?NO HYDRONEPHROSIS. BLADDER CALCULI VERSUS PROSTATIC CALCIFICATIONS DESCRIBED. ENLARGED PROSTATE. ?CORRELATE WITH PSA. MULTIPLE INDETERMINATE LIVER LESIONS, INCOMPLETELY EVALUATED IN THE ABSENCE OF IV CONTRAST MATERIAL. ?RECOMMEND MRI LIVER PROTOCOL FOR FURTHER EVALUATION ALLERGIES: ALLERGIES Allergen Reactions - Contrast Dye [Gadol* Swelling - Ivp Dye [Iodine] Unknown - Simvastatin Unknown, Other: See Comments MEDICATIONS: Current Outpatient Medications Medication Sig - mometasone (ELOCON) 0.1 % cream Apply 1 application to affected area as needed. - tamsulosin (FLOMAX) 0.4 mg Take 0.4 mg by mouth once daily. - terazosin (HYTRIN) 5 mg capsule Take 5 mg by mouth once daily. - finasteride (PROSCAR) 5 mg tablet Take 5 mg by mouth once daily. - metoprolol succinate ER (TOPROL XL) 25 mg 24 hr tablet Take 25 mg by mouth once daily. - loratadine (CLARITIN) 10 mg tablet Take 10 mg by mouth once daily. - amLODIPine (NORVASC) 2.5 mg tablet Take 2.5 mg by mouth once daily. - folic acid 1 mg tablet Take 1 mg by mouth once daily. - aspirin, enteric coated (ASPIRIN, ENTERIC COATED) 81 mg EC tablet Take 81 mg by mouth once daily. - cyanocobalamin (VITAMIN B-12) 1,000 mcg tab Take 1,000 mcg by mouth once daily. - Magnesium 250 mg tab Take 250 mg by mouth. - elderberry fruit (ELDERBERRY ORAL) Take by mouth. - ubidecarenone Q-10 (CO Q-10) 10 mg cap Take by mouth twice daily. - pravastatin (PRAVACHOL) 40 mg tablet Take 40 mg by mouth once daily. No current facility-administered medications for this visit. HISTORIES PAST MEDICAL HISTORY Diagnosis Date - BPH (benign prostatic hyperplasia) - Nephrolithiasis No past surgical history on file. Social History Tobacco Use - Smoking status: Never Smoker - Smokeless tobacco: Never Used Substance Use Topics - Alcohol use: Not on file - Drug use: Not on file No fam (more content not included)...[id number] NoteHNO ID: [id number] Author: Tesfaye Tesfaye MD Service: ? Author Type: Physician Type: Progress Notes Filed: 10/05/2020 12:20 PM Note Text: [facility] ESTABLISHED PATIENT REASON FOR VISIT: Follow up for Nephrolithiasis HPI: 80 year old male who is being seen for kidney stones and BPH 2016: Dr. Boston - Lithotripsy [facility] 02/10/16: Dr. Ruma Reyes in [place], [place] - Lithotripsy 06/24/20: [facility] 07/23/20: Dr. Vele[facility] - lithotripsy DOES NOT KNOW IF ESWL OR URS. But did have stone analysis and has had ureteroscopy for stent removal. Has poorly tolerated stents in the past Both procedures required billy catheters for hematuria and required manual irrigation for clot obstruction. Stone composition: calcium oxalate. Recent left ESWL without current flank pain Tamsulosin daily and terazosin daily. Told he has a huge prostate - does not wish for a TURP. Concerned about stricture as his father had a TURP with multiple procedures and strictures. At last visit recommended CT Flank and 24 hour urine test. C/w pharmacotherapy for BPH and discussed referral to BPH specialist if surgical intervention of interest. 1-Duration: 2020 2-Location: kidney on both sides 3-Severity: N/A 4-Quality: Not applicable 5-Context: N/A 6-Timing: intermittently 7-Modifying factors: see HPI 8-Associated signs AND symptoms: no additional symptoms LUTS: Yes Dysuria:No Gross Hematuria: intermittent Frequency:Yes Diurnal frequency 3-4 x per day. Nocturnal Frequency 2-5 x/ night Urgency:Yes Finds it is easier to void at night if he is sleeping on his back than on his sides Consumes 64 ounces of fluid per day. Has not been told he has urinary retention. Personal or family hx of malignancy no Personal hx of stones: ues, since his 20's Family Hx of stones: no LABS: 24 hour urine test URINALYSIS: Specific Logan, Ur Date Value Ref Range Status 08/26/2020 1.023 1.005 - 1.030 Final Glucose, Urine Date Value Ref Range Status 08/26/2020 Negative Negative mg/dL Final Bilirubin, Urine Date Value Ref Range Status 08/26/2020 Negative Negative Final Ketones, Urine Date Value Ref Range Status 08/26/2020 Negative Negative Final Hemoglobin/Blood,Ur Date Value Ref Range Status 08/26/2020 Negative Negative Final Protein, Urine Date Value Ref Range Status 08/26/2020 1+ (A) Negative Final Nitrites Date Value Ref Range Status 08/26/2020 Negative Negative Final PATHOLOGY: none Urine Culture: none IMAGING: CT flank 09/15/20 IMPRESSION: MULTIPLE NONOBSTRUCTING RENAL CALCULI, LEFT GREATER THAN RIGHT. ?NO HYDRONEPHROSIS. BLADDER CALCULI VERSUS PROSTATIC CALCIFICATIONS DESCRIBED. ENLARGED PROSTATE. ?CORRELATE WITH PSA. MULTIPLE INDETERMINATE LIVER LESIONS, INCOMPLETELY EVALUATED IN THE ABSENCE OF IV CONTRAST MATERIAL. ?RECOMMEND MRI LIVER PROTOCOL FOR FURTHER EVALUATION Urinary Tract: Right kidney and ureter: 0.5 cm RIGHT upper pole calculus. No hydronephrosis. No finding to suggest cyst or mass in the unenhanced kidney. Left kidney and ureter: No hydronephrosis. No finding to suggest cyst or mass in the unenhanced kidney. ? Multiple nonobstructing renal calculi which are described below: * ?0.6 and 0.3 cm calculi in the upper pole * ?0.5 x 0.2 cm calculi in the interpolar region. Bladder: Markedly enlarged prostate indenting the posterior aspect of bladder. ?Multiple small calcification along the posterior aspect of the bladder wall (3:116-119), which may be within the bladder or prostate gland. ALLERGIES: ALLERGIES Allergen Reactions - Ivp Dye [Iodine] Unknown - Simvastatin Unknown MEDICATIONS: Current Outpatient Medications Medication Sig - tamsulosin (FLOMAX) 0.4 mg - terazosin (HYTRIN) 5 mg capsule - finasteride (PROSCAR) 5 mg tablet - metoprolol succinate ER (TOPROL XL) 25 mg 24 hr tablet - loratadine (CLARITIN) 10 mg tablet Take 10 mg by mouth once daily. - amLODIPine (NORVASC) 2.5 mg tablet - folic acid 1 mg tablet Take 1 mg by mouth once daily. - aspirin, enteric coated (ASPIRIN, ENTERIC COATED) 81 mg EC tablet Take 81 mg by mouth once daily. - cyanocobalamin (VITAMIN B-12) 1,000 mcg tab Take 1,000 mcg by mouth once daily. - Magnesium 250 mg tab Take 250 mg by mouth. - elderberry fruit (ELDERBERRY ORAL) Take by mouth. - ubidecarenone Q-10 (CO Q-10) 10 mg cap Take by mouth twice daily. - pravastatin (PRAVACHOL) 40 mg tablet Take 40 mg by mouth once daily. No current facility-administered medications for this visit. HISTORIES PAST MEDICAL HISTORY Diagnosis Date - BPH (benign prostatic hyperplasia) - Nephrolithiasis No past surgical history on file. Social History Tobacco Use - Smoking status: Not on file Substance Use Topics - Alcohol use: Not on file - Drug use: Not on file No family history on file. no family history (more content not included)...[id number] Note HNO ID: [id number] Author: Eduardo Jones Service: ? Author Type: Medical Billing Coder Type: Progress Notes Filed: 09/15/2020 12:07 PM Note Text: Radiology Service Progress Note PATIENT NAME: Jeanette Monreal JR DATE OF SERVICE: September 15, 2020 TIME: 12:07 PM PATIENT IDENTITY VERIFICATION COMPLETED USING TWO (2) IDENTIFIERS: Name and Date of confirmed by patient verbally. FALL SCREENING: Has the patient had 2 falls in the last year or 1 fall with injury or currently using an Ambulatory Assistive Device (Walker, Cane, Wheelchair, Crutches, etc.)? No PATIENT GENDER DATA: Male PATIENT RELEVANT IMPLANT DATA REVIEWED: Not Applicable RADIOLOGY DEPARTMENT: CT; Exam(s) Completed: Abdomen/Pelvis PERIPHERAL IV DATA: Not applicable SIGNED BY: Eduardo Rodriguez September 15, 2020 12:07 [facility]06-24-2021 NotePatient Outreach (UROLMN) JEANETTE MONREAL ([id number]) 1940 M Date Time Provider Department 08/26/20 TESFAYE TESFAYE During your visit today, we recorded the following information about you: Allergies As of Date: 08/26/2020 Noted Allergy Reaction IVP DYE (IODINE) 08/26/2020 16 - Unknown SIMVASTATIN 08/26/2020 16 - Unknown Date Reviewed: 08/26/2020 Reviewed by: Layla Figueredo MA - Fully Assessed Visit Diagnosis:Screening for genitourinary condition [Z13.89] Order(s):URINALYSIS, DIPSTICK ONLY [SQUA] Order #: [id number]. #:[id number] Prescriptions as of 08/26/2020 Sig: TAMSULOSIN 0.4 MG CAPSULE TERAZOSIN 5 MG CAPSULE FINASTERIDE 5 MG TABLET METOPROLOL SUCCINATE ER 25 MG* LORATADINE 10 MG TABLET Take 10 mg by mouth once keisha* AMLODIPINE 2.5 MG TABLET FOLIC ACID 1 MG TABLET Take 1 mg by mouth once daily. ASPIRIN 81 MG TABLET,DELAYED * Take 81 mg by mouth once keisha* CYANOCOBALAMIN (VIT B-12) 1,0* Take 1,000 mcg by mouth once * MAGNESIUM 250 MG TABLET Take 250 mg by mouth. ELDERBERRY ORAL Take by mouth. COENZYME Q10 10 MG CAPSULE Take by mouth twice daily. PRAVASTATIN 40 MG TABLET Take 40 mg by mouth once keisha* Problem List As Of Date: 08/26/2020 (None) Encounter Status:Closed by ELY SINGLETON on 08/30/20[facility] 08-26-2020 NoteHNO ID: [id number] Author: Tesfaye Tesfaye MD Service: ? Author Type: Physician Type: Progress Notes Filed: 08/26/2020 11:02 AM Note Text: [facility] NEW PATIENT HISTORY AND PHYSICAL EXAM PATIENT INFO: Jeanette Monreal JR 80 year old REFERRING M.D.: SELF PCP: Ruiz Miller MD Date of Service: August 25, 2020 Consultation requested by SELF or an opinion regarding kidney stones CHIEF COMPLAINT: Nephrolithiasis HPI: This is a 80 year old male who is being seen for consult of kidney stones. BPH 2016: Dr. Boston - Lithotripsy [facility] 02/10/16: Dr. Ruma Reyes in [place], [place] - Lithotripsy 06/24/20: [facility] 07/23/20: Dr. Velez[facility] - lithotripsy DOES NOT KNOW IF ESWL OR URS. But did have stone analysis and has had ureteroscopy for stent removal. Has poorly tolerated stents in the past Both procedures required billy catheters for hematuria and required manual irrigation for clot obstruction. Stone composition: calcium oxalate. The patient denies flank pain, fever, shaking chills, gross hematuria, urgency, frequency, dysuria, incontinence, nausea, vomiting and pain at this time. + right back ache. Recent left ESWL without current flan pain Tamsulosin daily and terazosin daily. Told he has a huge prostate - does not wish for a TURP. Concerned about stricture as his father had a TURP with multiple procedures and strictures. 1-Duration: 2020 2-Location: kidney on both sides 3-Severity: N/A 4-Quality: Not applicable 5-Context: N/A 6-Timing: intermittently 7-Modifying factors: see HPI 8-Associated signs AND symptoms: no additional symptoms LUTS: Yes Dysuria:No Gross Hematuria: intermittent Frequency:Yes Diurnal frequency 3-4 x per day. Nocturnal Frequency 2-5 x/ night Urgency:Yes Finds it is easier to void at night if he is sleeping on his back than on his sides Consumes 64 ounces of fluid per day. Has not been told he has urinary retention. Personal or family hx of malignancy no Personal hx of stones: ues, since his 20's Family Hx of stones: no PATHOLOGY: Not available Urine Culture Not available LABS: No results found for: CREAT No results found for: PSA URINALYSIS: Specific Logan, Ur Date Value Ref Range Status 08/26/2020 1.023 1.005 - 1.030 Final Glucose, Urine Date Value Ref Range Status 08/26/2020 Negative Negative mg/dL Final Bilirubin, Urine Date Value Ref Range Status 08/26/2020 Negative Negative Final Ketones, Urine Date Value Ref Range Status 08/26/2020 Negative Negative Final Hemoglobin/Blood,Ur Date Value Ref Range Status 08/26/2020 Negative Negative Final Protein, Urine Date Value Ref Range Status 08/26/2020 1+ (A) Negative Final Nitrites Date Value Ref Range Status 08/26/2020 Negative Negative Final IMAGING: Imaging Reviewed. Radiology report may be copied below for ease of reference. Non available HISTORIES No past medical history on file. No past surgical history on file. Social History Tobacco Use - Smoking status: Not on file Substance Use Topics - Alcohol use: Not on file - Drug use: Not on file ALLERGIES: ALLERGIES Allergen Reactions - Ivp Dye [Iodine] Unknown - Simvastatin Unknown MEDICATIONS: Current Outpatient Medications Medication Sig - tamsulosin (FLOMAX) 0.4 mg - terazosin (HYTRIN) 5 mg capsule - finasteride (PROSCAR) 5 mg tablet - metoprolol succinate ER (TOPROL XL) 25 mg 24 hr tablet - loratadine (CLARITIN) 10 mg tablet Take 10 mg by mouth once daily. - amLODIPine (NORVASC) 2.5 mg tablet - folic acid 1 mg tablet Take 1 mg by mouth once daily. - aspirin, enteric coated (ASPIRIN, ENTERIC COATED) 81 mg EC tablet Take 81 mg by mouth once daily. - cyanocobalamin (VITAMIN B-12) 1,000 mcg tab Take 1,000 mcg by mouth once daily. - Magnesium 250 mg tab Take 250 mg by mouth. - elderberry fruit (ELDERBERRY ORAL) Take by mouth. - ubidecarenone Q-10 (CO Q-10) 10 mg cap Take by mouth twice daily. - pravastatin (PRAVACHOL) 40 mg tablet Take 40 mg by mouth once daily. No current facility-administered medications for this visit. REVIEW OF SYSTEMS General: No weight loss, malaise or fevers., SEE HPI ENMT: No earaches, No hearing loss, No nose, sinus problems or snoring, No dry mouth, mouth ulcers or sore throat, No thrush Endocrine: (DM, thyroid) - no Eyes:Not Significant Respiratory: Negative for cough, wheezing or shortness of breath. Cardiovascular: Negative for chest pain, leg swelling or palpitations. Anticoagulation meds - ASA 81mg heart stent in 1998 Gastrointestinal: Negative for abdominal discomfort, blood in stools or black stools or change in bowel habits Bowel surgery No, IBS No Genitourinary: see HPI Musculoskeletal: Negative for joint pain or swelling, back pain or muscle pain. History of gout No Skin: Negative for lesions, rash, and i (more content not included)...[facility] No data available for this section [facility] Evaluation + Plan note Future Appointments Appointment Date:03/09/2021 02:45:00 PM Scheduled Provider: Location:[facility] Appointment Type:CV OV Hospital Follow Up Appointment Date:03/16/2021 09:30:00 AM Scheduled Provider:CHANDA HERNANDEZ [facility] Appointment Type:CTS OV Post Op Follow Up Future Scheduled Tests Radiology* XR Chest 2 Views (PA & Lateral) 03/16/21 [facility] evaluation + Plan note Future Appointments Appointment Date:03/23/2021 12:00:00 PM Scheduled Provider: Location:[facility] Appointment Type:CR Phase 2 Initial Appointment Date:03/30/2021 09:30:00 AM Scheduled Provider:CHANDA HERNANDEZ [facility] Appointment Type:CTS OV Post Op Follow Up Future Scheduled Tests Laboratory* Basic Metabolic Panel 03/30/21 * Basic Metabolic Panel 04/09/21 Radiology* XR Chest 2 Views (PA & Lateral) 03/30/21 [facility] evaluation + Plan note Future Appointments Appointment Date:04/01/2021 09:30:00 AM Scheduled Provider: Location:[facility] Appointment Type:VL - Venous US/Doppler One Leg (for DVT) Future Scheduled Tests Laboratory* Basic Metabolic Panel 04/09/21 [facility] Evaluation + Plan note Future Appointments Appointment Date:04/07/2021 01:30:00 PM Scheduled Provider:CHANDA HERNANDEZ [facility] Appointment Type:CTS OV Post Op Follow Up Future Scheduled Tests Laboratory* Basic Metabolic Panel 04/09/21 [facility] evaluation + Plan note Future Appointments Appointment Date:04/06/2021 02:30:00 PM Scheduled Provider:CHANDA HERNANDEZ [facility] Appointment Type:CTS OV Post Op Follow Up Future Scheduled Tests Laboratory* Basic Metabolic Panel 04/09/21 [facility] Evaluation + Plan note Future Appointments Appointment Date:04/13/2021 02:30:00 PM Scheduled Provider:JAMISON AYON Location:[facility] Appointment Type:CV OV Future Scheduled Tests Laboratory* Basic Metabolic Panel 04/09/21 [facility] Evaluation + Plan note Future Appointments Appointment Date:07/01/2021 10:00:00 AM Scheduled Provider: Location:[facility] Appointment Type:VL AO - Venous US/Doppler Both Legs (fo Diagnostic Tests Pending * Protein Electrophoresis Panel 06/28/21 * IgG 06/28/21 * IgA 06/28/21 * IgM 06/28/21 * IgE 06/28/21 * Complete Blood Count 06/28/21 * .Auto Differential 06/28/21 * .Neutro Absolute 06/28/21 Future Scheduled Tests Laboratory* Basic Metabolic Panel 04/09/21 [facility] evaluation + Plan note Future Appointments Appointment Date:09/21/2021 10:30:00 AM Scheduled Provider: [facility] Appointment Type:CV OV Diagnostic Tests Pending * [facility]Non-Blood Specimens) 08/11/21 [facility] evaluation + Plan note Future Appointments Appointment Date:09/21/2021 10:30:00 AM Scheduled Provider: Location:[facility] Appointment Type:CV OV Future Scheduled Tests Radiology* CT Abdomen and Pelvis w/o contrast 08/25/21 [facility] Evaluation + Plan note Future Appointments Appointment Date:08/21/2023 07:00:00 PM Scheduled Provider: Location:[facility] Appointment Type:SL Home Studies [facility] Evaluation + Plan note Future Appointments Appointment Date:08/14/2024 10:00:00 AM Scheduled Provider:PAT MUSE Location:[facility] Appointment Type:CV OV [facility] Hospital Discharge instructions No data available for this section [facility] Progress note No data available for this section [facility] Reason for referral (narrative)No reason for referral information [facility] Phone: Reason for visit Narrative* Outpatient Procedure (Routine) - Closed Specialty Diagnoses / Procedures Referred By Contjason t Referred To Contact Radiology / RADIO CT SCAN Diagnoses Calculus of ureter CT ABD/PEL WO IV AND ORAL, DX SONNY TO FAX ORDER Procedures CT ABD & PELVIS W/O CONTRAST CT WO ABD1 400 Berkley Shannon MD [address] Scan [facility] [address] [place] [address] Referral ID Status Reason Start Date Expiration Date Visits Re quested Visits Authorized [id number] Closed 11/10/2021 12/10/2021 1 1 [facility] Summary Purpose Family History No Family History Records FoundNo Family History Records FoundNo Family History Records FoundNo Family History Records FoundNo Family History Records FoundNo Family History Records FoundNo Family History Records Found No data available for this section No data available for this section No Family History Records Found No data available for this section No Family History Records FoundNo Family History Records Found No data available for this section Advance Directives Advance Directive Response Recorded Date/ Time Do you have a Healthcare Pow er of Shaker Tender? Yes September 17, 2024 8:29am Name of Medical Power of Shaker Tender Aurora September 17, 2024 8:29am Chief Complaint and Reason for Visit Chief Complaint Admit Date HEMORRHAGING BLADDER MASS September 17 12:58pm Reason for Visit Admit Date Bladder mass September 17, 2024 12:5 8pm Gross hematuria September 17, 2024 12:5 8pm Additional Source Comments (unrecognized sect ion and content) No Status Records FoundNo Status Records FoundNo Status Records FoundNo Status Records FoundNo Status Records FoundNo Status Records FoundNo Status Records FoundNo Status Records FoundNo Status Records FoundNo Status Records Found INFORMATION SOURCE (unrecogn ized section and content) DATE CREATED AUTHOR 08/13/2020 [facility] DATE CREATED AUTHOR AUTHOR'S ORGANIZ ATION 12/29/2020 [employer] DATE CREATED AUTHOR AUTHOR'S ORGANIZ ATION 02/10/2021 [facility] DATE CREATED AUTHOR AUTHOR'S ORGANIZ ATION 05/25/2021 [facility] DATE CREATED AUTHOR AUTHOR'S ORGANIZ ATION 08/16/2021 [facility] DATE CREATED AUTHOR AUTHOR'S ORGANIZ ATION 11/12/2021 [facility] DATE CREATED AUTHOR AUTHOR'S ORGANIZ ATION 02/15/2022 [facility] DATE CREATED AUTHOR AUTHOR'S ORGANIZ ATION 08/17/2023 [facility] [place] DATE CREATED AUTHOR AUTHOR'S ORGANIZ ATION 07/16/2024 [facility] DATE CREATED AUTHOR AUTHOR'S ORGANIZ ATION 09/11/2024 [facility] Care Team (unrecognized sect ion and content) 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 Start Date End Date Ruiz Miller MD [address] [place] [address] PCP - General 06/11/00 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 Start Date End Date Ruiz Miller MD [address] [place], [place] [id number] PCP - General 06/11/00 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 Start Date End Date Ruiz Miller MD [address] [place], [place] [id number] PCP - General 06/11/00 Martha Martell MD [address] [place] [address] Referring Hematology/Oncology 10/28/21 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 Chandrakant Velez MD Admit Provider Active Start: September 17, 2024 End: September 18, 2024 Dr. Chandrakant Velez MD Attending Provider Active Start: September 17, 2024 End: September 18, 2024 Dr. Chandrakant Velez MD Referring Provider Active Start: September 17, 2024 End: September 18, 2024 AUGUST HERNANDEZ Primary Care Provider Active Start: September 17, 2024 End: September 18, 2024 Source Comments (unrecognize d section and content) In the event this informatio n is protected by the Federal Confidentiality of Alcohol and Drug Abuse Patient Records regulations: The Federal rules restrict any use of the information to criminally investigate or prosecute any alcohol or drug abuse patient.[facility] the event this information is protected by the Federal Confidentiality of Alcohol and Drug Abuse Patient Records regulations: The Federal rules restrict any use of the information to criminally investigate or prosecute any alcohol or drug abuse patient.[facility] the event this information is protected by the Federal Confidentiality of Alcohol and Drug Abuse Patient Records regulations: The Federal rules restrict any use of the information to criminally investigate or prosecute any alcohol or drug abuse patient.[facility] the event this information is protected by the Federal Confidentiality of Alcohol and Drug Abuse Patient Records regulations: The Federal rules restrict any use of the information to criminally investigate or prosecute any alcohol or drug abuse patient.[facility] the event this information is protected by the Federal Confidentiality of Alcohol and Drug Abuse Patient Records regulations: The Federal rules restrict any use of the information to criminally investigate or prosecute any alcohol or drug abuse patient.[facility] Care Team (unrecognized sect ion and content) Care Team Personnel Name: ENRIQUE CROFT Member Role: Primary Care Physician Address: Address: [address] Care Team Related Persons Name: AURORA MONREAL Address: Home [address] [place], [place] [phone] Name: MARY VILLATORO Care Team Personnel Name: ENRIQUE CROFT Member Role: Primary Care Physician Address: Address: [address] Care Team Related Persons Name: JOCELIN, AURORA Address: [address] [phone] Name: MARY VILLATORO Care Team Personnel Name: ENRIQUE CROFT Member Role: Primary Care Physician Address: Address: [address] Care Team Related Persons Name: JOCELIN, AURORA Address: Home [address] [place] [phone] Name: MARY VILLATORO Care Team Personnel Name: ENRIQUE CROFT Member Role: Primary Care Physician Address: Address: [address] Care Team Related Persons Name: AURORA MONREAL Address: Home [address] [place] [phone] Name: MARY VILLATORO Care Team Personnel Name: ENRIQUE CROFT Member Role: Primary Care Physician Address: Address: [address] [place] [address] Primary Care Physician [address] Care Team Related Persons Name: AURORA MONREAL Address: Home [address] [place] [phone] Name: MARY VILLATORO FOR RECORDS PERTAINING TO PATIENTS WHO ARE OR HAVE BEEN ENROLLED IN A CHEMICAL DEPENDENCY/SUBSTANCEABUSE PROGRAM, SOME INFORMATION MAY BE OMITTED. This clinical summary was aggregated from multiple sources. Caution should be exercised in using it in the provision of clinical care. This summary normalizes information from multiple sources, and as a consequence, information in this document may materially change the coding, format and clinical context of patient data. In addition, data may be omitted in some cases. CLINICAL DECISIONS SHOULD BE BASED ON THE PRIMARY CLINICAL RECORDS. [employer] [facility]. provides no warranty or guarantee of the accuracy or completeness of information in this document.
[2024-09-18 21:07] VITALS: BP 166/70; PULSE 71; RESP 18; TEMP 36.6; O2SAT 97
[2024-09-18 21:12] LABS: Mucous, Urine 0 SEEN /hpf (<or=2+); Squamous Epithelial Cells - UA 0 SEEN /hpf (0-5)
[2024-09-18 21:13] LABS: Hematocrit 32.5 % (40-54); Hemoglobin 10.9 g/dL (13.0-16.5); Immature Granulocytes Count 0.090 X10^3/uL (0.0-0.0); Mean Corp Hgb Conc 33.5 g/dL (32-36); Mean Corpuscular Volume 94.2 fL (80-94); Mean Platelet Vol. 11.5 fl (6.2-12.0); NRBC Flagged by Analyzer 0 % (0-5); Platelet Count 108 K/mm3 (150-450); RBC Distribution Width CV 14.9 % (11.6-14.6); RBC Distribution Width SD 51.2 fl (35.1-43.9); Red Blood Count 3.45 M/mm3 (4.6-6.2); White Blood Count 14.5 K/mm3 (4.4-11.0)
[2024-09-18 21:31] LABS: Color, Urine Amber (Yellow); Glucose, Dipstick Normal (Normal); Ketone-Dipstick 5 mg/dl (Negative); Leukocyte Esterase-Dipstick 25 /ul (Negative); Nitrite-Dipstick Positive (Negative); Occult Blood-Urine 250 /ul (Negative); Protein-Dipstick 100 mg/dl (Negative); Specific Gravity, Urine 1.010 (1.002-1.030); Urine Bilirubin Dipstick Negative (Negative)
[2024-09-18 21:45] LABS: Red Blood Cells-Urine > 100 SEEN /hpf (0-5)
[2024-09-18 21:50] LABS: Anion Gap 10 (5-15); BUN 34 mg/dL (4-19); BUN/Creat Ratio 25.7 RATIO (10-20); Calcium,Total 8.1 mg/dL (7.6-11.0); Carbon Dioxide 24.7 mmol/L (21.0-32.0); Chloride 103 mmol/L (98-108); Estimated Creatinine Clearance 44.51 ml/min (50-250); Glucose 105 mg/dL (70-99); Potassium 3.9 mmol/L (3.3-5.1)
--- NOTE | 2024-09-18 21:50 | EX.ED.DYSGE1 ---
HPI <DIANE Mccarthy - Last Filed: 09/18/24 21:54> History of Present Illness Chief Complaint: Complaint Narrative Narrative: 84-year-old male with PMH of HTN, HLD, BPH on aspirin 81 mg states 3 days ago he developed hematuria and urinary retention. He went to [facility] ED and they were doing bladder irrigation with clots and they directly admitted him to [place] for urology consult. Dr. Velez took him to surgery to evaluate the blood clots and resect the bladder tumor. His Billy was removed at 3 PM today and since he is gone home he is not been able to urinate much and is having significant suprapubic pain and distention. PFSH <DIANE Mccarthy - Last Filed: 09/18/24 21:54> [facility] Medical History Blood disorder Renal disease Hiatal hernia History of stress test HTN (hypertension) Heart attack Home Medications ?Medication ?Instructions ?Recorded ?Last Taken ?Type amlodipine 2.5 mg tablet 2.5 mg PO DAILY 09/17/24 09/15/24 18:00 History aspirin 81 mg capsule 81 mg PO DAILY 09/17/24 09/15/24 08:00 History carvedilol 6.25 mg tablet 6.25 mg PO BID 09/17/24 09/16/24 08:00 History coQ10 (ubiquinol) 200 mg capsule 200 mg PO QHS prostate 09/17/24 09/15/24 22:00 History (Active Q) cyanocobalamin (vitamin B-12) 500 500 mcg PO DAILY 09/17/24 09/16/24 History mcg tablet (Vitamin B-12) finasteride 5 mg tablet 5 mg PO DAILY 09/17/24 09/15/24 18:00 History folic acid 1 mg tablet 1 mg PO DAILY 09/17/24 09/16/24 12:00 History hydrochlorothiazide 12.5 mg tablet 12.5 mg PO DAILY 09/17/24 09/16/24 12:00 History loratadine 10 mg tablet 10 mg PO PRN Allergis 09/17/24 Unknown History losartan 100 mg tablet 100 mg PO DAILY 09/17/24 09/16/24 08:00 History magnesium oxide 400 mg (241.3 mg 400 mg PO DAILY 09/17/24 09/16/24 12:00 History magnesium) tablet pravastatin 40 mg tablet 40 mg PO DAILY 09/17/24 09/15/24 22:00 History tamsulosin 0.4 mg capsule 0.4 mg PO DAILY 09/17/24 09/15/24 22:00 History terazosin 5 mg capsule 5 mg PO QHS 09/17/24 09/15/24 History turmeric 400 mg capsule 400 mg PO DAILY Prostrate 09/17/24 09/15/24 18:00 History Allergy/AdvReac Type Severity Reaction Status Date / Time Iodinated Contrast Media Allergy Severe swelling Verified 09/18/24 20:07 (IVP dye) lips simvastatin Allergy Mild muscle Verified 09/18/24 20:07 aches Surgical History H/O cardiac catheterization Social History Smoking Status: Never smoker ROS <DIANE Mccarthy - Last Filed: 09/18/24 21:54> ROS ED ROS Narrative Constitutional: Negative for fever, chills, malaise. GI: Positive for abdominal pain. No vomiting. : Positive for hematuria. EXAM <DIANE Mccarthy - Last Filed: 09/18/24 21:54> Physical Exam Narrative Exam Narrative: CONST: Patient sitting in no acute distress. EYES: Normal inspection. NECK: Normal inspection. RESP: No respiratory distress, CTAB. CVS: Regular rate and rhythm, no murmur, no gallop. ABD: Suprapubic tenderness and distention. Back: Normal inspection, no CVA tenderness. SKIN: Color normal, no rash, warm, dry, intact. EXTREMITIES: Normal appearance, no pedal edema. NEURO: Alert and answering questions appropriately. PSYCH: Normal affect. Const Vital Signs: 09/18/24 20:04 09/18/24 21:07 09/18/24 22:23 Temperature 98.6 F 98 F Temperature Source Temporal Oral Pulse Rate 73 71 79 Respiratory Rate 16 18 18 Blood Pressure 188/92 H 166/70 H 159/64 H Blood Pressure Mean 124 102 95 Pulse Ox 99 97 98 Oxygen Delivery Method Room Air Room Air Room Air <Dr. Chung Weiss DO - Last Filed: 09/18/24 23:19> Physical Exam Const Vital Signs: 09/18/24 20:04 09/18/24 21:07 09/18/24 22:23 Temperature 98.6 F 98 F Temperature Source Temporal Oral Pulse Rate 73 71 79 Respiratory Rate 16 18 18 Blood Pressure 188/92 H 166/70 H 159/64 H Blood Pressure Mean 124 102 95 Pulse Ox 99 97 98 Oxygen Delivery Method Room Air Room Air Room Air MDM <DIANE Mccarthy - Last Filed: 09/18/24 21:54> [facility] MDM Narrative Medical decision making narrative: History gathered from: Patient Consults: Urology Differential: Urinary retention, LISE, anemia 84-year-old male with recent hematuria and urinary retention status post bladder surgery with Dr. Velez for tumor removal and irrigation of clots presents with acute suprapubic pain and urinary retention since his Billy was removed earlier today. He appears well and nontoxic. He is hypertensive with otherwise stable vital signs. Lower abdomen is distended and tender and scan shows about 690 cc. The nurse placed a 22 American Billy catheter for continuous bladder irrigation. WBC is 14.5 lower than previous. Hemoglobin of 10.9 is stable. Electrolytes are normal. Creatinine was 1.19 earlier this morning and is 1.34 now. He is receiving IV fluids. Urinalysis is nitrate positive with over 100 RBCs and 1+ bacteria and was sent for culture. Plan will likely be for admission, he is still receiving irrigation and was signed over to my attending. Lab Data Attestation: I reviewed the patient's lab results. Labs: Laboratory Results - last 24 hr 09/18/24 21:00 WBC 14.5 H RBC 3.45 L Hgb 10.9 L Hct 32.5 L MCV 94.2 H MCH 31.6 MCHC 33.5 RDW Std Deviation 51.2 H RDW Coeff of Og 14.9 H Plt Count 108 L MPV 11.5 Immature Gran % (Auto) 0.600 Neut % (Auto) 82.1 H Lymph % (Auto) 9.5 L [place] % (Auto) 7.3 Eos % (Auto) 0.4 Baso % (Auto) 0.1 Absolute Neuts (auto) 11.9 H Absolute Lymphs (auto) 1.38 Nucleated RBC % 0 Sodium 137 Potassium 3.9 Chloride 103 Carbon Dioxide 24.7 Anion Gap 10 BUN 34 H Creatinine 1.34 H Estim Creat Clear Calc 44.51 L Est GFR (MDRD) Non-Af 53 L BUN/Creatinine Ratio 25.7 H Glucose 105 H Calcium 8.1 Urine Color Zaida Urine Clarity Sl. Cloudy Urine pH 6.0 Ur Specific Somers 1.010 Urine Protein 100 H Urine Glucose (UA) Normal Urine Ketones 5 H Urine Occult Blood 250 H Urine Nitrite Positive H Urine Bilirubin Negative Urine Urobilinogen Normal Ur Leukocyte Esterase 25 H Urine RBC > 100 SEEN Urine WBC 5-10 SEEN Ur Squamous Epith Cells 0 SEEN Urine Bacteria 1+ Urine Mucus 0 SEEN <Dr. Chung Weiss, DO - Last Filed: 09/18/24 23:19> MDM MDM Narrative Medical decision making narrative: History gathered from: Patient Consults: Urology Differential: Urinary retention, LISE, anemia 84-year-old male with recent hematuria and urinary retention status post bladder surgery with Dr. Velez for tumor removal and irrigation of clots presents with acute suprapubic pain and urinary retention since his Billy was removed earlier today. He appears well and nontoxic. He is hypertensive with otherwise stable vital signs. Lower abdomen is distended and tender and scan shows about 690 cc. The nurse placed a 22 American Billy catheter for continuous bladder irrigation. WBC is 14.5 lower than previous. Hemoglobin of 10.9 is stable. Electrolytes are normal. Creatinine was 1.19 earlier this morning and is 1.34 now. He is receiving IV fluids. Urinalysis is nitrate positive with over 100 RBCs and 1+ bacteria and was sent for culture. Plan will likely be for admission, he is still receiving irrigation and was signed over to my attending. Supervisory Physician Note Patient was seen and examined with the Advanced Practice Provider. Nursing notes and vital signs have been reviewed. Pertinent old records have been reviewed. I agree with the essential elements of the KARRI's history, physical exam, assessment, and plan. The differential diagnosis and management options were discussed with the KARRI. I participated in determining and agree with the management, procedures, final impression and disposition as documented. See changes noted by me. Please see addendum or separate note for any additional details. 84-year-old male presents for evaluation of urinary retention and hematuria. On chart review, patient was recently admitted to our hospital for same complaint. Reviewing the operative note from 09/17, he had a cystoscopy evacuation of blood clots and catheterization of prostate bleeding with cystolitholopaxy and laser and removal of large bladder stones greater than [address] Velez. His Billy was removed today and he was discharged home. Patient states since then he has continued to have hematuria and inability to urinate. Gen: A&O x3, NAD Head: Normocephalic, atraumatic Eyes: No sclera icterus, conjunctiva clear ENT: Moist mucous membranes Neck: Trachea midline, No JVD CV: RRR, no murmurs, no peripheral edema Resp: Lungs CTA BL, no w/r/c GI: Abd soft, non-distended, mild tenderness to palpation suprapubically, no r/r/g : Billy catheter in place with hematuria Musc: Full ROM, no deformity Skin: Warm, dry Neuro: Alert, oriented, grossly intact, sensation intact Psych: Cooperative, appropriate mood and affect Patient had urinary retention on bladder scan and therefore a 22 American Billy catheter was placed for continuous bladder irrigation. Patient had gross hematuria that is improving with irrigation. CBC with leukocytosis of 14.5. Patient has stable anemia and thrombocytopenia. BMP shows renal deficiency with a creatinine of 1.34. Patient's creatinine earlier today was 1.19. UA positive for UTI. Rocephin ordered. Urine culture sent. On chart review do not have a previous urine culture. On reevaluation, patient's abdominal pain has improved with the Billy catheter. I do not think CT abdomen pelvis is needed. Patient was discussed with Dr. Velez and patient will be admitted to his service. Patient was updated of the results and the plan. He confirmed understanding. Impression: 1. Urinary retention secondary to gross hematuria 2. UTI 3. Renal insufficiency secondary to #1 4. Chronic anemia 5. Chronic thrombocytopenia Lab Data Labs: Laboratory Results - last 24 hr 09/18/24 21:00 WBC 14.5 H RBC 3.45 L Hgb 10.9 L Hct 32.5 L MCV 94.2 H MCH 31.6 MCHC 33.5 RDW Std Deviation 51.2 H RDW Coeff of Og 14.9 H Plt Count 108 L MPV 11.5 Immature Gran % (Auto) 0.600 Neut % (Auto) 82.1 H Lymph % (Auto) 9.5 L [place] % (Auto) 7.3 Eos % (Auto) 0.4 Baso % (Auto) 0.1 Absolute Neuts (auto) 11.9 H Absolute Lymphs (auto) 1.38 Nucleated RBC % 0 Sodium 137 Potassium 3.9 Chloride 103 Carbon Dioxide 24.7 Anion Gap 10 BUN 34 H Creatinine 1.34 H Estim Creat Clear Calc 44.51 L Est GFR (MDRD) Non-Af 53 L BUN/Creatinine Ratio 25.7 H Glucose 105 H Calcium 8.1 Urine Color Zaida Urine Clarity Sl. Cloudy Urine pH 6.0 Ur Specific Somers 1.010 Urine Protein 100 H Urine Glucose (UA) Normal Urine Ketones 5 H Urine Occult Blood 250 H Urine Nitrite Positive H Urine Bilirubin Negative Urine Urobilinogen Normal Ur Leukocyte Esterase 25 H Urine RBC > 100 SEEN Urine WBC 5-10 SEEN Ur Squamous Epith Cells 0 SEEN Urine Bacteria 1+ Urine Mucus 0 SEEN Discharge Plan Triage Chief Complaint: Complaint ED Midlevel Provider: [facility] ED Provider: Chung Weiss Dx/Rx/DC Orders Clinical Impression: Gross hematuria, Acute urinary retention, Anemia Prescriptions: No Action terazosin 5 mg capsule 5 mg PO QHS carvedilol 6.25 mg tablet 6.25 mg PO BID pravastatin 40 mg tablet 40 mg PO DAILY amlodipine 2.5 mg tablet 2.5 mg PO DAILY tamsulosin 0.4 mg capsule 0.4 mg PO DAILY folic acid 1 mg tablet 1 mg PO DAILY losartan 100 mg tablet 100 mg PO DAILY finasteride 5 mg tablet 5 mg PO DAILY hydrochlorothiazide 12.5 mg tablet 12.5 mg PO DAILY aspirin 81 mg capsule 81 mg PO DAILY loratadine 10 mg tablet 10 mg PO PRN magnesium oxide 400 mg (241.3 mg magnesium) tablet 400 mg PO DAILY turmeric 400 mg capsule 400 mg PO DAILY cyanocobalamin (vitamin B-12) [Vitamin B-12] 500 mcg tablet 500 mcg PO DAILY Active Q 200 mg capsule 200 mg PO QHS Primary Care Provider: NOT,DEFINED Referrals: NOT,DEFINED [Primary Care Provider] - Print Language: Mongolian
[2024-09-18] MEDS: 0.9% Normal Saline (1000mL) 1,000 ML 999 ML IV (22:22)
[2024-09-18 22:23] VITALS: BP 159/64; PULSE 79; RESP 18; O2SAT 98
[2024-09-18 23:00] VITALS: BP 155/74; PULSE 74; RESP 18; TEMP 36.8; O2SAT 97
--- OUTSIDE RECORDS SUMMARY | 2024-09-18 23:36 | XMS RPT_ITS | CCD ---
Author Organization [facility] Care Team Providers Care Invoice Coder Name Role Phone ENRIQUE GIVENS Primary Care Physician Ruiz Miller MD Primary Care Provider ENRIQUE GIVENS Primary Care Physician Ruiz Miller MD Primary Care Provider Ruiz Miller MD Primary Care Provider Martha Martell MD Unavailable [phone] ENRIQUE GIVENS Primary Care Physician UNKNOWN, PCP Primary Care Unavailable Alexsander Wooten [...] Primary Care Unavailable Martha Martell MD Unavailable Enrique Croft PA-C Primary Care Provider Unavailable Primary Care Provider UnavailENRIQUE Andrade Attending Unavailable ENRIQUE GIVENS Primary Care Unavailable MARTHA MARTELL Referring UnavailENRIQUE Pan Primary Care Unavailable Agustin HURTADO, Dr. Chandrakant Nichole Admit Provider Agustin HURTADO, Dr. Chandrakant Nichole Attending Provider Agustin HURTADO, Dr. Chandrakant Nichole Referring Provider ENRIQUE CROFT Primary Care Provider Allergies Allergy Classification Reported Allergen(s) Allergy Type Date of Onset Reaction(s) Facility (20 sources) Contrast media; Translations: [iodinated radiocontrast agents] Drug allergy lips swelling [facility] Work Phone: (20 sources) Simvastatin; Translations: [simvastatin] Drug Allergy 1 Unknown, Other: See Comments [facility] Work Phone: (5 sources) Iodine; Translations: [IODINE] Drug Allergy 1 Unknown [facility] (5 sources) Gadolinium-Contain ing Contrast Media; Translations: [GADOLINIUM-CONTAI NICOLE CONTRAST MEDIA] Drug Allergy 1 Swelling [facility] (1 source) Triiodobenzoic Acids Allergy to substance 5 swelling lips [facility] Medications Current Medications Medication Drug Class(es) [...] qPM, # 180 tab(s), 3 Refill(s), Pharmacy: [facility], 172.7, cm, 08/14/24 9:43:00 EDT, Height, kg, 08/14/24 9:43:00 EDT, Dosing Weight Start Date: 08/14/24 Status: Ordered Quantity: 180.0 Unit: tab(s) Repeat number: 4 Start: 04-03-2022 take 1 tablet by raheem th once daily in the evening carvedilol 6.25 mg oral tablet 1 tab(s), Oral, qPM, # 180 tab(s), 0 Refill(s), Pharmacy: [facility], 175.3, cm, 09/21/21 10:24:00 EDT, Height, kg, 09/21/21 10:24:00 EDT, Dosing Weight Start Date: 04/03/22 Status: Ordered Quantity: 180.0 Unit: tab(s) Repeat number: 1 Start: 06-14-2021 carvedilol 6.2 5 mg oral tablet Dose : 6.25 mg = 1 tab(s), Oral, BID, # 180 tab(s), 3 Refill(s), Pharmacy: [facility], 175.3, cm, 04/25/21 [...] qDay, # 30 tab(s), 1 Refill(s), Pharmacy: [facility], 175.3, cm, 03/30/21 9:05:00 EST, Height, kg, 03/30/21 9:05:00 EST, Dosing Weight Start Date: 03/30/21 Status: Ordered Start: 03-16-2021 Lasix 40 mg or al tablet Dose : 40 mg = 1 tab(s), Oral, qDay, # 30 tab(s), 0 Refill(s), Pharmacy: [facility], 175.3, cm, 03/16/21 8:38:00 EST, Height, kg, 03/16/21 8:38:00 EST, Dosing Weight Start Date: 03/16/21 Status: Ordered Start: 02-23-2021 End: 03-25-2021 Lasix 20 mg oral tablet Dose : 20 mg = 1 tab(s), Oral, Daily, # 30 tab(s), 0 Refill(s), Pharmacy: [facility], 175.3, cm, 02/10/21 18:38:00 EST, [...] qDay, # 90 tab(s), 3 Refill(s), Pharmacy: [facility], 175.3, cm, 10/06/22 11:21:00 EDT, Height, kg, 10/06/22 11:21:00 EDT, Dosing Weight Start Date: 10/16/22 Status: Ordered Quantity: 90.0 Unit: tab(s) Repeat number: 4 Start: 03-09-2021 losartan 50 mg oral tablet Dose : 50 mg = 1 tab(s), Oral, qDay, # 30 tab(s), 11 Refill(s), Pharmacy: [facility], 175.3, cm, 03/09/21 14:49:00 EST, [...] 25 mg oral tablet (11 sources) beta-Adrenergic Emily Start: 03-16-2021 metopr olol tartrate 25 mg oral tablet Dose : 25 mg = 1 tab(s), Oral, BID, # 60 tab(s), 1 Refill(s), Pharmacy: [facility], 175.3, cm, 03/16/21 8:38:00 EST, Height, kg, 03/16/21 8:38:00 EST, Dosing Weight Start Date: 03/16/21 Status: Ordered Start: 02-16-2021 metoprolol tar trate 50 mg oral tablet Dose : 50 mg = 1 tab(s), Oral, BIDM, # 60 tab(s), 2 Refill(s), Pharmacy: [facility], 175.3, cm, 02/10/21 18:38:00 EST, [...] qDay, # 30 tab(s), 1 Refill(s), Pharmacy: [facility], 175.3, cm, 03/30/21 9:05:00 EST, Height, kg, 03/30/21 9:05:00 EST, Dosing Weight Start Date: 03/30/21 Status: Ordered Start: 03-16-2021 Potassium Chlo ride (Eqv-K-Tab) 20 mEq oral tablet, extended release Dose : 20 mEq = 1 tab(s), Oral, BID, # 60 tab(s), 0 Refill(s), Pharmacy: [facility], 175.3, cm, 03/16/21 8:38:00 EST, Height, kg, 03/16/21 8:38:00 EST, Dosing Weight Start Date: 03/16/21 Status: Ordered Start: 02-23-2021 End: 02-23-2021 K-Tab 20 mEq oral tablet, ex tended release Dose : 20 mEq = 1 tab(s), Oral, qDay, Take with food, # 1 tab(s), 0 Refill(s), Pharmacy: [facility], 175.3, cm, 02/10/21 18:38:00 EST, [...] Daily, # 90 tab(s), 3 Refill(s), Pharmacy: [facility], 175.3, cm, 10/06/22 11:21:00 [...] Auto (Unsp spec) [#/Vol] 0.94 10*3/uL 0.83-4.51 [facility] Absolute neutrophil countOrd ered By: Chandrakant Velez on 09-18-2024 Neutrophils (Bld) [#/Vol] 16.2 10*3/uL High 2.0-7.7 [facility] Anion gap in Serum or Plasma Ordered By: Chandrakant Velez on 09-18-2024 Anion gap [Moles/Vol] 9 mmol/L 5-15 [facility] Automated lymphocyte count a s percentage of total leukocytesOrdered By: Chandrakant Velez on 09-18-2024 Lymphocytes/100 WBC Auto (Unsp spec) 5.1 % Low 19-41 [facility] BUN/creatinine ratioOrdered By: Chandrakant Velez on 09-18-2024 Urea nitrogen/Creatinine [Mass ratio] 26.6 mg/mg High 10-20 [facility] Basophil percentageOrdered B y: Chandrakant Velez on 09-18-2024 Basophils/100 WBC (Bld) 0.2 % 0-1 [facility] Carbon dioxide, total [Moles /volume] in Central venous bloodOrdered By: Chandrakant Velez on 09-18-2024 CO2 [Moles/Vol] 23.3 mmol/L 21.0-32.0 [facility] Chloride assayOrdered By: Aleksandra Velez on 09-18-2024 Chloride [Moles/Vol] 108 mmol/L 98-108 [facility] Eosinophil percentageOrdered By: Chandrakant Velez on 09-18-2024 Eosinophils/100 WBC (Bld) 0.0 % 0-5 [facility] Erythrocyte distribution wid th ratioOrdered By: Chandrakant Velez on 09-18-2024 Erythrocyte distribution width (RBC) [Ratio] 14.7 % High 11.6-14.6 [facility] Erythrocyte distribution wid th standard deviationOrdered By: Chandrakant Velez on 09-18-2024 Erythrocyte distribution width (RBC) [Ratio] 50.4 fl High 35.1-43.9 [facility] Glomerular filtration rate ( GFR) estimation/1.73 sq m using serum, plasma, or whole bOrdered By: Chandrakant Velez on 09-18-2024 GFR/1.73 sq M.predicted among non-blacks MDRD (S/P/Bld) [Vol rate/Area] 61 mL/min/{1.73_m2} >60 [facility] Comment on above: mL/min/1.73m2 CKD-EP I Creatinine Equation (2020) Hematocrit Auto (Bld) [Volum e fraction]Ordered By: Chandrakant Velez on 09-18-2024 Hematocrit (Bld) [Volume fraction] 31.1 % Low 40-54 [facility] Hemoglobin measurementOrdere d By: Chandrakant Velez on 09-18-2024 Hemoglobin (Bld) [Mass/Vol] 10.5 g/dL Low 13.0-16.5 [facility] Immature granulocytes/100 WB C Auto (Bld)Ordered By: Chandrakant Velez on 09-18-2024 Immature granulocytes/100 WBC (Bld) 0.900 % 0.0-0.9 [facility] Comment on above: IG% - Immature Granu locytes (promyelocytes, myelocytes and metamyelocytes) > 1% indicates that a LEFT SHIFT is Present. MCV (mean corpuscular volume ) determinationOrdered By: Chandrakant Velez on 09-18-2024 MCV (RBC) [Entitic vol] 93.4 fL 80-94 [facility] Mean corpuscular hemoglobin (MCH) determinationOrdered By: Chandrakant Velez on 09-18-2024 MCH (RBC) [Entitic mass] 31.5 pg 27.0-32.0 [facility] Mean corpuscular hemoglobin concentration (MCHC) determinationOrdered By: Chandrakant Velez on 09-18-2024 MCHC (RBC) [Mass/Vol] 33.8 g/dL 32-36 [facility] Mean platelet volume determi nationOrdered By: Chandrakant Velez on 09-18-2024 Platelet mean volume (Bld) [Entitic vol] 11.9 fL 6.2-12.0 [facility] Monocyte percentageOrdered B y: Chandrakant Velez on 09-18-2024 Monocytes/100 WBC (Bld) 6.0 % 0-10 [facility] Neutrophil percentageOrdered By: Chandrakant Velez on 09-18-2024 Neutrophils/100 WBC (Bld) 87.8 % High 47-70 [facility] Nucleated red blood cell per centageOrdered By: Chandrakant Velez on 09-18-2024 Nucleated RBC/100 WBC (Bld) [Ratio] 0 % 0-5 [facility] Platelet countOrdered By: Aleksandra Velez on 09-18-2024 Platelets (Bld) [#/Vol] 114 10*3/uL Low 150-450 [facility] Potassium measurement (mass/ volume)Ordered By: Chandrakant Velez on 09-18-2024 Potassium (Unsp spec) [Mass/Vol] 4.5 mmol/L 3.3-5.1 [facility] Comment on above: Hemolysis present, R esults could be affected. RBC Auto (Bld) [#/Vol]Ordere d By: Chandrakant Velez on 09-18-2024 RBC (Bld) [#/Vol] 3.33 10*6/uL Low 4.6-6.2 [facility] Serum creatinine measurement (mass/volume)Ordered By: Chandrakant Velez on 09-18-2024 Creatinine [Mass/Vol] 1.19 mg/dL 0.70-1.20 [facility] Serum glucose measurement (m ass/volume)Ordered By: Chandrakant Velez on 09-18-2024 Glucose [Mass/Vol] 130 mg/dL High 70-99 [facility] Serum or plasma calcium roque urement (mass/volume)Ordered By: Chandrakant Velez on 09-18-2024 Calcium [Mass/Vol] 8.0 mg/dL 7.6-11.0 [facility] Serum or plasma urea nitroge n measurement (mass/volume)Ordered By: Chandrakant Velez on 09-18-2024 Urea nitrogen [Mass/Vol] 32 mg/dL High 4-19 [facility] Sodium levelOrdered By: Chandrakant Velez on 09-18-2024 Sodium [Moles/Vol] 141 mmol/L 133-145 [facility] White blood cell (WBC) count Ordered By: hCandrakant Velez on 09-18-2024 WBC (Bld) [#/Vol] 18.4 10*3/uL High 4.4-11.0 [facility] LABORATORYOrdered By: Malou Castaneda on 09-17-2024 ABO [...] Code 0-5 AO Auto Urine [facility] 25-hydroxyvitamin D3 [Mass/Vol] 56.0 ng/mL Normal 30.0-100.0 [facility] Comment on above: Order Comment: Speci men Type: BLOOD SPECIMEN Ordering Facility: [facility] Address: [address] [place], [place] [id number] Result Comment: Defi ciency\X09\Less than 20 ng/mL Insufficiency\X09\20 - Less than 30 ng/mL Sufficiency\X09\30 - 100 ng/mL Performed By: #### K LFRS #### [facility] CLIA [id number] [address] [id number] [place] Comprehensive metabolic 2000 panelon 09-02-2024 Albumin [Mass/Vol] 3.4 g/dL Normal 3.2-5.0 [facility] Comment on above: Order Comment: Speci men Type: BLOOD SPECIMEN Ordering Facility: [facility]) Address: [address] [place] [address] Performed By: #### K LFRS #### [facility] CLIA [id number] [address] [place] [address] [place] ALP [Catalytic activity/Vol] 77 U/L Normal 45-117 [facility] Comment on above: Order Comment: Speci men Type: BLOOD SPECIMEN Ordering Facility: [facility] Address: [address] [place] [address] Performed By: #### K LFRS #### [facility] CLIA [id number] [address] [place] [address] [place] ALT [Catalytic activity/Vol] 18 U/L Normal 13-61 [facility] Comment on above: Order Comment: Speci men Type: BLOOD SPECIMEN Ordering Facility: [facility]) Address: [address] [place], [place] [id number] Result Comment: Resu lts may be falsely depressed after the administration of Sulfasalazine and/or Sulfapyridine. Performed By: #### K LFRS #### [facility] CLIA [id number] [address] [place], [place] [id number] [place] Anion gap [Moles/Vol] 6 mmol/L Normal 5-16 [facility] Comment on above: Order Comment: Speci men Type: BLOOD SPECIMEN Ordering Facility: [facility] Address: [address] [place] [address] Performed By: #### K LFRS #### [facility] CLIA [id number] [address] [place] [address] [place] AST [Catalytic activity/Vol] 21 U/L Normal 8-34 [facility] Comment on above: Order Comment: Speci men Type: BLOOD SPECIMEN Ordering Facility: [facility] Address: [address] [place] [address] Result Comment: Resu lts may be falsely depressed after the administration of Sulfasalazine and/or Sulfapyridine. Performed By: #### K LFRS #### [facility] CLIA [id number] [address] [place] [address] [place] Bilirubin [Mass/Vol] 0.7 mg/dL Normal 0.2-1.0 [facility] Comment on above: Order Comment: Speci men Type: BLOOD SPECIMEN Ordering Facility: [facility] Address: [address] [place] [address] Performed By: #### K LFRS #### [facility] CLIA [id number] [address] [place] [address] [place] Calcium [Mass/Vol] 9.1 mg/dL Normal 8.5-10.5 [facility] Comment on above: Order Comment: Speci men Type: BLOOD SPECIMEN Ordering Facility: [facility] Address: [address] [place] [address] Performed By: #### K LFRS #### [facility] CLIA [id number] [address] [id number] [place] Chloride [Moles/Vol] 105 mmol/L Normal 98-107 [facility] Comment on above: Order Comment: Speci men Type: BLOOD SPECIMEN Ordering Facility: [facility]) Address: [address] [place] [address] Performed By: #### K LFRS #### [facility] CLIA [id number] [address] [place], [place] [id number] [place] CO2 [Moles/Vol] 33 mmol/L High 21-32 [facility] Comment on above: Order Comment: Speci men Type: BLOOD SPECIMEN Ordering Facility: [facility]) Address: [address] [place] [address] Performed By: #### K LFRS #### [facility] CLIA [id number] [address] [place] [address] [place] Creatinine [Mass/Vol] 1.23 mg/dL Normal 0.50-1.40 [facility] Comment on above: Order Comment: Speci men Type: BLOOD SPECIMEN Ordering Facility: [facility]) Address: [address] [place] [address] Result Comment: Darlene ents receiving either N-Acetylcysteine (NAC) or Metamizole prior to venipuncture, may have falsely depressed results. Performed By: #### K LFRS #### [facility] CLIA [id number] [address] [place] [address] [place] Creatinine and Glomerular filtration rate.predicted panel (S/P/Bld) 58 mL/min/1.73m??? Low >=60 [facility] Comment on above: Order Comment: Speci dimitris Type: BLOOD SPECIMEN Ordering Facility: [facility]) Address: [address] [place] [address] Result Comment: Azeb mated Glomerular Filtration Rate [...] GFR. Performed By: #### K LFRS #### [facility] CLIA [id number] [address] [id number] [place] Glucose [Mass/Vol] 90 mg/dL Normal 70-100 [facility] Comment on above: Order Comment: Elma shanks Type: BLOOD SPECIMEN Ordering Facility: [facility]) Address: [address] [place] [address] Result Comment: The [place] [employer] (ADA) provides guidance for cutoff [...] Standards of Medical Care in Diabetes 2016, [place] [employer]. Diabetes Care. 2016.39(Suppl 1). Results may be falsely elevated after the administration of Sulfapyridine. Results may be falsely depressed after the administration of Sulfasalazine. Performed By: #### K LFRS #### [facility] CLIA [id number] [facility] [address] [address] [place] Potassium [Moles/Vol] 3.6 mmol/L Normal 3.5-5.1 [facility] Comment on above: Order Comment: Elma shansk Type: BLOOD SPECIMEN Ordering Facility: [facility]) Address: [address] [place] [address] Performed By: #### K LFRS #### [facility] CLIA [id number] [facility] [address] [address] [place] Protein [Mass/Vol] 5.8 g/dL Low 6.0-8.5 [facility] Comment on above: Order Comment: Speci men Type: BLOOD SPECIMEN Ordering Facility: [facility] Address: [address] [place] [address] Performed By: #### K LFRS #### [facility] CLIA [id number] [address] [place] [address] [place] Sodium [Moles/Vol] 144 mmol/L Normal 136-145 [facility] Comment on above: Order Comment: Speci men Type: BLOOD SPECIMEN Ordering Facility: [facility] Address: [address] [place] [address] Performed By: #### K LFRS #### [facility] CLIA [id number] [address] [place] [address] [place] Urea nitrogen [Mass/Vol] 17 mg/dL Normal 7-26 [facility] Comment on above: Order Comment: Speci men Type: BLOOD SPECIMEN Ordering Facility: [facility] Address: [address] [place] [address] Performed By: #### K LFRS #### [facility] CLIA [id number] [address] [place] [address] [place] Ferritin SerPl-mCncon 2024 Ferritin [Mass/Vol] 142.0 ng/mL Normal 24.0-388.0 [facility] Comment on above: Order Comment: Speci men Type: BLOOD SPECIMEN Ordering Facility: [facility] Address: [address] [place] [address] Performed By: #### K LFRS #### [facility] CLIA [id number] [address] [place] [address] [place] IMMUNOGLOBULINS,IGG,IGA,IGMo n 09-02-2024 IgA [Mass/Vol] 60 mg/dL Low 70-400 [facility] Comment on above: Order Comment: Speci men Type: BLOOD SPECIMEN [facility] Address: [address] [place], [place] [phone] Performed By: #### K LFRS #### [facility] CLIA [id number] [address] [place] [address] [place] IgG [Mass/Vol] 646 mg/dL Low 700-1600 [facility] Comment on above: Order Comment: Speci men Type: BLOOD SPECIMEN Ordering Facility: [facility] Address: [address] [place] [address] Performed By: #### K LFRS #### [facility] CLIA [id number] [address] [place] [address] [place] IgM [Mass/Vol] 94 mg/dL Normal 40-230 [facility] Comment on above: Order Comment: Speci men Type: BLOOD SPECIMEN Ordering Facility: [facility] Address: [address] [place] [address] Performed By: #### K LFRS #### [facility] CLIA [id number] [address] [place] [address] [place] Iron and Iron binding capaci ty panelon 09-02-2024 Iron [Mass/Vol] 62 ug/dL Low 65-175 [facility] Comment on above: Order Comment: Speci men Type: BLOOD SPECIMEN Ordering Facility: [facility] Address: [address] [place] [address] Result Comment: Darlene ents treated with metal-binding drugs (e.g.deferoxamine) may have depressed iron values, as chelated iron may not properly react in the Siemens iron assay. Performed By: #### K LFRS #### [facility] CLIA [id number] [address] [place] [address] [place] Iron binding capacity [Mass/Vol] 262 ug/dL Normal 221-481 [facility] Comment on above: Order Comment: Speci men Type: BLOOD SPECIMEN Ordering Facility: [facility] Address: [address] [place] [address] Performed By: #### K LFRS #### [facility] CLIA [id number] [address] [place] [address] [place] Iron/TIBC [Molar ratio] 23.7 % Normal 22.0-44.0 [facility] Comment on above: Order Comment: Speci men Type: BLOOD SPECIMEN Ordering Facility: [facility]) Address: [address] [place], [place] [address] Performed By: #### K LFRS #### [facility] CLIA [id number] [address] [place] [address] [place] KAPPA/BARAJAS,FREE,SERon 2024 Immunoglobulin light chains.kappa.free (S) [Mass/Vol] 10.4 mg/L Normal 3.3-19.4 [facility] Comment on above: Order Comment: Speci [facility] Type: BLOOD SPECIMEN Ordering Facility: [facility] Address: [address] [place], [place] [phone] Result Comment: Rare ly, increased serum free light chains levels may not be detected or accurately quantified due to prozone phenomenon or in high viscosity samples using this immunoturbidimetric assay. Correlation with other laboratory results and clinical findings is recommended. The [place] Free Light Chain was performed using the Binding Site Optilite immunoturbidimetric method. Result obtained with different assay methods or kits cannot be used interchangeably. Performed By: #### K LFRS #### [facility] CLIA [id number] [address] [place] [address] [place] Immunoglobulin light chains.kappa/Immunoglo bulin light chains.lambda (S) [Mass ratio] 1.27 Normal 0.26-1.65 [facility] Comment on above: [facility] Ordering Facility: [facility]) Address: [address] [place] [address] Performed By: #### K LFRS #### [facility] CLIA [id number] [address] [place] [address] [place] Immunoglobulin light chains.lambda.free [Mass/Vol] 8.2 mg/L Normal 5.7-26.3 [facility] Comment on above: Order Comment: Speci men Type: BLOOD SPECIMEN Ordering Facility: [facility] Address: [address] [place] [address] Result Comment: Rare ly, increased serum free [...] interchangeably. Performed By: #### K LFRS #### [facility] CLIA [id number] [address] [place] [address] [place] PROTEIN ELECTROPHORESIS SERU M WITH HUNTER (P)on 09-02-2024 Albumin [Mass/Vol] 3.75 g/dL Normal 3.43-5.41 [facility] Comment on above: Order Comment: Speci men Type: BLOOD SPECIMEN Ordering Facility: [facility] Address: [address] [place] [address] Performed By: #### K LFRS #### [facility] CLIA [id number] [address] [place] [address] [place] Alpha 1 globulin Elph [Mass/Vol] 0.24 g/dL Normal 0.18-0.43 [facility] Comment on above: Order Comment: Speci men Type: BLOOD SPECIMEN Ordering Facility: [facility] Address: [address] [place] [address] 6[address]34 Performed By: #### K LFRS #### [facility] CLIA [id number] [address] [place], [place] [address] [place] Alpha 2 globulin Elph [Mass/Vol] 0.64 g/dL Normal 0.42-0.98 [facility] Comment on above: Order Comment: Speci men Type: BLOOD SPECIMEN Ordering Facility: [facility] Address: [address] [place] [address] 38683 Performed By: #### K LFRS #### [facility] CLIA [id number] [address] [place] [address] [place] Beta globulin Elph [Mass/Vol] 0.52 g/dL Low 0.61-1.17 [facility] Comment on above: Order Comment: Speci men Type: BLOOD SPECIMEN Ordering Facility: [facility] Address: [address] [place], [place] [address] Performed By: #### K LFRS #### [facility] CLIA [id number] [address] [place] [address] [place] COMMENT (SERUM PROT ELECTRO) Monoclonal Protein analysis (immunofixation) is not indicated. Normal [facility] Comment on above: Order Comment: Speci men Type: BLOOD SPECIMEN Ordering Facility: [facility] Address: [address] [place] [address]253 Performed By: #### K LFRS #### [facility] CLIA [id number] [address] [place], [place] [address] [place] Gamma globulin Elph [Mass/Vol] 0.55 g/dL Normal 0.53-1.51 [facility] Comment on above: Order Comment: Speci men Type: BLOOD SPECIMEN Ordering Facility: [facility] Address: [address] [place] [address] 7[address]61 Performed By: #### K LFRS #### [facility] CLIA [id number] [address] OF [place] M-PROTEIN LOCATION Normal [facility] Comment on above: Order Comment: Speci men Type: BLOOD SPECIMEN Ordering Facility: [facility] Address: [address] [place] [address] Result Comment: Not Applicable. Performed By: #### K LFRS #### [facility] CLIA [id number] [address] [place] [address] OF [facility] Protein Fractions [Interp] No definitive M protein is identified on protein electrophoresis. Normal No definitive M protein is identified on protein electrophor esis. [facility] Comment on above: Order Comment: Speci men Type: BLOOD SPECIMEN Ordering Facility: [facility] Address: [address] [place] [address] Performed By: #### K LFRS #### [facility] CLIA [id number] [address] [place] [address] [place] Protein.monoclonal Elph [Mass/Vol] 0.00 g/dL Normal <=0.00 [facility] Comment on above: Order Comment: Speci men Type: BLOOD SPECIMEN Ordering Facility: [facility] Address: [address] [place] [address] Performed By: #### K LFRS #### [facility] CLIA [id number] [address] [place] [address] [place] SPE STAFF REVIEW Reviewed by Steff Avila MD [facility] Comment on above: Order Comment: Speci men Type: BLOOD SPECIMEN Ordering Facility: [facility] Address: [address] [place] [address] Performed By: #### K LFRS #### [facility] CLIA [id number] [address] [place], [place] [address] [place] Prot SerPl-mCncon 09-02-2024 Protein [Mass/Vol] 5.7 g/dL Low 6.3-8.0 [facility] Comment on above: Order Comment: Speci men Type: BLOOD SPECIMEN Ordering Facility: [facility] Address: [address] [place] [address] Performed By: #### K LFRS #### [facility] CLIA [id number] [facility] [place] [address] [place] Prot Ur-mCncon 09-02-2024 Protein (U) [Mass/Vol] 8 mg/dL Normal 0-20 [facility] Comment on above: Order Comment: Speci men Type: BLOOD SPECIMEN Ordering Facility: [facility] Address: [address] [place] [address] Performed By: #### K LFRS #### [facility] CLIA [id number] [address] [place] [address] [place] URINE PROTEIN ELECTROPHORESI S WITH HUNTER (P)on 09-02-2024 Albumin Elph (U) [Mass fraction] 36.70 % Normal [facility] Comment on above: Order Comment: Speci men Type: BLOOD SPECIMEN Ordering Facility: [facility] Address: [address] [place] [address] Performed By: #### K LFRS #### [facility] CLIA [id number] [address] [place] [address] [place] Alpha 1 globulin Elph (U) [Mass fraction] 3.57 % Normal [facility] Comment on above: Order Comment: Speci men Type: BLOOD SPECIMEN Ordering Facility: [facility] Address: [address] [place] [address] Performed By: #### K LFRS #### [facility] CLIA [id number] [facility] [place] [address] [place] Alpha 2 globulin Elph (U) [Mass fraction] 15.39 % Normal [facility] Comment on above: Order Comment: Speci men Type: BLOOD SPECIMEN Ordering Facility: [facility] Address: [address] [place] [address]10 Performed By: #### K LFRS #### [facility] CLIA [id number] [address] [place] [address] [place] Beta globulin Elph (U) [Mass fraction] 29.61 % Normal [facility] Comment on above: Order Comment: Speci men Type: BLOOD SPECIMEN Ordering Facility: [facility]) Address: [address] [place] [address]85 Performed By: #### K LFRS #### [facility] CLIA [id number] [address] [place] [address] [place] COMMENT (URINE PROT ELECTRO) Monoclonal Protein analysis (immunofixation) is not indicated. Normal [facility] Comment on above: Order Comment: Speci men Type: BLOOD SPECIMEN Ordering Facility: [facility] Address: [address] [place] [address]04 Performed By: #### K LFRS #### [facility] CLIA [id number] [address] [place] [address] [place] Gamma globulin Elph (U) [Mass fraction] 14.73 % Normal [facility] Comment on above: Order Comment: Speci men Type: BLOOD SPECIMEN Ordering Facility: [facility]) Address: [address] [place] [address]243 Performed By: #### K LFRS #### [facility] CLIA [id number] [address] [place] [address] [place] Protein Fractions Elph Nick (U) [Interp] No definitive M protein is identified on protein electrophoresis. Normal No definitive M protein is identified on protein electrophor esis. [facility] Comment on above: Order Comment: Speci men Type: BLOOD SPECIMEN Ordering Facility: [facility]) Address: [address] [place] [address] Performed By: #### K LFRS #### [facility] CLIA [id number] [address] [place], [place] [address] [facility] [place] STAFF REVIEW (URINE ELECTRO) Reviewed by Steff Avila MD [facility] Comment on above: Order Comment: Speci men Type: BLOOD SPECIMEN Ordering Facility: [facility]) Address: [address] [place] [address] Performed By: #### K LFRS #### [facility] CLIA [id number] [address] [place] [address] OF [place] XR HIP 2-3 VIEWS RIGHTon [...] 07/09/2024 4:07:29 PM Ordering Provider: ENRIQUE Ma [facility] Comprehensive metabolic 2000 panelon 12-04-2023 Albumin [Mass/Vol] 3.5 g/dL Normal 3.2-5.0 [facility] Comment on above: Order Comment: Speci men Type: BLOOD SPECIMEN Ordering Facility: [facility]) Address: [address] [place] [address] Performed By: #### 2 4323-8, 2276-4, 02482-5 #### [facility] CLIA [id number] [address] [place] [address] [place] ALP [Catalytic activity/Vol] 97 U/L Normal 45-117 [facility] Comment on above: Order Comment: Speci men Type: BLOOD SPECIMEN Ordering Facility: [facility] Address: [address] [place] [address] 82453 Performed By: #### 2 4323-8, 2276-4, 48907-6 #### [facility] CLIA [id number] [address] [place] [address] [place] ALT [Catalytic activity/Vol] 20 U/L Normal 13-61 [facility] Comment on above: Order Comment: Speci men Type: BLOOD SPECIMEN [facility] Address: [address] [place] [address] 95149 Result Comment: Resu lts may be falsely depressed after the administration of Sulfasalazine and/or Sulfapyridine. Performed By: #### 2 4323-8, 6-4, 84871-3 #### [facility] CLIA [id number] [address] [place] [address] [place] [facility] Anion gap [Moles/Vol] 6 mmol/L Normal 5-16 [facility] Comment on above: Order Comment: Speci dimitris Type: BLOOD SPECIMEN [facility]ing Facility[facility] Address: [address] [place] [address] 07177 Performed By: #### 2 4323-8, 2276-4, 78347-2 #### [facility] CLIA [id number] [address] [place] [address] [place] AST [Catalytic activity/Vol] 21 U/L Normal 8-34 [facility] Comment on above: Order Comment: Elma shanks Type: BLOOD SPECIMEN [facility]ing Facility[facility] Address: [address] [place] [address] 90127 Result Comment: Resu lts may be falsely depressed after the administration of Sulfasalazine and/or Sulfapyridine. Performed By: #### 2 4323-8, 6-4, 61741-7 #### [facility] CLIA [id number] [address] [place], [place] [address] [place] Bilirubin [Mass/Vol] 0.6 mg/dL Normal 0.2-1.0 [facility] Comment on above: Order Comment: Speci men Type: BLOOD SPECIMEN Ordering Facility: [facility] Address: [address] [place] [address] 47749 Performed By: #### 2 4323-8, 6-4, 80413-0 #### [facility] CLIA [id number] [address] [place], [place] [address] [place] Calcium [Mass/Vol] 9.2 mg/dL Normal 8.5-10.5 [facility] Comment on above: Order Comment: Speci men Type: BLOOD SPECIMEN Ordering Facility: [facility] Address: [address] [place] [address] 63085 Performed By: #### 2 4323-8, 6-4, 50714-1 #### [facility] CLIA [id number] [address] [place], [place] [address] [place] Chloride [Moles/Vol] 107 mmol/L Normal 98-107 [facility] Comment on above: Order Comment: Speci men Type: BLOOD SPECIMEN Ordering Facility: [facility] Address: [facility] [place] [address] Performed By: #### 2 4323-8, 6-4, 13567-1 #### [facility] CLIA [id number] [address] [place] [address] [place] CO2 [Moles/Vol] 30 mmol/L Normal 21-32 [facility] Comment on above: Order Comment: Speci men Type: BLOOD SPECIMEN Ordering Facility: [facility] Address: [address] [place] [address] 37776 Performed By: #### 2 4323-8, 2275-4, 38889-3 #### [facility] CLIA [id number] [address] [place] [address] [place] Creatinine [Mass/Vol] 1.14 mg/dL Normal 0.50-1.40 [facility] Comment on above: Order Comment: Speci men Type: BLOOD SPECIMEN Ordering Facility: [facility]) Address: [address] [place] [address] 7[address]69 Result Comment: Darlene ents receiving either N-Acetylcysteine (NAC) or Metamizole prior to venipuncture, may have falsely depressed results. Performed By: #### 2 4323-8, 2275-4, 64108-0 #### [facility] CLIA [id number] [address] [place] [address] [place] [facility] Creatinine and Glomerular filtration rate.predicted panel (S/P/Bld) 64 mL/min/1.73m??? Normal >=60 [facility] Comment on above: Order Comment: Speci men Type: BLOOD SPECIMEN Ordering Facility: [facility]) Address: [address] [place] [address]347 Result Comment: Azeb mated Glomerular Filtration Rate [...] GFR. Performed By: #### 2 4323-8, 2275-4, 74880-2 #### [facility] CLIA [id number] [address] [place], [place] [address] [place] Glucose [Mass/Vol] 95 mg/dL Normal 70-100 [facility] Comment on above: Order Comment: Speci men Type: BLOOD SPECIMEN Ordering Facility: [facility]) Address: [address] [place] [address] 91890 Result Comment: The [place] Diabetes Association (ADA) provides guidance for cutoff [...] Standards of Medical Care in Diabetes 2016, [place] [employer]. Diabetes Care. 2016.39(Suppl 1). Results may be falsely elevated after the administration of Sulfapyridine. Results may be falsely depressed after the administration of Sulfasalazine. Performed By: #### 2 4323-8, 6-4, 24753-5 #### [facility] CLIA [id number] [address] [place] [address] [place] Potassium [Moles/Vol] 3.8 mmol/L Normal 3.5-5.1 [facility] Comment on above: Order Comment: Speci men Type: BLOOD SPECIMEN Ordering Facility: [facility] Address: [address] [place] [address] 9[address]83 Performed By: #### 2 4323-8, 2275-, 36324-9 #### [facility] CLIA [id number] [address] [place] [address] [place] Protein [Mass/Vol] 5.4 g/dL Low 6.0-8.5 [facility] Comment on above: Order Comment: Speci men Type: BLOOD SPECIMEN Ordering Facility: [facility] Address: [address] [place] [address] Performed By: #### 2 4323-8, 2275-06, 26192-7 #### [facility] CLIA [id number] [address] [place], [place] [address] [place] Sodium [Moles/Vol] 143 mmol/L Normal 136-145 [facility] Comment on above: Order Comment: Speci men Type: BLOOD SPECIMEN Ordering Facility: [facility] Address: [address] [place] [address] Performed By: #### 2 4323-8, 2276-4, 47562-2 #### [facility] CLIA [id number] [address] [place] [address] [place] Urea nitrogen [Mass/Vol] 22 mg/dL Normal 7-26 [facility] Comment on above: Order Comment: Speci men Type: BLOOD SPECIMEN Ordering Facility: [facility]) Address: [address] [place] [address] Performed By: #### 2 4323-8, 2276-4, 40955-5 #### [facility] CLIA [id number] [address] [place] [address] [place] Ferritin SerPl-ncon 2023 Ferritin [Mass/Vol] 141.3 ng/mL Normal 24.0-388.0 [facility] Comment on above: Order Comment: Speci men Type: BLOOD SPECIMEN Ordering Facility: [facility] Address: [address] [place] [address] Performed By: #### S ERIMM #### [facility] CLIA [id number] [address] [place] [address] [place] IMMUNOFIXATION SCREEN, SERUM on 12-04-2023 MPA RESULT No M protein is identified. Normal No M protein is identified. [facility] Comment on above: Order Comment: Speci men Type: BLOOD SPECIMEN Ordering Facility: [facility] Address: [address] [place] [address]41 Performed By: #### S ERIMM #### [facility] CLIA [id number] [address] [place] [address] [place] STAFF REVIEW (MPA) Reviewed by Twyla Dior M.D., Ph.D [facility] Comment on above: Order Comment: Speci men Type: BLOOD SPECIMEN Ordering Facility: [facility] Address: [address] [place] [address] Performed By: #### S ERIMM #### [facility] CLIA [id number] [address] [place] [id number] [place] IMMUNOGLOBULINS,IGG,IGA,IGMo n 12-04-2023 IgA [Mass/Vol] 31 mg/dL Low 70-400 [facility] Comment on above: Order Comment: Speci men Type: BLOOD SPECIMEN Ordering Facility: [facility] Address: [address] [place] [address] Performed By: #### S ERIMM #### [facility] CLIA [id number] [address] [place] [address] [place] IgG [Mass/Vol] 513 mg/dL Low 700-1600 [facility] Comment on above: Order Comment: Speci men Type: BLOOD SPECIMEN Ordering Facility: [facility] Address: [address] [place] [address] Performed By: #### S ERIMM #### [facility] CLIA [id number] [address] [place], [place] [address] [place] IgM [Mass/Vol] 30 mg/dL Low 40-230 [facility] Comment on above: Order Comment: Speci men Type: BLOOD SPECIMEN Ordering Facility: [facility] Address: [address] [place] [address]368 Performed By: #### S ERIMM #### [facility] CLIA [id number] [address] [place], [place] [address] [place] Iron and Iron binding capaci ty panelon 12-04-2023 Iron [Mass/Vol] 56 ug/dL Low 65-175 [facility] Comment on above: Order Comment: Speci men Type: BLOOD SPECIMEN Ordering Facility: [facility]) Address: [address] [place] [address] Result Comment: Darlene ents treated with metal-binding drugs (e.g.deferoxamine) may have depressed iron values, as chelated iron may not properly react in the Siemens iron assay. Performed By: #### S ERIMM #### [facility] CLIA [id number] [address] [place] [address] [place] Iron binding capacity [Mass/Vol] 263 ug/dL Normal 221-481 [facility] Comment on above: Order Comment: Elma shanks Type: BLOOD SPECIMEN Ordering Facility: [facility] Address: [address] [place] [address] Performed By: #### S ERIMM #### [facility] CLIA [id number] [address] [place] [address] [place] Iron/TIBC [Molar ratio] 21.3 % Low 22.0-44.0 [facility] Comment on above: Order Comment: Elma shanks Type: BLOOD SPECIMEN Ordering Facility: [facility] Address: [address] [place] [address] Performed By: #### S ERIMM #### [facility] CLIA [id number] [address] [place] [address] [place] KAPPA/BARAJAS,FREE,SERon 2023 Immunoglobulin light chains.kappa.free (S) [Mass/Vol] 7.6 mg/L Normal 3.3-19.4 [facility] Comment on above: Order Comment: Elma shanks Type: BLOOD SPECIMEN Ordering Facility: [facility]) Address: [address] [place] [address] Result Comment: Rare ly, increased serum free light chains levels may not be detected or accurately quantified due to prozone phenomenon or in high viscosity samples using this immunoturbidimetric assay. Correlation with other laboratory results and clinical findings is recommended. The [place] Free Light Chain was performed using the Binding Site Optilite immunoturbidimetric method. Result obtained with different assay methods or kits cannot be used interchangeably. Performed By: #### S ERIMM #### [facility] CLIA [id number] [address] [place] [address] [place] Immunoglobulin light chains.kappa/Immunoglo bulin light chains.lambda (S) [Mass ratio] 1.23 Normal 0.26-1.65 [facility] Comment on above: Order Comment: Speci men Type: BLOOD SPECIMEN Ordering Facility: [facility] Address: [address] [place] [address] Performed By: #### S ERIMM #### [facility] CLIA [id number] [address] [place] [address] [place] Immunoglobulin light chains.lambda.free [Mass/Vol] 6.2 mg/L Normal 5.7-26.3 [facility] Comment on above: Order Comment: Speci men Type: BLOOD SPECIMEN Ordering Facility: [facility] Address: [address] [place] [address] Result Comment: Rare ly, increased serum free [...] interchangeably. Performed By: #### S ERIMM #### [facility] CLIA [id number] [address] [place] [address] [place] MONOCLONAL PROT UR W/INTERPo n 12-04-2023 INTERPRETATION ([facility]) An atypical restri cted band is present in the lambda region. 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 Normal [facility] Comment on above: Order Comment: Speci men Type: BLOOD SPECIMEN Ordering Facility: [facility] Address: [address] [place] [address] Performed By: #### S ERIMM #### [facility] CLIA [id number] [address] [place] [address] OF [place] STAFF REVIEW (UMPA) Reviewed by Twyla Dior M.D., Ph.D Normal [facility] Comment on above: Order Comment: Speci men Type: BLOOD SPECIMEN Ordering Facility: [facility] Address: [address] [place] [address] Performed By: #### S ERIMM #### [facility] CLIA [id number] [address] [place] [address] [place] UMPA RESULT M protein is present. Abnormal No M protein is identified. [facility] Comment on above: Order Comment: Speci men Type: BLOOD SPECIMEN Ordering Facility: [facility] ([facility] Address: [address] [place] [address] Performed By: #### S ERIMM #### [facility] CLIA [id number] [address] [place] [address] OF [place] PROTEIN ELECTROPHORESIS SERU M WITH HUNTER (P)on 12-04-2023 Albumin [Mass/Vol] 3.64 g/dL Normal 3.43-5.41 [facility] Comment on above: Order Comment: Speci men Type: BLOOD SPECIMEN Ordering Facility: [facility] Address: [address] [place], [place] [address] Performed By: #### S ERIMM #### [facility] CLIA [id number] [address] [place] [address] [place] Alpha 1 globulin Elph [Mass/Vol] 0.22 g/dL Normal 0.18-0.43 [facility] Comment on above: Order Comment: Speci men Type: BLOOD SPECIMEN Ordering Facility: [facility] Address: [address] [place] [address] Performed By: #### S ERIMM #### [facility] CLIA [id number] [address] [place] [address] [place] Alpha 2 globulin Elph [Mass/Vol] 0.59 g/dL Normal 0.42-0.98 [facility] Comment on above: Order Comment: Speci men Type: BLOOD SPECIMEN Ordering Facility: [facility] Address: [address] [place] [address] Performed By: #### S ERIMM #### [facility] CLIA [id number] [address] [place] [address] [place] Beta globulin Elph [Mass/Vol] 0.49 g/dL Low 0.61-1.17 [facility] Comment on above: Order Comment: Speci men Type: BLOOD SPECIMEN Ordering Facility: [facility] Address: [address] [place] [address] Performed By: #### S ERIMM #### [facility] CLIA [id number] [address] [place] [address] [place] COMMENT (SERUM PROT ELECTRO) A reflex test for Monoclonal Protein analysis (immunofixation) has been ordered. Normal [facility] Comment on above: Order Comment: Speci men Type: BLOOD SPECIMEN Ordering Facility: [facility] Address: [address] [place] [address] Performed By: #### S ERIMM #### [facility] CLIA [id number] [address] [place] [address] [place] Gamma globulin Elph [Mass/Vol] 0.36 g/dL Low 0.53-1.51 [facility] Comment on above: Order Comment: Speci men Type: BLOOD SPECIMEN Ordering Facility: [facility] Address: [address] [place] [address] Performed By: #### S ERIMM #### [facility] [place] [id number] [address] [place] [address] OF [place] M-PROTEIN LOCATION Normal [facility] Comment on above: Order Comment: Speci men Type: BLOOD SPECIMEN Ordering Facility: [facility]) Address: [address] [place] [address] Result Comment: Not Applicable. Performed By: #### S ERIMM #### [facility] CLIA [id number] [address] [place] [address] OF [place] Protein Fractions [Interp] No definitive M protein is identified on protein electrophoresis. Normal No definitive M protein is identified on protein electrophor esis. [facility] Comment on above: Order Comment: Speci men Type: BLOOD SPECIMEN Ordering Facility: [facility] Address: [address] [place], [place] [id number] Performed By: #### S ERIMM #### [facility] [place] [id number] [address] [place] [address] Protein.monoclonal Elph [Mass/Vol] 0.00 g/dL Normal <=0.00 [facility] Comment on above: Order Comment: Speci men Type: BLOOD SPECIMEN Ordering Facility: [facility] Address: [address] [place], [place] [id number] Performed By: #### S ERIMM #### [facility] CLIA [id number] [address] [place] [address] OF [place] SPE STAFF REVIEW Reviewed by Twyla Dior M.D., Ph.D Normal [facility] Comment on above: Order Comment: Speci men Type: BLOOD SPECIMEN Ordering Facility: [facility]) Address: [address] [place], [place] [address] Performed By: #### S ERIMM #### [facility] IA [id number] [address] [place] [address] [place] Prot SerPl-mCncon 12-04-2023 Protein [Mass/Vol] 5.3 g/dL Low 6.3-8.0 [facility] Comment on above: Order Comment: Speci men Type: BLOOD SPECIMEN Ordering Facility: [facility] Address: [address] [place] [address] Performed By: #### S ERIMM #### [facility] [place] [id number] [address] [place] [address] [place] Prot Ur-mCncon 12-04-2023 Protein (U) [Mass/Vol] 7 mg/dL Normal 0-20 [facility] Comment on above: Order Comment: Speci men Type: BLOOD SPECIMEN Ordering Facility: [facility] Address: [address] [place] [address] Performed By: #### S ERIMM #### [facility] IA [id number] [address] [place] [address] [place] URINE PROTEIN ELECTROPHORESI S WITH HUNTER (P)on 12-04-2023 Albumin Elph (U) [Mass fraction] 35.36 % Normal [facility] Comment on above: Order Comment: Speci men Type: BLOOD SPECIMEN Ordering Facility: [facility] Address: [address] [address] Performed By: #### S ERIMM #### [facility] [id number] [address] [place] [address] [place] Alpha 1 globulin Elph (U) [Mass fraction] 5.10 % Normal [facility] Comment on above: Order Comment: Speci men Type: BLOOD SPECIMEN Ordering Facility: [facility]) Address: [address] [place] [address] Performed By: #### S ERIMM #### [facility] IA [id number] [address] [place] [address] [place] Alpha 2 globulin Elph (U) [Mass fraction] 24.91 % [facility] Comment on above: Order Comment: Speci men Type: BLOOD SPECIMEN Ordering Facility: [facility] Address: [address] [place] [address] Performed By: #### S ERIMM #### [facility] CLIA [id number] [address] [place] [address] [place] Beta globulin Elph (U) [Mass fraction] 22.12 % [facility] Comment on above: Order Comment: Speci men Type: BLOOD SPECIMEN Ordering Facility: [facility] Address: [address] [place] [address] Performed By: #### S ERIMM #### [facility] IA [id number] [address] [place] [address] [place] COMMENT (URINE PROT ELECTRO) A reflex test for Monoclonal Protein analysis (immunofixation) has been ordered. [facility] Comment on above: Order Comment: Speci men Type: BLOOD SPECIMEN Ordering Facility: [facility] Address: [address] [place] [address] Performed By: #### S ERIMM #### [facility] IA [id number] [address] [place] [address] [place] Gamma globulin Elph (U) [Mass fraction] 12.52 % [facility] Comment on above: Order Comment: Speci men Type: BLOOD SPECIMEN Ordering Facility: [facility] Address: [address] [place] [address] Performed By: #### S ERIMM #### [facility] IA [id number] [address] [place] [address] [place] INTERPRETATION COMMENT FOR PROTEIN ELECTROPHORESIS See separate immunofixation report for characterization of monoclonal gammopathy. [facility] Comment on above: Order Comment: Speci men Type: BLOOD SPECIMEN Ordering Facility: [facility] Address: [address] [place], [place] [address] Performed By: #### S ERIMM #### [facility] IA [id number] [address] [place] [address] [place] Protein Fractions Elph Nick (U) [Interp] An M protein is identified on protein electrophoresis. Abnormal No definitive M protein is identified on protein electrophor esis. [facility] Comment on above: Order Comment: Speci men Type: BLOOD SPECIMEN Ordering Facility: [facility] Address: [address] [place], [place] [address] Performed By: #### S ERIMM #### [facility] IA [id number] [address] [place], [place] [id number] [facility] OF [place] STAFF REVIEW (URINE ELECTRO) Reviewed by Twyla Dior M.D., Ph.D [facility] Comment on above: Order Comment: Speci men Type: BLOOD SPECIMEN Ordering Facility: [facility] Address: [address] [place] [address] Performed By: #### S ERIMM #### [facility] IA [id number] [address] [place], [place] [id number] [place] BD DXA - [...] years, Gender: Male SCANNER INFORMATION: DXA Model: [employer] C [id number] Date Scanned: 11/29/2023 8:15 AM CLINICAL HISTORY: [...] had a previous bone density in the [facility] or the previous bone density was performed on a different DXA machine (new, updated model or different location) within the [facility]. VERTEBRAL FRACTURE ASSESSMENT Not performed. TRABECULAR BONE [...] FOR MORE INFORMATION ABOUT DIAGNOSIS AND TREATMENT: [facility] for Osteoporosis and Metabolic Bone Disease:? www.[facility].org/arthritis/ost eo National Osteoporosis Foundation:? www.nof.org International Society of Clinical Densitometry www.iscd.org Senior Sales Operations Manager: DANIELITO Transcribe Date/Time: Nov 29 2023 9:40A Dictated by : SOURAV NORTON MD This examination was interpreted and the report reviewed and electronically signed by: SOURAV NORTON MD on Nov 29 2023 9:41AM EST [id number] -1.9 Normal [facility] DXA Skeletal system.axial Vi ews for bone densityOrdered By: Cc Provider on 11-29-2023 LOWEST T-SCORE -1.9 [facility] DXA Skeletal system.axial Vi ews for [...] FOR MORE INFORMATION ABOUT DIAGNOSIS AND TREATMENT: [facility] Metabolic Bone Disease:? www.ccf.org/arthritis/ost eo National Osteoporosis Foundation:? www.nof.org International Society of Clinical Densitometry www.iscd.org Senior Sales Operations Manager: DANIELITO Transcribe Date/Time: Nov 29 2023 9:40A Dictated by : SOURAV NORTON MD This examination was interpreted and the report reviewed and electronically signed by: SOURAV NORTON MD on Nov 29 2023 9:41AM 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 VERTEBRAL FRACTURE ASSESSMENT Not performed. TRABECULAR BONE ASSESSMENT TBS not performed: not ordered 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 VERTEBRAL FRACTURE ASSESSMENT Not performed. TRABECULAR BONE [...] FOR MORE INFORMATION ABOUT DIAGNOSIS AND TREATMENT: [facility] Osteoporosis and Metabolic Bone Disease:? www.ccf.org/arthritis/ost eo National Osteoporosis Foundation:? www.nof.org International Society of Clinical Densitometry www.iscd.org Senior Sales Operations Manager: DANIELITO Transcribe Date/Time: Nov 29 2023 9:40A Dictated by : SOURAV NORTON MD This examination was interpreted and the report reviewed and electronically signed by: SOURAV NORTON MD on Nov 29 2023 9:41AM EST [facility] Study observation (narrative) [facility] PROT ELEC UR 24HR W/M SPIKE (P)on 09-26-2023 Albumin/Globulin Elph (24H U) [Mass ratio] 46.18 % Normal [facility] Comment on above: Order Comment: Elma shanks Type: URINE SPECIMEN Ordering Facility: [facility] Address: [address] [place] [address] Performed By: #### L [id number] #### [facility] CLIA [id number] [address] [place] [address] [place] Alpha 1 globulin Elph (24H U) [Mass fraction] 3.67 % Normal [facility] Comment on above: Order Comment: Elma shanks Type: URINE SPECIMEN Ordering Facility: [facility] Address: [address] [place] [address] Performed By: #### L [id number] #### [facility] CLIA [id number] [address] [place] [address] [place] Alpha 2 globulin Elph (24H U) [Mass fraction] 17.09 % [facility] Comment on above: Order Comment: Speci men Type: URINE SPECIMEN Ordering Facility: [facility] Address: [address] [place] [address] Performed By: #### L [id number] #### [facility] CLIA [id number] [address] [place] [address] [place] Beta globulin Elph (24H U) [Mass fraction] 24.49 % [facility] Comment on above: Order Comment: Speci men Type: URINE SPECIMEN Ordering Facility: [facility] Address: [address] [place] [address] Performed By: #### L [id number] #### [facility] CLIA [id number] [address] [place] [address] [place] Gamma globulin Elph (24H U) [Mass fraction] 8.57 % [facility] Comment on above: Order Comment: Speci men Type: URINE SPECIMEN Ordering Facility: [facility] Address: [address] [place] [address] Performed By: #### L [id number] #### [facility] CLIA [id number] [address] [place] [address] [place] INTERPRETATION COMMENT FOR PROTEIN ELECTROPHORESIS The atypical region is relatively poorly defined and may represent an unusual presentation of polyclonal immunoglobulins, but cannot rule out the presence of a low level M protein. If clinically indicated, monoclonal protein analysis and serum free light chain analysis are suggested to evaluate further for monoclonal gammopathy. [facility] Comment on above: Order Comment: Speci men Type: URINE SPECIMEN Ordering Facility: [facility] Address: [address] [place] [address] Performed By: #### L [id number] #### [facility] CLIA [id number] [address] [place] [address] [place] Protein Fractions Elph Nick (24H U) [Interp] An atypical region of restricted mobility is identified on protein electrophoresis. Abnormal No definitive M protein is identified on protein electrophor esis. [facility] Comment on above: Order Comment: Speci men Type: URINE SPECIMEN Ordering Facility: [facility] Address: [address] [place], [place] [address] Performed By: #### L [id number] #### [facility] CLIA [id number] [address] [place] [address] [place] Protein.monoclonal Elph (24H U) [Mass/Time] 0.00 g/24hr Normal [facility] Comment on above: Order Comment: Speci men Type: URINE SPECIMEN Ordering Facility: [facility] Address: [address] [place] [address] Performed By: #### L [id number] #### [facility] CLIA [id number] [address] [place] [address] [place] STAFF REVIEW ([id number]) Reviewed by Steff Avila MD [facility] Comment on above: Order Comment: Speci men Type: URINE SPECIMEN Ordering Facility: [facility]) Address: [address] [place] [address] Performed By: #### L [id number] #### [facility] CLIA [id number] [address] [place] [address] [place] Prot 24h Ur-mRateon 20 24 Protein (24H U) [Mass/Time] 0.11 g/24 Hr High 0.05-0.10 [facility] Comment on above: Order Comment: Speci men Type: URINE SPECIMEN Ordering Facility: [facility]) Address: [address] [place] [address] Result Comment: Adul t Proteinuria Categories: <0.15 [...] Performed By: #### 2 889-4 #### [facility] CLIA [id number] [address] [place] [address] [place] Protein (24H U) [Mass/Time]o n 09-26-2023 PERIOD (HRS) 24 hr Normal [facility] Comment on above: Order Comment: Speci men Type: URINE SPECIMEN Ordering Facility: [facility]) Address: [address] [place] [address] Performed By: #### 2 889-4 #### [facility] CLIA [id number] [address] [place] [address] [place] Specimen volume (24H U) 0.9 L Normal [facility] Comment on above: Order Comment: Speci men Type: URINE SPECIMEN Ordering Facility: [facility] Address: [address] [place] [address] Performed By: #### 2 889-4 #### [facility] CLIA [id number] [address] [place] [address] [place] IMMUNOFIXATION SCREEN, SERUM on 09-25-2023 MPA RESULT No M protein is identified. Normal No M protein is identified. [facility] Comment on above: Order Comment: Speci men Type: BLOOD SPECIMEN Ordering Facility: [facility]) Address: [address] [place] [address] Performed By: #### I [facility] [place] [id number] #### [facility] CLIA [id number] [address] [place] [address] [place] STAFF REVIEW (MPA) Reviewed by Raman Haque MD, Ph.D ([id number]) [facility] Comment on above: Order Comment: Speci men Type: BLOOD SPECIMEN Ordering Facility: [facility] Address: [address] [place] [address] Performed By: #### I W[place], [id number] #### [facility] CLIA [id number] [address] [place] [address] [place] IMMUNOGLOBULINS,IGG,IGA,IGMo n 09-25-2023 IgA [Mass/Vol] 28 mg/dL Low 70-400 [facility] Comment on above: Order Comment: Speci men Type: BLOOD SPECIMEN Ordering Facility: [facility] Address: [address] [place] [address] Performed By: #### S ERIMM #### [facility] CLIA [id number] [address] [place] [address] [place] IgG [Mass/Vol] 556 mg/dL Low 700-1600 [facility] Comment on above: Order Comment: Speci men Type: BLOOD SPECIMEN Ordering Facility: [facility] Address: [address] [place] [address] Performed By: #### S ERIMM #### [facility] CLIA [id number] [address] [place] [id number] [place] IgM [Mass/Vol] 21 mg/dL Low 40-230 [facility] Comment on above: Order Comment: Speci men Type: BLOOD SPECIMEN Ordering Facility: [facility]) Address: [address] [place] [address] Performed By: #### S ERIMM #### [facility] CLIA [id number] [address] [place] [address] [place] KAPPA/BARAJAS,FREE,SERon 2023 Immunoglobulin light chains.kappa.free (S) [Mass/Vol] 8.5 mg/L Normal 3.3-19.4 [facility] Comment on above: Order Comment: Speci dimitris Type: BLOOD SPECIMEN Ordering Facility: [facility] Address: [address] [place] [address] Result Comment: Rare ly, increased serum free light chains levels may not be detected or accurately quantified due to prozone phenomenon or in high viscosity samples using this immunoturbidimetric assay. Correlation with other laboratory results and clinical findings is recommended. The [place] Free Light Chain was performed using the Binding Site Optilite immunoturbidimetric method. Result obtained with different assay methods or kits cannot be used interchangeably. Performed By: #### K LFRS #### [facility] CLIA [id number] [address] [place] [address] [place] Immunoglobulin light chains.kappa/Immunoglo bulin light chains.lambda (S) [Mass ratio] 1.39 Normal 0.26-1.65 [facility] Comment on above: Order Comment: Elma shanks Type: BLOOD SPECIMEN Ordering Facility: [facility] Address: [address] [place] [address] Performed By: #### K LFRS #### [facility] CLIA [id number] [address] [place] [address] [place] Immunoglobulin light chains.lambda.free [Mass/Vol] 6.1 mg/L Normal 5.7-26.3 [facility] Comment on above: Order Comment: Elma shanks Type: BLOOD SPECIMEN Ordering Facility: [facility]) Address: [address] [place] [address] Result Comment: Rare ly, increased serum free [...] interchangeably. Performed By: #### K LFRS #### [facility] CLIA [id number] [address] [place] [address] [place] PROTEIN ELECTROPHORESIS SERU M WITH HUNTER (P)on 09-25-2023 Albumin [Mass/Vol] 3.85 g/dL Normal 3.43-5.41 [facility] Comment on above: Order Comment: Specchacorta shanks Type: BLOOD SPECIMEN Ordering Facility: [facility] Address: [address] [place] [address] Performed By: #### I SHANNA, [id number] #### [facility] CLIA [id number] [address] [place] [address] [place] Alpha 1 globulin Elph [Mass/Vol] 0.24 g/dL Normal 0.18-0.43 [facility] Comment on above: Order Comment: Elma shanks Type: BLOOD SPECIMEN [facility] Address: [address] [place] [address] Performed By: #### I FESC, [id number] #### [facility] CLIA [id number] [address] [place] [address] [place] Alpha 2 globulin Elph [Mass/Vol] 0.67 g/dL Normal 0.42-0.98 [facility] [facility] Comment on above: Order Comment: Specchacorta shanks Type: BLOOD SPECIMEN Ordering Facility: [facility] Address: [address] [place] [address] Performed By: #### I FESC, [id number] #### [facility] CLIA [id number] [facility] [place] [id number] [place] Beta globulin Elph [Mass/Vol] 0.53 g/dL Low 0.61-1.17 [facility] Comment on above: Order Comment: Specchacorta shanks Type: BLOOD SPECIMEN Ordering Facility: [facility] Address: [address] [place] [address] Performed By: #### I FESC, [id number] #### [facility] CLIA [id number] [address] [place] [address] [place] COMMENT (SERUM PROT ELECTRO) A reflex test for Monoclonal Protein analysis (immunofixation) has been ordered. [facility] Comment on above: Order Comment: Speci dimitris Type: BLOOD SPECIMEN Ordering Facility: [facility] Address: [address] [place], [place] [id number] Performed By: #### I FESC, [id number] #### [facility] CLIA [id number] [address] [place] [address] [place] Gamma globulin Elph [Mass/Vol] 0.41 g/dL Low 0.53-1.51 [facility] Comment on above: Order Comment: Elma shanks Type: BLOOD SPECIMEN Ordering Facility: [facility] Address: [address] [place] [address] Performed By: #### I FESC, [id number] #### [facility] CLIA [id number] [address] [place] [address] [place] INTERPRETATION COMMENT FOR PROTEIN ELECTROPHORESIS Hypogammaglobulinemia is present, which can be seen in the setting of monoclonal gammopathy. If clinically indicated, monoclonal protein analysis and serum free light chain analysis are suggested to evaluate further for monoclonal gammopathy. [facility] Comment on above: Order Comment: Elma shanks Type: BLOOD SPECIMEN Ordering Facility: [facility]) Address: [address] [place] [address] Performed By: #### I FESC, [id number] #### [facility] CLIA [id number] [address] OF [place] M-PROTEIN LOCATION Normal [facility] Comment on above: Order Comment: Speci men Type: BLOOD SPECIMEN Ordering Facility: [facility] Address: [address] [place] [address] Result Comment: Not Applicable. Performed By: #### I SHANNA, [id number] #### [facility] CLIA [id number] [address] [place] [address] OF [place] Protein Fractions [Interp] No definitive M protein is identified on protein electrophoresis. Normal No definitive M protein is identified on protein electrophor esis. [facility] Comment on above: Order Comment: Speci men Type: BLOOD SPECIMEN Ordering Facility: [facility] Address: [address] [place] [address] Performed By: #### I FESC, [id number] #### [facility] CLIA [id number] [address] [place] [address] [place] Protein.monoclonal Elph [Mass/Vol] 0.00 g/dL Normal <=0.00 [facility] Comment on above: Order Comment: Speci men Type: BLOOD SPECIMEN Ordering Facility: [facility] Address: [address] [place], [place] [address] Performed By: #### I FESC, [id number] #### [facility] CLIA [id number] [address] [place] [address] [place] SPE STAFF REVIEW Reviewed by Raman Haque MD, Ph.D ([id number]) [facility] Comment on above: Order Comment: Speci men Type: BLOOD SPECIMEN Ordering Facility: [facility] Address: [address] [place] [address] Performed By: #### I FESC, [id number] #### [facility] CLIA [id number] [address] [place], [place] [id number] [place] Prot SerPl-mCncon 09-25-2023 Protein [Mass/Vol] 5.7 g/dL Low 6.3-8.0 [facility] Comment on above: Order Comment: Speci men Type: BLOOD SPECIMEN Ordering Facility: [facility] Address: [address] [place] [address] Performed By: #### 2 [id number] #### [facility] CLIA [id number] [address] [place], [place] [id number] [place] XR CHEST 2 VIEWSon [...] 08/16/2023 1:28:25 PM Ordering Provider: ENRIQUE Ma [facility] ([place]) APTTon 07-31-2023 aPTT Coag (Bld) [Time] 32.0 s Normal 25.0-35.0 [facility] ([place]) Comment on above: Result Comment: For Heparin anticoagulation therapy, the recommended therapeutic range is: 45.4-75.9 seconds. Patients on heparin therapy may have an extreme result. Performed By: #### P LT, PRO #### [address] [address] Heparin dose (APTT) None Normal [facility] ([place]) Comment on above: Performed By: #### P LT, PRO #### [address] [address] LABORATORYOrdered By: Brien zapata on 07-31-2023 aPTT [...] Comment on above: Interpretive Data: Froy godfrey [employer] (CHEST, 1991, 102:312S-25S) [...] 07-31-2023 Platelet 95 10 3/mcL Low 130-400 [facility]) Comment on above: Performed By: #### P LT, PRO #### [address] [address] PROon 07-31-2023 PT Coag (PPP) [Time] 11.3 s Normal 9.0-14.4 [facility]) Comment on above: Performed By: #### P LT, PRO #### [address] [address] PT International Ratio 1.0 Normal [facility]) Comment on above: Result Comment: [employer] (CHEST, 1991, 102:312S-25S) recommended therapeutic range for oral anticoagulant therapy is: LOW RISK: Prophylaxis of venous thrombosis INR: 2.0-3.0 Treatment of pulmonary embolism 2.0-3.0 Prevention of systemic embolism 2.0-3.0 HIGH RISK: Mechanical prosthetic valves 2.5-3.5 Performed By: #### P LT, PRO #### [place] [address] [place], [place] [address] .GFRon 07-16-2023 GFR >60 Normal [facility] ([place]) Comment on above: Result Comment: GFR Population [...] TSH, PSA, GFR, HGMP, CMP, FERR #### [address] [address] GFR Non- 55 ml/min/1.73sqm Normal [facility] ([place]) Comment on above: Result Comment: GFR Population [...] TSH, PSA, GFR, HGMP, CMP, FERR #### [address] [address] CMPon 07-16-2023 Albumin Level 3.6 G/dL Normal 3.2-4.8 [facility] ([place]) Comment on above: Performed By: #### L IPID, FES, TSH, PSA, GFR, HGMP, CMP, FERR #### [address] [address] Albumin/Globulin [Mass ratio] 1.7 {ratio} High 0.9-1.6 [facility] ([place]) Comment on above: Performed By: #### L IPID, FES, TSH, PSA, GFR, HGMP, CMP, FERR #### [place] [id number] ALP [Catalytic activity/Vol] 85 U/L Normal 38-126 [facility] ([place]) Comment on above: Performed By: #### L IPID, FES, TSH, PSA, GFR, HGMP, CMP, FERR #### [address] [address] ALT [Catalytic activity/Vol] 18 U/L Normal 12-55 [facility] ([place]) Comment on above: Performed By: #### L IPID, FES, TSH, PSA, GFR, HGMP, CMP, FERR #### [place] [id number] AST [Catalytic activity/Vol] 20 U/L Normal 8-34 [facility] ([place]) Comment on above: Performed By: #### L IPID, FES, TSH, PSA, GFR, HGMP, CMP, FERR #### [place] [id number] Bili Total 0.70 mg/dL Normal 0.20-1.20 [facility] ([place]) Comment on above: Result Comment: Use of this assay is not recommended for patients undergoing treatment with eltrombopag due to the potential for falsely elevated results. Performed By: #### L IPID, FES, TSH, PSA, GFR, HGMP, CMP, FERR #### [place] [id number] BUN/Creatinine Ratio 16.8 ratio Normal 10.0-22.0 [facility] ([place]) Comment on above: Performed By: #### L IPID, FES, TSH, PSA, GFR, HGMP, CMP, FERR #### [address] [address] Calcium [Mass/Vol] 9.1 mg/dL Normal 8.7-10.4 [facility] ([place]) Comment on above: Performed By: #### L IPID, FES, TSH, PSA, GFR, HGMP, CMP, FERR #### [address] [address] Chloride [Moles/Vol] 106 mmol/L Normal 98-110 [facility] ([place]) Comment on above: Performed By: #### L IPID, FES, TSH, PSA, GFR, HGMP, CMP, FERR #### [address] [address] CO2 [Moles/Vol] 32 mmol/L Normal 22-32 [facility] ([place]) Comment on above: Performed By: #### L IPID, FES, TSH, PSA, GFR, HGMP, CMP, FERR #### [place] [address] Creatinine [Mass/Vol] 1.25 mg/dL Normal 0.60-1.40 [facility] ([place]) Comment on above: Performed By: #### L IPID, FES, TSH, PSA, GFR, HGMP, CMP, FERR #### [place] [address] Electrolyte Balance 5.0 mEq/L Normal 4.0-15.0 [facility] ([place]) Comment on above: Performed By: #### L IPID, FES, TSH, PSA, GFR, HGMP, CMP, FERR #### [place] [id number] Globulin 2.1 G/dL Normal 1.5-3.8 [facility] ([place]) Comment on above: Performed By: #### L IPID, FES, TSH, PSA, GFR, HGMP, CMP, FERR #### [place] [id number] Glucose [Mass/Vol] 82 mg/dL Normal 82-115 [facility] ([place]) Comment on above: Performed By: #### L IPID, FES, TSH, PSA, GFR, HGMP, CMP, FERR #### [address] [address] Potassium [Moles/Vol] 3.7 mmol/L Normal 3.5-5.0 [facility] ([place]) Comment on above: Performed By: #### L IPID, FES, TSH, PSA, GFR, HGMP, CMP, FERR #### [address] [address] Sodium [Moles/Vol] 143 mmol/L Normal 136-145 [facility] ([place]) Comment on above: Performed By: #### L IPID, FES, TSH, PSA, GFR, HGMP, CMP, FERR #### [address] [address] Total Protein 5.7 G/dL Normal 5.7-8.2 [facility] ([place]) Comment on above: Result Comment: No te - New Reference Range in effect 19 Performed By: #### L IPID, FES, TSH, PSA, GFR, HGMP, CMP, FERR #### [address] [address] Urea nitrogen [Mass/Vol] 21.0 mg/dL Normal 8.0-22.0 [facility] ([place]) Comment on above: Performed By: #### L IPID, FES, TSH, PSA, GFR, HGMP, CMP, FERR #### [address] [address] [place] 07-16-2023 Ferritin [Mass/Vol] 161.9 ng/mL Normal 26.0-388.0 [facility] ([place]) Comment on above: Performed By: #### L IPID, FES, TSH, PSA, GFR, HGMP, CMP, FERR #### [address] [address] FES 07-16-2023 Iron [Mass/Vol] 66 ug/dL Normal 65-175 [facility] ([place]) Comment on above: Performed By: #### L IPID, FES, TSH, PSA, GFR, HGMP, CMP, FERR #### [place] [id number] Iron Sat 25 % Normal [facility] ([place]) Comment on above: Performed By: #### L IPID, FES, TSH, PSA, GFR, HGMP, CMP, FERR #### [place] [id number] TIBC 269 mcg/dL Normal 250-500 [facility] ([place]) Comment on above: Performed By: #### L IPID, FES, TSH, PSA, GFR, HGMP, CMP, FERR #### [place] [address] HGMPon 07-16-2023 Erythrocyte distribution width (RBC) [Ratio] 15.1 % Normal 11.5-15.5 [facility] ([place]) Comment on above: Performed By: #### L IPID, FES, TSH, PSA, GFR, HGMP, CMP, FERR #### [place] [address] Hematocrit (Bld) [Volume fraction] 41.9 % Normal 40.0-52.0 [facility] ([place]) Comment on above: Performed By: #### L IPID, FES, TSH, PSA, GFR, HGMP, CMP, FERR #### [place] [address] Hgb 14.0 G/dL Normal 13.0-17.5 [facility] ([place]) Comment on above: Performed By: #### L IPID, FES, TSH, PSA, GFR, HGMP, CMP, FERR #### [place] [address] MCH (RBC) [Entitic mass] 32.4 pg Normal 27.0-33.0 [facility] ([place]) Comment on above: Performed By: #### L IPID, FES, TSH, PSA, GFR, HGMP, CMP, FERR #### [place] [address] MCHC 33.3 G/dL Normal 32.0-36.0 [facility] ([place]) Comment on above: Performed By: #### L IPID, FES, TSH, PSA, GFR, HGMP, CMP, FERR #### [place] [address] MCV (RBC) [Entitic vol] 97.3 fL Normal 81.0-100.0 [facility] ([place]) Comment on above: Performed By: #### L IPID, FES, TSH, PSA, GFR, HGMP, CMP, FERR #### [place] [address] Platelet 106 10 3/mcL Low 150-450 [facility] ([place]) Comment on above: Performed By: #### L IPID, FES, TSH, PSA, GFR, HGMP, CMP, FERR #### [place] [address] Platelet mean volume (Bld) [Entitic vol] 10.3 fL Normal 6.4-10.5 [facility] ([place]) Comment on above: Performed By: #### L IPID, FES, TSH, PSA, GFR, HGMP, CMP, FERR #### [place] [address] RBC 4.31 10 6/mcL Low 4.50-6.00 [facility] ([place]) Comment on above: Performed By: #### L IPID, FES, TSH, PSA, GFR, HGMP, CMP, FERR #### [place] [address] WBC 5.3 10 3/mcL Normal 4.5-10.8 [facility] ([place]) Comment on above: Performed By: #### L IPID, FES, TSH, PSA, GFR, HGMP, CMP, FERR #### [place] [address] LIPIDon 07-16-2023 Cholesterol [Mass/Vol] 140 mg/dL Normal 50-199 [facility] ([place]) Comment on above: Result Comment: Chol esterol Reference Interval: Less than 200 Desirable 200-239 Borderline high risk 240 and above High risk Performed By: #### L IPID, FES, TSH, PSA, GFR, HGMP, CMP, FERR ####[place] [address] Cholesterol in HDL [Mass/Vol] 59 mg/dL Normal 40-59 [facility] ([place]) Comment on above: Performed By: #### L IPID, FES, TSH, PSA, GFR, HGMP, CMP, FERR ####[address] [address] Cholesterol in LDL [Mass/Vol] 64 mg/dL Normal 0-129 [facility] ([place]) Comment on above: Performed By: #### L IPID, FES, TSH, PSA, GFR, HGMP, CMP, FERR ####[address] [address] Triglyceride [Mass/Vol] 86 mg/dL Normal 3-149 [facility] ([place]) Comment on above: Performed By: #### L IPID, FES, TSH, PSA, GFR, HGMP, CMP, FERR ####[place] [address] PSAon 07-16-2023 Prostate Specific Antigen 2.43 ng/mL Normal 0.02-4.00 [facility] ([place]) Comment on above: Result Comment: Darlene ent results determined by assays using different manufacturers for methods may not be comparable. Performed By: #### L IPID, FES, TSH, PSA, GFR, HGMP, CMP, FERR ####[place] [address] TSHon 07-16-2023 TSH 2.326 mIU/mL Normal 0.550-4.780 [facility] ([place]) Comment on above: Result Comment: No te - New Reference Range in effect 19 Performed By: #### L IPID, FES, TSH, PSA, GFR, HGMP, CMP, FERR ####[address] [address] XR RIBS 2 VIEWS RIGHTon 01-03 XR [...] By: Deangelo Crawford MD Electronically signed By Deangelo Crawford MD Dictated Date: 01/14/2023 8:54:39 AM Prelim Date: 01/14/2023 8:56:13 AM Sign Date: 01/14/2023 8:56:13 AM Ordering Provider: ENRIQUE CROFT [facility]) XR CHEST 2 VIEWSon 3 XR CHEST [...] 01/12/2023 1:58:18 PM Ordering Provider: ENRIQUE CROFT [facility] ([place]) AMB - Narrative Note-Social Workon 02-14-2022 AMB - Narrative Note-Social Work Discipline and Description: Discipline: Social Work Topic: Travel Reimbursement Insurance Benefit Investigation Description: EVI was consulted by BMT Decoration Checker, Ivelisse Reece, to assist patient in determining if they have a travel benefit associated with their insurance policy. EVI was provided with [facility] BMT department contact: Aleta (p): [phone] to inquire. EVI attempted call to Aleta, without answer. EVI left voicemail requesting callback to discuss. Awaiting callback. Electronic Signatures: Daljit Cameron (EVI) (Signed 14-Feb-2022 13:28) Authored: Discipline and Description Last Updated: 14-Feb-2022 13:28 by Daljit Cameron (EVI) [facility] Clinic Note - Heme Onc-New [...] Zometa: Med (more content not included)... Normal [facility] Clinic Note - Intakeon 01-10 Clinic Note [...] 10-Jan-2022 16:35 by Lisa Noyola (PCNA) Normal [facility] TH MRI CARDIAC W WO CONTRAST FOR MORPH FUNCT AND VALVE DZon 12-20-2021 TH MRI CARDIAC W WO CONTRAST FOR MORPH FUNCT AND VALVE [facility] CMR Report Name: JEANETTE MONREAL : 1940 Scan Date: 2021-12-20 10:07:46 Electronically signed by KenaeboniCristofer 08:20:12 GENERAL INFORMATION HEIGHT: 66.54 in (169.00 cm) WEIGHT: 169.76 lbs (77.00 kgs) BSA: 1.88 m^2 BASELINE HR: 61 BPM SCAN LOCATION: [facility] REFERRING PHYSICIAN: ALEXSANDER WOOTEN ATTENDING PHYSICIAN: ALEXSANDER WOOTEN TECHNOLOGIST: Casey Nunez FELLOWS: Robb Maritnez ACCESSION NUMBER: [id number] ICD10 CODES: E85.81 PATIENT HISTORY: HT: 169.5 CM, WT: 77.5 [id number] 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 Normal [facility] HUNTER PATH REVIEWon 12-01-2021 PATH REVIEW-HUNTER HUANG Normal [facility] Comment on above: Result Comment: By h er/his signature above, the Pathologist listed as making the final interpretation certifies that she/he has personally reviewed this case. Performed By: #### B 2MIC #### [facility] [address] [place] [address] PROTEIN ELECTROPHORESIS + IM MUNOFIXATION, SERUMon 12-01-2021 IMMUNOFIXATION INTERP ABNORMAL Normal [facility] Comment on above: Result Comment: 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 Performed By: #### B 2MIC #### [facility] [address] [place] [address] INTERPRETATION ABNORMAL Normal [facility] Comment on above: Result Comment: Aber rant band detected. See immunofixation. Decrease in polyclonal gamma globulins. Performed By: #### B 2MIC #### [facility] [address] [place] [address] SPE PATH REVIEWon 12-01-2021 PATH REVIEW-COLE ENCINAS Normal [facility] Comment on above: Result Comment: By h er/his signature above, the Pathologist listed as making the final interpretation certifies that she/he has personally reviewed this case. Performed By: #### B 2MIC #### [facility] [address] [place] [address] Clinic Note - Heme Onc Kriss jacoblupilloeboni 11-30-2021 Clinic Note - Heme Onc Scheduling Follow Up Testing Appointment: Test Name(s)MRI Cardiac w/wo contrast Appointment Date & [id number] 10:15 [facility] CommentsNothing to eat or drink 3 hours prior. Please remove all jewelry, metals, piercings and hair clips prior to exam. Arrive at 9:15 am for check-in and registration, with ID, insurance card and face mask. End of Visit Documentation: Clinic Location/Phone Number: Clinic Location/Phone Number: [facility] 1st Floor End Of Visit MU Report Item: Visit Summary given or mailed to patientyes Electronic Signatures: Mari Naik (Rev Cycl Spec) (Signed 30-Nov-2021 09:45) Authored: TESTING (Lab, Radiology, Other) APPOINTMENTS, End of Visit Documentation Last Updated: 30-Nov-2021 09:45 by Mari Naik (Rev Cycl Spec) Normal [facility] Clinic Note - Heme Onc-New [...] kids, a (more content not included)... Normal [facility] KAPPA/LAMBDA FREE LIGHT Kahlil RAVI 11-30-2021 FREE KAPPA/LAMBDA RATIO,S 14.51 High 0.26 - 1.65 [facility] Comment on above: Result Comment: Unde tected [...] laboratory. Performed By: #### K BENJAMIN #### [facility] [address] [place] [address] FREE LAMBDA LIGHT CHAIN,S 0.37 mg/dL Low 0.57 - 2.63 [facility] Comment on above: Performed By: #### Claudette BENJAMIN #### [facility] [address] [place] [address] FREE KAPPA LIGHT CHAINS,S 5.37 mg/dL High 0.33 - 1.94 [facility] Comment on above: Performed By: #### Claudette BENJAMIN #### [facility] [address] [place] [address] PROTEIN ELECTROPHORESIS + IM MUNOFIXATION, SERUMon 11-30-2021 Albumin [Mass/Vol] 4.3 g/dL Normal 3.4 - 5.0 [facility] Comment on above: Performed By: #### B 2MIC #### [facility] [address] [place] [address] ALPHA 1 GLOBULIN 0.3 g/dL Normal 0.2 - 0.6 [facility] Comment on above: Performed By: #### B 2MIC #### [facility] [address] [place] [address] ALPHA 2 GLOBULIN 0.7 g/dL Normal 0.4 - 1.1 [facility] Comment on above: Performed By: #### B 2MIC #### [facility] [address] [place] [address] BETA GLOBULIN 0.6 g/dL Normal 0.5 - 1.2 [facility] Comment on above: Performed By: #### B 2MIC #### [facility] [address] [place] [address] GAMMA GLOBULIN 0.4 g/dL Low 0.5 - 1.4 [facility] Comment on above: Performed By: #### B 2MIC #### [facility] [address] [place] [address] Protein [Mass/Vol] 0.1 g/dL Abnormal Not Detected [facility] Comment on above: Performed By: #### B 2MIC #### [facility] [address] [place] [address] BETA 2 MICROGLOBULINon 11-29 BETA 2 MICROGLOBULIN 2.6 mg/L High 0.7 - 2.2 [facility] Comment on above: Performed By: #### B 2MIC #### [facility] [address] [place] [address] BNPon 11-29-2021 Natriuretic peptide B (Bld) [Mass/Vol] 188 pg/mL High 0 - 99 [facility] Comment on above: Result Comment: . <1 [...] information. Performed By: #### B 2MIC #### [facility] [address] [place] [address] CBC AND DIFFERENTIALon 11-29 % AUTOMATED IMMATURE GRAN 0.6 % Normal 0.0 - 0.9 [facility] Comment on above: Result Comment: Ciarra ture Granulocyte Count (IG) includes promyelocytes, myelocytes and metamyelocytes but does not include bands. Percent differential counts (%) should be interpreted in the context of the absolute cell counts (cells/L). Performed By: #### C BCDF #### [facility] [address] [place] [address] Basophils (Bld) [#/Vol] 0.01 10*3/uL Normal 0.00 - 0.10 [facility] Comment on above: Performed By: #### C BCDF #### [facility] [address] [place] [address] Basophils/100 WBC (Bld) 0.3 % Normal 0.0 - 2.0 [facility] Comment on above: Performed By: #### C BCDF #### [facility] [address] [place] [address] Eosinophils (Bld) [#/Vol] 0.00 10*3/uL Normal 0.00 - 0.40 [facility] Comment on above: Performed By: #### C BCDF #### [facility] [address] [place] [address] Eosinophils/100 WBC (Bld) 0.0 % Normal 0.0 - 6.0 [facility] Comment on above: Performed By: #### C BCDF #### [facility] [address] [place] [address] Erythrocyte distribution width (RBC) [Ratio] 13.8 % Normal 11.5 - 14.5 [facility] Comment on above: Performed By: #### C BCDF #### [facility] [address] [place] [address] Hematocrit (Bld) [Volume fraction] 40.9 % Low 41.0 - 52.0 [facility] Comment on above: Performed By: #### C BCDF #### [facility] [address] [place] [address] Hemoglobin (Bld) [Mass/Vol] 13.3 g/dL Low 13.5 - 17.5 [facility] Comment on above: Performed By: #### C BCDF #### [facility] [address] [place] [address] Lymphocytes (Bld) [#/Vol] 0.20 10*3/uL Low 0.80 - 3.00 [facility] Comment on above: Performed By: #### C BCDF #### [facility] [address] [place] [address] Lymphocytes/100 WBC (Bld) 5.6 % Normal 13.0 - 44.0 [facility] Comment on above: Performed By: #### C BCDF #### [facility] [address] [place] [address] MCHC (RBC) [Mass/Vol] 32.5 g/dL Normal 32.0 - 36.0 [facility] Comment on above: Performed By: #### C BCDF #### [facility] [address] [place] [address] MCV (RBC) [Entitic vol] 99 fL Normal 80 - 100 [facility] Comment on above: Performed By: #### C BCDF #### [facility] [address] [place] [address] Monocytes (Bld) [#/Vol] 0.04 10*3/uL Low 0.05 - 0.80 [facility] Comment on above: Performed By: #### C BCDF #### [facility] [address] [place] [address] Monocytes/100 WBC (Bld) 1.1 % Normal 2.0 - 10.0 [facility] Comment on above: Performed By: #### C BCDF #### [facility] [address] [place] [address] Neutrophils (Bld) [#/Vol] 3.30 10*3/uL Normal 1.60 - 5.50 [facility] Comment on above: Performed By: #### C BCDF #### [facility] [address] [place] [address] Neutrophils/100 WBC (Bld) 92.4 % Normal 40.0 - 80.0 [facility] Comment on above: Performed By: #### C BCDF #### [facility] [address] [place] [address] NUCLEATED RBC 0.0 /100 WBC Normal 0.0-0.0 [facility] Comment on above: Performed By: #### C BCDF #### [facility] [address] [place] [address] Platelets (Bld) [#/Vol] 184 10*3/uL Normal 150 - 450 [facility] Comment on above: Performed By: #### C BCDF #### [facility] [address] [place] [address] RBC 4.13 x10E12/L Low 4.50 - 5.90 [facility] Comment on above: Performed By: #### C BCDF #### [facility] [address] [place] [address] WBC (Bld) [#/Vol] 3.6 10*3/uL Low 4.4 - 11.3 [facility] Comment on above: Performed By: #### C BCDF #### [facility] [address] [place] [address] COMPREHENSIVE PANELon 2021 Albumin [Mass/Vol] 4.7 g/dL Normal 3.4 - 5.0 [facility] Comment on above: Performed By: #### C MP #### [facility] [address] [place] [address] ALP [Catalytic activity/Vol] 80 U/L Normal 33 - 136 [facility] Comment on above: Performed By: #### C MP #### [facility] [address] [place] [address] ALT [Catalytic activity/Vol] 30 U/L Normal 10 - 52 [facility] Comment on above: Result Comment: Darlene ents treated with Sulfasalazine may generate falsely decreased results for ALT. Performed By: #### C MP #### [facility] [address] [place] [address] Anion gap [Moles/Vol] 10 mmol/L Normal 10 - 20 [facility] Comment on above: Performed By: #### C MP #### [facility] [address] [place] [address] AST [Catalytic activity/Vol] 15 U/L Normal 9 - 39 [facility] Comment on above: Performed By: #### C MP #### [facility] [address] [place] [address] Bilirubin [Mass/Vol] 0.6 mg/dL Normal 0.0 - 1.2 [facility] Comment on above: Performed By: #### C MP #### [facility] [address] [place] [address] Calcium [Mass/Vol] 9.5 mg/dL Normal 8.6 - 10.6 [facility] Comment on above: Performed By: #### C MP #### [facility] [address] [place] [address] Chloride [Moles/Vol] 103 mmol/L Normal 98 - 107 [facility] Comment on above: Performed By: #### C MP #### [facility] [address] [place] [address] Creatinine [Mass/Vol] 1.00 mg/dL Normal 0.50 - 1.30 [facility] Comment on above: Performed By: #### C MP #### [facility] [address] [place] [address] GFR/1.73 sq M.predicted among non-blacks MDRD (S/P/Bld) [Vol rate/Area] 76 mL/min/{1.73_m2} Normal >90 [facility] Comment on above: Result Comment: CALC ULATIONS OF ESTIMATED GFR ARE PERFORMED USING THE 2020 CKD-EPI STUDY REFIT EQUATION WITHOUT THE RACE VARIABLE FOR THE IDMS-TRACEABLE CREATININE METHODS. https://jasn.asnjournals.org/content//ASN.39833 20166 Performed By: #### C MP #### [place] [address] [place] [address] Glucose [Mass/Vol] 159 mg/dL High 74 - 99 [facility] Comment on above: Performed By: #### C MP #### [facility] [address] [place] [address] HCO3 (Bld) [Moles/Vol] 31 mmol/L Normal 21 - 32 [facility] Comment on above: Performed By: #### C MP #### [facility] [address] [place] [address] Potassium [Moles/Vol] 4.7 mmol/L Normal 3.5 - 5.3 [facility] Comment on above: Performed By: #### C MP #### [facility] [address] [place] [address] Protein [Mass/Vol] 6.3 g/dL Low 6.4 - 8.2 [facility] Comment on above: Performed By: #### C MP #### [facility] [address] [place] [address] Performed By: #### B 2MIC #### [facility] [address] [place] [address] Sodium [Moles/Vol] 139 mmol/L Normal 136 - 145 [facility] Comment on above: Performed By: #### C MP #### [facility] [address] [place] [address] Urea nitrogen [Mass/Vol] 21 mg/dL Normal 6 - 23 [facility] Comment on above: Performed By: #### C MP #### [facility] [address] [place] [address] Clinic Note - Intakeon 11-29 Clinic Note [...] (kg/m2)26.9 kg/M2 BSA (m2)1.91 M2 Nursing Verification [id number] Nursing Verification Height in cm169.5 centimeter(s) Nursing [...] patient using an assistive deviceno Adv Dir: [facility] Violence: Are you or have you been threatened or abused physically,emotionally or sexually abused by anyoneno Do you feel UNSAFE going back to the place you are livingno Depression: Past 2 wks: Dag[place] down, depressed or hopelessno Past 2 wks: [place] little interest/pleasure doing thingsno Any Thoughts of [...] 01-Dec-2021 08:31 by Simba Sharma (RN) Normal [facility] FERRITINon 11-29-2021 FERRITIN 449 ug/L High 20 - 300 [facility] Comment on above: Performed By: #### F ERRI #### [facility] [address] [place] [address] FOLATE, SERUMon 11-29-2021 Folate [Mass/Vol] ng/mL Normal >5.0 [facility] Comment on above: Result Comment: Low <3.4 Borderline 3.4-5.0 Normal >5.0 . Biotin interference may cause falsely elevated results. Patients taking a Biotin dose of up to 5 mg/day should refrain from taking Biotin for 24 hours before sample collection. Providers may contact their local laboratory for further information. Performed By: #### F ERRI #### [facility] [address] [place] [address] HEMOGLOBIN A1Con 11-29-2021 Glucose [Mass/Vol] 126 mg/dL Normal [facility] Comment on above: Performed By: #### B 2MIC #### [facility] [address] [place] [address] HbA1c (Bld) [Mass fraction] 6.0 % Abnormal [facility] Comment on above: Result Comment: Diag nosis of Diabetes-Adults Non-Diabetic: < or = 5.6% Increased risk for developing diabetes: 5.7-6.4% Diagnostic of diabetes: > or = 6.5% . Monitoring of Diabetes Age (y) Therapeutic Goal (%) Adults: >18 <7.0 Pediatrics: 13-18 <7.5 7-12 <8.0 0- 6 7.5-8.5 [employer]. Diabetes Care 33(S1), Mar 2009. Performed By: #### B 2MIC #### [facility] [address] [place] [address] IMMUNOGLOBULINS (G,A,M)on IgA [Mass/Vol] 26 mg/dL Low 70 - 400 [facility] Comment on above: Result Comment: MONO CLONAL PROTEINS MAY CAUSE FALSELY LOW RESULTS IN THIS ASSAY. SERUM PROTEIN ELECTROPHORESIS SHOULD BE DONE THE FIRST TEST TO EVALUATE MONOCLONAL GAMMOPATHY. Performed By: #### F ERRI #### [facility] [address] [place] [address] IgM [Mass/Vol] 21 mg/dL Low 40 - 230 [facility] Comment on above: Result Comment: MONO CLONAL PROTEINS MAY CAUSE FALSELY LOW RESULTS IN THIS ASSAY. SERUM PROTEIN ELECTROPHORESIS SHOULD BE DONE THE FIRST TEST TO EVALUATE MONOCLONAL GAMMOPATHY. Performed By: #### F ERRI #### [facility] [address] [place] [address] IgG [Mass/Vol] 437 mg/dL Low 700 - 1600 [facility] Comment on above: Result Comment: MONO CLONAL PROTEINS MAY CAUSE FALSELY LOW RESULTS IN THIS ASSAY. SERUM PROTEIN ELECTROPHORESIS SHOULD BE DONE THE FIRST TEST TO EVALUATE MONOCLONAL GAMMOPATHY. Performed By: #### F ERRI #### [facility] [address] [place] [address] LDHon 11-29-2021 LDH 155 U/L Normal 84 - 246 [facility] Comment on above: Performed By: #### L DH #### [facility] [address] [place] [address] THYROXINE,FREEon 11-29-2021 THYROXINE,FREE 1.13 ng/dL Normal 0.78 - 1.48 [facility] Comment on above: Result Comment: Thyr oxine Free testing is performed using different testing methodology at [facility] than at [facility]. Direct result comparisons should only be made within the same method. Performed By: #### T 4FRE #### [facility] [address] [place] TSHon 11-29-2021 TSH Qn 0.74 m[IU]/L Normal 0.44 - 3.98 [facility] Comment on above: Result Comment: TSH testing is performed using different testing methodology at [facility] than at [facility]. Direct result comparisons should only be made within the same method. Performed By: #### T SH2 #### [facility] [address] [place] URIC ACIDon 11-29-2021 Urate [Mass/Vol] 4.4 mg/dL Normal 4.0 - 7.5 [facility] Comment on above: Result Comment: Birgit puncture immediately after or during the administration of Metamizole may lead to falsely low results. Testing should be performed immediately prior to Metamizole dosing. Performed By: #### U ARI #### [facility] [address] [place] [address] VITAMIN D, 25-HYDROXYon 11-04 VITAMIN D, 25-HYDROXY 53 ng/mL Normal [facility] Comment on above: Result Comment: . DEFICIENCY: < 20 NG/ML INSUFFICIENCY: 20-29 NG/ML SUFFICIENCY: 30-100 NG/ML THIS ASSAY ACCURATELY QUANTIFIES THE SUM OF VITAMIN D3, 25-HYDROXY AND VIT D2,25-HYDROXY. Performed By: #### V TDOH #### [facility] [address] [place] [id number] [place] FLANK WO IVCONon 11-26-19 [facility] Nurse Navigator-eric strong diagnosison 11-16-2021 Oncology [...] Updated: 16-Nov-2021 13:08 by Jaylyn Metzger) Normal [facility] IMMUNOGLOBULINS GAMon 2021 IgA [Mass/Vol] 15 mg/dL Low 70-400 [facility] Comment on above: Order Comment: Elma shanks Type: BLOOD SPECIMEN Ordering Facility: [facility] Address: [address] [place], [place] [id number] Performed By: #### S ROBERT #### [facility] CLIA [id number] [address] [facility] [address] [address] [place] IgG [Mass/Vol] 377 mg/dL Low 700-1600 [facility] Comment on above: Order Comment: Speci men Type: BLOOD SPECIMEN Ordering Facility: [facility] Address: [address] [place] [address] Performed By: #### S ERIMM #### [facility] CLIA [id number] [address] [place] [address] [place] IgM [Mass/Vol] 10 mg/dL Low 40-230 [facility] Comment on above: Order Comment: Elma shanks Type: BLOOD SPECIMEN Ordering Facility: [facility] Address: [address] [place] [address] Performed By: #### S ERIMM #### [facility] CLIA [id number] [address] [place] [address] [place] KAPPA/BARAJAS,FREE,SERon 2021 Immunoglobulin light chains.kappa.free (S) [Mass/Vol] 1620.7 mg/L High 3.3-19.4 [facility] Comment on above: Order Comment: Elma shanks Type: BLOOD SPECIMEN Ordering Facility: [facility] Address: [address] [place] [address] Performed By: #### K LFRS #### [facility] CLIA [id number] [address] [place] [address] [place] Immunoglobulin light chains.kappa/Immunoglo bulin light chains.lambda (S) [Mass ratio] 279.43 High 0.26-1.65 [facility] Comment on above: Order Comment: Elma shanks Type: BLOOD SPECIMEN Ordering Facility: [facility] Address: [address] [place] [address] Performed By: #### K LFRS #### [facility] CLIA [id number] [address] [place] [address] [place] Immunoglobulin light chains.lambda.free [Mass/Vol] 5.8 mg/L Normal 5.7-26.3 [facility] Comment on above: Order Comment: Elma shanks Type: BLOOD SPECIMEN Ordering Facility: [facility] Address: [address] [place] [address] Performed By: #### K LFRS #### [facility] CLIA [id number] [address] [place] [address] [place] PROTEIN ELECTROPHORESIS SERU M (P)on 11-08-2021 Albumin [Mass/Vol] 3.60 g/dL Normal 3.37-4.23 [facility] Comment on above: Order Comment: Speci men Type: BLOOD SPECIMEN Ordering Facility: [facility] Address: [address] [place] [address] Performed By: #### L [id number] #### [facility] CLIA [id number] [address] [place] [address] [place] Alpha 1 globulin Elph [Mass/Vol] 0.18 g/dL Normal 0.18-0.31 [facility] Comment on above: Order Comment: Speci men Type: BLOOD SPECIMEN Ordering Facility: [facility] Address: [address] [place] [address] Performed By: #### L [id number] #### [facility] CLIA [id number] [address] [place] [address] [place] Alpha 2 globulin Elph [Mass/Vol] 0.54 g/dL Normal 0.52-0.97 [facility] Comment on above: Order Comment: Speci men Type: BLOOD SPECIMEN Ordering Facility: [facility] Address: [address] [place] [address] Performed By: #### L [id number] #### [facility] CLIA [id number] [address] [place] [address] [place] Beta globulin Elph [Mass/Vol] 0.63 g/dL Low 0.84-1.36 [facility] Comment on above: Order Comment: Speci men Type: BLOOD SPECIMEN Ordering Facility: [facility] Address: [address] [place] [address] Performed By: #### L [id number] #### [facility] CLIA [id number] [address] [place] [address] [place] Gamma globulin Elph (Body fld) [Mass fraction] 0.35 g/dL Low 0.70-1.44 [facility] Comment on above: Order Comment: Elma shanks Type: BLOOD SPECIMEN Ordering Facility: [facility] Address: [address] [facility] [place] [address] Performed By: #### L [id number] #### [facility] CLIA [id number] [address] [place] [address] [place] INTERPRETATION COMMENT FOR PROTEIN ELECTROPHORESIS Hypogammaglobulinemia is present, which can be seen in the setting of monoclonal gammopathy. If clinically indicated, monoclonal protein analysis and serum free light chain analysis are suggested to evaluate further for monoclonal gammopathy. Normal [facility] Comment on above: Order Comment: Elma shanks Type: BLOOD SPECIMEN Ordering Facility: [facility] Address: [address] [place] [address] Performed By: #### L [id number] #### [facility] CLIA [id number] [address] [place] [address] [place] M-PROTEIN LOCATION Normal [facility] Comment on above: Order Comment: Elma shanks Type: BLOOD SPECIMEN Ordering Facility: [facility] Address: [facility] [place] [address] Result Comment: Not Applicable. Performed By: #### L [id number] #### [facility] CLIA [id number] [address] [place] [address] [place] Protein Fractions [Interp] No definitive M protein is identified on protein electrophoresis. Normal No definitive M protein is identified on protein electrophor esis. [facility] Comment on above: Order Comment: Elma shanks Type: BLOOD SPECIMEN Ordering Facility: [facility] Address: [facility] [place] [address] Performed By: #### L [id number] #### [facility] CLIA [id number] [address] [place] [address] [place] Protein.monoclonal Elph [Mass/Vol] 0.00 g/dL Normal <=0.00 [facility] Comment on above: Order Comment: Speci men Type: BLOOD SPECIMEN Ordering Facility: [facility] Address: [address] [place] [address] Performed By: #### L [id number] #### [facility] CLIA [id number] [address] [place] [address] [place] SPE STAFF REVIEW Reviewed by Leon Jett M.D. [facility] Comment on above: Order Comment: Speci men Type: BLOOD SPECIMEN Ordering Facility: [facility] Address: [address] [place] [address] Performed By: #### L [id number] #### [facility] CLIA [id number] [address] [place] [address] [place] Prot SerPl-mCncon 11-08-2021 Protein [Mass/Vol] 5.3 g/dL Low 6.0-8.5 [facility] Comment on above: Order Comment: Speci men Type: BLOOD SPECIMEN Ordering Facility: [facility] Address: [facility] [place] [address] Performed By: #### 2 885-2, 3084-1 #### [facility] CLIA [id number] [address] [place] [address] [place] TYPE + SCREENon 11-08-2021 ABO B [facility] Comment on above: Order Comment: Speci men Type: BLOOD SPECIMEN Ordering Facility: [facility] Address: [address] [place] [address] Performed By: #### T SCR, PRDARA #### [facility] CLIA [id number] [address] [place] [address] [place] HISTORICAL AB SCR STATUS Negative Normal [facility] Comment on above: Order Comment: Speci men Type: BLOOD SPECIMEN Ordering Facility: [facility] Address: [address] [place] [address] Performed By: #### T SCR, PRDARA #### [facility] CLIA [id number] [address] [place] [address] Rh Nom (Bld) Positive Normal [facility] Comment on above: Order Comment: Speci men Type: BLOOD SPECIMEN Ordering Facility: [facility] Address: [address] [place] [address] Performed By: #### T SCR, PRDARA #### [facility] CLIA [id number] [address] [place] [address] TYPE AND SCREEN EXPIRATION 11/11/2021 23:59 Normal [facility] Comment on above: Order Comment: Speci men Type: BLOOD SPECIMEN Ordering Facility: [facility] Address: [address] [place] [address] Performed By: #### T SCR, PRDARA #### [facility] CLIA [id number] [address] [place] [address] Urate SerPl-mCncon 2 Urate [Mass/Vol] 3.7 mg/dL Normal 2.6-6.0 [facility] Comment on above: Order Comment: Speci men Type: BLOOD SPECIMEN Ordering Facility: [facility] Address: [address] [place] [address] Result Comment: Darlene ents receiving Metamizole prior to venipuncture, may have falsely depressed results. Slight Hemolysis, Result may be affected. Performed By: #### 2 885-2, 3084-1 #### [facility] CLIA [id number] [address] [place] [address] Urate SerPl-mCncon 2 Urate [Mass/Vol] 5.6 mg/dL Normal 2.6-6.0 [facility] Comment on above: Order Comment: Speci men Type: BLOOD SPECIMEN Ordering Facility: [facility] Address: [address] [place] [address] Result Comment: Darlene ents receiving Metamizole prior to venipuncture, may have falsely depressed results. Performed By: #### 3 084-1 #### [facility] CLIA [id number] [address] [place] [address] [place] Prot Ur-mCncon 10-18-2021 Protein (U) [Mass/Vol] 91 mg/dL High 1-14 [facility] Comment on above: Order Comment: Speci men Type: URINE SPECIMEN Ordering Facility: [facility] Address: [address] [place] [address] Result Comment: Samp les containing Amikacin, Gentamicin, Kanamycin, Tobramycin, and Neomycin Sulfate may cause falsely increased [employer] UCFP assay results. Performed By: #### 2 888-6 #### [facility] CLIA [id number] [address] [place] [address] [place] URINE PROTEIN ELECTROPHORESI S RANDOM (P)on 10-18-2021 Albumin Elph (U) [Mass fraction] 2.98 % Normal [facility] Comment on above: Order Comment: Speci men Type: URINE SPECIMEN Ordering Facility: [facility] Address: [address] [place] [address] Performed By: #### L [id number] #### [facility] CLIA [id number] [address] [place] [address] [place] Alpha 1 globulin Elph (U) [Mass fraction] 0.51 % Normal [facility] Comment on above: Order Comment: Speci men Type: URINE SPECIMEN Ordering Facility: [facility] Address: [address] [place] [address] Performed By: #### L [id number] #### [facility] CLIA [id number] [address] [place] [address] [place] Alpha 2 globulin Elph (U) [Mass fraction] 3.65 % Normal [facility] Comment on above: Order Comment: Speci men Type: URINE SPECIMEN Ordering Facility: [facility] Address: [address] [place] [address] [address] Performed By: #### L [id number] #### [facility] CLIA [id number] [address] [place] [address] [place] Beta globulin Elph (U) [Mass fraction] 44.10 % Normal [facility] Comment on above: Order Comment: Speci men Type: URINE SPECIMEN Ordering Facility: [facility] Address: [address] [place] [address] Performed By: #### L [id number] #### [facility] CLIA [id number] [facility] [place] [address] [place] Gamma globulin Elph (U) [Mass fraction] 48.76 % Normal [facility] Comment on above: Order Comment: Speci men Type: URINE SPECIMEN Ordering Facility: [facility] Address: [address] [place] [address] Performed By: #### L [id number] #### [facility] CLIA [id number] [facility] [place] [address] [place] INTERPRETATION COMMENT FOR PROTEIN ELECTROPHORESIS Recommend monoclonal protein analysis to further characterize the M protein. Normal [facility] Comment on above: Order Comment: Speci men Type: URINE SPECIMEN Ordering Facility: [facility] Address: [address] [place] [address] Performed By: #### L [id number] #### [facility] CLIA [id number] [address] [place] [id number] [place] Protein Fractions Elph Nick (U) [Interp] An M protein is identified on protein electrophoresis. Abnormal No definitive M protein is identified on protein electrophor esis. [facility] Comment on above: Order Comment: Speci men Type: URINE SPECIMEN Ordering Facility: [facility] Address: [address] [place] [address] Performed By: #### L [id number] #### [facility] CLIA [id number] [address] [place], [place] [id number] [place] STAFF REVIEW (URINE ELECTRO) Reviewed by Raman Haque MD, Ph.D ([id number]) [facility] Comment on above: Order Comment: Speci men Type: URINE SPECIMEN Ordering Facility: [facility] Address: [address] [place] [address] Performed By: #### L [id number] #### [facility] CLIA [id number] [address] [place] [address] [place] FREE KAPANDLAM, Son 08-11-19 22 FREE KIA/VELÁZQUEZ, S 433.92 High 0.26-1.65 [facility] Comment on above: Performed By: #### L 500.73661, L500.77021, L500.03497, L500.18439 #### [facility] [address] [place] [address] FREE KAPANDLAM, Son 08-10-19 22 FREE KAPPA 1562.10 mg/L High 3.3-19.4 [facility] Comment on above: Performed By: #### L 500.75404, L500.25358, L500.57085, L500.54166 #### [facility] [address] [place] [address] 616[address] FREE LAMBDA 3.60 mg/L Low 5.7-26.3 [facility] Comment on above: Performed By: #### L 500.08135, L500.27568, L500.50822, L500.54833 #### [facility] [address] [place] [address] 199[address] IFEon 08-09-2021 IGA QUANT 21 mg/dL Low 61-437 [facility] Comment on above: Result Comment: Resu lt confirmed on concentration. Performed By: #### L 500.31003, L500.03115, L500.90594, L500.17913 #### [facility] [place] [address] IGG QUANT 442 mg/dL Low 603-1613 [facility] Comment on above: Performed By: #### L 500.67206, L500.45182, L500.13725, L500.54624 #### [facility] [address] [place] [address] IGM QUANT 12 mg/dL Low 15-143 [facility] Comment on above: Result Comment: Resu lt confirmed on concentration. Performed By: #### L 500.36276, L500.45803, L500.63744, L500.57975 #### [facility] [address] [place] [address] SIFE INTERP High () [facility] Comment on above: Result Comment: Immu nofixation reveals the presence of monoclonal free [place] light chain. Suggest serum FLC quantitation and/or urine Immunofixation. Performed By: #### L 500.32942, L500.81654, L500.79168, L500.21980 #### [facility] [address] [place] [address] PROT ELECTROon 08-09-2021 Albumin [Mass/Vol] 3.5 g/dL Normal 2.9-4.4 [facility] Comment on above: Performed By: #### L 500.49777, L500.76834, L500.39896, L500.68594 #### [facility] [address] [place], [place] [address] Albumin/Globulin [Mass ratio] 1.8 {ratio} High 0.7-1.7 [facility] Comment on above: Performed By: #### L 500.53247, L500.82932, L500.85666, L500.76822 #### [facility] [place] [address] BETA GLOBULIN 0.7 g/dL Normal 0.7-1.3 [facility] Comment on above: Performed By: #### L 500.82370, L500.19358, L500.00897, L500.86250 #### [facility] [address] [place] [address] GAMMA GLOBULIN 0.4 g/dL Normal 0.4-1.8 [facility] Comment on above: Performed By: #### L 500.62133, L500.99200, L500.11691, L500.07519 #### [facility] [address] [place] [address] Globulin (S) [Mass/Vol] 2.0 g/dL Low 2.2-3.9 [facility] Comment on above: Performed By: #### L 500.25806, L500.96181, L500.42613, L500.66066 #### [facility] [address] [place] [address] Globulin (S) [Mass/Vol] 0.2 g/dL Normal 0.0-0.4 [facility] Comment on above: Performed By: #### L 500.67914, L500.75218, L500.36496, L500.00985 #### [facility] [address] [place] [address] Globulin (S) [Mass/Vol] 0.7 g/dL Normal 0.4-1.0 [facility] Comment on above: Performed By: #### L 500.15022, L500.56659, L500.98708, L500.39828 #### [facility] [address] [place] [address] INTERPRETATION Comment: Normal () [facility] Comment on above: Result Comment: SPE shows decreased total protein Performed By: #### L 500.29075, L500.56431, L500.39932, L500.75375 #### [facility] [address] [place] [address] M-SPIKE Not Observed Normal Not Observed [facility] Comment on above: Performed By: #### L 500.73300, L500.45588, L500.48870, L500.07109 #### [facility] [address] [place] [address] NOTE: Normal () [facility] Comment on above: Result Comment: Prot ein electrophoresis scan will follow via computer, mail, or adaptive physical educator delivery. Performed By: #### L 500.40257, L500.67380, L500.52033, L500.04064 #### [facility] [place] [address] Protein [Mass/Vol] 5.5 g/dL Low 6.0-8.5 [facility] Comment on above: Performed By: #### L 500.21536, L500.31097, L500.42953, L500.18541 #### [facility] [place] [address] B-2 MICROGLOBon 08-06-2021 B-2 MICROGLOB 2.4 mg/L Normal 0.6-2.4 [facility] Comment on above: Result Comment: Siem [facility] Immulite 2000 Immunochemiluminometric assay (ICMA) Values obtained with different assay methods or kits cannot be used interchangeably. Results cannot be interpreted as absolute evidence of the presence or absence of malignant disease. Performed At: [facility] [id number] [place] [id number] Performed By: #### L 550.50323 #### [id number] [place] [address] LABORATORYOrdered By: Danny Hamilton on 07-12-2021 Calcium [...] [Moles/Vol] 4 mmol/L Low 5-16 [facility] Comment on above: Performed By: #### L 500.26333, L500.16842, L500.64757, L500.81195 #### [facility] [address] [place] [address] Calcium [Mass/Vol] 10.1 mg/dL Normal 8.5-10.5 [facility] Comment on above: Result Comment: NOTE NEW NORMAL RANGE DUE TO REAGENT CHANGE Performed By: #### L 500.65442, L500.92173, L500.68886, L500.37943 #### [facility] [place] [address] Chloride [Moles/Vol] 104 mmol/L Normal 98-107 [facility] Comment on above: Performed By: #### L 500.47278, L500.39225, L500.93747, L500.68598 #### [facility] [address] [place] [address] CO2 [Moles/Vol] 32.0 mmol/L Normal 21-32 [facility] Comment on above: Performed By: #### L 500.40001, L500.44198, L500.81255, L500.66677 #### [facility] [address] [place] [address] Creatinine [Mass/Vol] 1.39 mg/dL Normal 0.5-1.4 [facility] Comment on above: Result Comment: NOTE NEW NORMAL RANGE DUE TO REAGENT CHANGE Patients receiving either N-Acetylcysteine (NAC) or Metamizole prior to venipuncture, may have falsely depressed results. Performed By: #### L 500.94899, L500.07763, L500.24371, L500.02278 #### [facility] [address] [place] [address] Glucose [Mass/Vol] 86 mg/dL Normal 70-100 [facility] Comment on above: Result Comment: 70-1 00- Normal Fasting; 100-125 Impaired Fasting; greater than 126 on more than one result- Diabetes. ADA guidelines. Results may be falsely elevated after the administration of Sulfapyridine. Results may be falsely depressed after the administration of Sulfasalazine. Performed By: #### L 500.76199, L500.80146, L500.04270, L500.99286 #### [facility] [place] [address] Potassium [Moles/Vol] 4.8 mmol/L Normal 3.5-5.1 [facility] Comment on above: Performed By: #### L 500.94915, L500.80830, L500.50460, L500.84207 #### [facility] [address] [place] [address] Sodium [Moles/Vol] 140 mmol/L Normal 136-145 [facility] Comment on above: Performed By: #### L 500.32933, L500.14306, L500.44557, L500.98258 #### [facility] [address] [place] [address] Urea nitrogen [Mass/Vol] 21 mg/dL Normal 7-26 [facility] Comment on above: Performed By: #### L 500.14750, L500.47843, L500.33690, L500.55867 #### [facility] [address] [place] [address] Urea nitrogen/Creatinine [Mass ratio] 15 mg/mg Normal 15-24 [facility] Comment on above: Performed By: #### L 500.89432, L500.50960, L500.00915, L500.03662 #### [facility] [address] [place] [address] GFR ESTon 04-18-2021 IF AMER 60 Normal [facility] Comment on above: Performed By: #### L 500.35628, L500.59487, L500.29228, L500.87480 #### [facility] [address] [place] [address] IF non-AFR AMER 49 Normal [facility] Comment on above: Performed By: #### L 500.69681, L500.03505, L500.94391, L500.91003 #### [facility] [address]# [phone] LABORATORYOrdered By: Jessica Vang on 04-04-2021 Troponin [...] [Moles/Vol] 4 mmol/L Low 5-16 [facility] Comment on above: Performed By: #### L 500.69974, L500.78727, L500.41924, L500.13455 #### [facility] [address] [place] [address] Calcium [Mass/Vol] 9.8 mg/dL Normal 8.5-10.5 [facility] Comment on above: Result Comment: NOTE NEW NORMAL RANGE DUE TO REAGENT CHANGE Performed By: #### L 500.64920, L500.88660, L500.66695, L500.25274 #### [facility] [address] [place] [address] Chloride [Moles/Vol] 105 mmol/L Normal 98-107 [facility] Comment on above: Performed By: #### L 500.68618, L500.32911, L500.48491, L500.00226 #### [facility] [place] [address] CO2 [Moles/Vol] 32.0 mmol/L Normal 21-32 [facility] Comment on above: Performed By: #### L 500.61915, L500.66598, L500.57344, L500.28749 #### [facility] [place] [address] Creatinine [Mass/Vol] 1.57 mg/dL High 0.5-1.4 [facility] Comment on above: Result Comment: NOTE NEW NORMAL RANGE DUE TO REAGENT CHANGE Patients receiving either N-Acetylcysteine (NAC) or Metamizole prior to venipuncture, may have falsely depressed results. Performed By: #### L 500.84622, L500.29858, L500.74549, L500.57434 #### [facility] [place] [address] Glucose [Mass/Vol] 86 mg/dL Normal 70-100 [facility] Comment on above: Result Comment: 70-1 00- Normal Fasting; 100-125 Impaired Fasting; greater than 126 on more than one result- Diabetes. ADA guidelines. Results may be falsely elevated after the administration of Sulfapyridine. Results may be falsely depressed after the administration of Sulfasalazine. Performed By: #### L 500.03942, L500.83362, L500.36978, L500.36481 #### [facility] [place] [address] Potassium [Moles/Vol] 4.5 mmol/L Normal 3.5-5.1 [facility] Comment on above: Result Comment: Slig ht Hemolysis, Result may be affected. Performed By: #### L 500.94857, L500.33677, L500.33411, L500.62973 #### [facility] [address] [place] [address] Sodium [Moles/Vol] 141 mmol/L Normal 136-145 [facility] Comment on above: Performed By: #### L 500.86819, L500.68606, L500.45499, L500.60398 #### [facility] [address] [place] [address] Urea nitrogen [Mass/Vol] 23 mg/dL Normal 7-26 [facility] Comment on above: Performed By: #### L 500.93580, L500.36618, L500.80350, L500.12076 #### [facility] [address] [place] [address] Urea nitrogen/Creatinine [Mass ratio] 15 mg/mg Normal 15-24 [facility] Comment on above: Performed By: #### L 500.28291, L500.30086, L500.85394, L500.85252 #### [facility] [address] [place] [address] CBC W/DIFFon 03-24-2021 BASO ABS 0.00 K/CU MM Normal 0-0.2 [facility] Comment on above: Performed By: #### L 200.42500 #### [facility] [address] [place] [address] Basophils/100 WBC (Bld) 0.7 % Normal 0-2 [facility] Comment on above: Performed By: #### L 200.80303 #### [facility] [address] [place] [address] EOS ABS 0.10 K/CU MM Normal 0-0.5 [facility] Comment on above: Performed By: #### L 200.37750 #### [facility] [address] [place] [address] Eosinophils/100 WBC (Bld) 1.7 % Normal 0-5 [facility] Comment on above: Performed By: #### L 200.02406 #### [facility] [address] [place] [address] Erythrocyte distribution width (RBC) [Ratio] 15.4 % High 11-14.5 [facility] Comment on above: Performed By: #### L 200.75126 #### [facility] [address] [place] [address] Hematocrit (Bld) [Volume fraction] 39.8 % Low 41.0-53.0 [facility] Comment on above: Performed By: #### L 200.44683 #### [facility] [address] [place] [address] Hemoglobin (Bld) [Mass/Vol] 12.3 g/dL Low 13.5-17.5 [facility] Comment on above: Performed By: #### L 200.50847 #### [facility] [address] [place] [address] IMMATR GRAN ABS 0.00 K/CU MM Normal Less than 2 [facility] Comment on above: Performed By: #### L 200.35500 #### [facility] [address] [place] [address] IMMATURE GRAN % 0.2 % Normal Less than 2 [facility] Comment on above: Performed By: #### L 200.08152 #### [facility] [address] [place] [address] LYMPH ABS 0.90 K/CU MM Normal 0.9-4.4 [facility] Comment on above: Performed By: #### L 200.23437 #### [facility] [address] [place] [address] Lymphocytes/100 WBC (Bld) 23.3 % Normal 20-40 [facility] Comment on above: Performed By: #### L 200.86747 #### [facility] [address] [place] [address] MCHC (RBC) [Mass/Vol] 30.9 g/dL Low 32.0-36.0 [facility] Comment on above: Performed By: #### L 200.41499 #### [facility] [address] [place] [address] MCV (RBC) [Entitic vol] 95.0 fL Normal 80.0-99.0 [facility] Comment on above: Performed By: #### L 200.76058 #### [facility] [address] [place] [address] MONO ABS 0.40 K/CU MM Normal 0.1-1.1 [facility] Comment on above: Performed By: #### L 200.62611 #### [facility] [address] [place] [address] Monocytes/100 WBC (Bld) 10.4 % High 2-10 [facility] Comment on above: Performed By: #### L 200.11147 #### [facility] [address] [place] [address] NEUTROPHIL ABS 2.60 K/CU MM Normal 2.0-8.3 [facility] Comment on above: Performed By: #### L 200.17256 #### [facility] [address] [place] [address] Neutrophils/100 WBC (Bld) 63.7 % Normal 45-75 [facility] Comment on above: Performed By: #### L 200.39656 #### [facility] [address] [place] [address] Nucleated RBC/100 WBC (Bld) [Ratio] 0.0 % Normal Less than 1 [facility] Comment on above: Performed By: #### L 200.12293 #### [facility] [address] [place] [address] Platelet mean volume (Bld) [Entitic vol] 12.5 fL High 9.4-12.4 [facility] Comment on above: Performed By: #### L 200.61671 #### [facility] [address] [place] [address] PLT 176 K/CU MM Normal 150-450 [facility] Comment on above: Performed By: #### L 200.09215 #### [facility] [address] [place], [place] [address] RBC 4.19 M/CU MM Low 4.50-6.00 [facility] Comment on above: Performed By: #### L 200.46528 #### [facility] [address] [place] [address] WBC 4.0 K/CUMM Low 4.5-11.0 [facility] Comment on above: Performed By: #### L 200.49344 #### [facility] [address] [place] [address] Silvia 03-24-2021 FERR 87.6 NG/ML Normal 24.0-388.0 [facility] Comment on above: Performed By: #### L 500.60211, L500.47202, L500.29560, L500.16526 #### [facility] [address] [place] [address] GFR ESTon 03-24-2021 IF AMER 52 Normal [facility] Comment on above: Performed By: #### L 500.82809, L500.99749, L500.62978, L500.61962 #### [facility] [address] [place] [address] IF non-AFR AMER 43 Normal [facility] Comment on above: Performed By: #### L 500.16828, L500.51583, L500.53570, L500.95867 #### [facility] [address] [place] [address] IRON PANELon 03-24-2021 Iron [Mass/Vol] 37 ug/dL Low 65-175 [facility] Comment on above: Result Comment: Darlene ents treated with metal-binding drugs (e.g.deferoxamine) may have depressed iron values, as chelated iron may not properly react in the Siemens iron assay. Performed By: #### L 500.27295, L500.11752, L500.54641, L500.24542 #### [facility] [address] [place] [address] IRON SAT 12 % Low 30-44 [facility] Comment on above: Performed By: #### L 500.11821, L500.17629, L500.43517, L500.36814 #### [facility] [address] [place], [place] [address] TIBC 318 UG/DL Normal 221-481 [facility] Comment on above: Performed By: #### L 500.20585, L500.24141, L500.79233, L500.86767 #### [facility] [address] [place], [place] [address] CNPNon 02-21-2021 CNPN Telephone (UROLAV) ----- JOCELINJEANETTE GLASS ([id number]) 1940 M Date Time Provider Department 02/21/21 [...] Encounter Status:Closed by TESFAYE TESFAYE on 02/21/21 [facility] Rae 02-09-2021 CNPN Telephone (AKURFL) ----- JEANETTE MONREAL ([id number]) 1940 M Date Time Provider Department 02/09/21 [...] Encounter Status:Closed by AURORA VERA on 02/09/21 [facility] LABORATORYOrdered By: Malou Castaneda on [...] 01-20-2021 BILI DIRECT 0.2 MG/DL Normal 0.00-0.36 [facility] Comment on above: Result Comment: NOTE NEW NORMAL RANGE DUE TO REAGENT CHANGE Performed By: #### L 500.60251, L500.52899, L500.05671, L500.16710 #### [facility] [address] [place] [address] CMPon 01-20-2021 Albumin [Mass/Vol] 3.7 g/dL Normal 3.2-5.0 [facility] Comment on above: Performed By: #### L 500.21326, L500.52979, L500.99888, L500.47417 #### [facility] [place] [address] Albumin/Globulin [Mass ratio] 1.8 {ratio} Normal 0.8-2.0 [facility] Comment on above: Performed By: #### L 500.93143, L500.64259, L500.71666, L500.30313 #### [facility] [place] [address] ALK PHOS 87 U/L Normal 45-117 [facility] Comment on above: Performed By: #### L 500.06673, L500.34364, L500.55293, L500.60535 #### [facility] [address] [place] [address] ALT [Catalytic activity/Vol] 15 U/L Normal 13-61 [facility] Comment on above: Result Comment: RESU LTS MAY BE FALSELY DEPRESSED AFTER THE ADMINISTRATION OF SULFASALAZINE AND/OR SULFAPYRIDINE. Performed By: #### L 500.17102, L500.85062, L500.23084, L500.47050 #### [facility] [address] [place] [address] Anion gap [Moles/Vol] 3 mmol/L Low 5-16 [facility] Comment on above: Performed By: #### L 500.79843, L500.73950, L500.26894, L500.85777 #### [facility] [address] [place] [address] AST [Catalytic activity/Vol] 18 U/L Normal 8-34 [facility] Comment on above: Result Comment: RESU LTS MAY BE FALSELY DEPRESSED AFTER THE ADMINISTRATION OF SULFASALAZINE AND/OR SULFAPYRIDINE. Performed By: #### L 500.83989, L500.86424, L500.20674, L500.39943 #### [facility] [address] [place], [place] [address] BILI TOTAL 0.60 MG/DL Normal 0.2-1.0 [facility] Comment on above: Performed By: #### L 500.81256, L500.53117, L500.24462, L500.07980 #### [facility] [place] [address] Calcium [Mass/Vol] 9.4 mg/dL Normal 8.5-10.5 [facility] Comment on above: Result Comment: NOTE NEW NORMAL RANGE DUE TO REAGENT CHANGE Performed By: #### L 500.14122, L500.63541, L500.35471, L500.60438 #### [facility] [address] [place] [address] Chloride [Moles/Vol] 107 mmol/L Normal 98-107 [facility] Comment on above: Performed By: #### L 500.74768, L500.64721, L500.20181, L500.34355 #### [facility] [address] [place] [address] CO2 [Moles/Vol] 32.0 mmol/L Normal 21-32 [facility] Comment on above: Performed By: #### L 500.79753, L500.40333, L500.72278, L500.64805 #### [facility] [address] [place] [address] Creatinine [Mass/Vol] 1.17 mg/dL Normal 0.5-1.4 [facility] Comment on above: Result Comment: NOTE NEW NORMAL RANGE DUE TO REAGENT CHANGE Patients receiving either N-Acetylcysteine (NAC) or Metamizole prior to venipuncture, may have falsely depressed results. Performed By: #### L 500.64608, L500.16291, L500.27877, L500.88735 #### [facility] [address] [place] [address] Globulin (S) [Mass/Vol] 2.0 g/dL Low 2.2-4.2 [facility] Comment on above: Performed By: #### L 500.86018, L500.92200, L500.34996, L500.56297 #### [facility] [address] [place] [address] Glucose [Mass/Vol] 69 mg/dL Low 70-100 [facility] Comment on above: Result Comment: 70-1 00- Normal Fasting; 100-125 Impaired Fasting; greater than 126 on more than one result- Diabetes. ADA guidelines. Results may be falsely elevated after the administration of Sulfapyridine. Results may be falsely depressed after the administration of Sulfasalazine. Performed By: #### L 500.73987, L500.15403, L500.67424, L500.26354 #### [facility] [address] [place] [address] Potassium [Moles/Vol] 4.5 mmol/L Normal 3.5-5.1 [facility] Comment on above: Performed By: #### L 500.20216, L500.79768, L500.44197, L500.05590 #### [facility] [address] [place] [address] Protein [Mass/Vol] 5.7 g/dL Low 6.0-8.5 [facility] Comment on above: Performed By: #### L 500.54546, L500.59105, L500.21611, L500.68167 #### [facility] [address] [place] [address] Sodium [Moles/Vol] 142 mmol/L Normal 136-145 [facility] Comment on above: Performed By: #### L 500.95819, L500.03587, L500.49873, L500.21777 #### [facility] [address] [place] [address] Urea nitrogen [Mass/Vol] 21 mg/dL Normal 7-26 [facility] Comment on above: Performed By: #### L 500.42117, L500.84666, L500.06290, L500.78356 #### [facility] [address] [place] [address] Urea nitrogen/Creatinine [Mass ratio] 18 mg/mg Normal 15-24 [facility] Comment on above: Performed By: #### L 500.62760, L500.21221, L500.60041, L500.93079 #### [facility] [address] [place] [address] GFR ESTon 01-20-2021 IF AMER Greater than 60 Normal [facility] Comment on above: Performed By: #### L 500.81917, L500.92010, L500.79357, L500.96953 #### [facility] [address] [place] [address] IF non-AFR AMER 60 Normal [facility] Comment on above: Performed By: #### L 500.90015, L500.89630, L500.90608, L500.13034 #### [facility] [address] [place] [address] US KIDNEY/BLADDERon 01-05-20 21 US KIDNEY/BLADDER * [...] layering dependently. Negative hydronephrosis or solid mass. Senior Sales Operations Manager: DANIELITO Transcribe Date/Time: Jan 04 2021 12:12P Dictated by : BALJINDER PHILLIPS MD This examination was interpreted and the report reviewed and electronically signed by: BALJINDER PHILLIPS MD on Jan 04 2021 12:18PM EST [id number] Normal [facility] XR ABDOMEN 1V SUPINEon 01-04 XR ABDOMEN [...] which limits evaluation. Bilateral nephrolithiasis as detailed.. Senior Sales Operations Manager: DANIELITO Transcribe Date/Time: Nov 2 2021 12:10P Dictated by : BALJINDER PHILLIPS MD This examination was interpreted and the report reviewed and electronically signed by: BALJINDER PHILLIPS MD on Jan 04 2021 12:12PM EST [id number] Normal [facility] CNOVon 12-28-2020 CNOV Office Visit (URFMOB ) ----- JEANETTE MONREAL JR ([id number]) 1940 M Date Time Provider Department 12/28/20 11:45 AM TESFAYE TESFAYE During your visit today, we recorded the following information about you: Pulse Blood pressure 63/minute 161/74 Tesfaye Tesfaye MD 12/28/2020 11:54 AM Signed [facility] ESTABLISHED PATIENT [...] 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 Boston - Lithotripsy [facility] 02/10/16: Dr. Ruma Reyes in [place], [place] - Lithotripsy 06/24/20: [facility] 07/23/20: [facility] - lithotripsy DOES [...] PSA 24 hour urine test URINALYSIS: Specific [place], Ur Date Value Ref Range Status 08/26/2020 [...] - Nephr (more content not included)... Normal [facility] SO VIT B12on 10-27-2020 Cobalamin (Vitamin B12) [Mass/Vol] 1693 pg/mL High 232-1245 [facility] Comment on above: Result Comment: Perf ormed At: CB [facility] [id number] [place], [place] [id number] Ezequiel Echeverria PhD [id number] Performed By: #### L 500.39345, L500.10113, L500.69352 #### [facility] [address] [place] [address] #### L500.64390 #### [facility] [address] [place] [address] CBCon 10-25-2020 Erythrocyte distribution width (RBC) [Ratio] 13.6 % Normal 11-14.5 [facility] Comment on above: Performed By: #### L 200.36519 #### [facility] [address] [place] [address] Hematocrit (Bld) [Volume fraction] 46.8 % Normal 41.0-53.0 [facility] Comment on above: Performed By: #### L 200.50243 #### [facility] [address] [place] [address] Hemoglobin (Bld) [Mass/Vol] 14.6 g/dL Normal 13.5-17.5 [facility] Comment on above: Performed By: #### L 200.72308 #### [facility] [address] [place] [address] MCHC (RBC) [Mass/Vol] 31.2 g/dL Low 32.0-36.0 [facility] Comment on above: Performed By: #### L 200.59642 #### [facility] [address] [place] [address] MCV (RBC) [Entitic vol] 98.9 fL Normal 80.0-99.0 [facility] Comment on above: Performed By: #### L 200.25027 #### [facility] [address] [place] [address] Nucleated RBC/100 WBC (Bld) [Ratio] 0.0 % Normal Less than 1 [facility] Comment on above: Performed By: #### L 200.53468 #### [facility] [address] [place], [place] [id number] Platelet mean volume (Bld) [Entitic vol] 13.0 fL High 9.4-12.4 [facility] Comment on above: Performed By: #### L 200.66785 #### [facility] [address] [place] [address] PLT 121 K/CU MM Low 150-450 [facility] Comment on above: Result Comment: Conf haritha by slide estimate. Performed By: #### L 200.49515 #### [facility] [address] [place] [address] RBC 4.73 M/CU MM Normal 4.50-6.00 [facility] Comment on above: Performed By: #### L 200.05209 #### [facility] [address] [place] [address] WBC 5.6 K/CUMM Normal 4.5-11.0 [facility] Comment on above: Performed By: #### L 200.16917 #### [facility] [address] [place] [address] Silvia 10-25-2020 FERR 51.8 NG/ML Normal 24.0-388.0 [facility] Comment on above: Performed By: #### L 500.23339, L500.90423, L500.10968 #### [facility] [address] [place] [address] #### L500.37818 #### [address] [address] FOLIC ACIDon 10-25-2020 FOLIC ACID 37.24 NG/ML Normal >3.0 [facility] Comment on above: Performed By: #### L 500.08554, L500.17828, L500.43140, L500.29835 #### [facility] [address] [place] [address] IRON PANELon 10-25-2020 Iron [Mass/Vol] 50 ug/dL Low 65-175 [facility] Comment on above: Result Comment: Darlene ents treated with metal-binding drugs (e.g.deferoxamine) may have depressed iron values, as chelated iron may not properly react in the Siemens iron assay. Performed By: #### L 500.60482, L500.57960, L500.88374 #### [facility] [address] [place] [address] #### L500.87218 #### [facility] [address] [address] IRON SAT 15 % Low 30-44 [facility] Comment on above: Performed By: #### L 500.79728, L500.00938, L500.20560 #### [facility] [address] [place] [address] #### L500.54244 #### [facility] [address] [address] TIBC 326 UG/DL Normal 221-481 [facility] Comment on above: Performed By: #### L 500.82683, L500.98110, L500.63450 #### [facility] [address] [place] [address] #### L500.35876 #### [facility] [address] [address] CNOVon 10-05-2020 CNOV Office Visit (URFMOB ) ----- JEANETTE MONREAL JR ([id number]) 1940 M Date Time Provider Department 10/05/20 11:45 AM TESFAYE TESFAYE During your visit today, we recorded the following information about you: Pulse Blood pressure 64/minute 162/80 Tesfaye Tesfaye MD 10/05/2020 12:20 PM Signed [facility] ESTABLISHED PATIENT REASON FOR VISIT: Follow up for Nephrolithiasis HPI: 80 year old male who is being seen for kidney stones and BPH 2016: Dr. Boston - Lithotripsy [facility] 02/10/16: Dr. Ruma Reyes in [place], [place] - Lithotripsy 06/24/20: [facility] 07/23/20: [facility] - lithotripsy DOES [...] LABS: 24 hour urine test URINALYSIS: Specific [place], Ur Date Value Ref Range Status 08/26/2020 [...] - Nephrolithias (more content not included)... Normal [facility] CT FLANK WO IVCONon 09-16-19 CT FLANK WO IVCON * * *Final Report* * * DATE OF EXAM: Sep 15 2020 8:39AM [facility] 0529 - CT FLANK WO IVCON [...] Tissues: No acute abnormality. Lower thorax: Unremarkable. 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 IMPRESSION: MULTIPLE [...] be communicated with the ordering provider via [employer] staff message or phone message by [employer] within 2 business days of report finalization. Algorithms for management of incidental imaging findings can be found on the [facility] Intranet Sharepoint site at: http://spo.ccf.org/docume ntation/[email or web address] [email or web address]%20Findi ngs%20at%20Imaging/Forms/ AllItems.aspx Senior Sales Operations Manager: DANIELITO Transcribe Date/Time: Sep 15 2020 8:53A Dictated by : MAGUE LANE MD This examination was interpreted and the report reviewed and electronically signed by: MAGUE LANE MD on Sep 15 2020 9:06AM EST [id number] ACTIONABLE Invalid Interpretation Code [facility] CNOVon 08-26-2020 CNOV Office Visit (UROLMN ) ----- JEANETTE MONREAL ([id number]) 1940 M Date Time Provider Department 08/26/20 10:15 AM TESFAYE TESFAYE During your visit today, we recorded the following information about you: Temperature Pulse Blood pressure Weight 98.2 degrees 69/minute 148/73 84.3 kg Tesfaye Tesfaye MD 08/26/2020 11:[address] [facility] NEW [...] stones. BPH 2016: Dr. Boston - Lithotripsy [facility] 02/10/16: Dr. Ruma Reyes in [place], [place] - Lithotripsy 06/24/20: [facility] DOES NOT KNOW IF [...] No results found for: PSA URINALYSIS: Specific [place], Ur Date Value Ref Range Status 08/26/2020 [...] for abdominal (more content not included)... Normal [facility] Urinalysison 08-26-2020 Bilirubin, Urine Negative Normal Negative [facility] Comment on above: Performed By: #### U A #### [place] [phone] Clarity (U) Clear Normal Clear [facility] Comment on above: Performed By: #### U A #### [place] [phone] Color (U) Light Yellow Critically abnormal Yellow [facility] Comment on above: Performed By: #### U A #### [place] [phone] Comments SEE COMMENT Normal [facility] Comment on above: Result Comment: Micr oscopic not warranted Performed By: #### U A #### [place] [phone] Glucose Ql (U) Negative Normal Negative [facility] Comment on above: Performed By: #### U A #### [place] [phone] Hemoglobin/Blood,Ur Negative Normal Negative [facility] Comment on above: Performed By: #### U A #### [place] [phone] Ketones Ql (U) Negative Normal Negative [facility] Comment on above: Performed By: #### U A #### [facility] [address] [place], [place] [id number] Leukest Negative Normal Negative [facility] Comment on above: Performed By: #### U A #### [facility] [address] [place], [place] [address] Nitrite Ql (U) Negative Normal Negative [facility] Comment on above: Performed By: #### U A #### [id number] [place], [place] [address] pH (U) 5.5 [pH] Normal 5.0-8.0 [facility] Comment on above: Performed By: #### U A #### [address] [address] Protein, Urine 1+ Critically abnormal Negative [facility] Comment on above: Performed By: #### U A #### [id number] [place], [place] [address] Specific [place], Ur 1.023 Normal 1.005-1.030 [place] Comment on above: Performed By: #### U A #### [id number] [place], [place] [address] Urine Abad Comment SEE COMMENT Normal [facility] Comment on above: Result Comment: N/A Performed By: #### U A #### [facility] [address] [place], [place] [address] Urobilinogen (U) [Mass/Vol] Negative Normal Negative [facility] Comment on above: Performed By: #### U A #### [facility] [address] [place], [place] [address] Abdomen Single Viewon 2020 Abdomen Single View [facility] [address] [place] [address] Abdomen Single View MR#: [id number] Acct: [id number] Name: JEANETTE MONREAL Jr. Rep #: [id number] : 1940 M 80 From: Seth rees MD PCP: Care Physician, No Primary Status: REG CLI Study: Abdomen Single View Date of Exam: 07/26/20 Exam# [id number] Ordering Dr: Chandrakant Velez MD STUDY: X-RAY [...] Primary Care Physician; Dr. Chandrakant Velez MD Senior Sales Operations Manager: Signed Normal [facility] Vital Signs Date Time Vital Sign Value Performing Clinician Facility 09-18-2024 13:44-0400 Body temperature 98.7 [degF] Dr. Chandrakant Velez MD Work Phone: [facility] 09-18-2024 13:44-0400 Diastolic blood pressure 80 mm[Hg] Dr. Chandrakant Velez MD Work Phone: [facility] 09-18-2024 13:44-0400 Heart rate 72 /min Dr. Chandrakant Velez MD Work Phone: [facility] 09-18-2024 13:44-0400 Respiratory rate 16 /min Dr. Chandrakant Velez MD Work Phone: [facility] 09-18-2024 13:44-0400 SaO2% (BldA) [Mass fraction] 98 % Dr. Chandrakant Velez MD Work Phone: [facility] 09-18-2024 13:44-0400 Systolic blood pressure 150 mm[Hg] Dr. Chandrakant Velez MD Work Phone: [facility] 09-17-2024 11:00-0400 Body height 172.[address] Chandrakant Velez MD Work Phone: [facility] 09-17-2024 11:00-0400 Body mass index (BMI) [Ratio] 26.2 kg/m2 Dr. Chandrakant Velez MD Work Phone: [facility] 09-17-2024 11:00-0400 Body weight 78.[address] Chandrakant Velez MD Work Phone: [facility] 04-04-2021 23:02-0500 Diastolic blood pressure 75 mm[Hg] ERIN MELENDEZ MD [facility] 04-04-2021 23:02-0500 Heart rate 63 /min ERIN MELENDEZ MD [facility] 04-04-2021 23:02-0500 Respiratory rate 18 /min ERIN MELENDEZ MD [facility] 04-04-2021 23:02-0500 Systolic blood pressure 162 mm[Hg] ERIN MELENDEZ MD [facility] 04-04-2021 22:21-0500 Diastolic blood pressure 96 mm[Hg] ERIN MELENDEZ MD [facility] 04-04-2021 22:21-0500 Heart rate 74 /min ERIN MELENDEZ MD [facility] 04-04-2021 22:21-0500 Respiratory rate 18 /min ERIN MELENDEZ MD [facility] 04-04-2021 22:21-0500 Systolic blood pressure 181 mm[Hg] ERIN MELENDEZ MD [facility] 04-04-2021 21:30-0500 Diastolic blood pressure 68 mm[Hg] ERIN MELENDEZ MD [facility] 04-04-2021 21:30-0500 Heart rate 68 /min ERIN MELENDEZ MD [facility] 04-04-2021 21:30-0500 Respiratory rate 18 /min ERIN MELENDEZ MD [facility] 04-04-2021 21:30-0500 Systolic blood pressure 164 mm[Hg] ERIN MELENDEZ MD [facility] 04-04-2021 20:46-0500 Body temperature 98.6 [degF] ERIN MELENDEZ MD [facility] 04-04-2021 20:46-0500 Heart rate 67 /min ERIN MELENDEZ MD [facility] 02-06-2021 04:02-0500 Body height 175.[address] TORY MUSE MD [facility] 02-06-2021 04:02-0500 Body weight 84.[address] TORY MUSE MD [facility] 02-06-2021 04:02-0500 Body weight 27.37 kg/m2 DR TORY MUSE MD [facility] 02-06-2021 02:25-0500 Diastolic blood pressure 75 mm[Hg] DR TORY MUSE MD [facility] 02-06-2021 02:25-0500 Heart rate 73 /min DR TORY MUSE MD [facility] 02-06-2021 02:25-0500 Respiratory rate 18 /min DR TORY MUSE MD [facility] 02-06-2021 02:25-0500 Systolic blood pressure 141 mm[Hg] DR TORY MUSE MD [facility] 02-06-2021 01:51-0500 Diastolic blood pressure 77 mm[Hg] DR TORY MUSE MD [facility] 02-06-2021 01:51-0500 Systolic blood pressure 162 mm[Hg] DR TORY MUSE MD [facility] 02-06-2021 01:38-0500 Diastolic blood pressure 83 mm[Hg] DR TORY MUSE MD [facility] 02-06-2021 01:38-0500 Heart rate 66 /min DR TORY MUSE MD [facility] 02-06-2021 01:38-0500 Respiratory rate 18 /min DR TORY MUSE MD [facility] 02-06-2021 01:38-0500 Systolic blood pressure 187 mm[Hg] DR TORY MUSE MD [facility] 02-06-2021 01:20-0500 Heart rate 57 /min DR TORY MUSE MD [facility] 02-06-2021 01:20-0500 Respiratory rate 16 /min DR TORY MUSE MD [facility] 02-05-2021 22:52-0500 Body temperature 98.24 [degF] DR TORY MUSE MD [facility] Encounters Encounter Date Encounter Type Care Provider Facility Start: 09-17-2024 End: 09-18-2024 Evaluation and management of inpatient Dr. Chandrakant Velez MD -[facility] 3 Work Phone: Start: 09-16-2024 End: 09-17-2024 Emergency department patient visit CASEY ODEN DO [facility] Start: 07-09-2024 End: 07-09-2024 ambulatory ENRIQUE CONTRERAS Facility: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] Start: 08-16-2023 End: 08-16-2023 ambulatory ENRIQUE CONTRERAS Facility:B Start: 08-16-2023 End: 08-16-2023 Patient encounter procedure ENRIQUE CONTRERAS [facility] Start: 07-31-2023 ambulatory ENRIQUE CONTRERAS Facility: B Start: 07-31-2023 End: 07-31-2023 ambulatory ENRIQUE CONTRERAS Facility:B Start: 07-31-2023 End: 07-31-2023 Patient encounter procedure ENRIQUE CONTRERAS [facility] Start: 07-16-2023 End: 07-20-2023 ambulatory ENRIQUE CONTRERAS Facility:A Start: 07-16-2023 End: 07-20-2023 Encounter for general adult medical examination without abnormal findings ENRIQUE CONTRERAS Facility:A Start: 01-09-2023 End: 01-09-2023 ambulatory ENRIQUE CONTRERAS Facility:B Start: 01-10-2022 ambulatory PCP UNKNOWN Facility:[facility] Start: 12-20-2021 ambulatory PCP UNKNOWN Facility:U Start: 12-02-2021 End: 12-02-2021 Patient encounter procedure ALEXSANDER WOOTEN MD [facility] Start: 11-29-2021 ambulatory PCP UNKNOWN Facility:U Start: 11-25-2021 End: 11-25-2021 Subsequent hospital visit by physician [facility] Work Phone: RADIO [facility] Comment on above: Calculus of ureter [ N20.1] Start: 11-22-2021 End: 11-22-2021 Patient encounter procedure MARTHA MARTELL MD [facility] Start: 11-17-2021 End: 11-17-2021 Patient encounter procedure MARTHA MARTELL MD [facility] Start: 10-19-2021 End: 10-19-2021 Subsequent hospital visit by physician [facility] Comment on above: Calculus of kidney [ N20.0] Start: 09-14-2021 End: 09-14-2021 Patient encounter procedure BERKLEY SHANNON MD [facility] Start: 09-02-2021 End: 09-02-2021 Patient encounter procedure BERKLEY SHANNON MD [facility] Start: 08-11-2021 End: 08-15-2021 Outreach Lab MARTHA MARTELL MD [facility] Start: 08-04-2021 End: 08-04-2021 Subsequent hospital visit by physician Martha Martell MD Work Phone: [facility] Comment on above: D80.1 Start: 07-14-2021 End: 07-14-2021 Patient encounter procedure ENRIQUE CONTRERAS [facility] Start: 07-12-2021 End: 07-12-2021 Patient encounter procedure HENRY MUSE MD [facility] Start: 07-04-2021 End: 07-04-2021 Patient encounter procedure ENRIQUE CONTRERAS [facility] Start: 06-28-2021 End: 06-28-2021 Patient encounter procedure ENRIQUE CONTRERAS [facility] Start: 04-04-2021 End: 04-04-2021 Emergency department patient visit ERIN MELENDEZ MD [facility] Start: 04-04-2021 End: 04-08-2021 Outreach Lab CHANDA L MARY [employer] INS[employer] [facility] Start: 04-01-2021 End: 04-01-2021 Patient encounter procedure CHANDA Myla HERNANDEZ [employer] INS[employer] [facility] Start: 03-30-2021 End: 03-30-2021 Patient encounter procedure CHANDA Lanza MARY [employer]ASS INS[employer] [facility] Start: 03-16-2021 End: 03-16-2021 Patient encounter procedure CHANDA Lanza MARY [employer] INS[employer] [facility] Start: 02-23-2021 End: 02-23-2021 Patient encounter procedure CHANDA HERNANDEZ [employer]ICAL GLASS INSPECT[employer] [facility] Start: 02-05-2021 End: 02-06-2021 Emergency department patient visit DR TORY MUSE MD [facility] Pat Procedures Date Procedure Procedure Detail Performing [...] Speci men Type: BLOOD SPECIMEN Ordering Facility: [facility] Address: [address] [place] [address] Performed By: #### T KULDEEP BLUNT #### [facility] CLIA [id number] [address] [place] [address] [place] Start: 02-10-2021 Coronary artery bypa ss graft CHANDA HERNANDEZ [employer] Start: 02-10-2021 Transesophageal echocardiography CHANDA MARY [employer] Start: 02-07-2021 Cardiac catheterization CHANDA MARY [employer] Comment on above: Multivessel CAD Start: 02-06-2021 Echocardiography CHANDA CASTRO [employer] Comment on above: EF 55-60% Start: 04-29-2019 [...] CABG x 3( Confirmed ) CHANDA HERNANDEZ [employer] Lithotripsy DR TORY LYN MD Plan of Treatment Date Care Activity Detail Author Start: 12-09-2030 Urine microalbumin profile DTaP,Tdap,Td Vaccine (2 - Td or Tdap) [facility] Start: 11-29-2024 Diabetes Screening Diabetes Screening [facility] Start: 09-19-2024 DIABETES SCREEN DIABETES SCREEN [facility] Start: 09-18-2024 Measuring intake and output [facility] Start: 09-18-2024 Patient discharge [facility] Start: 09-18-2024 Removal of urinary catheter [facility] Start: 09-17-2024 Application of intermittent pneumatic compression device [facility] Start: 09-17-2024 Measuring intake and output [facility] Start: 09-17-2024 Irrigation of urinary bladder [facility] Start: 09-17-2024 Admission procedure [facility] Start: 09-17-2024 Assessment of risk of venous thromboembolism [facility] Start: 09-17-2024 Documentation procedure [facility] Start: 09-17-2024 Following clinical pathway protocol [facility] Start: 09-17-2024 Taking patient vital signs [facility] Start: 09-17-2024 Vital signs measurements [facility] Start: 09-17-2024 End: 09-17-2024 [facility] Start: 09-17-2024 Following clinical pathway protocol [facility] Start: 11-04-2023 Covid-19 Vaccine ( season) Covid-19 Vaccine ( season) [facility] Start: 11-04-2023 Influenza vaccination Influenza Vaccine (#1) [facility] Start: 03-05-2023 Advance Directive Discussion Advance Directive Discussion [facility] Start: 11-03-2021 Influenza vaccination [facility] Start: 03-05-2021 ADVANCE DIRECTIVE DISCUSSION ADVANCE DIRECTIVE DISCUSSION [facility] Start: 2016 RSV Vaccine (1 - 1-dose 75+ series) RSV Vaccine (1 - 1-dose 75+ series) [facility] Start: 2006 Pneumococcal Vaccine: 65+ (1 of 1 - PCV) Pneumococcal Vaccine: 65+ (1 of 1 - PCV) [facility] Start: 2006 PNEUMOCOCCAL: 65+ (1 - PCV) PNEUMOCOCCAL: 65+ (1 - PCV) [facility] Start: 2006 zzPNEUMOVAX AGE 65 AND OVER WITH 5YR LOOKBACK (Retired) (#1) zzPNEUMOVAX AGE 65 AND OVER WITH 5YR LOOKBACK (Retired) (#1) [facility] Start: 1991 SHINGRIX VACCINE (1 of 2) SHINGRIX VACCINE (1 of 2) [facility] Start: 1986 DIABETES SCREEN DIABETES SCREEN [facility] Start: 1986 Diabetes Screening Diabetes Screening [facility] Start: 1960 Urine microalbumin profile DTAP,TDAP,TD (1 - Tdap) [facility] Start: 1959 Anxiety Screening Anxiety Screening [facility] Start: 1959 Depression Screening Depression Screening [facility] Start: 1959 Hepatitis B surface antibody level LDL Cholesterol [facility] Start: 1953 Adult depression screening assessment DEPRESSION SCREENING [facility] Start: 1946 COVID-19 VACCINE (#1) COVID-19 VACCINE (#1) [facility] Start: 1941 COVID-19 VACCINE (#1) COVID-19 VACCINE (#1) [facility] Immunizations Immunization Date Immunization Notes Care Provider Fa natanael 11-29-2022 influenza virus vacc ine, unspecified formulation [facility] Work Phone: [facility] Payers Date Payer Category Payer Private Health Insurance [id number] 2021 Private Health Insurance [id number] 2020 Medicare HUMANA MEDICARE HUMANA MEDICARE PPO [id number] 2020-Present [id number] [place] [address] PPO [id number] 2020 Medicare [id number] 2020 Private Health Insurance [id number] 1941 Unknown [id number] 56 1941 Unknown [id number] 56 1941 Unknown [id number] 56 1941 Unknown [id number] [id number] 27 1941 Unknown [id number] [id number] 27 1941 Unknown [id number] [id number] 27 1941 Unknown [id number] [id number] 27 1941 Unknown [id number] 27 1941 Unknown [id number] 27 Social History Date Type Detail Facility Start: 07-26-2020 End: 09-17-2024 Never smoked tobacco (finding) [facility] Sex Assigned At [facility] Start: 10-05-2020 End: 12-07-2021 Tobacco use and exposure Smokeless tobacco non-user [facility] Start: 1940 Sex Assigned At Not on file [facility] Start: 10-14-2021 End: 12-08-2021 Alcohol intake Ex-drinker (finding) [facility] Start: 10-14-2021 History SDOH Alcohol Comment no drinks in 40 years. [facility] Start: 10-09-2021 End: 11-09-2021 Exposure to SARS-CoV-2 (event) Not sure [facility] Start: 08-26-2020 End: 12-08-2021 History of Social function [facility] Start: 08-26-2020 End: 12-08-2021 Tobacco use panel [facility] National Score (1-100), lower number is lower risk Not on file [facility] Tobacco smoking status NHIS Tobacco smoking consumption unknown [facility] Start: 04-12-2005 Sex Male (finding) [facility] Start: 1940 Sex Assigned At Male [facility] Medical Equipment Procedure Code Equipment Code Equipment Origin al Text Equipment Identifier Dates Wyx-Gh-F-Kind Implant - [id number] Start: 12-08-2021 Goals Date Patient Goal Desired Activity /State Functional Status Date Assessment Result Facility 09-18-2024 Functional status Bedrest [facility] Work Phone: Mental Status Date Assessment Result Facility 09-18-2024 Cognitive function Level Of Cons ciousness Awake;Alert;Appropriate [facility] Work Phone: 09-18-2024 Cognitive function Voice/Name [facility] Work Phone: Clinical Notes 08-26-2020 to 09-18-2024 Note Date & Type Note Facility 09-18-2024 Discharge summary [facility] 09-18-2024 Hospital Discharg e instructions Additional Instructions Date of Discharge: 09/18/24 [facility] Work Phone: 09-18-2024 Discharge summary Note Date/Time September 18, 2024 7:30am [facility] Medical Records Department [address] [place] [address] Discharge Summary 09/18/24 0729 MR#: [id number] Acct: [id number] Name: JEANETTE MONREAL Jr. Rep #:[id number] : 1940 84 From: Chandrakant Velez MD PCP: Care Physician,No Primary Status :ADM IN [facility] Prov[facility] Date of Admission: 09/17/24 Date of [...] 87.8 H, Lymph % (Auto) 5.1 L, [place] % (Auto) 6.0, Eos % (Auto) 0.0, [...] Velez MD; No Primary Care Physician~ Signed [facility] Work Phone: 1(510) 987-763007-17-2025 Discharge summary [facility] Medical Records Department [address] [place] [address] Discharge Summary 09/18/24728 MR#: [id number] Acct: [id number] Name: JEANETTE MONREAL JrJesus Rep #:[id number] : 1940 84 From: Chandrakant Velez MD PCP: Care Physician,No Primary Status :ADM IN Location: [place] [address]-1 Providers Date of Admission: 09/17/24 Date of [...] 87.8 H, Lymph % (Auto) 5.[address] L, [place] % (Auto) 6.0, Eos % (Auto) 0.0, [...] Velez MD; No Primary Care Physician~ Signed [facility]07-16-2025 Consult note Author Ethan Hurtado [facility] Note Date/Time September 17, 2024 4:04 pm [facility] Medical Records Department [address] [address] Anesthesia Postop Eval II 09/17/24 1603 MR#: [id number] Acct: [id number] Name: JOCELINJEANETTE Jr. Rep #:[id number] : 1940 84 From: Ethan Hurtado MD PCP: Care Physician,No Primary Status :ADM IN Y Race: C Location: [place] [address] Anesthesia Postop Eval I Sum Postop Eval Completion status Anesthesia document: Postop Eval 1 completed: Yes Anesthesia Postop Eval I Summary Anesthesia Postop Eval I Summary: Anesthesia Postop Eval I: Assessment Summary Airway patent Yes 09/17/24 13:03 SMOKE CONTROL SUPERVISOR.PKEL Spontaneous unlabored Yes 09/17/24 13:03 SMOKE CONTROL SUPERVISOR.PKEL respirations Mental status Awake,Calm 09/17/24 13:03 SMOKE CONTROL SUPERVISOR.PKEL nausea No 09/17/24 13:03 SMOKE CONTROL SUPERVISOR.PKEL Vomiting No 09/17/24 13:03 SMOKE CONTROL SUPERVISOR.PKEL Anesthesia Postop Eval I: Fluid Summary Crystalloid volume administer 800 09/17/24 13:03 SMOKE CONTROL SUPERVISOR.PKEL (ml) Colloids volume administered ( ml) Blood Product volume administered (ml) Total IV fluid infused 800 09/17/24 13:03 SMOKE CONTROL SUPERVISOR.PKEL Anesthesia Postop Eval I: Summary Notes Anesthesia Complication No 09/17/24 13:03 SMOKE CONTROL SUPERVISOR.PKEL Anesthesia Complication Comment: Post-operative progress note Anesthesia: Postop Eval II Evaluation Mental status: Awake and Calm Pain Level: 1 nausea: No Vomiting: No Complications Anesthesia Complication: No 09/17/24 1604 <Electronically signed by Ethan Pappas D> Date _ Ethan Hurtado MD Cosigner Signature: Date CC: ~ Signed [facility] Work Phone: 1(340) 169-511307-16-2025 Consult note [facility] Medical Records Department [address] [place] [address] Anesthesia Postop Eval II 09/17/24 1603 MR#: [id number] Acct: [id number] Name: JOCELINJEANETTE Jr. Rep #:[id number] : 1940 84 From: Ethan Hurtado MD PCP: Care Physician,No Primary Status :ADM IN Y Race: C Location: [place] [address] Anesthesia Postop Eval I Sum Postop Eval Completion status Anesthesia document: Postop Eval 1 completed: Yes Anesthesia Postop Eval I Summary Anesthesia Postop Eval I Summary: Anesthesia Postop Eval I: Assessment Summary Airway patent Yes 09/17/24 13:03 SMOKE CONTROL SUPERVISOR.PKEL Spontaneous unlabored Yes 09/17/24 13:03 SMOKE CONTROL SUPERVISOR.PKEL respirations Mental status Awake,Calm 09/17/24 13:03 SMOKE CONTROL SUPERVISOR.PKEL nausea No 09/17/24 13:03 SMOKE CONTROL SUPERVISOR.PKEL Vomiting No 09/17/24 13:03 SMOKE CONTROL SUPERVISOR.PKEL Anesthesia Postop Eval I: Fluid Summary Crystalloid volume administer 800 09/17/24 13:03 SMOKE CONTROL SUPERVISOR.PKEL (ml) Colloids volume administered ( ml) Blood [...] Ethan Ortega Signature: Date CC: ~ Signed [facility]07-16-2025 Consult note Author Enzo Miller [facility] Note Date/Time September 17, 2024 1:03 pm [facility] Medical Records Department [address] [place] [address] Anesthesia Postop Eval I 09/17/24 1302 MR#: [id number] Acct: [id number] Name: JEANETTE MONREAL Jr. Rep #:[id number] : 1940 84 From: Enzo Miller CRNA PCP: Care Physician,No Primary Status :ADM JEFRY Y Race: C Location: [place] [address] Anesthesia: Postop Eval I Current Vital Signs [...] 09/17/24 1303 <Electronically signed by Enzo maier SMOKE CONTROL SUPERVISOR> Date _ Enzo Sotoigner Signature: Date CC: ~ Signed [facility] Work Phone: 1(962) 499-862007-16-2025 Evaluation note* Diagnosis Onset Date Resolution Status Admit Date Bladder mass acute September 17 025 12:58pm Gross hematuria acute September 12:58pm [facility] Work Phone: 1(734) 930-396407-16-2025 Discharge summary Author Chandrakant Velez [facility] Note Date/Time September 18, 2024 2:28 pm [facility] Medical Records Department [address] [place] [address] Instructions for Home/Discharge Instructions 09/17/24 1253 MR#: [id number] Acct: [id number] Name: JEANETTE MONREAL Rep #:[id number] : 1940 84 From: Chandrakant Velez MD [...] Physician,No Primary [Primary Care Provider] - 09/17/24 6443<Electronically signed by Chandrakant Velez MD>Chandrakant Velez MD CC: No Primary Care Physician ~ Signed [facility] Work Phone: 1(405) 884-434407-16-2025 Consult note Author Ethan Hurtado [facility] Note Date/Time September 17, 2024 11:1 1am [facility] Medical Records Department [address] [place] [address] Pre-Anesthesia Evaluation 09/17/24 1109 MR#: [id number] Acct: [id number] Name: JEANETTE MONREAL Jr. Rep #:[id number] : 1940 84 From: Ethan Hurtado MD PCP: Care Physician,No Primary Status :ADM JEFRY Y Race: C Location: [place] [address] ASA Classification* ASA Classification ASA Classification: 3 [...] I reviewed the patients paper chart from [facility]. Hbg >11 today, will obtain repeat CBC and T&S now. 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 Anesthesia Type Anesthesia Type: General (discussed GA with ETT. Patient consents to blood products. 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: PONV - esters and 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 Female HX of Motion Sickness HX of [...] 09/17/24 11:00 Respiratory Assessment Respiratory Assessment - esters and 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: Respiratory Tract Infection Hx - esters and 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 Hx Respiratory Tract Infection No 09/17/24 09:53 STOP Sleep Apnea STOP Sleep Apnea - esters and 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: STOP Sleep Apnea - esters and 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 Hx Hypertension Yes 09/17/24 08:29 Hx Sleep [...] Tobacco Use History Tobacco Use History - esters and 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: Tobacco Use History - esters and 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 Tobacco Use Smoking Status Never smoker 09/17/24 08:29 Hx Tobacco Use No 09/17/24 08:29 Years Smoking Packs Smoked per Day Smoking Cessation Date was within the last 15 years Hx Smoking Cessation Date Hx Smoking Cessation Counseling Hematologic Medial History Hematologic Hx - esters and 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: 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 Hx of Blood Transfusion Yes 09/17/24 08:29 [...] confused, unrespo /Reproduction History /Reproductive History - esters and 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: /Reproductive Hx- esters and 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 Hx Now No 09/17/24 09:53 Gestational Age (in weeks): EDC: Hx Hx Para Hx Section SAB No 09/17/24 09:53 Active Medications Active Medications: Current Medications Generic Name Dose Route Start Last Admin Trade Name Freq PRN Reason Stop Dose Admin Sodium Chloride 250 mls @ 15 mls/hr 09/17/24 08:31 IV .[id number] PRN Saline Flush Cefazolin Sodium 2 gm/ [...] MD Cosigner Signature: Date CC: ~ Signed [facility] Work Phone: 1(931) 510-561207-16-2025 Consult note [facility] Medical Records Department [address] [facility] [place] [address] Anesthesia Postop Eval I 09/17/24 1302 MR#: [id number] Acct: [id number] Name: JEANETTE MONREAL Jr. 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 Rep #:[id number] : 1940 84 From: Chandrakant Velez MD PCP: Care Physician,No Primary Status :ADM JEFRY Location: [place] [address] Operative Report (Standard) Operative Information Date of Procedure: 09/17/24 Pre-Operative Diagnosis: Gross hematuria bleeding from the bladder Post-Operative Diagnosis: The same, bleeding from large prostate and large bladder stones Surgery/Procedure Performed: Cystoscopy evacuation of blood clots and cauterization of prostatic bleeding and cystolitholapaxy and laser and removal of large bladder stones greater than 3 cm transport aide: No Type of Anesthesia: General RN Documented Start/Stop Times: Operation Date: 09/17/24 10:30 Case Time Into Pre-Op 09/17/24 10:31 Procedure Start Time: 12:29 Procedure Stop Time: 12:54 Select all DRAINS/GRAFTS/IMPLANTS that apply: Drains Drain details: 22 Belgian three-way catheter Estimated Blood Loss: Large Specimen [...] went in the bladder with a 26 Belgian continuous-flow resectoscope once inside the bladder then [...] Velez MD; No Primary Care Physician~ Signed [facility]07-16-2025 History and physical note Author Chandrakant Velez [facility] Note Date/Time September 17, 2024 10:2 6am [facility] Medical Records Department [address] [place] [address] History & Physical Exam 09/17/24 1025 MR#: [id number] Acct: [id number] Name: JEANETTE MONREAL Jr. Rep #:[id number] : 1940 84 From: Chandrakant Velez MD PCP: Care Physician,No Primary Status :ADM JEFRY Location: [place] [address] HPI - General General Date of Admission: 09/17/24 Date of Service: 09/17/24 Chief Complaint: Hemorrhaging bladder mass HPI Narrative JEANETTE MONREAL, is a 84 M who presents to [facility] as a transfer from an outside hospital he been having significant bleeding in the emergency room did not been able to contact the urologist I was called and accepted the patient as a transfer from [facility] going to take him to surgery today to evacuate all the blood clots and 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 Patient is agreeable with the plan because of the ongoing bleeding which then not been able to stop with the catheter. He is n.p.o. and plan for surgery today [facility] Medical History Blood disorder Renal disease Hiatal [...] Velez MD; No Primary Care Physician~ Signed [facility] Work Phone: 1(244) 152-988807-16-2025 Consult note [facility] Medical Records Department [address] [place] [address] Pre-Anesthesia Evaluation 09/17/24 1109 MR#: [id number] Acct: [id number] Name: JEANETTE MONREAL JrJesus Rep #:[id number] : 1940 84 From: Ethan Hurtado MD PCP: Care Physician,No Primary Status :ADM JEFRY Y Race: C Location: [place] [address] ASA Classification* ASA Classification ASA Classification: 3 [...] I reviewed the patients paper chart from [facility]. Hbg >11 today, will obtain repeat CBC and T&S now. 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 Anesthesia Type Anesthesia Type: General (discussed GA with ETT. Patient consents to blood products. 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: PONV - esters and 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 Female HX of Motion Sickness HX of [...] 09/17/24 11:00 Respiratory Assessment Respiratory Assessment - esters and 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: Respiratory Tract Infection Hx - esters and 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 Hx Respiratory Tract Infection No 09/17/24 09:53 STOP Sleep Apnea STOP Sleep Apnea - esters and 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: STOP Sleep Apnea - esters and 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 Hx Hypertension Yes 09/17/24 08:29 Hx Sleep [...] Tobacco Use History Tobacco Use History - esters and 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: Tobacco Use History - esters and 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 Tobacco Use Smoking Status Never smoker 09/17/24 08:29 Hx Tobacco Use No 09/17/24 08:29 Years Smoking Packs Smoked per Day Smoking Cessation Date was within the last 15 years Hx Smoking Cessation Date Hx Smoking Cessation Counseling Hematologic Medial History Hematologic Hx - esters and 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: 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 Hx of Blood Transfusion Yes 09/17/24 08:29 [...] confused, unrespo /Reproduction History /Reproductive History - esters and 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: /Reproductive Hx- esters and 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 Hx Now No 09/17/24 09:53 Gestational Age (in weeks): EDC: Hx Hx Para Hx Section SAB No 09/17/24 09:53 Active Medications Active Medications: Current Medications Generic Name Dose Route Start Last Admin Trade Name Freq PRN Reason Stop Dose Admin Sodium Chloride 250 mls @ 15 mls/hr 09/17/24 08:31 IV .[id number] PRN Saline Flush Cefazolin Sodium 2 gm/ [...] MD Cosigner Signature: Date CC: ~ Signed [facility]07-16-2025 History and physical note [facility] Medical Records Department [address] [place] [address] History & Physical Exam 09/17/24 1025 MR#: [id number] Acct: [id number] Name: JEANETTE MONREAL Jr. Rep #:[id number] : 1940 84 From: Chandrakant Velez MD PCP: Care Physician,No Primary Status :ADM JEFRY [place] [facility] [place] HPI - General General Date of Admission: 09/17/24 Date of Service: 09/17/24 Chief Complaint: Hemorrhaging bladder mass HPI Narrative JEANETTE MONREAL, is a 84 M who presents to [facility] as a transfer from an outside hospital he been having significant bleeding in the emergency room did not been able to contact the urologist I was called and accepted the patient as a transfer from [facility] going to take him to surgery today to evacuate all the blood clots and 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 Patient is agreeable with the plan because of the ongoing bleeding which then not been able to stop with the catheter. He is n.p.o. and plan for surgery today [facility] Medical History Blood disorder Renal disease Hiatal [...] Velez MD; No Primary Care Physician~ Signed [facility]07-16-2025 Note* Exam Date Time Procedure Performing Provider Status 09/17/24 12:[address] Abd/Pelvis w/ IV Contrast Only KWADWO ELIZABETH MD; Auth (Verified) [id number] ORIGINAL EXAMINATION: CT OF THE ABDOMEN AND [...] 09/17/2024 1:07:28 AM Ordering Provider: CASEY ODEN [facility]06-12-2025 Evaluation + Plan note Future Scheduled Tests Laboratory* Basic Metabolic Panel 08/14/24 * Lipid Profile 08/14/24 [facility] 05-07-2025 Note* Exam Date Time Procedure Performing Provider Status 07/09/24 9:25 AM XR Hip 2-3 Views Right DEANGELO PINK DO; Auth (Verified) [id number] ORIGINAL EXAMINATION: 2 XRAY VIEWS OF THE [...] 07/09/2024 4:07:29 PM Ordering Provider: ENRIQUE CROFT [facility]09-26-2024 History of Present illness Narrative * [...] PATIENT PRESENTS WITH AN IMPLANTABLE OR ATTACHED DIRECTOR OF VOLUNTEER SERVICES: No RADIOLOGY DEPARTMENT: Bone Density PERIPHERAL IV DATA: Not applicable SIGNED BY: RT Sonia(Albert) November 29, 2023 8:15 AM documented in [facility]09-26-2024 NoteHNO ID: [id number] Author: YOLANDA VERA RT (R) Service: Radiology [...] PATIENT PRESENTS WITH AN IMPLANTABLE OR ATTACHED DIRECTOR OF VOLUNTEER SERVICES: No RADIOLOGY DEPARTMENT: Bone Density PERIPHERAL IV DATA: Not applicable SIGNED BY: RT Sonia(Albert) November 29, 2023 8:[facility] ORIGINAL EXAMINATION: TWO XRAY [...] Sign Date: 08/16/2023 1:28:25 PM Ordering Provider: [facility] Evaluation + Plan note Diagnostic Tests Pending * Protein 24 Hour Urine 12/02/21 * HUNTER (urine) 12/02/21 * .TV Creatinine 12/02/21 Future Scheduled Tests Laboratory* Lipid Profile 09/21/21 Radiology* CT Abdomen and Pelvis w/o contrast 08/25/21 [facility] 09-30-2022 YulianaJEANETTE MONREAL was presented at [...] to bone marrow only. Amyloid typing. Disclaimer [facility] tumor board recommendations represent the consensus opinion of physicians present at a weekly patient care conference. The treating [facility] physician is not always present, and many of the physicians formulating the recommendation have not personally seen or examined the patient under discussion. It is understood that the treating [facility] physician considers the expertise of the Tumor Board Recommendation in formulating his/her plan for the patient. However, in many situations, based on individualized patient considerations, a different plan is determined by the treating physician to be the optimal medical management. Electronic Signatures: Mireya Elkins (PT REG) (Signed 13-Dec-2021 08:53) Authored: Impression, Recommendations, Note, Disclaimer Last Updated: 13-Dec-2021 08:53 by Mireya Elkins (PT REG)[facility]09-23-2022 History of Present illness Narrative* Daljit Garcia [...] 25, 2021 1:39 PM documented in this encounterPremier Health09-15-2022 Note ORIGINAL EXAMINATION: WHOLE BODY PET/CT11/17/2021 10:00 am TECHNIQUE: Intravenous injection of 15.4 mCi Fluorine-18 fluorodeoxyglucose (FDG) was administered, followed by acquisition of positron emission tomographic images from the skull vertex to the feet, with concurrent low-dose CT for attenuation correction and anatomic localization utilizing a combined PET/CT scanner. PET images were fused with low-dose CT at the workstation. Dose [id number]-[id number] time:70 min Serum glucose level: 81 mg/dl [...] Sign Date: 11/17/2021 11:23:40 AM [facility]ing [facility]15-2022 Note ORIGINAL EXAMINATION: WHOLE BODY PET/CT11/17/2021 10:00 am TECHNIQUE: Intravenous injection of 15.4 mCi Fluorine-18 fluorodeoxyglucose (FDG) was administered, followed by acquisition of positron emission tomographic images from the skull vertex to the feet, with concurrent low-dose CT for attenuation correction and anatomic localization utilizing a combined PET/CT scanner. PET images were fused with low-dose CT at the workstation. Dose [id number]-[id number] time:70 min Serum glucose level: 81 mg/dl [...] Sign Date: 11/17/2021 11:23:40 AM Ordering Provider: [facility]08-17-2022 Miscellaneous Notes* Allied Health - Ryan Muse [...] 19, 2021 12:26 PM documented in this encounter[facility]07-20-2022 Evaluation + Plan note Future Scheduled Tests Laboratory* Lipid Profile 09/21/21 Radiology* CT Abdomen and Pelvis w/o contrast 08/25/21 [facility] 07-13-2022 Note ORIGINAL EXAMINATION: CT OF [...] Sign Date: 09/14/2021 1:09:30 PM Ordering Provider: [facility]07-13-2022 Note ORIGINAL EXAMINATION: CT OF THE ABDOMEN [...] Sign Date: 09/14/2021 1:09:30 PM Ordering Provider: [place] [address]02-12-2022 Evaluation + Plan note Diagnostic Tests Pending * Protein Electrophoresis Urine 07/14/21 * HUNTER (urine) 07/14/21 [facility] 05-10-2022 Evaluation + Plan note Diagnostic Tests Pending * HUNTER (serum) 07/12/21 [facility] 02-05-2022 Evaluation + Plan note Future Scheduled Tests Laboratory* Basic Metabolic Panel 04/09/21 [facility] 02-01-2022 Hospital Discharge instructions Patient Education [...] Swelling, pain or redness in one leg [id number] [employer]. [address] [place] [address]. All rights reserved. This information is not intended as a substitute for professional medical care. Always follow yourhealthcare professional's instructions. Follow Up Care 04/04/2021 20:34:58 With:BENNETT LI MD, Thoracic Service, Vascular Service Address: [phone] When:2-4 days With:ENRIQUE CROFT Address: [facility] [place] [address]- When:2-4 days [facility] 11-11-2021 NoteHNO ID: [id number] Author: Tesfaye Tesfaye MD Service: ? Author Type: Physician Type: Progress Notes Filed: 01/13/2021 9:45 AM Note Text: [facility] EST[facility] [...] 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 Boston - Lithotripsy [facility] 02/10/16: Dr. Ruma Reyes in [place], [place] - Lithotripsy 06/24/20: [facility] 07/23/20: [facility] - lithotripsy DOES [...] No results found for: PSA URINALYSIS: Specific [place], Ur Date Value Ref Range Status 08/26/2020 [...] This is likely technic (more content not included)...[facility]11-02-2021 NoteHNO ID: [id number] Author: RT Alvaro(R) Service: Nuclear Medicine Author [...] BY: RT Alvaro(R) January 04, 2021 11:40 [facility]10-26-2021 NoteHNO ID: [id number] Author: Tesfaye Tesfaye MD Service: ? Author Type: Physician Type: Progress Notes Filed: 12/28/2020 11:54 AM Note Text: [facility] ESTABLISHED PATIENT [...] 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 Boston - Lithotripsy [facility] 02/10/16: Dr. Ruma Reyes in [place], [place] - Lithotripsy 06/24/20: [facility] DOES NOT KNOW IF [...] PSA 24 hour urine test URINALYSIS: Specific [place], Ur Date Value Ref Range Status 08/26/2020 [...] on file No fam (more content not included)...[facility] NoteHNO ID: [id number] Author: Tesfaye Tesfaye MD Service: ? Author Type: Physician Type: Progress Notes Filed: 10/05/2020 12:20 PM Note Text: [facility] ESTABLISHED PATIENT REASON FOR VISIT: Follow up for Nephrolithiasis HPI: 80 year old male who is being seen for kidney stones and BPH 2016: Dr. Boston - Lithotripsy [facility] 02/10/16: Dr. Ruma Reyes in [place], [place] - Lithotripsy 06/24/20: [facility] 07/23/20: Dr. Velez, [place] [facility] - lithotripsy DOES NOT KNOW IF [...] LABS: 24 hour urine test URINALYSIS: Specific [place], Ur Date Value Ref Range Status 08/26/2020 [...] file. no family history (more content not included)...[id number] Note HNO ID: [id number] Author: Eduardo Jones Service: ? Author Type: Msws Type: Progress Notes Filed: 09/15/2020 12:07 PM [...] BY: Eduardo Rodriguez September 15, 2020 12:07 [facility]06-24-2021 NotePatient Outreach (UROLMN) JEANETTE MONREAL ([id number]) 1940 M Date Time Provider Department 08/26/20 TESFAYE TESFAYE During your visit today, we recorded the following information about you: Allergies As of Date: 08/26/2020 Noted Allergy Reaction IVP DYE (IODINE) 08/26/2020 16 - Unknown SIMVASTATIN 08/26/2020 16 - Unknown Date Reviewed: 08/26/2020 Reviewed by: Layla Figueredo MA - Fully Assessed Visit Diagnosis:Screening for genitourinary condition [Z13.89] Order(s):URINALYSIS, DIPSTICK ONLY [SQUA] Order #: [id number]. #:[id number] Prescriptions as of 08/26/2020 Sig: TAMSULOSIN 0.4 [...] (None) Encounter Status:Closed by ELY SINGLETON on 08/30/20[facility] 08-26-2020 NoteHNO ID: [id number] Author: Tesfaye Tesfaye MD Service: ? Author Type: Physician Type: Progress Notes Filed: 08/26/2020 11:02 AM Note Text: [facility] NEW PATIENT [...] stones. BPH 2016: Dr. Boston - Lithotripsy [facility] 02/10/16: Dr. Ruma Reyes in [place], [place] - Lithotripsy 06/24/20: [facility] 07/23/20: Dr. Velez, [place] [facility] - lithotripsy DOES NOT KNOW IF [...] No results found for: PSA URINALYSIS: Specific [place], Ur Date Value Ref Range Status 08/26/2020 [...] lesions, rash, and i (more content not included)...[facility] No data available for this section [facility] Evaluation + Plan note Future Appointments Appointment Date:03/09/2021 02:45:00 PM Scheduled Provider: Location:[facility] Appointment Type:CV OV Hospital Follow Up Appointment Date:03/16/2021 09:30:00 AM Scheduled Provider:CHANDA HERNANDEZ [facility] Appointment Type:CTS OV Post Op Follow Up Future Scheduled Tests Radiology* XR Chest 2 Views (PA & Lateral) 03/16/21 [facility] evaluation + Plan note Future Appointments Appointment Date:03/23/2021 12:00:00 PM Scheduled Provider: Location:[facility] Appointment Type:CR Phase 2 Initial Appointment Date:03/30/2021 09:30:00 AM Scheduled Provider:CHANDA HERNANDEZ [facility] Appointment Type:CTS OV Post Op Follow Up Future Scheduled Tests Laboratory* Basic Metabolic Panel 03/30/21 * Basic Metabolic Panel 04/09/21 Radiology* XR Chest 2 Views (PA & Lateral) 03/30/21 [facility] evaluation + Plan note Future Appointments Appointment Date:04/01/2021 09:30:00 AM Scheduled Provider: Location:[facility] Appointment Type:VL - Venous US/Doppler One Leg (for DVT) Future Scheduled Tests Laboratory* Basic Metabolic Panel 04/09/21 [facility] Evaluation + Plan note Future Appointments Appointment Date:04/07/2021 01:30:00 PM Scheduled Provider:CHANDA HERNANDEZ [facility] Appointment Type:CTS OV Post Op Follow Up Future Scheduled Tests Laboratory* Basic Metabolic Panel 04/09/21 [facility] evaluation + Plan note Future Appointments Appointment Date:04/06/2021 02:30:00 PM Scheduled Provider:CHANDA HERNANDEZ [facility] Appointment Type:CTS OV Post Op Follow Up Future Scheduled Tests Laboratory* Basic Metabolic Panel 04/09/21 [facility] Evaluation + Plan note Future Appointments Appointment Date:04/13/2021 02:30:00 PM Scheduled Provider:JAMISON AYON Location:[facility] Appointment Type:CV OV Future Scheduled Tests Laboratory* Basic Metabolic Panel 04/09/21 [facility] Evaluation + Plan note Future Appointments Appointment Date:07/01/2021 10:00:00 AM Scheduled Provider: Location:[facility] Appointment Type:VL AO - Venous US/Doppler Both Legs (fo Diagnostic Tests Pending * Protein Electrophoresis Panel 06/28/21 * IgG 06/28/21 * IgA 06/28/21 * IgM 06/28/21 * IgE 06/28/21 * Complete Blood Count 06/28/21 * .Auto Differential 06/28/21 * .Neutro Absolute 06/28/21 Future Scheduled Tests Laboratory* Basic Metabolic Panel 04/09/21 [facility] evaluation + Plan note Future Appointments Appointment Date:09/21/2021 10:30:00 AM Scheduled Provider: Location:[facility] Appointment Type:CV OV Diagnostic Tests Pending * [facility] 08/11/21 [facility] evaluation + Plan note Future Appointments Appointment Date:09/21/2021 10:30:00 AM Scheduled Provider: Location:[facility] Appointment Type:CV OV Future Scheduled Tests Radiology* CT Abdomen and Pelvis w/o contrast 08/25/21 [facility] Evaluation + Plan note Future Appointments Appointment Date:08/21/2023 07:00:00 PM Scheduled Provider: Location:[facility] Appointment Type:SL Home Studies [facility] Evaluation + Plan note Future Appointments Appointment Date:08/14/2024 10:00:00 AM Scheduled Provider:PAT MUSE Location:[facility] Appointment Type:CV OV [facility] Hospital Discharge instructions No data available for this section [facility] Progress note No data available for this section [facility] Reason for referral (narrative)No reason for referral information availableWCherrington Hospital Work Phone: Reason for visit Narrative* Outpatient Procedure (Routine) - Closed Specialty Diagnoses / Procedures Referred By Contjason t Referred To Contact Radiology / RADIO CT SCAN Diagnoses Calculus of ureter CT ABD/PEL WO IV AND ORAL, DX SONNY TO FAX ORDER Procedures CT ABD & PELVIS W/O CONTRAST CT WO ABD1 400 Berkley Shannon MD [address] Scan [facility] [address] [place] [address] Referral ID Status Reason Start Date Expiration Date Visits Re quested Visits Authorized [id number] Closed 11/10/2021 12/10/2021 1 1 [facility] Summary Purpose Family History No Family History [...] you have a Healthcare Pow er of Sediment Remediation Consultant? Yes September 17, 2024 8:29am Name of Medical Power of Sediment Remediation Consultant [place] September 17, 2024 8:29am Chief Complaint [...] section and content) DATE CREATED AUTHOR 08/13/2020 [facility] DATE CREATED AUTHOR AUTHOR'S ORGANIZ ATION 12/29/2020 [facility] DATE CREATED AUTHOR AUTHOR'S ORGANIZ ATION 02/10/2021 [facility] DATE CREATED AUTHOR AUTHOR'S ORGANIZ ATION 05/25/2021 [facility] DATE CREATED AUTHOR AUTHOR'S ORGANIZ ATION 08/16/2021 [facility] Medical [facility] DATE CREATED AUTHOR AUTHOR'S ORGANIZ ATION 11/12/2021 [facility] DATE CREATED AUTHOR AUTHOR'S ORGANIZ ATION 02/15/2022 [facility] DATE CREATED AUTHOR AUTHOR'S ORGANIZ ATION 08/17/2023 [facility] DATE CREATED AUTHOR AUTHOR'S ORGANIZ ATION 07/16/2024 [facility] DATE CREATED AUTHOR AUTHOR'S ORGANIZ ATION 09/11/2024 [facility] Care Team (unrecognized sect ion and content) Invoice Coder Relationship Specialty Start Date End Date Ruiz Miller MD [address] [place] [address] PCP - General 06/11/00 Invoice Coder Relationship Specialty Start Date End Date Ruiz Miller MD [address] [place], [place] [id number] PCP - General 06/11/00 Invoice Coder Relationship Specialty Start Date End Date Ruiz Miller MD [address] [place], [place] [id number] PCP - General 06/11/00 Martha Martell MD [address] [place] [address] Referring Hematology/Oncology 10/28/21 Invoice Coder Relationship Specialty Start Date End Date Enrique Croft PA-C [address] [place] [address] PCP - General Family Medicine 12/08/21 Martha Martell MD [address] [place] [address] Referring Hematology/Oncology 10/28/21 Team Status: Active Member [...] or prosecute any alcohol or drug abuse patient.Prem[facility] HealthIn the event this information is protected by the Federal Confidentiality of Alcohol and Drug Abuse Patient Records regulations: The Federal rules restrict any use of the information to criminally investigate or prosecute any alcohol or drug abuse patient.Premier HealthIn the event this information is protected by the Federal Confidentiality of Alcohol and Drug Abuse Patient Records regulations: The Federal rules restrict any use of the information to criminally investigate or prosecute any alcohol or drug abuse patient.Premier HealthIn the event this information is protected by the Federal Confidentiality of Alcohol and Drug Abuse Patient Records regulations: The Federal rules restrict any use of the information to criminally investigate or prosecute any alcohol or drug abuse patient.Premier HealthIn the event this information is protected by the Federal Confidentiality of Alcohol and Drug Abuse Patient Records regulations: The Federal rules restrict any use of the information to criminally investigate or prosecute any alcohol or drug abuse patient.[facility] Care Team (unrecognized sect ion and content) Care Team Personnel Name: ENRIQUE CROFT Member Role: Primary Care Physician Address: Address: [address] Care Team Related Persons Name: AURORA MONREAL Address: Home [address] [place], [place] [phone] Name: MARY VILLATORO Care Team Personnel Name: ENRIQUE CROFT Member Role: Primary Care Physician Address: Address: [address] Care Team Related Persons Name: JOCELIN, AURORA Address: [address] [phone] Name: MARY VILLATORO Care Team Personnel Name: ENRIQUE CROFT Member Role: Primary Care Physician Address: Address: [address] Care Team Related Persons Name: JOCELIN, AURORA Address: Home [address] [place] [phone] Name: MARY VILLATORO Care Team Personnel Name: ENRIQUE CROFT Member Role: Primary Care Physician Address: Address: [address] Care Team Related Persons Name: AURORA MONREAL Address: Home [address] [place] [phone] Name: MARY VILLATORO Care Team Personnel Name: ENRIQUE CROFT Member Role: Primary Care Physician Address: Address: [address] [place] [address] 100 Primary Care Physician [address] Care Team Related Persons Name: AURORA MONREAL Address: Home [address] [place] [phone] Name: MARY VILLATORO FOR RECORDS PERTAINING TO [...] BE BASED ON THE PRIMARY CLINICAL RECORDS. [employer] [facility]. provides no warranty or guarantee of the accuracy or completeness of information in this document.
[2024-09-19] VITALS: BMI 28.1
[2024-09-19 00:32] VITALS: BP 174/82; PULSE 70; RESP 18; TEMP 36.9; O2SAT 98
[2024-09-19] MEDS: 0.9% Normal Saline (500mL Bag) 500 ML 15 ML IV (00:37)
[2024-09-19 04:32] VITALS: BP 120/49; PULSE 61; RESP 16; TEMP 37; O2SAT 97
--- NOTE | 2024-09-19 06:30 | NURSING ---
cbi bag is still hanging.
--- NOTE | 2024-09-19 07:55 | PCM.HP.STD ---
HPI - General General Date of Admission: 09/18/24 Date of Service: 09/19/24 Chief Complaint: Urinary retention and bleeding HPI Narrative FREDDIE MONREAL, is a 84 M who presents back to the hospital catheter was removed yesterday he was able to urinate but then later in the day it stopped again he does have a very large prostate over 100 g went to the emergency room had a Billy catheter placed he refused to go home so he was admitted will philip continue with low bit of irrigation once the bleeding stops completely probably have to go home with a catheter to follow-up in my office after discharge. [facility] Medical History Blood disorder Renal disease Hiatal hernia History of stress test HTN (hypertension) Heart attack Home Medications ?Medication ?Instructions ?Recorded ?Last Taken ?Type amlodipine 2.5 mg tablet 2.5 mg PO DAILY 09/17/24 09/18/24 History aspirin 81 mg capsule 81 mg PO DAILY 09/17/24 09/15/24 08:00 History Held on 09/19/24. Instructions: MD Ordered carvedilol 6.25 mg tablet 6.25 mg PO BID 09/17/24 09/18/24 History coQ10 (ubiquinol) 200 mg capsule 200 mg PO QHS prostate 09/17/24 09/18/24 History (Active Q) cyanocobalamin (vitamin B-12) 500 500 mcg PO DAILY 09/17/24 09/16/24 History mcg tablet (Vitamin B-12) finasteride 5 mg tablet 5 mg PO DAILY 09/17/24 09/19/24 History folic acid 1 mg tablet 1 mg PO DAILY 09/17/24 09/18/24 History hydrochlorothiazide 12.5 mg tablet 12.5 mg PO DAILY 09/17/24 09/18/24 History loratadine 10 mg tablet 10 mg PO PRN Allergis 09/17/24 09/15/24 History losartan 100 mg tablet 100 mg PO DAILY 09/17/24 09/18/24 History magnesium oxide 400 mg (241.3 mg 400 mg PO DAILY 09/17/24 09/18/24 History magnesium) tablet pravastatin 40 mg tablet 40 mg PO DAILY 09/17/24 09/15/24 22:00 History tamsulosin 0.4 mg capsule 0.4 mg PO DAILY 09/17/24 09/18/24 History terazosin 5 mg capsule 5 mg PO QHS 09/17/24 09/17/24 History turmeric 400 mg capsule 400 mg PO DAILY Prostrate 09/17/24 09/18/24 History Allergy/AdvReac Type Severity Reaction Status Date / Time Iodinated Contrast Media Allergy Severe swelling Verified 09/18/24 20:07 (IVP dye) lips simvastatin Allergy Mild muscle Verified 09/18/24 20:07 aches Surgical History H/O cardiac catheterization Social History Smoking Status: Never smoker Vital Signs Vital Signs Vital Signs: 09/18/24 20:04 09/18/24 21:07 09/18/24 22:23 Temperature 98.6 F 98 F Temperature Source Temporal Oral Pulse Rate 73 71 79 Respiratory Rate 16 18 18 Respiratory Effort Respiratory Depth Respiratory Pattern Blood Pressure 188/92 H 166/70 H 159/64 H Blood Pressure Mean 124 102 95 Blood Pressure Source Blood Pressure Position Blood Pressure Location Pulse Ox 99 97 98 Oxygen Delivery Method Room Air Room Air Room Air 09/18/24 23:00 09/19/24 00:32 09/19/24 01:02 Temperature 98.3 F 98.4 F Temperature Source Oral Pulse Rate 74 70 Respiratory Rate 18 18 Respiratory Effort Normal Respiratory Depth Normal Respiratory Pattern Normal Blood Pressure 155/74 H 174/82 H Blood Pressure Mean 101 112 Blood Pressure Source Monitor Blood Pressure Position Semi-Fowlers Blood Pressure Location Left Arm Pulse Ox 97 98 Oxygen Delivery Method Room Air Room Air 09/19/24 04:32 Temperature 98.6 F Temperature Source Oral Pulse Rate 61 Respiratory Rate 16 Respiratory Effort Respiratory Depth Respiratory Pattern Blood Pressure 120/49 L Blood Pressure Mean 72 Blood Pressure Source Blood Pressure Position Blood Pressure Location Pulse Ox 97 Oxygen Delivery Method Room Air Weight Weight: 84.005 kg Body Mass Index (BMI) 28.1 Physical Exam Const alert and oriented x3 General Appearance: cooperative HEENT normocephalic and head/scalp atraumatic Eyes PERRL and EOMs intact bilaterally Neck supple, no JVD and no carotid bruits Resp normal respiratory effort, normal air movement and clear to auscultation bilaterally Cardio regular rate and no murmurs GI normal to inspection, nondistended, normoactive bowel sounds and soft to palpation Extremity normal capillary refill General Extremity: no tenderness to palpation of joints or extremities; Negative for edema Skin no rashes or lesions noted and no wounds General Skin Exam: no breakdown Neuro CN's II-XII intact bilaterally Psych affect normal Appearance: appropriate Results Lab / Micro Data 09/18/24 21:00 09/18/24 21:00 Labs: Laboratory Results - last 24 hr 09/18/24 21:00: WBC 14.5 H, RBC 3.45 L, Hgb 10.9 L, Hct 32.5 L, MCV 94.2 H, MCH 31.6, MCHC 33.5, RDW Std Deviation 51.2 H, RDW Coeff of Og 14.9 H, Plt Count 108 L, MPV 11.5, Immature Gran % (Auto) 0.600, Neut % (Auto) 82.1 H, Lymph % (Auto) 9.5 L, [place] % (Auto) 7.3, Eos % (Auto) 0.4, Baso % (Auto) 0.1, Absolute Neuts (auto) 11.9 H, Absolute Lymphs (auto) 1.38, Nucleated RBC % 0, Sodium 137, Potassium 3.9, Chloride 103, Carbon Dioxide 24.7, Anion Gap 10, BUN 34 H, Creatinine 1.34 H, Estim Creat Clear Calc 44.51 L, Est GFR (MDRD) Non-Af 53 L, BUN/Creatinine Ratio 25.7 H, Glucose 105 H, Calcium 8.1, Urine Color Zaida, Urine Clarity Sl. Cloudy, Urine pH 6.0, Ur Specific [place] 1.010, Urine Protein 100 H, Urine Glucose (UA) Normal, Urine Ketones 5 H, Urine Occult Blood 250 H, Urine Nitrite Positive H, Urine Bilirubin Negative, Urine Urobilinogen Normal, Ur Leukocyte Esterase 25 H, Urine RBC > 100 SEEN, Urine WBC 5-10 SEEN, Ur Squamous Epith Cells 0 SEEN, Urine Bacteria 1+, Urine Mucus 0 SEEN Assessment & Plan Assessment/Plan (1) Acute urinary retention: (2) BPH (benign prostatic hyperplasia): PLAN: Billy catheter in place continue CBI
[2024-09-19] MEDS: Magnesium Chloride 64 MG Delay Rel.Tablet 128 MG PO (09:22)
[2024-09-19 10:30] VITALS: BP 157/82; PULSE 66; RESP 18; TEMP 36.6; O2SAT 98
[2024-09-19 13:00] VITALS: PULSE 80
--- NOTE | 2024-09-19 14:23 | CASEMGMT ---
EROS CM into pt room, pt lying in bed in no distress with at bedside. Pt states he has not had a catheter at home but states he feels he and his can manage it after education. Pt denies using AD typically. Pt denies any homegoing needs.
--- NOTE | 2024-09-19 14:30 | NURSING ---
spoke with lab about cancelled urine culture was a duplicate, there is still one specimen from last night ER cath specimen in process
--- NOTE | 2024-09-19 14:45 | CHAPLAIN ---
Type of Pastoral Visit _x__ Initial Visit ___ Follow-up Visit ___ On-call Visit ___ General Patient Visit ___ Spiritual Assessment ___ Family Conference ___ Bereavement ___ Rapid Response ___ Code Blue ___ Other (describe below) Pastoral Care Referral From _x__ Patient _x__ Family ___ Nurse ___ Physician ___ Perforator Loader ___ Electric Tape Slitter ___ Other (describe below) Sacrament/Intervention ___ Active listening ___ Anointing ___ Latter-Day ___ Bereavement ___ Communion ___ Sydney exploration ___ ___ Life review ___ Prayer ___ Reconciliation ___ Sacrament of Sick ___ Supportive presence ___ Wedding _x__ Other (describe below) Pastoral Comments patient was discharged and then came back to the hospital and readmitted; spouse is at bedside while the patient sleeps; spouse states that it would be best to let the patient sleep; offer of support to be given when and as desired
--- NOTE | 2024-09-19 15:57 | CASEMGMT ---
ZAIDI Met with patient to complete ZAIDI form. ZAIDI form and its content were verbally explained and patient's questions were answered to the best of my ability.? Patient voiced understanding and signed ZAIDI form.? Patient provided a copy of signed ZAIDI form and original placed in patient's chart.? Patient had no further questions. Adri Delgado, Discharge Planning Asst
[2024-09-19 16:30] VITALS: BP 159/75; PULSE 62; RESP 18; TEMP 36.7; O2SAT 98
[2024-09-19 20:34] VITALS: BP 156/73; PULSE 60; RESP 15; TEMP 36.6; O2SAT 98
[2024-09-20 03:00] VITALS: BP 142/72; PULSE 55; RESP 15; TEMP 36.7; O2SAT 97
--- NOTE | 2024-09-20 09:27 | PCM.DC.SUM ---
Providers Date of Admission: 09/18/24 Date of Discharge: 09/20/24 Primary Care Physician: DAVID KOCH Reason For Visit: HEMATURIA, UTI Diagnosis Discharge Diagnosis (1) Acute urinary retention: Status: Acute Code(s): R33.8 - Other retention of urine (2) BPH (benign prostatic hyperplasia): Status: Acute Code(s): N40.0 - Benign prostatic hyperplasia without lower urinary tract symptoms Plan: Billy catheter in place continue CBI Medications at Discharge Home Medications amlodipine 2.5 mg tablet 2.5 mg PO DAILY 09/17/24 aspirin 81 mg capsule 81 mg PO DAILY 09/17/24 Held on 09/19/24. Instructions: MD Ordered carvedilol 6.25 mg tablet 6.25 mg PO BID 09/17/24 coQ10 (ubiquinol) 200 mg capsule (Active Q) 200 mg PO QHS prostate 09/17/24 cyanocobalamin (vitamin B-12) 500 mcg tablet (Vitamin B-12) 500 mcg PO DAILY 09/17/24 finasteride 5 mg tablet 5 mg PO DAILY 09/17/24 folic acid 1 mg tablet 1 mg PO DAILY 09/17/24 hydrochlorothiazide 12.5 mg tablet 12.5 mg PO DAILY 09/17/24 loratadine 10 mg tablet 10 mg PO PRN Allergis 09/17/24 losartan 100 mg tablet 100 mg PO DAILY 09/17/24 magnesium oxide 400 mg (241.3 mg magnesium) tablet 400 mg PO DAILY 09/17/24 pravastatin 40 mg tablet 40 mg PO DAILY 09/17/24 tamsulosin 0.4 mg capsule 0.4 mg PO DAILY 09/17/24 terazosin 5 mg capsule 5 mg PO QHS 09/17/24 turmeric 400 mg capsule 400 mg PO DAILY Prostrate 09/17/24 Hospital Course Operations - (Admitted for bleeding has Billy catheter in place irrigated now the bleeding stopped at home with Billy) Summary of Care Provided Minutes Spent on Discharge: 2 Weight / BMI Weight Weight: 84.005 kg Body Mass Index (BMI) 28.1 ABG / Lab / Microbiology Data 09/18/24 21:00 09/18/24 21:00 Microbiology: Microbiology 09/18/24 20:50 Urine Catheter - Billy Urine Culture - Preliminary Culture exhibits no growth. D/C Instructions DC O2, CPAP, BIPAP Needs Home O2 Discharge instructions: No Meaningful Use Info Meaningful Use Meaningful Use Diagnoses (Choose all that apply): None applicable Discharge Plan Admission Admit Date/Time: 09/18/24 23:03 Attending Provider: Chandrakant Velez Primary Care Provider: DAVID KOCH Discharge Orders/Prescriptions Prescriptions: No Action terazosin 5 mg capsule 5 mg PO QHS carvedilol 6.25 mg tablet 6.25 mg PO BID pravastatin 40 mg tablet 40 mg PO DAILY amlodipine 2.5 mg tablet 2.5 mg PO DAILY tamsulosin 0.4 mg capsule 0.4 mg PO DAILY folic acid 1 mg tablet 1 mg PO DAILY losartan 100 mg tablet 100 mg PO DAILY finasteride 5 mg tablet 5 mg PO DAILY hydrochlorothiazide 12.5 mg tablet 12.5 mg PO DAILY aspirin 81 mg capsule 81 mg PO DAILY loratadine 10 mg tablet 10 mg PO PRN magnesium oxide 400 mg (241.3 mg magnesium) tablet 400 mg PO DAILY turmeric 400 mg capsule 400 mg PO DAILY cyanocobalamin (vitamin B-12) [Vitamin B-12] 500 mcg tablet 500 mcg PO DAILY Active Q 200 mg capsule 200 mg PO QHS Referrals / Follow Up: NOT,DEFINED [Non-Staff] - DAVID KOCH [Other]
--- NOTE | 2024-09-20 09:29 | PCM.DC ---
Discharge Instructions DC O2, CPAP, BIPAP needs Home O2 Discharge instructions: No Dressing / Incision Lifting Restrictions: no strenous activity Dressing / Incision Call your doctor if your incision/area has: Sudden Increased Bleeding Catheter: Billy to leg bag and Billy to large bag Drain: [place] Follow Up Care Please Follow Up With: Chandrakant Velez MD When: Call [phone] for an appointment Test Results: Test results from this visit will be discussed in further detail at your follow-up appointment, if applicable. Discharge Plan Admission Admit Date/Time: 09/18/24 23:03 Attending Provider: Chandrakant Velez Primary Care Provider: DAVID KOCH Discharge Orders/Prescriptions Prescriptions: No Action terazosin 5 mg capsule 5 mg PO QHS carvedilol 6.25 mg tablet 6.25 mg PO BID pravastatin 40 mg tablet 40 mg PO DAILY amlodipine 2.5 mg tablet 2.5 mg PO DAILY tamsulosin 0.4 mg capsule 0.4 mg PO DAILY folic acid 1 mg tablet 1 mg PO DAILY losartan 100 mg tablet 100 mg PO DAILY finasteride 5 mg tablet 5 mg PO DAILY hydrochlorothiazide 12.5 mg tablet 12.5 mg PO DAILY aspirin 81 mg capsule 81 mg PO DAILY loratadine 10 mg tablet 10 mg PO PRN magnesium oxide 400 mg (241.3 mg magnesium) tablet 400 mg PO DAILY turmeric 400 mg capsule 400 mg PO DAILY cyanocobalamin (vitamin B-12) [Vitamin B-12] 500 mcg tablet 500 mcg PO DAILY Active Q 200 mg capsule 200 mg PO QHS Referrals / Follow Up: DAVID KOCH [Other] NOT,DEFINED [Non-Staff] - Disposition Discharge Orders: Discharge Patient (Routine); Ordered 09/20/24 Ordered By: Dr. Chandrakant Velez
[2024-09-20 10:30] VITALS: BP 139/60; PULSE 57; RESP 17; TEMP 36.7; O2SAT 99
[2024-09-20 13:30] VITALS: BP 146/57; PULSE 68; RESP 18; TEMP 36.6; O2SAT 100
== END 2024-09-20 13:30 | disposition home or self-care (01) ==
LOC: ED 21:24 → MS3 23:32
PROVIDERS: Physician Assistant; Admitting Provider Urology; Emergency Provider Surgery; Visit Provider Urology
DX: R31.0 Gross hematuria (principal); N39.0 Urinary tract infection, site not specified; E78.5 Hyperlipidemia, unspecified; I10 Essential (primary) hypertension; R33.9 Retention of urine, unspecified; N40.1 Benign prostatic hyperplasia with lower urinary tract symptoms; N28.9 Disorder of kidney and ureter, unspecified; D64.9 Anemia, unspecified; D69.6 Thrombocytopenia, unspecified; Z79.82 Long term (current) use of aspirin; Z79.899 Other long term (current) drug therapy
CPT/HCPCS: 51702; 80048; 81001; 85025; 87086; 96365; 96366; 96367; 99221; 99285; A4216; G0378; J0744

== ENCOUNTER 2024-10-01 14:19 | Inpatient (IN) | payer MEDICARE, SELFPAY ==
[2024-09-23 13:13] LABS: Prothrombin Time (Protime)PT. 13.0 SECONDS (11.7-14.9)
[2024-09-23 13:14] LABS: Partial Thromboplast Time 25.5 Seconds (24.1-36.2)
[2024-09-23 13:39] LABS: AST(SGOT) 22 U/L (<=37); Alanine Aminotransfer ALT/SGPT 19 U/L (<=46); Albumin, Serum 3.9 g/dL (3.4-4.8); Alkaline Phosphatase 72 U/L (40-129); Bilirubin, Direct 0.20 mg/dL (0.00-0.30); Globulin 2.4 g/dL (2.2-4.2)
--- NOTE | 2024-09-24 17:55 | PAT.ANESEVAL ---
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 When Was Last Pacemaker Check QUESTION #4 FULL TEXT: You/Your Family Experience fever (hyperthermia) with Anesthesia Last Oral Intake Last Oral intake: Last Oral Intake NPO since Meds taken in AM with sips of water? Meds patient instructed to take am of surgery PONV PONV - assistant branch operations manager: PONV - assistant branch operations manager Female No 09/23/24 09:13 HX of Motion Sickness No 09/23/24 09:13 HX of N/V After Surgery No 09/23/24 09:13 Non-Smoker Yes 09/23/24 09:13 Duration of Surgery greater Yes 09/23/24 09:13 than 60 minutes Number of Risk Factors 2 09/23/24 09:13 PONV Score Moderate Risk 09/23/24 09:13 Height & Weight Height & Weight: Anesthesia: Height & Weight Height 5 ft 8 in 09/19/24 00:00 Respiratory Assessment Respiratory Assessment - assistant branch operations manager: Respiratory Tract Infection Hx - assistant branch operations manager Hx Respiratory Tract Infection No 09/23/24 09:13 STOP Sleep Apnea STOP Sleep Apnea - assistant branch operations manager: STOP Sleep Apnea - assistant branch operations manager Hx Hypertension Yes: CONTROLLED WITH MEDS 09/23/24 09:13 Hx Sleep Apnea No 09/23/24 09:13 CPAP BIPAP Do you snore loudly (louder Yes 09/23/24 09:13 than talking or can be heard Do you often feel tired/ No 09/23/24 09:13 fatigued/ sleepy during daytime? Has anyone observed you stop No 09/23/24 09:13 breathing during sleep? STOP Results Positive 09/23/24 09:13 QUESTION #5 FULL TEXT : Do you snore loudly (louder than talking or can be heard through closed doors)? Tobacco Use History Tobacco Use History - assistant branch operations manager: Tobacco Use History - assistant branch operations manager Tobacco Use Smoking Status Never smoker 09/23/24 09:13 Hx Tobacco Use No 09/23/24 09:13 Years Smoking Packs Smoked per Day Smoking Cessation Date was within the last 15 years Hx Smoking Cessation Date Hx Smoking Cessation Counseling Hematologic Medial History Hematologic Hx - assistant branch operations manager: Hematologic Medical Hx - telehealth director Hx of Blood Transfusion Yes 09/23/24 09:13 Hx of Transfusion in last 3 No 09/23/24 09:13 Months Date of Last Transfusion (if within last 3 months) Ever experience any problems No 09/23/24 09:13 with transfusion(s)? Specify any problems Hx of Preganancy in last 3 N/A 09/23/24 09:13 Months Nurse Filling Out Transfusion DSCHRIBER 09/23/24 09:13 & Questions: Date: 09/23/24 09/23/24 09:13 Time: 09:14 09/23/24 09:13 Patient unable to answer at this time (ie. confused, unrespo /Reproduction History /Reproductive History - assistant branch operations manager: /Reproductive Hx- assistant branch operations manager Hx Now No 09/23/24 09:13 Gestational Age (in weeks): EDC: Hx Hx Para Hx Section SAB No 09/23/24 09:13 [facility] Medical History (Updated 09/23/24 @ 09:30 by Tracee Pearson) Wears glasses Cancer Prostate disease Bladder disease Indwelling urethral catheter present Hx of amyloidosis Hx of multiple myeloma DVT (deep venous thrombosis) High cholesterol Easy bruising Migraine headache Syncope Asthma Non-smoker History of echocardiogram Cardiology follow-up encounter History of heart attack History of irregular heartbeat Blood disorder Renal disease History of stress test HTN (hypertension) Heart attack Home Medications ?Medication ?Instructions ?Recorded ?Last Taken ?Type amlodipine 2.5 mg tablet 2.5 mg PO 1800 09/17/24 09/18/24 History carvedilol 6.25 mg tablet 6.25 mg PO BID 09/17/24 09/18/24 History coQ10 (ubiquinol) 200 mg capsule 200 mg PO QHS prostate 09/17/24 09/18/24 History (Active Q) cyanocobalamin (vitamin B-12) 500 500 mcg PO DAILY 09/17/24 09/16/24 History mcg tablet (Vitamin B-12) finasteride 5 mg tablet 5 mg PO 1800 09/17/24 09/19/24 History folic acid 1 mg tablet 1 mg PO 1200 09/17/24 09/18/24 History hydrochlorothiazide 12.5 mg tablet 12.5 mg PO 1200 09/17/24 09/18/24 History loratadine 10 mg tablet 10 mg PO PRN Allergis 09/17/24 09/15/24 History losartan 100 mg tablet 100 mg PO DAILY 09/17/24 09/18/24 History magnesium oxide 400 mg (241.3 mg 400 mg PO 1200 09/17/24 09/18/24 History magnesium) tablet pravastatin 40 mg tablet 40 mg PO QHS 09/17/24 09/15/24 22:00 History tamsulosin 0.4 mg capsule 0.4 mg PO 1200 09/17/24 09/18/24 History terazosin 5 mg capsule 5 mg PO QHS 09/17/24 09/17/24 History turmeric 400 mg capsule 400 mg PO 1800 Prostrate 09/17/24 09/18/24 History Allergy/AdvReac Type Severity Reaction Status Date / Time Iodinated Contrast Media Allergy Severe swelling Verified 09/23/24 09:05 (IVP dye) lips simvastatin Allergy Mild muscle Verified 09/23/24 09:05 aches Surgical History (Updated 09/23/24 @ 09:30 by Tracee Pearson) Hx of colonoscopy Hx of inguinal hernia repair Hx of inguinal hernia repair History of heart surgery History of transurethral resection of bladder tumor (TURBT) H/O cardiac catheterization Social History Smoking Status: Never smoker Audit: Pertinent Findings Pertinent Findings EKG Perinent findings: April 12, 2022. Normal sinus rhythm. Nonspecific intraventricular block. Cannot rule out inferior infarct, age undetermined. T wave abnormality, consider anterior ischemia. Stress test pertinent findings: May 2022. Normal nuclear stress test. Echo (EF%) pertinent findings: April 2022. Normal LVEF. November 16, 2021. EF of 60 to 65%. No aortic valve stenosis noted. RVSP is 26 mmHg. Heart catheterization pertinent findings: 02/07/2021. Multivessel coronary artery disease involving the LAD, left circumflex and the RCA. (Patient proceeded to three-vessel CABG) Consult pertinent findings: August 14, 2024. 1. Coronary artery disease-patient is status post coronary artery bypass graft February 2021. MARTE to the LAD. SVG to the first OM. SVG to the RCA. Normal EF by echo in April 2022. Also normal nuclear stress test in May 2022. With the patient's symptoms of worsening dyspnea we will get a exercise stress test. 2. Hypertension-control is not optimal in the office. Home blood pressures are better. No changes at this time. 3. Chronic kidney disease. Negative renal artery ultrasound in April 2022. Check a BMP. Recommendation Anesthesia Recommendation Anesthesia recommendation: F/U recommended (Latest cardiology consult on August 14, 2024 at [facility] physicians/[facility] requested a follow-up stress myocardial perfusion study. Has this been done and can we retrieve the results?)
--- NOTE | 2024-09-29 12:40 | PAT.ANESEVAL ---
Pre-Assessment Diagnosis/Proposed Procedure Planned Operative Procedure(s): ROBOTIC SIMPLE PROSTATECTOMY Anesthesia History Anesthesia History - manager med surg: Anesthesia History - manager med surg Hx Hospitalization No 09/23/24 09:13 Any Problems With Anesthesia No 09/23/24 09:13 Cholinesterase deficiency No 09/23/24 09:13 You/Your Family Experience No 09/23/24 09:13 fever (hyperthermia) with Relationship Recent Exposure to Contagious No 09/17/24 09:53 Disease Does patient have nerve No 09/23/24 09:13 stimulator Patient instructed to have device shut off --Does patient have Pacemaker or ICD? When Was Last Pacemaker Check QUESTION #4 FULL TEXT: You/Your Family Experience fever (hyperthermia) with Anesthesia Last Oral Intake Last Oral intake: Last Oral Intake NPO since Meds taken in AM with sips of water? Meds patient instructed to take am of surgery PONV PONV - manager med surg: PONV - manager med surg Female No 09/23/24 09:13 HX of Motion Sickness No 09/23/24 09:13 HX of N/V After Surgery No 09/23/24 09:13 Non-Smoker Yes 09/23/24 09:13 Duration of Surgery greater Yes 09/23/24 09:13 than 60 minutes Number of Risk Factors 2 09/23/24 09:13 PONV Score Moderate Risk 09/23/24 09:13 Height & Weight Height & Weight: Anesthesia: Height & Weight Height 5 ft 8 in 09/19/24 00:00 Respiratory Assessment Respiratory Assessment - manager med surg: Respiratory Tract Infection Hx - manager med surg Hx Respiratory Tract Infection No 09/23/24 09:13 STOP Sleep Apnea STOP Sleep Apnea - manager med surg: STOP Sleep Apnea - manager med surg Hx Hypertension Yes: CONTROLLED WITH MEDS 09/23/24 09:13 Hx Sleep Apnea No 09/23/24 09:13 CPAP BIPAP Do you snore loudly (louder Yes 09/23/24 09:13 than talking or can be heard Do you often feel tired/ No 09/23/24 09:13 fatigued/ sleepy during daytime? Has anyone observed you stop No 09/23/24 09:13 breathing during sleep? STOP Results Positive 09/23/24 09:13 QUESTION #5 FULL TEXT : Do you snore loudly (louder than talking or can be heard through closed doors)? 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 Specify any problems Hx of Preganancy in last 3 N/A 09/23/24 09:13 Months Nurse Filling Out Transfusion DSCHRIBER 09/23/24 09:13 & Questions: Date: 09/23/24 09/23/24 09:13 Time: 09:14 09/23/24 09:13 Patient unable to answer at this time (ie. confused, unrespo /Reproduction History /Reproductive History - manager med surg: /Reproductive Hx- manager med surg Hx Now No 09/23/24 09:13 Gestational Age (in weeks): EDC: Hx Hx Para Hx Section SAB No 09/23/24 09:13 [facility] Medical History (Updated 09/26/24 @ 00:01 by Lou Gaines) Wears glasses Cancer Prostate disease Bladder disease Indwelling urethral catheter present Hx of amyloidosis Hx of multiple myeloma DVT (deep venous thrombosis) High cholesterol Easy bruising Migraine headache Syncope Asthma Non-smoker History of echocardiogram Cardiology follow-up encounter History of heart attack History of irregular heartbeat Blood disorder Renal disease History of stress test HTN (hypertension) Heart attack Home Medications ?Medication ?Instructions ?Recorded ?Last Taken ?Type amlodipine 2.5 mg tablet 2.5 mg PO 1800 09/17/24 09/18/24 History carvedilol 6.25 mg tablet 6.25 mg PO BID 09/17/24 09/18/24 History coQ10 (ubiquinol) 200 mg capsule 200 mg PO QHS prostate 09/17/24 09/18/24 History (Active Q) cyanocobalamin (vitamin B-12) 500 500 mcg PO DAILY 09/17/24 09/16/24 History mcg tablet (Vitamin B-12) finasteride 5 mg tablet 5 mg PO 1800 09/17/24 09/19/24 History folic acid 1 mg tablet 1 mg PO 1200 09/17/24 09/18/24 History hydrochlorothiazide 12.5 mg tablet 12.5 mg PO 1200 09/17/24 09/18/24 History loratadine 10 mg tablet 10 mg PO PRN Allergis 09/17/24 09/15/24 History losartan 100 mg tablet 100 mg PO DAILY 09/17/24 09/18/24 History magnesium oxide 400 mg (241.3 mg 400 mg PO 1200 09/17/24 09/18/24 History magnesium) tablet pravastatin 40 mg tablet 40 mg PO QHS 09/17/24 09/15/24 22:00 History tamsulosin 0.4 mg capsule 0.4 mg PO 1200 09/17/24 09/18/24 History terazosin 5 mg capsule 5 mg PO QHS 09/17/24 09/17/24 History turmeric 400 mg capsule 400 mg PO 1800 Prostrate 09/17/24 09/18/24 History Allergy/AdvReac Type Severity Reaction Status Date / Time Iodinated Contrast Media Allergy Severe swelling Verified 09/23/24 09:05 (IVP dye) lips simvastatin Allergy Mild muscle Verified 09/23/24 09:05 aches Surgical History (Updated 09/23/24 @ 09:30 by Tracee Pearson) Hx of colonoscopy Hx of inguinal hernia repair Hx of inguinal hernia repair History of heart surgery History of transurethral resection of bladder tumor (TURBT) H/O cardiac catheterization Social History Smoking Status: Never smoker Audit: Pertinent Findings HISTORY of Pertinent Findings History of Pertinent Findings: EKG Pertinent Findings EKG Perinent findings April 12, 2022. Normal 09/24/24 18:02 sinus rhythm. Nonspecific intraventricular block. Cannot rule out inferior infarct, age undetermined. T wave abnormality, consider anterior ischemia. Stress Test Pertinent Findings Stress test pertinent findings May 2022. Normal nuclear 09/24/24 18:08 stress test. Echo Pertinent Findings Echo (EF%) pertinent findings April 2022. Normal LVEF. 09/24/24 18:08 November 16, 2021. EF of 60 to 65%. No aortic valve stenosis noted. RVSP is 26 mmHg. Heart Catheterization Pertinent Findings Heart catheterization 02/07/2021. Multivessel 09/24/24 18:11 pertinent findings coronary artery disease involving the LAD, left circumflex and the RCA. ( Patient proceeded to three- vessel CABG) Consult Pertinent Findings Consult pertinent findings August 14, 2024. 09/24/24 18:14 1. Coronary artery disease- patient is status post coronary artery bypass graft February 2021. MARTE to the LAD. SVG to the first OM. SVG to the RCA. Normal EF by echo in April 2022. Also normal nuclear stress test in May 2022. With the patient's symptoms of worsening dyspnea we will get a exercise stress test. 2. Hypertension-control is not optimal in the office. Home blood pressures are better. No changes at this time. 3. Chronic kidney disease. Negative renal artery ultrasound in April 2022. Check a BMP. Pertinent Findings Stress test pertinent findings: 09/04/2024. Lexiscan stress test. Negative for inducible ischemia no ischemia on Lexiscan. EF 55% Recommendation Anesthesia Recommendation Anesthesia recommendation: OPTIMIZED for anesthesia
[2024-10-01] VITALS (16 sets, daily range): BP systolic 140–169; BP diastolic 55–79; PULSE 55–70; RESP 12–16; TEMP 36.1–36.6; O2SAT 95–100; BMI 25.8; BMI 25.7
--- NOTE | 2024-10-01 07:10 | HP.PCM_ITS ---
HPI - General General Date of Service: 10/01/24 Chief Complaint: Urinary retention HPI Narrative FREDDIE MONREAL, is a 84 M who presents for a robotic simple prostatectomy for very large prostate and urinary retention [facility] Medical History (Updated 09/26/24 @ 00:01 by Background Liana) Wears glasses Cancer Prostate disease Bladder disease Indwelling urethral catheter present Hx of amyloidosis Hx of multiple myeloma DVT (deep venous thrombosis) High cholesterol Easy bruising Migraine headache Syncope Asthma Non-smoker History of echocardiogram Cardiology follow-up encounter History of heart attack History of irregular heartbeat Blood disorder Renal disease History of stress test HTN (hypertension) Heart attack Home Medications ?Medication ?Instructions ?Recorded ?Last Taken ?Type amlodipine 2.5 mg tablet 2.5 mg PO 1800 09/17/2409/02 History carvedilol 6.25 mg tablet 6.25 mg PO BID 09/17/2409/02 History coQ10 (ubiquinol) 200 mg capsule 200 mg PO QHS prostat e 09/17/24 09/18/24 History (Active Q) cyanocobalamin (vitamin B-12) 500 500 mcg PO DAILY 09/16/24 History mcg tablet (Vitamin B-12) finasteride 5 mg tablet 5 mg PO 1800 09/17/24 History folic acid 1 mg tablet 1 mg PO 1200 09/17/24 History hydrochlorothiazide 12.5 mg tablet 12.5 mg PO 1200 09/18/24 History loratadine 10 mg tablet 10 mg PO PRN Allergis 09/15/24 History losartan 100 mg tablet 100 mg PO DAILY 09/17/24 History magnesium oxide 400 mg (241.3 mg 400 mg PO 1200 09/18/24 History magnesium) tablet pravastatin 40 mg tablet 40 mg PO QHS 09/17/24 22:00 History tamsulosin 0.4 mg capsule 0.4 mg PO 1200 09/17/2409/02 History terazosin 5 mg capsule 5 mg PO QHS 09/17/24 5 History turmeric 400 mg capsule 400 mg PO 1800 Prostrate 09/18/24 History Allergy/AdvReac Type Severity Reaction Status Date / Time Iodinated Contrast Media Allergy Severe swelling Verified 09/23/24 09:05 (IVP dye) lips simvastatin Allergy Mild muscle Verified 09/23/24 09:05 aches Surgical History (Updated 09/23/24 @ 09:30 by Tracee Pearson) Hx of colonoscopy Hx of inguinal hernia repair Hx of inguinal hernia repair History of heart surgery History of transurethral resection of bladder tumor (TURBT) H/O cardiac catheterization Social History Smoking Status: Never smoker
--- NOTE | 2024-10-01 07:10 | PCM.HP.STD ---
HPI - General General Date of Service: 10/01/24 Chief Complaint: Urinary retention HPI Narrative FREDDIE MONREAL, is a 84 M who presents for a robotic simple prostatectomy for very large prostate and urinary retention [facility] Medical History (Updated 09/26/24 @ 00:01 by Background Liana) Wears glasses Cancer Prostate disease Bladder disease Indwelling urethral catheter present Hx of amyloidosis Hx of multiple myeloma DVT (deep venous thrombosis) High cholesterol Easy bruising Migraine headache Syncope Asthma Non-smoker History of echocardiogram Cardiology follow-up encounter History of heart attack History of irregular heartbeat Blood disorder Renal disease History of stress test HTN (hypertension) Heart attack Home Medications ?Medication ?Instructions ?Recorded ?Last Taken ?Type amlodipine 2.5 mg tablet 2.5 mg PO 1800 09/17/24 09/18/24 History carvedilol 6.25 mg tablet 6.25 mg PO BID 09/17/24 09/18/24 History coQ10 (ubiquinol) 200 mg capsule 200 mg PO QHS prostate 09/17/24 09/18/24 History (Active Q) cyanocobalamin (vitamin B-12) 500 500 mcg PO DAILY 09/17/24 09/16/24 History mcg tablet (Vitamin B-12) finasteride 5 mg tablet 5 mg PO 1800 09/17/24 09/19/24 History folic acid 1 mg tablet 1 mg PO 1200 09/17/24 09/18/24 History hydrochlorothiazide 12.5 mg tablet 12.5 mg PO 1200 09/17/24 09/18/24 History loratadine 10 mg tablet 10 mg PO PRN Allergis 09/17/24 09/15/24 History losartan 100 mg tablet 100 mg PO DAILY 09/17/24 09/18/24 History magnesium oxide 400 mg (241.3 mg 400 mg PO 1200 09/17/24 09/18/24 History magnesium) tablet pravastatin 40 mg tablet 40 mg PO QHS 09/17/24 09/15/24 22:00 History tamsulosin 0.4 mg capsule 0.4 mg PO 1200 09/17/24 09/18/24 History terazosin 5 mg capsule 5 mg PO QHS 09/17/24 09/17/24 History turmeric 400 mg capsule 400 mg PO 1800 Prostrate 09/17/24 09/18/24 History Allergy/AdvReac Type Severity Reaction Status Date / Time Iodinated Contrast Media Allergy Severe swelling Verified 09/23/24 09:05 (IVP dye) lips simvastatin Allergy Mild muscle Verified 09/23/24 09:05 aches Surgical History (Updated 09/23/24 @ 09:30 by Tracee Pearson) Hx of colonoscopy Hx of inguinal hernia repair Hx of inguinal hernia repair History of heart surgery History of transurethral resection of bladder tumor (TURBT) H/O cardiac catheterization Social History Smoking Status: Never smoker
--- NOTE | 2024-10-01 10:06 | PCM.PRE.AN2 ---
ASA Classification* ASA Classification ASA Classification: 3 Assessment & Plan Anesthesia* Anesthesia Assessment Anesthesia Assessment: Discussed sedation and/or anesthesia options, risks, benefits, and alternatives with patient/parents/legal guardian/POA. Questions invited. The patient/parents/legal guardian/POA seems to understand and agrees to proceed with anesthesia plan. Reviewed the physical assessment, medical history, allergy history and patient home medications list prior to surgery/procedure/anesthetic and documented any changes. Performed airway and anesthesia risk assessments. Anesthesia Type Anesthesia Type: General History Source History Obtained from:: Patient and Chart Anesthesia Focused Assessment* Temperature: 98 F Pulse Rate: 55 Blood Pressure: 169/79 Respiratory Rate: 16 Pulse Ox: 100 Oxygen Delivery Method: Room Air Airway Assessment Mouth opens: >3 cm Mallampati Score: II Teeth Condition: Intact Neck Range of motion (ROM): Full ROM Labs Anesthesia Preop lab: CBC WBC 14.5 K/mm3 (4.4-11.0) H 09/18/24 21:00 09/18/24 RBC 3.45 M/mm3 (4.6-6.2) L 09/18/24 21:00 09/18/24 Hgb 10.9 g/dL (13.0-16.5) L 09/18/24 21:00 09/18/24 Hct 32.5 % (40-54) L 09/18/24 21:00 09/18/24 Plt Count 108 K/mm3 (150-450) L 09/18/24 21:00 09/18/24 CHEMISTRY Potassium 3.9 mmol/L (3.3-5.1) 09/18/24 21:00 09/18/24 Sodium 137 mmol/L (133-145) 09/18/24 21:00 09/18/24 BUN 34 mg/dL (4-19) H 09/18/24 21:00 09/18/24 Creatinine 1.34 mg/dL (0.70-1.20) H 09/18/24 21:00 09/18/24 Glucose 105 mg/dL (70-99) H 09/18/24 21:00 09/18/24 COAG PT 13.0 SECONDS (11.7-14.9) 09/23/24 12:46 09/23/24 Pre-Assessment Diagnosis/Proposed Procedure Planned Operative Procedure(s): ROBOTIC SIMPLE PROSTATECTOMY Anesthesia History Anesthesia History - residential case manager: Anesthesia History - residential case manager Hx Hospitalization No 09/23/24 09:13 Any Problems With Anesthesia No 09/23/24 09:13 Cholinesterase deficiency No 09/23/24 09:13 You/Your Family Experience No 09/23/24 09:13 fever (hyperthermia) with Relationship Recent Exposure to Contagious No 10/01/24 09:46 Disease Does patient have nerve No 09/23/24 09:13 stimulator Patient instructed to have device shut off --Does patient have Pacemaker No 10/01/24 09:46 or ICD? When Was Last Pacemaker Check QUESTION #4 FULL TEXT: You/Your Family Experience fever (hyperthermia) with Anesthesia Last Oral Intake Last Oral intake: Last Oral Intake NPO since 23:00 10/01/24 09:46 Meds taken in AM with sips of Yes 10/01/24 09:46 water? Meds patient instructed to 0810 losartan 10/01/24 09:46 take am of surgery 0810 coreg PONV PONV - residential case manager: PONV - residential case manager Female No 09/23/24 09:13 HX of Motion Sickness No 09/23/24 09:13 HX of N/V After Surgery No 09/23/24 09:13 Non-Smoker Yes 09/23/24 09:13 Duration of Surgery greater Yes 09/23/24 09:13 than 60 minutes Number of Risk Factors 2 09/23/24 09:13 PONV Score Moderate Risk 09/23/24 09:13 Height & Weight Height & Weight: Anesthesia: Height & Weight Height 5 ft 8 in 10/01/24 09:46 Weight: 77 kg 10/01/24 09:46 Body Mass Index (BMI) 25.8 10/01/24 09:46 Respiratory Assessment Respiratory Assessment - residential case manager: Respiratory Tract Infection Hx - residential case manager Hx Respiratory Tract Infection No 09/23/24 09:13 STOP Sleep Apnea STOP Sleep Apnea - residential case manager: STOP Sleep Apnea - residential case manager Hx Hypertension Yes: CONTROLLED WITH MEDS 09/23/24 09:13 Hx Sleep Apnea No 09/23/24 09:13 CPAP BIPAP Do you snore loudly (louder Yes 09/23/24 09:13 than talking or can be heard Do you often feel tired/ No 09/23/24 09:13 fatigued/ sleepy during daytime? Has anyone observed you stop No 09/23/24 09:13 breathing during sleep? STOP Results Positive 09/23/24 09:13 QUESTION #5 FULL TEXT : Do you snore loudly (louder than talking or can be heard through closed doors)? 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 Specify any problems Hx of Preganancy in last 3 N/A 09/23/24 09:13 Months Nurse Filling Out Transfusion DSCHRIBER 09/23/24 09:13 & Questions: Date: 09/23/24 09/23/24 09:13 Time: 09:14 09/23/24 09:13 Patient unable to answer at this time (ie. confused, unrespo /Reproduction History /Reproductive History - residential case manager: /Reproductive Hx- residential case manager Hx Now No 09/23/24 09:13 Gestational Age (in weeks): EDC: Hx Hx Para Hx Section SAB No 09/23/24 09:13 Active Medications Active Medications: Current Medications Generic Name Dose Route Start Last Admin Trade Name Freq PRN Reason Stop Dose Admin Cefazolin Sodium 2 gm/ Sodium 110 mls @ 200 mls/hr 10/01/24 11:30 Chloride IV 10/01/24 12:02 INTRAOP ONE PFS Medical History (Updated 09/26/24 @ 00:01 by Background Daemon) Wears glasses Cancer Prostate disease Bladder disease Indwelling urethral catheter present Hx of amyloidosis Hx of multiple myeloma DVT (deep venous thrombosis) High cholesterol Easy bruising Migraine headache Syncope Asthma Non-smoker History of echocardiogram Cardiology follow-up encounter History of heart attack History of irregular heartbeat Blood disorder Renal disease History of stress test HTN (hypertension) Heart attack Home Medications ?Medication ?Instructions ?Recorded ?Last Taken ?Type amlodipine 2.5 mg tablet 2.5 mg PO 1800 09/17/24 09/30/24 History carvedilol 6.25 mg tablet 6.25 mg PO BID 09/17/24 10/01/24 08:10 History coQ10 (ubiquinol) 200 mg capsule 200 mg PO QHS prostate 09/17/24 09/30/24 History (Active Q) cyanocobalamin (vitamin B-12) 500 500 mcg PO DAILY 09/17/24 09/30/24 History mcg tablet (Vitamin B-12) finasteride 5 mg tablet 5 mg PO 1800 09/17/24 09/30/24 History folic acid 1 mg tablet 1 mg PO 1200 09/17/24 09/30/24 History hydrochlorothiazide 12.5 mg tablet 12.5 mg PO 1200 09/17/24 09/30/24 History loratadine 10 mg tablet 10 mg PO PRN Allergis 09/17/24 09/30/24 History losartan 100 mg tablet 50 mg PO DAILY 09/17/24 10/01/24 08:10 History magnesium oxide 400 mg (241.3 mg 400 mg PO 1200 09/17/24 09/30/24 History magnesium) tablet pravastatin 40 mg tablet 40 mg PO QHS 09/17/24 09/30/24 History tamsulosin 0.4 mg capsule 0.4 mg PO 1200 09/17/24 09/30/24 History terazosin 5 mg capsule 5 mg PO QHS 09/17/24 09/30/24 History turmeric 400 mg capsule 400 mg PO 1800 Prostrate 09/17/24 09/30/24 History Allergy/AdvReac Type Severity Reaction Status Date / Time Iodinated Contrast Media Allergy Severe swelling Verified 09/23/24 09:05 (IVP dye) lips phenazopyridine Allergy Severe Other Verified 10/01/24 09:41 simvastatin Allergy Mild muscle Verified 09/23/24 09:05 aches Surgical History (Updated 09/23/24 @ 09:30 by Tracee Pearson) Hx of colonoscopy Hx of inguinal hernia repair Hx of inguinal hernia repair History of heart surgery History of transurethral resection of bladder tumor (TURBT) H/O cardiac catheterization Social History Smoking Status: Never smoker Review of Systems (Anesthesia) ROS Narrative System reviewed and no additional complaints, except as documented.
[2024-10-01] MEDS: Lactated Ringers 1,000 ML 15 ML IV ×2 (10:55→17:02)
--- NOTE | 2024-10-01 11:25 | PROST_PTH ---
PATIENT: FREDDIE MONREAL Jr. LOC: MS3 U#:[id number] AGE/SX: 84/M ROOM: [facility] RE10/04/[address]: Dr. Chandrakant Velez MD : [id number] BED: 1 DIS: 10/05/2024 SPEC #: [id number] RECD: 10/01/24 16:50 STATUS: RONNELL ASH #: [id number] PAYTON: 10/01/24 11:[address]: Chandrakant Velez DEPT: SURGICAL PATHOLOGY RECD BY: Maury Fitch ENTERED: 10/02/24 09:55 SP TYPE: PROSTATE OTHR DR: Dr. Zahida Croft, DO Tissues: A - Prostate, NOS Procedures: Surgery Specimen Level V HEADER OPERATION: Laparoscopic robotic simple prostatectomy PRE-OP DIAGNOSIS: Urinary retention, enlarged prostate TISSUE SUBMITTED: A- Prostate tissue MICROSCOPIC DIAGNOSIS A. Prostate, simple prostatectomy: - Benign hyperplasia. MICROSCOPIC DESCRIPTION Slides are reviewed. GROSS DESCRIPTION A. Received in formalin labeled with the patient's name and date of . Designated as prostate tissue is an 82.6 g, 9.5 x 7.5 x 3.2 cm aggregate of pearson-pink to white, nodular and shaggy tissue fragments. The specimen is devoid of orientation. No defined anatomical landmarks to establish orientation are identified. Sectioning reveals pearson-yellow to white, spongy to firm, nodular cut surfaces. Heel Boom Operator sections are submitted in 11 cassettes. MT 10/02/2024 CPT: 80106
--- NOTE | 2024-10-01 13:39 | EKG12_ITS ---
Test Reason : PRE-OP Blood Pressure : */* mmHG Vent. Rate : 65 BPM Atrial Rate : 65 BPM P-R Int : 260 ms QRS Dur : 140 ms QT Int : 454 ms P-R-T Axes : 65 15 25 degrees QTcB Int : 472 ms Sinus rhythm with 1st degree A-V block Right bundle branch block Abnormal ECG No previous ECGs available Confirmed by KEANU HURTADO, BRANDON ([id number]), magazine editor LILY SANTANA ([id number]) on 10/02/2024 8:43:43 AM Referred By: Chandrakant Velez Confirmed By: BRANDON COLUNGA MD
--- NOTE | 2024-10-01 14:22 | DCINST_ITS ---
Discharge Instructions DC O2, CPAP, BIPAP needs Home O2 Discharge instructions: No Dressing / Incision Discharge Activity: May Drive and May Shower Return to work on:: 11/05/24 Lifting Restrictions: no lifting Dressing / Incision Call your doctor if your incision/area has: Continuous Slow Oozing and Sudden Increased Bleeding Call your doctor if you observe: Fever of 101 or Higher, Inability to have a bowel movement and Uncontrolled pain Catheter: [place] to leg bag and [place] to large bag Drain: [place] Follow Up Care Please Follow Up With: Chandrakant Velez MD When: Call [phone] for an appointment, 10 days to d/c sewell Test Results: Test results from this visit will be discussed in further detail at your follow- up appointment, if applicable. Discharge Plan Admission Primary Reason for Your Visit: robotic simple prostatecomy Attending Provider: Chandrakant Velez Primary Care Provider: DAVID KOCH Consulting Providers: Abhijit Gore Instructions Print Language: Arabic Discharge Orders/Prescriptions Prescriptions: New ciprofloxacin HCl [Cipro] 500 mg tablet 500 mg PO BID Qty: 14 0RF docusate sodium [Colace] 100 mg capsule 100 mg PO BID Qty: 20 0RF oxycodone 5 mg tablet 5 mg PO Q6H PRN (Reason: pain) 7 Days Qty: 14 0RF Continued terazosin 5 mg capsule 5 mg PO QHS carvedilol 6.25 mg tablet 6.25 mg PO BID pravastatin 40 mg tablet 40 mg PO QHS amlodipine 2.5 mg tablet 2.5 mg PO 1800 tamsulosin 0.4 mg capsule 0.4 mg PO 1200 folic acid 1 mg tablet 1 mg PO 1200 losartan 100 mg tablet 50 mg PO DAILY finasteride 5 mg tablet 5 mg PO 1800 hydrochlorothiazide 12.5 mg tablet 12.5 mg PO 1200 loratadine 10 mg tablet 10 mg PO PRN magnesium oxide 400 mg (241.3 mg magnesium) tablet 400 mg PO 1200 turmeric 400 mg capsule 400 mg PO 1800 cyanocobalamin (vitamin B-12) [Vitamin B-12] 500 mcg tablet 500 mcg PO DAILY Active Q 200 mg capsule 200 mg PO QHS Referrals / Follow Up: DAVID KOCH [Other] Chandrakant Velez MD [Med Staff - Active Staff] - Disposition Disposition (needs filled in before D/C Order can be placed): Home, Self Care
--- NOTE | 2024-10-01 16:18 | OP.PCM_ITS ---
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 He understands that organ to do enucleation of the obstructing adenoma and then after his surgery he will need a catheter to allow this to heal. He understands is no guarantees that af ter the surgery he will be able to urinate spontaneously and may need to learn how to do self intermittent catheterization. We also talked about the risk of surgery which involves risk of bleeding and infection scar tissue formation bladder neck contracture. Patient was taken back to the operating room at this induction of anesthesia he underwent and intubation and was placed supine on the table. The abdomen was shaved prepped and draped in usual sterile fashion. A Billy catheter was placed into the penis. I then infiltrated the skin above the umbilicus with lidocaine and made a small 5 mm incision in the skin. I then advanced a Veress needle into the peritoneal cavity and inflated the peritoneal cavity with CO2 gas. Once the pressure was at 15 mm and a nice distention of the abdomen then the camera trocar was put into the abdomen. We then looked in with the 0 degree lens and we placed a right arm trocar and left arm trocar and then an air seal suction port high up in the abdomen to allow the assistant professor sculpture to use this for suction. The robot was then docked and then we proceeded with the dissection. The colon was mobilized from the flexure of the colon on the patient's left side once this was freed up then the bladder was distended with 300 cc of sterile normal saline. I then made an incision in the bladder in the midline once we got inside the bladder that drained out all the saline we then used 2 Josh needles to retract the bladder laterally. Once the bladder was retracted in a clamshell fashion laterally then we got inside the bladder inspected the bladder deflated the balloon left the catheter in place. We then started with scoring the mucosa circumferentially all the way around very large protruding adenomatous prostate. I then dissected between the adenoma and the bladder inferiorly working my way in the avascular enucleation plane between the adenoma and the prostate capsule, pseudocapsule all the way inferiorly I then started working my way laterally up on the right side of the prostate until I got to the anterior part freeing up the adenomatous tissue from the prostate and the anterior tissue and cutting through the bladder muscle and mucosa. We then worked our way laterally on the left side of the adenomatous tissue freeing up the adenoma from the prostate and the bladder muscle and mucosa I then came on top of the adenoma and was able to retract the adenoma out and then split the adenoma in half and identified the catheter and then identified the urethral strip the urethral strip was then carefully transected and then the right raúl omatous tissue was removed and then the left adenomatous tissue was removed all intact and all this was placed in Endo Catch bag. Then we cauterized the prostate fossa extensively to control hemostasis Floseal was placed in the prostatic fossa. I then used a 3 oh V-Loc stitch to bring down the mucosa and advance it down towards the urethra circumferentially to advance the mucosa down to the urethral stump. We then placed a Billy catheter, 20 Algerian into the bladder with no continuous irrigation. Irrigate out the bladder irrigate all the clots out we then closed the bladder with 2 layers using 2 oh V-Loc stitch and then a 4-0 Vicryl stitch. Both the Josh needles were removed that were retracting the bladder. We then undocked the robot we extracted the prostate adenoma through the umbilicus port we closed the air seal port with 1012 stitch and then we closed all the other ports with subcuticular stitches once the prostate was extracted to the camera port and we reapproximated the fascia and the camera port with a 0 Vicryl [id number] fashion stitch. Minimal blood loss during the case catheter was irrigated and draining well patient anesthetic was reversed and he was taken back to the PACU in good condition. The role of the mortician supplies sales representative ANSHUL, assisted with myself during the entire procedure, the AD OPERATIONS COORDINATOR assisted by passing instruments through the air seal port, passing suture, needles, sponges during the surgery. The RFA also assisted with providing some suction using the suction irrigation and some irrigation during the surgery. Also the assistant professor sculpture provided some traction minorly during the dissection of the prostate and the seminal vesicles. The RFA also helped me extract the prostate at the end of the case and helped close the fascia, and the assistant professor sculpture also helped close the skin incisions with subcuticular stitches. The assistant professor sculpture was monitored closely and under my direct supervision the entire case. Surgical Findings: Very large prostate adenoma removed Complications Complications: No Admit VTE Documentation VTE Present on Admission: No VTE Mechan Device Prophylaxis: SCD's VTE Pharm Prophylaxis ordered?: No
--- NOTE | 2024-10-01 16:40 | PCM.POST.ANE ---
Anesthesia: Postop Eval I Current Vital Signs Temperature: 97.6 F Pulse Rate: 61 Blood Pressure: 142/60 Respiratory Rate: 12 Pulse Ox: 95 Oxygen Delivery Method: Room Air Assessment Airway patent: Yes Spontaneous unlabored respirations: Yes Mental status: Awake and Calm nausea: No Vomiting: No Anesthesia Complication: No Fluid Hydration Crystalloid volume administer (ml): 800 Total IV fluid infused: 800 Progress Note Anesthesia document: Postop Eval 1 completed: Yes
[2024-10-01] MEDS: 0.9% Normal Saline (1000mL) 1,000 ML 125 ML IV (18:37)
--- NOTE | 2024-10-01 18:47 | POSTOPAN2_ITS ---
Anesthesia Postop Eval I Sum Postop Eval Completion status Anesthesia document: Postop Eval 1 completed: Yes Anesthesia Postop Eval I Summary Anesthesia Postop Eval I Summary: Anesthesia Postop Eval I: Assessment Summary Airway patent Yes 10/01/24 16:41 ACCESS SPEC.SHOF Spontaneous unlabored Yes 10/01/24 16:41 ACCESS SPEC.SHOF respirations Mental status Awake,Calm 10/01/24 16:41 ACCESS SPEC.SHOF nausea No 10/01/24 16:41 ACCESS SPEC.SHOF Vomiting No 10/01/24 16:41 ACCESS SPEC.SHOF Anesthesia Postop Eval I: Fluid Summary Crystalloid volume administer 800 10/01/24 16:41 ACCESS SPEC.SHOF (ml) Colloids volume administered ( ml) Blood Product volume administered (ml) Total IV fluid infused 800 10/01/24 16:41 ACCESS SPEC.SHOF Anesthesia Postop Eval I: Summary Notes Anesthesia Complication No 10/01/24 16:41 ACCESS SPEC.SHOF Anesthesia Complication Comment: Post-operative progress note Anesthesia: Postop Eval II Evaluation Mental status: Awake Pain Level: 2 nausea: No Vomiting: No Progress Note Post-operative progress note: VSS Awake and responsive Complications Anesthesia Complication: No
--- NOTE | 2024-10-01 18:47 | PCM.POSTANE2 ---
Anesthesia Postop Eval I Sum Postop Eval Completion status Anesthesia document: Postop Eval 1 completed: Yes Anesthesia Postop Eval I Summary Anesthesia Postop Eval I Summary: Anesthesia Postop Eval I: Assessment Summary Airway patent Yes 10/01/24 16:41 ELECTRON TUBE ASSEMBLER.SHOF Spontaneous unlabored Yes 10/01/24 16:41 ELECTRON TUBE ASSEMBLER.SHOF respirations Mental status Awake,Calm 10/01/24 16:41 ELECTRON TUBE ASSEMBLER.SHOF nausea No 10/01/24 16:41 ELECTRON TUBE ASSEMBLER.SHOF Vomiting No 10/01/24 16:41 ELECTRON TUBE ASSEMBLER.SHOF Anesthesia Postop Eval I: Fluid Summary Crystalloid volume administer 800 10/01/24 16:41 ELECTRON TUBE ASSEMBLER.SHOF (ml) Colloids volume administered ( ml) Blood Product volume administered (ml) Total IV fluid infused 800 10/01/24 16:41 ELECTRON TUBE ASSEMBLER.SHOF Anesthesia Postop Eval I: Summary Notes Anesthesia Complication No 10/01/24 16:41 ELECTRON TUBE ASSEMBLER.SHOF Anesthesia Complication Comment: Post-operative progress note Anesthesia: Postop Eval II Evaluation Mental status: Awake Pain Level: 2 nausea: No Vomiting: No Progress Note Post-operative progress note: VSS Awake and responsive Complications Anesthesia Complication: No
[2024-10-02] VITALS (8 sets, daily range): BP systolic 112–139; BP diastolic 55–73; PULSE 59–64; RESP 16–17; TEMP 36.6–37; O2SAT 97–99
[2024-10-02] MEDS: 0.9% Normal Saline (1000mL) 1,000 ML 125 ML IV (02:52)
[2024-10-02 06:19] LABS: Hematocrit 29.0 % (40-54); Hemoglobin 9.6 g/dL (13.0-16.5); Immature Granulocytes Count 0.090 X10^3/uL (0.0-0.0); Mean Corp Hgb Conc 33.1 g/dL (32-36); Mean Corpuscular Volume 94.2 fL (80-94); Mean Platelet Vol. 10.5 fl (6.2-12.0); NRBC Flagged by Analyzer 0 % (0-5); POSITIVE DIFFERENTIAL YES; Platelet Count 137 K/mm3 (150-450); RBC Distribution Width CV 14.1 % (11.6-14.6); RBC Distribution Width SD 47.4 fl (35.1-43.9); Red Blood Count 3.08 M/mm3 (4.6-6.2); White Blood Count 13.0 K/mm3 (4.4-11.0)
[2024-10-02 06:51] LABS: Anion Gap 11 (5-15); BUN 25 mg/dL (4-19); BUN/Creat Ratio 17.1 RATIO (10-20); Calcium,Total 7.8 mg/dL (7.6-11.0); Carbon Dioxide 22.0 mmol/L (21.0-32.0); Chloride 105 mmol/L (98-108); Estimated Creatinine Clearance 37.34 ml/min (50-250); Glucose 203 mg/dL (70-99); Potassium 4.1 mmol/L (3.3-5.1)
--- NOTE | 2024-10-02 07:18 | PCM.PN.GU ---
Subjective Subjective Status post simple prostatectomy continue with CBI, diet advance as tolerate out of bed ambulate as tolerate will continue CBI for the next day may be clamped tomorrow may be home tomorrow with a catheter. Objective Data Objective Data Vital Signs: Vital Signs Temp Pulse Resp BP Pulse Ox O2 Del Method 98.1 F 62 16 133/58 H 97 Room Air 10/02/24 06:36 10/02/24 06:36 10/02/24 06:36 10/02/24 06:36 10/02/24 06:36 10/02/24 06:36 Oxygen Delivery Method Room Air Weight: 76.657 kg Body Mass Index (BMI) 25.7 Intake & Output: Intake and Output for Last 24 Hours 09/30/24 10/01/24 10/02/24 23:59 23:59 23:59 Intake Total 1650 / 1650 1000 / 1000 Output Total 1870 / 1870 1750 / 1750 Balance -220 / -220 -750 / -750 Lab / Micro Data 10/02/24 06:00 10/02/24 06:00 Labs: Laboratory Results - last 24 hr 10/02/24 06:00: WBC 13.0 H, RBC 3.08 L, Hgb 9.6 L, Hct 29.0 L, MCV 94.2 H, MCH 31.2, MCHC 33.1, RDW Std Deviation 47.4 H, RDW Coeff of Og 14.1, Plt Count 137 L, MPV 10.5, Immature Gran % (Auto) 0.700, Neut % (Auto) 87.4 H, Lymph % (Auto) 4.2 L, [place] % (Auto) 7.4, Eos % (Auto) 0.1, Baso % (Auto) 0.2, Absolute Neuts (auto) 11.4 H, Absolute Lymphs (auto) 0.55 L, Nucleated RBC % 0, Sodium 138, Potassium 4.1, Chloride 105, Carbon Dioxide 22.0, Anion Gap 11, BUN 25 H, Creatinine 1.45 H, Estim Creat Clear Calc 37.34 L, Est GFR (MDRD) Non-Af 48 L, BUN/Creatinine Ratio 17.1, Glucose 203 H, Calcium 7.8
--- NOTE | 2024-10-02 08:57 | EKG12_ITS ---
Test Reason : CHEST PAIN Blood Pressure : */* mmHG Vent. Rate : 63 BPM Atrial Rate : 63 BPM P-R Int : 268 ms QRS Dur : 140 ms QT Int : 478 ms P-R-T Axes : 70 37 55 degrees QTcB Int : 489 ms Sinus rhythm with 1st degree A-V block with Premature supraventricular complexes and with occasional Premature ventricular complexes Right bundle branch block Abnormal ECG When compared with ECG of 01-Oct-2024 13:48, Premature ventricular complexes are now Present Premature supraventricular complexes are now Present Confirmed by KEANU HURTADO, BRANDON ([id number]), assignment desk editor OMAR YAN ([id number]) on 10/03/2024 10:58:39 AM Referred By: Chandrakant Velez Confirmed By: BRANDON COLUNGA MD
--- NOTE | 2024-10-02 09:11 | NURSING ---
Patient rang out to nurses station complaining of midsternal pain with radiation through back. Patient states it began after eating. EKG obtained to r/o cardiac complications. MD aware. VSS. Mylanta prn given as well as Toradol IV.
--- NOTE | 2024-10-02 09:12 | ECHOD_ITS ---
Reason For Study Reason For Study: CHEST PAIN Procedure This was a 2D Doppler, Color Flow transthoracic echocardiogram. Exam performed portable in patient room. Left Ventricle Normal LV size. Mild concentric left ventricular hypertrophy. The left ventricular ejection fraction is 60 %. No regional wall motion abnormalities noted. Right Ventricle Normal RV size. Normal systolic function. Atria Normal left atrium. Normal right atrium. Mitral Valve Normal mitral valve. Tricuspid Valve Normal tricuspid valve. Mild tricuspid valve insufficiency. Pulmonary artery systolic pressure is 23 mmHg. Aortic Valve Trisinus/trileaflet aortic valve. Pulmonic Valve Normal pulmonic valve. Great Vessels Normal aortic root. The pulmonary artery is normal size. Inferior vena cava collapse with respiration. Pericardium/Pleural No pericardial effusion. MMode/2D Measurements & Calculations LVIDd: 3.4 cm IVSd: 1.3 cm LAV(MOD- bp): 39.9 ml LVIDs: 2.8 cm LVPWd: 1.4 cm LAV(MOD- bp) Indexed: 21.0 ml/m2 FS: 17.0 % LAV(MOD- sp2): 28.1 ml LAV(MOD- sp4): 42.1 ml SV(MOD-sp4): 29.9 ml SV(sp4- el): 30.1 ml LVAd ap4: 22.3 cm2 LVLd ap4: 7.9 cm SI(MOD-sp4): 15.7 ml/m2 EDV(MOD-sp4): 53.4 ml EDV(sp4-el): 53.3 ml LVAs ap4: 13.3 cm2 LVLs ap4: 6.5 cm ESV(MOD-sp4): 23.5 ml ESV(sp4-el): 23.2 ml EF(MOD-sp4): 56.0 % EF(sp4-el): 56.5 % LA A4 area: 18.2 cm2 RA A4 area: 16.6 cm2 Time Measurements MV dec time: 0.18 sec Doppler Measurements & Calculations MV E max jesus: 73.4 cm/sec Lat Peak E' Jesus: 12.5 cm/sec Med Peak E' Jesus: 5.6 cm/sec MV A max jesus: 59.3 cm/sec E/E' lat: 5.9 E/E' med: 13.1 MV E/A: 1.2 MV V2 max: 94.9 cm/sec MV dec slope: 411.2 cm/sec2 Ao V2 max: 132.3 cm/sec MV max P.6 mmHg Ao max P.0 mmHg MV V2 mean: 51.1 cm/sec Ao V2 mean: 95.2 cm/sec MV mean P.2 mmHg Ao mean P.1 mmHg MV V2 VTI: 31.3 cm Ao V2 VTI: 29.7 cm AV (velocity ratio): 0.83 LV V1 max: 115.6 cm/sec TR max jesus: 217.5 cm/sec LV V1 max P.3 mmHg TR max P.9 mmHg LV V1 mean P.7 mmHg LV V1 mean: 76.1 cm/sec LV V1 VTI: 24.6 cm ECHO/Echo Complete Interpretation Summary Normal LV size. The left ventricular ejection fraction is 60 %. Mild concentric left ventricular hypertrophy. Structurally normal valves. Ordering Physician: Zahida Croft Referring Physician: Chandrakant Velez Performed By: Promise Monte and Student
--- NOTE | 2024-10-02 09:14 | PCM.PN.HOSP ---
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 Patient says he has not had any issues since that point in time. He has had no stent placement since then. Patient was admitted on 10/01/2024 for robotic simple prostatectomy for BPH with very large prostate. Surgery went well but today he developed some chest pain that seems to start in the epigastric area and radiates to his back. I discussed the symptoms with this patient he states they are not quite the same as his cardiac pain. He indicated he thought it was from insufflation and possibly from some acid reflux. He was given a GI cocktail and his symptoms did improve but not completely mahin. Given his cardiac history and chest pain we are consulted. Objective Data Objective Data Vital Signs: Vital Signs Temp Pulse Resp BP Pulse Ox O2 Del Method 98.5 F 60 16 117/55 L 98 Room Air 10/02/24 08:21 10/02/24 08:21 10/02/24 08:21 10/02/24 08:21 10/02/24 08:21 10/02/24 08:21 Oxygen Delivery Method Room Air Weight: 76.657 kg Body Mass Index (BMI) 25.7 Intake & Output: Intake and Output for Last 24 Hours 09/30/24 10/01/24 10/02/24 23:59 23:59 23:59 Intake Total 1650 / 1650 1782.42 / 1782.42 Output Total 1870 / 1870 5150 / 5150 Balance -220 / -220 -3367.58 / -3367.58 Lab / Micro Data 10/02/24 06:00 10/02/24 06:00 Labs: Laboratory Results - last 24 hr 10/02/24 06:00: WBC 13.0 H, RBC 3.08 L, Hgb 9.6 L, Hct 29.0 L, MCV 94.2 H, MCH 31.2, MCHC 33.1, RDW Std Deviation 47.4 H, RDW Coeff of Og 14.1, Plt Count 137 L, MPV 10.5, Immature Gran % (Auto) 0.700, Neut % (Auto) 87.4 H, Lymph % (Auto) 4.2 L, [place] % (Auto) 7.4, Eos % (Auto) 0.1, Baso % (Auto) 0.2, Absolute Neuts (auto) 11.4 H, Absolute Lymphs (auto) 0.55 L, Nucleated RBC % 0, Sodium 138, Potassium 4.1, Chloride 105, Carbon Dioxide 22.0, Anion Gap 11, BUN 25 H, Creatinine 1.45 H, Estim Creat Clear Calc 37.34 L, Est GFR (MDRD) Non-Af 48 L, BUN/Creatinine Ratio 17.1, Glucose 203 H, Calcium 7.8 Physical Exam Const alert, oriented x3, no apparent distress, average body habitus and well nourished Constitutional Narrative: Elderly, white male, lying semireclined in bed, appears comfortable, nontoxic, very conversational HEENT head/scalp atraumatic and moist oral mucous membranes HEENT Narrative: Mallampati 2, no thrush Head and Scalp: normocephalic Resp normal respiratory effort, no retractions, no use of accessory muscles and clear to auscultation bilaterally Auscultation: Negative for rales, rhonchi or wheezes Cardio regular rate, regular rhythm, S1 normal heart sound, S2 normal heart sound, no murmurs, no rub, no gallops and no clicks GI GI Narrative: Very mild distention, bowel sounds are slightly hypoactive, abdomen is soft, tenderness in the suprapubic area Extremity no clubbing, cyanosis or edema Extremity Narrative: Pedal and radial pulses are 2+ Neuro oriented x3, moves all extremities and no focal motor deficits Speech: speech normal Psych affect normal Psych Narrative: Extremely pleasant, makes good eye contact, interacts appropriately Assessment & Plan Assessment/Plan (1) Chest pain: (2) Elevated troponin: PLAN: Plan Chest pain - Much improved after GI cocktail - Add Protonix 40 mg p.o. twice daily - Check KUB as he is mildly distended with hypoactive bowel sounds as I am concerned this may be some reflux related to slow bowel movement versus ileus postoperatively - Cycle cardiac enzymes - EKG is stable when compared to preoperative EKG - Check echocardiogram - Will monitor on telemetry until I have echocardiogram back to see if there is any wall motion - If abnormal we will request previous echo from [facility] as we do not have any information here Troponin elevation - Mild elevation in the setting of CKD - Suspect decreased clearance without significant rise - echocardiogram is pending BPH with obstruction - Postop day 1 prostatectomy - Management per primary service - Preoperative urine culture was negative - Continuation of Proscar and alpha blockers per primary service - Continue stool softeners - Reglan was started by primary service we will continue for now CKD stage IIIb - Serum creatinine at baseline appears to be between 1.2 and 1.4 - Currently 1.45 so slightly elevated next-continue to monitor with repeat BMP in a.m. next-patient has Billy with continuous irrigation due to postoperative hematuria - Repeat lab in a.m. and avoid nephrotoxins - Discontinue IV Toradol CAD/essential hypertension/hyperlipidemia - Continue home amlodipine next-continue home carvedilol - Hold home HCTZ with worsening renal function - Hold home losartan with worsening renal function - Continue home pravastatin - Add as needed hydralazine for systolic pressure greater than 160 since we are holding 2 home antihypertensives History of DVTs - DVT prophylaxis per primary service History of multiple myeloma/amyloidosis - Continue outpatient follow-up DVT prophylaxis - Per primary service CODE STATUS - Full code Charges/Coding Visit Charges Inpatient E&M: 79787 Subs Hosp L2
[2024-10-02 10:18] LABS: Troponin T High Sensitivity 34 ng/L (<=22)
[2024-10-02] MEDS: Lidocaine 2% Viscous15 ML UDC 15 ML PO (10:52)
[2024-10-02 12:41] LABS: Troponin T High Sens 2 HR 37 ng/L (<=22)
[2024-10-02 13:56] LABS: Troponin T High Sens 4 HR 39 ng/L (<=22)
--- NOTE | 2024-10-02 14:37 | RAD_ITS ---
PROCEDURE: ABDOMEN SINGLE VIEW (PORTABLE) 10/02/2024 REASON FOR EXAM: CHEST PRESSURE TECHNIQUE: ABDOMEN SINGLE VIEW (PORTABLE) COMPARISON: Prior study dated July 26, 2020. FINDINGS: Bowel gas: Gas and fecal material seen throughout the colon. No evidence of obstruction. Calcifications: No suspicious calcifications are seen. Bones: There are degenerative changes of the spine. Other: RAD/Abdomen Single View (Portable) IMPRESSION: Gas and fecal material seen throughout the colon. No evidence of bowel obstruc tion. Reading Location: [id number]
--- NOTE | 2024-10-02 14:41 | CHAPLAIN ---
Type of Pastoral Visit _x__ Initial Visit ___ Follow-up Visit ___ On-call Visit ___ General Patient Visit ___ Spiritual Assessment ___ Family Conference ___ Bereavement ___ Rapid Response ___ Code Blue ___ Other (describe below) Pastoral Care Referral From _x__ Patient _x__ Family ___ Nurse ___ Physician ___ Computer Instructor ___ Tabulating Supervisor ___ Other (describe below) Sacrament/Intervention _x__ Active listening ___ Anointing ___ Oriental Orthodox ___ Bereavement ___ Communion _x__ [place] exploration ___ _x__ Life review _x__ Prayer ___ Reconciliation ___ Sacrament of Sick _x__ Supportive presence ___ Wedding ___ Other (describe below) Pastoral Comments patient and spouse were walking with physiotherapy assistant in the hallway when he stopped to talk to the gum scoring machine operator and asked for a visit today; this gum scoring machine operator met this patient a couple of weeks ago in this hospital; pt is man of spiritual sydney and expresses it again today; pt was seen later by this gum scoring machine operator; pt talks about his recent admission to the hospital and 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
--- NOTE | 2024-10-02 14:55 | CASEMGMT ---
RN ZEINA note: Intro role of CM to patient and ZAIDI form explained re: Observation status for treatment of simple prostatectomy.? Explained hospitalization will be paid per?his insurance policy for Outpatient billing?and condition will continue to be evaluated for Inpt necessity. Also let pt know that [facility] sends paper in the billing packet with their phone number if questions arise. Pt verbalizes understanding and does not have further questions. ?Form signed, copy made and placed in chart, and original given to pt. Luis LAWSON RN CM
[2024-10-02] MEDS: Magnesium Chloride 64 MG Delay Rel.Tablet 128 MG PO (15:20)
[2024-10-03 00:07] VITALS: PULSE 58
[2024-10-03 03:08] VITALS: BP 144/69; PULSE 59; RESP 16; TEMP 36.4; O2SAT 98
[2024-10-03 06:12] VITALS: PULSE 53
[2024-10-03 06:57] LABS: Hematocrit 26.6 % (40-54); Hemoglobin 8.9 g/dL (13.0-16.5); Immature Granulocytes Count 0.040 X10^3/uL (0.0-0.0); Mean Corp Hgb Conc 33.5 g/dL (32-36); Mean Corpuscular Volume 94.7 fL (80-94); Mean Platelet Vol. 11.1 fl (6.2-12.0); NRBC Flagged by Analyzer 0 % (0-5); Platelet Count 118 K/mm3 (150-450); RBC Distribution Width CV 14.6 % (11.6-14.6); RBC Distribution Width SD 50.6 fl (35.1-43.9); Red Blood Count 2.81 M/mm3 (4.6-6.2); White Blood Count 8.3 K/mm3 (4.4-11.0)
--- NOTE | 2024-10-03 07:10 | PCM.PN.GU ---
Subjective Subjective doing well, had chest pain yesturday but ruled out had diarrhea yestruday stop CBI recover one more day likely home tomorrow with foely okay to shower Objective Data Objective Data Vital Signs: Vital Signs Temp Pulse Resp BP Pulse Ox O2 Del Method 97.5 F L 53 L 16 144/69 H 98 Room Air 10/03/24 03:08 10/03/24 06:12 10/03/24 03:08 10/03/24 03:08 10/03/24 03:08 10/03/24 03:08 Oxygen Delivery Method Room Air Weight: 76.657 kg Body Mass Index (BMI) 25.7 Intake & Output: Intake and Output for Last 24 Hours 10/01/24 10/02/24 10/03/24 23:59 23:59 23:59 Intake Total 1650 / 1650 2332.42 / 2332.42 Output Total 1870 / 1870 43636 / 07821 1850 / 1850 Balance -220 / -220 -9817.58 / -9817.58 -1850 / -1850 Lab / Micro Data 10/03/24 06:02 10/02/24 06:00 Labs: Laboratory Results - last 24 hr 10/02/24 09:24: Troponin T High Sens 34 H 10/02/24 11:42: Troponin T Hi Sens 2 Hr 37 H 10/02/24 13:05: Troponin T Hi Sens 4Hr 39 H 10/03/24 06:02: WBC 8.3, RBC 2.81 L, Hgb 8.9 L, Hct 26.6 L, MCV 94.7 H, MCH 31.7, MCHC 33.5, RDW Std Deviation 50.6 H, RDW Coeff of Og 14.6, Plt Count 118 L, MPV 11.1, Immature Gran % (Auto) 0.500, Neut % (Auto) 73.6 H, Lymph % (Auto) 13.2 L, [place] % (Auto) 9.2, Eos % (Auto) 3.3, Baso % (Auto) 0.2, Absolute Neuts (auto) 6.1, Absolute Lymphs (auto) 1.09, Nucleated RBC % 0 Radiography Diagnostic Testing: Radiology Impression KUB X-Ray 10/02/24 14:37 IMPRESSION: Gas and fecal material seen throughout the colon. No evidence of bowel obstruction. Reading Location: [facility]
[2024-10-03 07:27] LABS: AST(SGOT) 15 U/L (<=37); Alanine Aminotransfer ALT/SGPT 8 U/L (<=46); Albumin, Serum 3.0 g/dL (3.4-4.8); Alkaline Phosphatase 53 U/L (40-129); Anion Gap 7 (5-15); BUN 23 mg/dL (4-19); BUN/Creat Ratio 15.5 RATIO (10-20); Calcium,Total 7.9 mg/dL (7.6-11.0); Carbon Dioxide 24.7 mmol/L (21.0-32.0); Chloride 109 mmol/L (98-108); Estimated Creatinine Clearance 36.10 ml/min (50-250); Globulin 1.6 g/dL (2.2-4.2); Glucose 88 mg/dL (70-99); Magnesium 2.7 mg/dL (1.5-2.2); Potassium 4.1 mmol/L (3.3-5.1)
--- NOTE | 2024-10-03 08:09 | PCM.PN.HOSP ---
Reason for Visit Chief Complaint: Urinary retention Subjective Subjective Patient states he had a large bowel movement last night. No more reflux symptoms and chest pain has resolved. He is concerned about requiring transfusion. His platelets are stable and his blood count has dropped some but not in the range where he would require transfusion at this time. He is hopeful that bleeding will stop and he will be able to go home soon. He states he is feeling great. Objective Data Objective Data Vital Signs: Vital Signs Temp Pulse Resp BP Pulse Ox O2 Del Method 97.5 F L 53 L 16 144/69 H 98 Room Air 10/03/24 03:08 10/03/24 06:12 10/03/24 03:08 10/03/24 03:08 10/03/24 03:08 10/03/24 03:08 Oxygen Delivery Method Room Air Weight: 76.657 kg Body Mass Index (BMI) 25.7 Intake & Output: Intake and Output for Last 24 Hours 10/01/24 10/02/24 10/03/24 23:59 23:59 23:59 Intake Total 1650 / 1650 2332.42 / 2332.42 Output Total 1870 / 1870 77774 / 25106 1850 / 1850 Balance -220 / -220 -9817.58 / -9817.58 -1850 / -1850 Lab / Micro Data 10/03/24 06:02 10/03/24 06:02 Labs: Laboratory Results - last 24 hr 10/02/24 09:24: Troponin T High Sens 34 H 10/02/24 11:42: Troponin T Hi Sens 2 Hr 37 H 10/02/24 13:05: Troponin T Hi Sens 4Hr 39 H 10/03/24 06:02: WBC 8.3, RBC 2.81 L, Hgb 8.9 L, Hct 26.6 L, MCV 94.7 H, MCH 31.7, MCHC 33.5, RDW Std Deviation 50.6 H, RDW Coeff of Og 14.6, Plt Count 118 L, MPV 11.1, Immature Gran % (Auto) 0.500, Neut % (Auto) 73.6 H, Lymph % (Auto) 13.2 L, [place] % (Auto) 9.2, Eos % (Auto) 3.3, Baso % (Auto) 0.2, Absolute Neuts (auto) 6.1, Absolute Lymphs (auto) 1.09, Nucleated RBC % 0, Sodium 141, Potassium 4.1, Chloride 109 H, Carbon Dioxide 24.7, Anion Gap 7, BUN 23 H, Creatinine 1.50 H, Estim Creat Clear Calc 36.10 L, Est GFR (MDRD) Non-Af 46 L, BUN/Creatinine Ratio 15.5, Glucose 88, Calcium 7.9, Magnesium 2.7 H, Total Bilirubin 0.27, AST 15, ALT 8, Alkaline Phosphatase 53, Total Protein 4.6 L, Albumin 3.0 L, Globulin 1.6 L, Albumin/Globulin Ratio 1.9 Radiography Diagnostic Testing: Radiology Impression Echocardiogram 10/02/24 09:12 Interpretation Summary Normal LV size. The left ventricular ejection fraction is 60 %. Mild concentric left ventricular hypertrophy. Structurally normal valves. Ordering Physician: Zahida Croft Referring Physician: Chandrakant Velez Performed By: Promise Monte and Student X-Ray 10/02/24 14:37 IMPRESSION: Gas and fecal material seen throughout the colon. No evidence of bowel obstruction. Reading Location: [facility] Physical Exam Const alert, oriented x3, no apparent distress, average body habitus and well nourished Constitutional Narrative: Elderly, white male, sitting up in a chair at the bedside, watching television, appears comfortable, nontoxic, extremely pleasant HEENT head/scalp atraumatic and moist oral mucous membranes Head and Scalp: normocephalic Resp normal respiratory effort, no retractions, no use of accessory muscles and clear to auscultation bilaterally Auscultation: Negative for rales, rhonchi or wheezes Cardio regular rate, regular rhythm, S1 normal heart sound, S2 normal heart sound, no murmurs, no rub, no gallops and no clicks GI normal to inspection, nondistended, normoactive bowel sounds, soft to palpation and non-tender Extremity no clubbing, cyanosis or edema Extremity Narrative: Pedal and radial pulses are 2+ Neuro moves all extremities and no focal motor deficits Speech: speech normal Psych affect normal Psych Narrative: Extremely pleasant, makes good eye contact, interacts appropriately Assessment & Plan Assessment/Plan (1) Chest pain: (2) Elevated troponin: PLAN: Plan Chest pain - Resolved - Highly suspicious of GI etiology - Continue Protonix - KUB was unremarkable patient now passing flatus and having bowel movements - EKG is stable when compared to preoperative EKG - Echocardiogram was unremarkable for any EF depression or wall motion abnormality - Okay to discontinue telemetry Troponin elevation - Mild elevation in the setting of CKD - Suspect decreased clearance without significant rise - EF of 60% with mild concentric LVH and structurally normal valves and no wall motion abnormality Anemia - Appears to be acute on chronic with mild anemia baseline hemoglobin appears to be between 11 and 13 - Currently 8.9 and has dropped some postoperatively - Patient does have hematuria - Repeat CBC recommended for a.m. 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 -Tran called and was telling me with that as she thinks you are right now to always but especially right now patient has Billy with continuous irrigation due to postoperative hematuria - Repeat lab in a.m. 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 Discussed with Dr. Velez. Will sign off and please reconsult if needed. Charges/Coding Visit Charges Inpatient E&M: 38415 Subs Hosp L2
[2024-10-03] MEDS: Magnesium Chloride 64 MG Delay Rel.Tablet 128 MG PO (11:47)
[2024-10-03 13:42] VITALS: BP 124/52; PULSE 53; RESP 16; TEMP 36.5; O2SAT 100
[2024-10-03 21:29] VITALS: BP 129/53; PULSE 57; RESP 16; TEMP 36.6; O2SAT 97
[2024-10-03 21:39] VITALS: PULSE 58
[2024-10-04] VITALS (10 sets, daily range): BP systolic 141–175; BP diastolic 53–86; PULSE 60–70; RESP 16–18; TEMP 36.3–37.1; O2SAT 96–99
[2024-10-04 06:50] LABS: Anion Gap 8 (5-15); BUN 18 mg/dL (4-19); BUN/Creat Ratio 14.9 RATIO (10-20); Calcium,Total 7.8 mg/dL (7.6-11.0); Carbon Dioxide 24.3 mmol/L (21.0-32.0); Chloride 110 mmol/L (98-108); Estimated Creatinine Clearance 45.13 ml/min (50-250); Glucose 91 mg/dL (70-99); Potassium 4.1 mmol/L (3.3-5.1)
[2024-10-04 07:42] LABS: Hematocrit 26.4 % (40-54); Hemoglobin 8.5 g/dL (13.0-16.5); Immature Granulocytes Count 0.040 X10^3/uL (0.0-0.0); Mean Corp Hgb Conc 32.2 g/dL (32-36); Mean Corpuscular Volume 95.7 fL (80-94); Mean Platelet Vol. 11.8 fl (6.2-12.0); NRBC Flagged by Analyzer 0 % (0-5); POSITIVE COUNT YES; Platelet Count 119 K/mm3 (150-450); RBC Distribution Width CV 14.7 % (11.6-14.6); RBC Distribution Width SD 51.4 fl (35.1-43.9); Red Blood Count 2.76 M/mm3 (4.6-6.2); White Blood Count 7.0 K/mm3 (4.4-11.0)
--- NOTE | 2024-10-04 09:34 | PCM.DC ---
Discharge Instructions DC O2, CPAP, BIPAP needs Home O2 Discharge instructions: No Dressing / Incision Discharge Activity: May Not Drive and May Shower Return to work on:: 11/05/24 Additional Activity Instructions:: push fluids avoid straining Dressing / Incision Call your doctor if your incision/area has: Continuous Slow Oozing and Sudden Increased Bleeding Call your doctor if you observe: Fever of 101 or Higher, Inability to have a bowel movement and Uncontrolled pain Catheter: Billy to leg bag and Billy to large bag Drain: [place] Follow Up Care Please Follow Up With: Chandrakant Velez MD When: appt in 10 days Test Results: Test results from this visit will be discussed in further detail at your follow-up appointment, if applicable. Discharge Plan Admission Admit Date/Time: 10/01/24 14:19 Primary Reason for Your Visit: robotic simple prostatecomy Attending Provider: Chandrakant Velez Primary Care Provider: DAVID CROFT Consulting Providers: Abhijit Gore; Zahida Croft Discharge Orders/Prescriptions Prescriptions: New ciprofloxacin HCl [Cipro] 500 mg tablet 500 mg PO BID Qty: 14 0RF docusate sodium [Colace] 100 mg capsule 100 mg PO BID Qty: 20 0RF oxycodone 5 mg tablet 5 mg PO Q6H PRN (Reason: pain) 7 Days Qty: 14 0RF Continued terazosin 5 mg capsule 5 mg PO QHS carvedilol 6.25 mg tablet 6.25 mg PO BID pravastatin 40 mg tablet 40 mg PO QHS amlodipine 2.5 mg tablet 2.5 mg PO 1800 tamsulosin 0.4 mg capsule 0.4 mg PO 1200 folic acid 1 mg tablet 1 mg PO 1200 losartan 100 mg tablet 50 mg PO DAILY finasteride 5 mg tablet 5 mg PO 1800 hydrochlorothiazide 12.5 mg tablet 12.5 mg PO 1200 loratadine 10 mg tablet 10 mg PO PRN magnesium oxide 400 mg (241.3 mg magnesium) tablet 400 mg PO 1200 turmeric 400 mg capsule 400 mg PO 1800 cyanocobalamin (vitamin B-12) [Vitamin B-12] 500 mcg tablet 500 mcg PO DAILY Active Q 200 mg capsule 200 mg PO QHS Referrals / Follow Up: DAVID CROFT [Other] Chandrakant Velez MD [Med Staff - Active Staff] - Disposition Disposition (needs filled in before D/C Order can be placed): Home, Self Care
--- NOTE | 2024-10-04 09:35 | PCM.DC.SUM ---
Providers Date of Admission: 10/01/24 Date of Discharge: 10/04/24 Primary Care Physician: DAVID CROFT Consultations 10/02/24 09:05 Consult: Hospitalist Routine Consulting Provider: Zahida Croft Reason for Consult: chest pain EMERGENT Consult: No MD Notified: Yes Date Notified: 10/02/24 Time Notified: 09:05 Method of Notification: Text Reason For Visit: Prostatectomy,Supapubic,Simple Diagnosis Discharge Diagnosis (1) Chest pain: Status: Acute Code(s): R07.9 - Chest pain, unspecified (2) Elevated troponin: Status: Acute Code(s): R79.89 - Other specified abnormal findings of blood chemistry Medications at Discharge Home Medications amlodipine 2.5 mg tablet 2.5 mg PO 1800 09/17/24 carvedilol 6.25 mg tablet 6.25 mg PO BID 09/17/24 coQ10 (ubiquinol) 200 mg capsule (Active Q) 200 mg PO QHS prostate 09/17/24 cyanocobalamin (vitamin B-12) 500 mcg tablet (Vitamin B-12) 500 mcg PO DAILY 09/17/24 folic acid 1 mg tablet 1 mg PO 1200 09/17/24 hydrochlorothiazide 12.5 mg tablet 12.5 mg PO 1200 09/17/24 loratadine 10 mg tablet 10 mg PO PRN Allergis 09/17/24 losartan 100 mg tablet 50 mg PO DAILY 09/17/24 magnesium oxide 400 mg (241.3 mg magnesium) tablet 400 mg PO 1200 09/17/24 pravastatin 40 mg tablet 40 mg PO QHS 09/17/24 turmeric 400 mg capsule 400 mg PO 1800 Prostrate 09/17/24 docusate sodium 100 mg capsule (Colace) 100 mg PO BID #20 caps 10/01/24 oxycodone 5 mg tablet 5 mg PO Q6H PRN pain 7 days #14 tabs 10/01/24 Weight / BMI Weight Weight: 76.657 kg Body Mass Index (BMI) 25.7 ABG / Lab / Microbiology Data 10/04/24 05:50 10/04/24 05:50 Laboratory: Laboratory Results - last 24 hr 10/04/24 05:50: WBC 7.0, RBC 2.76 L, Hgb 8.5 L, Hct 26.4 L, MCV 95.7 H, MCH 30.8, MCHC 32.2, RDW Std Deviation 51.4 H, RDW Coeff of Og 14.7 H, Plt Count 119 L, MPV 11.8, Immature Gran % (Auto) 0.600, Neut % (Auto) 71.1 H, Lymph % (Auto) 13.9 L, [place] % (Auto) 10.4 H, Eos % (Auto) 3.7, Baso % (Auto) 0.3, Absolute Neuts (auto) 5.0, Absolute Lymphs (auto) 0.98, Nucleated RBC % 0, Sodium 142, Potassium 4.1, Chloride 110 H, Carbon Dioxide 24.3, Anion Gap 8, BUN 18, Creatinine 1.20, Estim Creat Clear Calc 45.13 L, Est GFR (MDRD) Non-Af 60, BUN/Creatinine Ratio 14.9, Glucose 91, Calcium 7.8 D/C Instructions Return to work on: 11/05/24 Additional Activity Instructions: push fluids avoid straining Call your doctor if your incision/area has: Continuous Slow Oozing and Sudden Increased Bleeding Call your doctor if you observe: Fever of 101 or Higher, Inability to have a bowel movement and Uncontrolled pain Catheter: Billy to leg bag and Billy to large bag Drain: [place] DC O2, CPAP, BIPAP Needs Home O2 Discharge instructions: No Please Follow Up With: Chandrakant Velez MD When: appt in 10 days Meaningful Use Info Meaningful Use Meaningful Use Diagnoses (Choose all that apply): None applicable Discharge Plan Admission Admit Date/Time: 10/01/24 14:19 Primary Reason for Your Visit: robotic simple prostatecomy Attending Provider: Chandrakant Velez Primary Care Provider: DAVID CROFT Consulting Providers: Abhijit Gore; Zahida Croft Discharge Orders/Prescriptions Prescriptions: New docusate sodium [Colace] 100 mg capsule 100 mg PO BID Qty: 20 0RF oxycodone 5 mg tablet 5 mg PO Q6H PRN (Reason: pain) 7 Days Qty: 14 0RF Continued carvedilol 6.25 mg tablet 6.25 mg PO BID pravastatin 40 mg tablet 40 mg PO QHS amlodipine 2.5 mg tablet 2.5 mg PO 1800 folic acid 1 mg tablet 1 mg PO 1200 losartan 100 mg tablet 50 mg PO DAILY hydrochlorothiazide 12.5 mg tablet 12.5 mg PO 1200 loratadine 10 mg tablet 10 mg PO PRN magnesium oxide 400 mg (241.3 mg magnesium) tablet 400 mg PO 1200 turmeric 400 mg capsule 400 mg PO 1800 cyanocobalamin (vitamin B-12) [Vitamin B-12] 500 mcg tablet 500 mcg PO DAILY Active Q 200 mg capsule 200 mg PO QHS Discontinued terazosin 5 mg capsule 5 mg PO QHS tamsulosin 0.4 mg capsule 0.4 mg PO 1200 finasteride 5 mg tablet 5 mg PO 1800 Referrals / Follow Up: DAVID CROFT [Other] Chandrakant Velez MD [Med Staff - Active Staff] - Disposition Disposition (needs filled in before D/C Order can be placed): Home, Self Care
--- NOTE | 2024-10-04 10:11 | PN.URO_ITS ---
Subjective Subjective pt statate is was not feeling good this morning will transfused 1 unit of blood hold discharge, maybe home tomorrow. Objective Data Objective Data Vital Signs: Vital Signs Temp Pulse Resp BP Pulse Ox O2 Del Method 98.2 F 62 18 156/79 H 97 Room Air 10/04/24 07:49 10/04/24 07:49 10/04/24 07:49 10/04/24 07:49 10/04/24 07:49 10/04/24 07:49 Oxygen Delivery Method Room Air Weight: 76.657 kg Body Mass Index (BMI) 25.7 Intake & Output: Intake and Output for Last 24 Hours 10/02/24 10/03/24 10/04/24 23:59 23:59 23:59 Intake Total 2332.42 / 2332.42 1100 / 1100 500 / 500 Output Total 50858 / 87504 4350 / 4350 1100 / 1100 Balance -9817.58 / -9817.58 -3250 / -3250 -600 / -600 Lab / Micro Data 10/04/24 05:50 10/04/24 05:50 Labs: Laboratory Results - last 24 hr 10/04/24 05:50: WBC 7.0, RBC 2.76 L, Hgb 8.5 L, Hct 26.4 L, MCV 95.7 H, MCH 30.8, MCHC 32.2, RDW Std Deviation 51.4 H, RDW Coeff of Og 14.7 H, Plt Count 119 L, MPV 11.8, Immature Gran % (Auto) 0.600, Neut % (Auto) 71.1 H, Lymph % (Auto) 13.9 L, [place] % (Auto) 10.4 H, Eos % (Auto) 3.7, Baso % (Auto) 0.3, Absolute Neuts (auto) 5.0, Absolute Lymphs (auto) 0.98, Nucleated RBC % 0, Sodium 142, Potassium 4.1, Chloride 110 H, Carbon Dioxide 24.3, Anion Gap 8, BUN 18, Creatinine 1.20, Estim Creat Clear Calc 45.13 L, Est GFR (MDRD) Non-Af 60, BUN/Creatinine Ratio 14.9, Glucose 91, Calcium 7.8
--- NOTE | 2024-10-04 14:38 | NURSING ---
mylanta order indicates is an incorrect dose, spoke with pharmacists, states she has never seen [address] Velez paged again.
--- NOTE | 2024-10-04 16:03 | NURSING ---
Flushed catherer with ns 30 cc, no difficulty, and had immediate pink urine return. Odilon. well.
[2024-10-05 04:53] VITALS: BP 152/69; PULSE 67; RESP 16; TEMP 36.6; O2SAT 97
[2024-10-05 08:10] LABS: Hematocrit 29.8 % (40-54); Hemoglobin 9.7 g/dL (13.0-16.5); Immature Granulocytes Count 0.020 X10^3/uL (0.0-0.0); Mean Corp Hgb Conc 32.6 g/dL (32-36); Mean Corpuscular Volume 93.4 fL (80-94); Mean Platelet Vol. 10.6 fl (6.2-12.0); NRBC Flagged by Analyzer 0 % (0-5); Platelet Count 112 K/mm3 (150-450); RBC Distribution Width CV 15.4 % (11.6-14.6); RBC Distribution Width SD 52.4 fl (35.1-43.9); Red Blood Count 3.19 M/mm3 (4.6-6.2); White Blood Count 6.8 K/mm3 (4.4-11.0)
[2024-10-05 08:52] VITALS: BP 110/57; PULSE 68; RESP 16; TEMP 36.9; O2SAT 97
[2024-10-05 08:59] VITALS: PULSE 70
--- NOTE | 2024-10-05 09:03 | DS.PCM_ITS ---
Providers Date of Admission: 10/01/24 Date of Discharge: 10/05/24 Primary Care Physician: DAVID CROFT Consultations 10/02/24 09:05 Consult: Hospitalist Routine Consulting Provider: Zahida Croft Reason for Consult: chest pain EMERGENT Consult: No MD Notified: Yes Date Notified: 10/02/24 Time Notified: 09:05 Method of Notification: Text Reason For Visit: Prostatectomy,Supapubic,Simple Diagnosis Discharge Diagnosis (1) Chest pain: Status: Acute Code(s): R07.9 - Chest pain, unspecified (2) Elevated troponin: Status: Acute Code(s): R79.89 - Other specified abnormal findings of blood chemistry Medications at Discharge Home Medications amlodipine 2.5 mg tablet 2.5 mg PO 1800 09/17/24 carvedilol 6.25 mg tablet 6.25 mg PO BID 09/17/24 coQ10 (ubiquinol) 200 mg capsule (Active Q) 200 mg PO QHS prostate 09/17/24 cyanocobalamin (vitamin B-12) 500 mcg tablet (Vitamin B-12) 500 mcg PO DAILY 09/17/24 folic acid 1 mg tablet 1 mg PO 1200 09/17/24 hydrochlorothiazide 12.5 mg tablet 12.5 mg PO 1200 09/17/24 loratadine 10 mg tablet 10 mg PO PRN Allergis 09/17/24 losartan 100 mg tablet 50 mg PO DAILY 09/17/24 magnesium oxide 400 mg (241.3 mg magnesium) tablet 400 mg PO 1200 09/17/24 pravastatin 40 mg tablet 40 mg PO QHS 09/17/24 turmeric 400 mg capsule 400 mg PO 1800 Prostrate 09/17/24 docusate sodium 100 mg capsule (Colace) 100 mg PO BID #20 caps 10/01/24 oxycodone 5 mg tablet 5 mg PO Q6H PRN pain 7 days #14 tabs 10/01/24 Hospital Course Operations - (Prostatectomy simple robotic) Weight / BMI Weight Weight: 76.657 kg Body Mass Index (BMI) 25.7 ABG / Lab / Microbiology Data 10/05/24 08:02 10/04/24 05:50 Laboratory: Laboratory Results - last 24 hr 10/03/24 06:02: Blood Type B POSITIVE, Antibody Screen NEGATIVE, Crossmatch See Detail 10/05/24 08:02: WBC 6.8, RBC 3.19 L, Hgb 9.7 L, Hct 29.8 L, MCV 93.4, MCH 30.4, MCHC 32.6, RDW Std Deviation 52.4 H, RDW Coeff of Og 15.4 H, Plt Count 112 L, MPV 10.6, Immature Gran % (Auto) 0.300, Neut % (Auto) 70.2 H, Lymph % (Auto) 14.4 L, [place] % (Auto) 9.4, Eos % (Auto) 5.1 H, Baso % (Auto) 0.6, Absolute Neuts (auto) 4.8, Absolute Lymphs (auto) 0.98, Nucleated RBC % 0 D/C Instructions Return to work on: 11/05/24 Additional Activity Instructions: push fluids avoid straining Call your doctor if your incision/area has: Continuous Slow Oozing and Sudden Increased Bleeding Call your doctor if you observe: Fever of 101 or Higher, Inability to have a bowel movement and Uncontrolled pain Catheter: Billy to leg bag and Billy to large bag Drain: [place] DC O2, CPAP, BIPAP Needs Home O2 Discharge instructions: No Please Follow Up With: Chandrakant Velez MD When: appt in 10 days Meaningful Use Info Meaningful Use Meaningful Use Diagnoses (Choose all that apply): None applicable Discharge Plan Admission Admit Date/Time: 10/04/24 13:28 Primary Reason for Your Visit: robotic simple prostatecomy Attending Provider: Chandrakant Velez Primary Care Provider: DAVID CROFT Consulting Providers: Abhijit Gore; Zahida Croft Discharge Orders/Prescriptions Prescriptions: New docusate sodium [Colace] 100 mg capsule 100 mg PO BID Qty: 20 0RF oxycodone 5 mg tablet 5 mg PO Q6H PRN (Reason: pain) 7 Days Qty: 14 0RF Continued carvedilol 6.25 mg tablet 6.25 mg PO BID pravastatin 40 mg tablet 40 mg PO QHS amlodipine 2.5 mg tablet 2.5 mg PO 1800 folic acid 1 mg tablet 1 mg PO 1200 losartan 100 mg tablet 50 mg PO DAILY hydrochlorothiazide 12.5 mg tablet 12.5 mg PO 1200 loratadine 10 mg tablet 10 mg PO PRN magnesium oxide 400 mg (241.3 mg magnesium) tablet 400 mg PO 1200 turmeric 400 mg capsule 400 mg PO 1800 cyanocobalamin (vitamin B-12) [Vitamin B-12] 500 mcg tablet 500 mcg PO DAILY Active Q 200 mg capsule 200 mg PO QHS Discontinued terazosin 5 mg capsule 5 mg PO QHS tamsulosin 0.4 mg capsule 0.4 mg PO 1200 finasteride 5 mg tablet 5 mg PO 1800 Referrals / Follow Up: DAVID CROFT [Other] Chandrakant Velez MD [Med Staff - Active Staff] -
== END 2024-10-05 10:58 | disposition home or self-care (01) | DRG 707 ==
LOC: SDC 14:58 → MS3 14:58
PROVIDERS: Anesthesiology; Internal Medicine; Admitting Provider Urology; Referring Provider Urology; Visit Provider Urology
PROC: 0VT04ZZ Resection of Prostate, Percutaneous Endoscopic Approach (ICD-10-PCS; CPT 55867; principal; 2024-10-01 11:05)
DX: N40.1 Benign prostatic hyperplasia with lower urinary tract symptoms (principal); N13.8 Other obstructive and reflux uropathy; D69.6 Thrombocytopenia, unspecified; N18.32 Chronic kidney disease, stage 3b; I12.9 Hypertensive chronic kidney disease with stage 1 through stage 4 chronic kidney disease, or unspecified chronic kidney disease; E78.00 Pure hypercholesterolemia, unspecified; I25.10 Atherosclerotic heart disease of native coronary artery without angina pectoris; R07.9 Chest pain, unspecified; Z79.899 Other long term (current) drug therapy; R79.89 Other specified abnormal findings of blood chemistry; Z86.718 Personal history of other venous thrombosis and embolism; R33.9 Retention of urine, unspecified; Z95.1 Presence of aortocoronary bypass graft; R31.9 Hematuria, unspecified
CPT/HCPCS: 36415; 74018; 80048; 80053; 80076; 83735; 84100; 84484; 85025; 85610; 85730; 86850; 86900; 86901; 88307; 88309; 93005; 93306; 94668; P9016; J0744; J2405

== ENCOUNTER → 2024-10-28 | Outpatient (CLI) | payer MEDICARE, SELFPAY | END | disposition home or self-care (01) | LOC: LABSPEC 15:21 | PROVIDERS: Referring Provider Urology; Visit Provider Urology | DX: N39.0 Urinary tract infection, site not specified (principal) | CPT/HCPCS: 87077; 87086; 87088; 87186 ==